=== PATIENT | male | born 1945 | race Caucasian/White ===

== ENCOUNTER → 2016-05-09 | Outpatient (CLI) | payer OTHER, MEDICARE ==
[~2016-05-09] MED LIST: ASPI-232 PO; CETI10TA84 PO; EZET10TA63 PO; FLM4 PO; MULT-845 PO; OXYC5TAB PO; PRAV20TA PO; TRC145 PO
[2016-05-09 07:56] LABS: PATIENT HEIGHT 170.2 cm
[2016-05-09 10:35] LABS: CREATININE 0.98 mg/dl (0.6-1.4)
== END | disposition home or self-care (01) ==
LOC: C.LAB1850 07:43
PROVIDERS: ATTEND Internal Medicine Pulmonary Disease
DX: J84.112 Idiopathic pulmonary fibrosis (principal); Z01.818 Encounter for other preprocedural examination

== ENCOUNTER → 2017-03-22 | Outpatient (CLI) | payer OTHER, MEDICARE ==
[~2017-03-22] MED LIST changes: +NINT1CAP2 PO
[2017-03-22 12:00] LABS: ALBUMIN 3.8 gm/dl (3.4-5.0); AST/SGOT 20 U/L (15-37); BLOOD UREA NITROGEN 18 mg/dl (7-18); CALCIUM 9.3 mg/dl (8.5-10.1); CARBON DIOXIDE 27 mmol/L (21-32); CREATININE 1.14 mg/dl (0.60-1.40); GLUCOSE 88 mg/dl (70-99); POTASSIUM 3.9 mmol/L (3.5-5.1); SODIUM 138 mmol/L (136-145)
[2017-03-22 12:03] LABS: ALKALINE PHOSPHATASE 50 U/L (45-117); ALT/SGPT 28 U/L (12-78)
== END | disposition home or self-care (01) ==
LOC: C.LAB1850 09:25
PROVIDERS: ATTEND Internal Medicine Critical Care Medicine
DX: J84.9 Interstitial pulmonary disease, unspecified (principal); Z79.899 Other long term (current) drug therapy

== ENCOUNTER → 2017-06-06 | Outpatient (CLI) | payer OTHER, MEDICARE ==
[~2017-06-06] MED LIST changes: -NINT1CAP2 PO
[2017-06-06 11:27] LABS: ALBUMIN 3.6 gm/dl (3.4-5.0)
== END | disposition home or self-care (01) ==
LOC: C.LAB1850 10:14
PROVIDERS: ATTEND Internal Medicine Critical Care Medicine
DX: J84.112 Idiopathic pulmonary fibrosis (principal)

== ENCOUNTER → 2017-07-03 | Outpatient (CLI) | payer OTHER, MEDICARE ==
[2017-07-03 15:58] LABS: ALBUMIN 3.4 gm/dl (3.4-5.0); TOTAL PROTEIN 8.3 gm/dl (6.4-8.2)
== END | disposition home or self-care (01) ==
LOC: C.LAB1850 13:57
PROVIDERS: ATTEND Internal Medicine Critical Care Medicine
DX: Z99.81 Dependence on supplemental oxygen (principal)

== ENCOUNTER → 2017-08-03 | Outpatient (CLI) | payer OTHER, MEDICARE ==
[2017-08-03 15:12] LABS: ALBUMIN 3.6 gm/dl (3.4-5.0); TOTAL PROTEIN 8.1 gm/dl (6.4-8.2)
== END | disposition home or self-care (01) ==
LOC: C.LAB1850 13:06
PROVIDERS: ATTEND Internal Medicine Critical Care Medicine
DX: Z99.81 Dependence on supplemental oxygen (principal)

== ENCOUNTER → 2017-11-05 | Outpatient (CLI) | payer OTHER, MEDICARE ==
[~2017-11-05] MED LIST changes: -EZET10TA63 PO; +NINT1CAP2 PO; -OXYC5TAB PO
[2017-11-05 10:56] LABS: ALBUMIN 3.6 gm/dl (3.4-5.0)
== END | disposition home or self-care (01) ==
LOC: C.LAB1850 09:39
PROVIDERS: ATTEND Internal Medicine Critical Care Medicine
DX: J84.112 Idiopathic pulmonary fibrosis (principal)

== ENCOUNTER 2023-12-18 11:35 | Inpatient (IN) ==
--- NOTE | 2023-12-18 11:58 | Emergency Department Note ---
Impression & Plan Hyponatremia, Syncope, CKD (chronic kidney disease) stage 3, GFR 30-59 ml/min, Pulmonary fibrosis ED Provider Note NAME: ELIDA GUARDADO AGE: 78 SEX: M : 1945 ARRIVES VIA: Ambulance INFORMANT: Patient ED PROVIDER(S): Santo Lynch DO CHIEF COMPLAINT: syncope HPI: Patient is a 78-year-old male with a past medical history of CKD, renal failure, pulmonary fibrosis with lung transplant who presents to the ER for syncopal episode. He notes he was up walking and became lightheaded and passed out. He was lowered to the ground by his . Denies any headache or change in vision. No chest pain or shortness of breath preceding or following the episode. He did have some nausea. No dysuria, urgency, or frequency. No belly pain. No other exacerbating or remitting factors. ADDITIONAL HISTORY OBTAINED: Per HPI Chronic Medical/Social Conditions Affecting Care: Per HPI PAST MEDICAL HISTORY:See Below PAST SURGICAL HISTORY:See Below FAMILY HISTORY:See Below SOCIAL HISTORY:See Below HOME MEDICATIONS:See Below ALLERGIES:See Below VITALS:See Below PHYSICAL EXAMINATION: GENERAL: Sitting up in bed, alert, well appearing, well nourished, no distress, non-toxic EYE EXAM: normal conjunctiva. PERRL and EOM's grossly intact. OROPHARYNX: mucous membranes are moist NECK: supple, no nuchal rigidity, no adenopathy, non-tender LUNGS: Clear to auscultation. Normal chest wall mechanics HEART: no murmurs, S1 normal and S2 normal ABDOMEN: abdomen soft, non-tender, normo-active bowel sounds, no masses, no rebound or guarding. UPPER EXTREMITIES: upper extremities are grossly normal. LOWER EXTREMITIES: No pitting edema. NEURO EXAM: Normal sensorium, cranial nerves II-XII grossly intact, normal speech, no gross weakness of arms, no gross weakness of legs. MEDICAL DECISION MAKING: Patient is a 78-year-old male who presents ER for the above-stated complaint. IV was established medicos obtained. Labs show no significant leukocytosis. Mild anemia fairly consistent with previous that he. BMP with hyponatremia 126 and hyperkalemia 5.2. Creatinine at 2 which appears to be fairly consistent with baseline. LFTs bilirubin is unremarkable. UA was clean. Additional history was obtained from who notes that patient was lowered to the ground did not fall. Chest x-ray was clean. Patient was updated bedside discussed with the hospitalist for further evaluation management treatment. Consults/Care Managements Discussions: Per MDM Triage Nursing notes reviewed. Limited review of prior medical records performed Vital Signs: reviewed and remarkable for no significant abnormalities Differential diagnosis: Differential diagnosis includes etiologies such as sepsis, UTI, pneumonia, metabolic, electrolyte abnormalities, cardiac sources, intracerebral event, toxicologic, neurological, as well as others were entertained. ER treatment provided: See below Diagnostics interpreted by me include EKG and cardiac monitoring as listed below: -Cardiac Monitoring: An order was placed for continuous cardiac monitoring. The monitor shows a rate of 80 with sinus rhythm. -ECG: Sinus rhythm rate 86 Normal axis No PVCs QTc 442 -Laboratory studies:Interpreted by me as stated above in MDM and shown below. 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) CKD (chronic kidney disease) stage 3, GFR 30-59 ml/min (Acute) Pulmonary fibrosis (Acute) Medical History (Updated 12/18/23 @ 16:18 by Santo Lynch DO) Anemia of chronic disease Interstitial lung disease Allergic rhinitis Spinal stenosis Right inguinal hernia Lumbar herniated disc BPH (benign prostatic hyperplasia) History of blood transfusion 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 History of tonsillectomy History of cardiac cath DIAGNOSTIC CATH FOR WORKUP FOR LUNG TRANSPLANT. History of colonoscopy Last one 11/2022 Family History Mother , 91yo Cancer Endometrial and breast cancer Dementia Hypertension Father , in his 80s Dementia Brother Myocardial infarction Sister Skin cancer Daughter No problems noted. 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 [employer] How many Children do You have: 2 Other Information That Helps Us Care for You: No Feels Safe at Home: Yes Safety Concerns: Feels Safe At This Time Diet: regular caffeine: Yes (10oz/day) during the past year weight has: decreased > 10 lbs Assistive Devices: Denture - Upper Allergies Allergies Allergy/AdvReac Type Severity Reaction Status Date / Time adhesive Allergy Intermediate REDENESS Verified 11/20/23 14:44 AND ITCHY Home Meds Home Medications Medication Instructions Recorded Confirmed pravastatin 20 mg tablet 20 mg PO QAM #0 tabs 02/04/16 12/18/23 tamsulosin 0.4 mg capsule 1 cap PO QAM ##0 02/04/16 12/18/23 mycophenolate mofetil 500 mg tablet 750 mg PO BID 06/02/18 12/18/23 sulfamethoxazole 800 0.5 tab PO 3XWK 06/02/18 12/18/23 mg-trimethoprim 160 mg tablet tacrolimus 1 mg capsule, 2 mg PO BID 06/02/18 12/18/23 immediate-release azithromycin 250 mg tablet 250 mg PO 3XWK 01/15/19 12/18/23 aspirin 81 mg tablet,delayed 81 mg PO DAILY 11/21/22 12/18/23 release montelukast 10 mg tablet 10 mg PO DAILY 11/21/22 12/18/23 prednisone 5 mg tablet 5 mg PO DAILY 11/21/22 12/18/23 acetaminophen 325 mg capsule 650 mg PO QID PRN pain or fever 09/05/23 12/18/23 (Tylenol) epoetin pavel-epbx 40,000 unit/mL 40,000 unit subcut .Weekly 09/05/23 12/18/23 injection solution (Retacrit) ergocalciferol (vitamin D2) 1,250 50,000 unit PO .QOweek 09/05/23 12/18/23 mcg (50,000 unit) capsule (Vitamin D2) everolimus (immunosuppressive) 0.5 1 mg PO .In the AM 09/05/23 12/18/23 mg tablet (Zortress) everolimus (immunosuppressive) 0.5 1.5 mg PO .In afternoon 09/05/23 12/18/23 mg tablet (Zortress) fluticasone propionate 50 2 spray intranasal HS 09/05/23 12/18/23 mcg/actuation nasal spray,suspension (Flonase Allergy Relief) guaifenesin 600 mg tablet, 600 mg PO Q12H PRN Congestion 09/05/23 12/18/23 extended release 12 hr lisinopril 5 mg tablet 5 mg PO DAILY 09/05/23 12/18/23 pantoprazole 40 mg tablet,delayed 40 mg PO DAILY 09/05/23 12/18/23 release sodium bicarbonate 650 mg tablet 1,300 mg PO BID 09/05/23 12/18/23 mirtazapine 15 mg tablet (Remeron) 15 mg PO DAILY 11/05/23 12/18/23 Previous Rx's Medication Instructions Recorded silver sulfadiazine 1 % topical 1 applic topical BID Radiation 11/12/23 cream (Silvadene) dermatitis #85 grams Results & Data (ED) Vital Signs Vital Signs - 24 hr 12/18/23 12:32 12/18/23 12:35 12/18/23 12:35 Temperature 36.7 C 36.7 C Temperature Source Oral Oral Pulse Rate 81 Pulse Rate [Left Finger] 81 Respiratory Rate 17 17 Respiratory Effort / Characteristics Non-Labored Spontaneous Non-Labored Spontaneous Blood Pressure 123/67 Blood Pressure [Right Arm] 123/67 Blood Pressure Mean 85 Blood Pressure Mean [Right Arm] 85 Blood Pressure Position Lying Blood Pressure Position [Right Arm] Lying Pulse Oximetry 99 99 99 Oxygen Delivery Method Room Air Room Air Room Air Oxygen Flow Rate 0 Sepsis Recent Fever Within 48 Hours No Sepsis New/Unexplained Change in Mental Status No Sepsis Action Taken by Nursing No Action Required 12/18/23 12:35 12/18/23 12:37 Temperature Temperature Source Pulse Rate 81 87 Pulse Rate [Left Finger] Respiratory Rate 17 Respiratory Effort / Characteristics Blood Pressure Blood Pressure [Right Arm] Blood Pressure Mean Blood Pressure Mean [Right Arm] Blood Pressure Position Blood Pressure Position [Right Arm] Pulse Oximetry 99 Oxygen Delivery Method Room Air Oxygen Flow Rate Sepsis Recent Fever Within 48 Hours Sepsis New/Unexplained Change in Mental Status Sepsis Action Taken by Nursing Laboratory Data 12/18/23 12:23 12/18/23 12:23 Lab Results 12/18/23 12/18/23 Range/Units 12:23 12:50 WBC 9.69 (4.8-10.8) K/ul RBC 2.52 L (4.70-6.10) M/uL Hgb 8.1 L (14.0-18.0) g/dl Hct 25.5 L (42.0-52.0) % MCV 101.2 H (80.0-100.0) fL MCH 32.1 (25.0-34.0) pg MCHC 31.8 L (32.0-36.0) g/dL RDW Std Deviation 51.3 H (36.4-46.3) fL RDW Coeff of Rodríguez 13.9 (11.5-14.5) % Plt Count 100 L (130-400) K/uL MPV 10.4 (9.4-12.4) fL Immature Gran % (Auto) 0.4 % Neut % (Auto) 94.1 % Lymph % (Auto) 1.5 % Lamb % (Auto) 3.9 % Eos % (Auto) 0.0 % Baso % (Auto) 0.1 % Neut # (Auto) 9.11 H (1.40-6.50) K/uL Lymph # (Auto) 0.15 L (1.20-3.40) K/uL Lamb # (Auto) 0.38 (0.11-0.59) K/uL Eos # (Auto) 0.00 (0.00-0.50) K/uL Baso # (Auto) 0.01 (0.00-0.20) K/uL Immature Gran # (Auto) 0.04 (0.01-0.20) K/uL Polychromasia 1+ Tear Drop Cells 1+ Sodium 126 L (136-145) mmol/L Potassium 5.2 H (3.5-5.1) mmol/L Chloride 97 L (98-107) mmol/L Carbon Dioxide 19 L (21-32) mmol/L Anion Gap 10 (3-11) BUN 39 H (6-23) mg/dl Creatinine 2.07 H (0.6-1.4) mg/dl Est Cr Clr Drug Dosing 24.4 ml/min Est GFR ( Amer) 34.3 ml/min Est GFR (Non-Af Amer) 29.6 ml/min BUN/Creatinine Ratio 18.8 (10-20) Glucose 104 H (70-99(Fasting)) mg/dl Osmolality 275 L (280-300) mOsm/kg Calcium 8.7 (8.6-10.3) mg/dl Total Bilirubin 0.4 (0.2-1.0) mg/dl AST 16 (13-39) U/L ALT 6 L (7-52) U/L Alkaline Phosphatase 85 (34-104) U/L Troponin I High Sens 8.2 (0-20) pg/ml Total Protein 6.0 (6.0-8.3) gm/dl Albumin 3.4 (3.4-5.0) gm/dl Globulin 2.6 (2.5-4.0) gm/dl Albumin/Globulin Ratio 1.3 (0.9-2) Lipase 11 (11-82) U/L Urine Color Yellow Urine Appearance Clear (Clear) Urine pH 6.0 (4.5-7.5) Ur Specific [place] 1.016 (1.000-1.030) Urine Protein 1+ H (Negative) Urine Glucose (UA) Negative (Negative) Urine Ketones Negative (Negative) Urine Blood Trace H (Negative) Urine Nitrite Negative (Negative) Urine Bilirubin Negative (Negative) Urine Urobilinogen Negative (Negative) Ur Leukocyte Esterase Negative (Negative) Urine WBC (Auto) 0-5 (0-5) /hpf Urine RBC (Auto) 0-2 (0-2) /hpf U Hyaline Cast (Auto) 3-5 H (0-2) /lpf U Epithel Cells (Auto) 0-2 (0-2) /hpf Urine Bacteria (Auto) None Seen (None Seen) Imaging Data Radiologist's Impression: Chest X-Ray 12/18/23 11:52 XR chest 1V portable CLINICAL HISTORY: Chest pain, nonspecific TECHNIQUE: Single frontal radiograph of the chest was obtained. Comparison: Comparison is made to chest radiograph 06/02/2018 FINDINGS: No lines and tubes are seen. The cardiomediastinal silhouette is normal. Elevation of the right hemidiaphragm is seen. Likely interstitial changes in the right lung. No evidence of pleural effusion or pneumothorax. IMPRESSION: Right interstitial lung disease is again seen. ACT 112: Negative or not required by law. Electronically signed by: Deniz oGmez M.D. 12/18/2023 12:44 PM Discharge Plan Visit Data Chief Complaint: Syncope ED Provider: Santo Lynch Discharge Problem: Hyponatremia, Syncope, CKD (chronic kidney disease) stage 3, GFR 30-59 ml/min, Pulmonary fibrosis Patient Disposition: Admitted As Inpatient Discharge Instructions Interventions: ED Discharge Assessment Last Done: 12/18/23 15:39 Discharge Problem: Syncope Qualifiers: Encounter type: initial encounter CKD (chronic kidney disease) stage 3, GFR 30-59 ml/min Qualifiers: Chronic kidney disease stage 3 subtype: unspecified whether 3a or 3b Qualified Code(s): N18.30 - Chronic kidney disease, stage 3 unspecified
[2023-12-18 12:44] LABS: Hematocrit (blood only) 25.5 % (42.0-52.0); Hemoglobin 8.1 g/dl (14.0-18.0); Mean Corpuscular Hemoglobin 32.1 pg (25.0-34.0); Mean Corpuscular Hgb Conc 31.8 g/dL (32.0-36.0); Mean Corpuscular Volume 101.2 fL (80.0-100.0); Mean Platelet Volume 10.4 fL (9.4-12.4); Platelet Count 100 K/uL (130-400); RDW Coefficient of Variation 13.9 % (11.5-14.5); RDW Standard Deviation 51.3 fL (36.4-46.3); Red Blood Count 2.52 M/uL (4.70-6.10); White Blood Count 9.69 K/ul (4.8-10.8)
--- NOTE | 2023-12-18 12:47 | XRay Report ---
XR chest 1V portable CLINICAL HISTORY: Chest pain, nonspecific TECHNIQUE: Single frontal radiograph of the chest was obtained. Comparison: Comparison is made to chest radiograph 06/02/2018 FINDINGS: No lines and tubes are seen. The cardiomediastinal silhouette is normal. Elevation of the right hemid iaphragm is seen. Likely interstitial changes in the right lung. No evidence of pleural effusion or p neumothorax. IMPRESSION: Right interstitial lung disease is again seen. ACT 112: Negative or not required by law. Electronically signed by: Deniz Gomez M.D. 12/18/2023 12:44 PM
[2023-12-18 13:03] LABS: Basophils # (auto) 0.01 K/uL (0.00-0.20); Basophils % (auto) 0.1 %; Immature Granulocytes # (auto) 0.04 K/uL (0.01-0.20); Immature Granulocytes % (auto) 0.4 %; Lymphocytes # (auto) 0.15 K/uL (1.20-3.40); Lymphocytes % (auto) 1.5 %; Monocytes # (auto) 0.38 K/uL (0.11-0.59); Monocytes % (auto) 3.9 %; Neutrophils # (auto) 9.11 K/uL (1.40-6.50); Neutrophils % (auto) 94.1 %; Polychromasia 1+; Tear Drop Cells 1+
[2023-12-18 13:07] LABS: Albumin Globulin Ratio 1.3 (0.9-2); Albumin Level 3.4 gm/dl (3.4-5.0); BUN Creatinine Ratio 18.8 (10-20); Bilirubin,Total 0.4 mg/dl (0.2-1.0); Calcium 8.7 mg/dl (8.6-10.3); Creatinine Clr Calc Pharmacy 24.4 ml/min; Est GFR (African American) 34.3 ml/min; Est GFR (Non-African American) 29.6 ml/min; Globulin 2.6 gm/dl (2.5-4.0); Potassium 5.2 mmol/L (3.5-5.1)
[2023-12-18 13:12] LABS: Troponin I High Sensitivity 8.2 pg/ml (0-20)
[2023-12-18 13:24] LABS: Appearance Urine Clear (Clear); Bacteria Urine Automated None Seen (None Seen); Bilirubin Urine Negative (Negative); Blood Urine Trace (Negative); Color Urine Yellow; Epithelial Cell Urine Auto 0-2 /hpf (0-2); Glucose Urine UA Negative (Negative); Ketones Urine Negative (Negative); Leukocyte Esterase Urine Negative (Negative); Nitrite Urine Negative (Negative); Protein Urine 1+ (Negative); RBC Urine Automated 0-2 /hpf (0-2); Specific Gravity Urine 1.016 (1.000-1.030); Urobilinogen Urine Negative (Negative); WBC Urine Automated 0-5 /hpf (0-5)
--- NOTE | 2023-12-18 13:47 | History & Physical Report ---
Date of Service December 18, 2023 Assessment & Plan (1) Syncope: (2) Hyponatremia: (3) Squamous cell carcinoma of head and neck: (4) CKD (chronic kidney disease) stage 4, GFR 15-29 ml/min: (5) Anemia of chronic disease: (6) Interstitial lung disease: (7) Pulmonary fibrosis: (8) Lung transplant recipient: (9) BPH (benign prostatic hyperplasia): Plan This is a 78-year-old male with PMH of interstitial lung disease, history of left lung transplant in [address] [facility], history of bronchiolitis obliterans syndrome following lung transplant, h/o PE but Eliquis discontinued in Nov 2022 following upper GI bleed, thrombocytopenia, CKD 4, nonobstructive CAD, BPH, SCC R face (s/p recent Mohs surgery on R ear, XRT) and other medical problems listed below who presents from home after witnessed syncopal episode earlier this afternoon. Syncope Likely vasovagal in setting of poor PO intake, positional change History of non-obstructive CAD in the past, hyperkalemia Orthostatics, correct electrolyte abnormalities, monitor on tele, 2D echo Fall precautions PT/OT evaluation Hyponatremia Sodium of 126 (baseline Na 134) Follows with nephro for worsening CKD, chronic NAGMA Missed doses of sodium bicarb due to some post-radiation dysphagia and difficulty with pill size Serum osm, urine osm, urine lyes pending Appears euvolemic Routine nephro consult Repeat BMP this evening Dysphagia in setting of SCC of ear s/p treatment Recently underwent Mohs surgery for SCC followed by XRT with [facility], which completed at beginning of Nov Endorsing worsened dysphagia since then Speech consult, aspiration precautions CKD IV Recent baseline Cr @ 2.2, started following with nephro last year Hyperkalemia Intermittent need for Lokelma Initial K mildly elevated at 5.2 today Repeat BMP this evening, nephro consulted as above Anemia of chronic disease Hgb 8.1, improved from recent Dose of weekly Procrit recently increased but missed tx at nephro appt today due to hospitalization Daily CBC ILD/ pulmonary fibrosis S/p single lung transplant in 2018, [facility] Respiratory status at baseline No infectious concerns, CXR at baseline Continue his immunosuppressive medications (everolimus, Cellcept, prednisone) and chronic suppressive antibiotics 3d/wk (azithromycin, Bactrim) Continue Mucinex, Singulair History of PE and DVT Occurred in post-op setting in 2018 Eliquis discontinued in 2022 following upper GI bleeding, ongoing anemia of chronic disease BPH Continue Flomax Thrombocytopenia Plts ~ 100, at baseline Monitor with daily CBC Hyperlipidemia Continue statin DVT Ppx: SCDs for now, plan to add chemical VTE if platelets remain stable, no hematuria Code status: FULL PCP: Dawson Dispo: Admitted to PCU Patient seen in collaboration with Dr. Dugan. Please see addendum. I spent a total of 75 minutes coordinating, documenting, and providing care for this patient excluding time spent in the performance of separately billed services. History of Present Illness Chief Complaint: syncope Primary Care Provider: Gino Osman MD This is a 78-year-old male with PMH of interstitial lung disease, history of left lung transplant in [address] [facility], history of bronchiolitis obliterans syndrome following lung transplant, h/o PE but Eliquis discontinued in Nov 2022 following upper GI bleed, thrombocytopenia, CKD 4, nonobstructive CAD, BPH, SCC R face (s/p recent Mohs surgery on R ear, XRT) and other medical problems listed below who presents from home after witnessed syncopal episode earlier this afternoon. 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 Ever since then, patient endorses feeling more run down and nauseated. Denies vomiting but has trouble clearing phlegm. Had difficulty with swallowing which has remained an intermittent issue he attributes to radiation in that area of his face/neck. Drinks a lot of water overnight and has had decreased PO intake lately in setting of the nausea. Walked downstairs today and when he reached the bottom felt lightheaded and passed out. was able to ease him to the ground and states he came to quickly. No head trauma. No CP or SOB preceding or after the event. Has worsening anemia of chronic disease and follows with nephro for this. Recently had procrit dose increased from 40 to 60 weekly but missed appt for that today due to coming to ED instead. Also supposed to be taking sodium bicarb for history of NAGMA and admits to missing a few doses last week. Recently seen at [facility] in [place] for hernia repair and while admitted there was noted to have hyperkalemia. Completed a short course of Lokelma with improvement. Denies any recent medication changes. No F/C, headache, CP, palpitations, SOB, vomiting, abd pain, dysuira or constipation. History of chronic diarrhea which is at baseline. Allergies Allergy/AdvReac Type Severity Reaction Status Date / Time adhesive Allergy Intermediate REDENESS Verified 11/20/23 14:44 AND ITCHY Home Medications Medication Instructions Recorded Confirmed Type pravastatin 20 mg tablet 20 mg PO QAM #0 tabs 02/04/16 12/18/23 History tamsulosin 0.4 mg capsule 1 cap PO QAM ##0 02/04/16 12/18/23 History mycophenolate mofetil 500 mg tablet 750 mg PO BID 06/02/18 12/18/23 History sulfamethoxazole 800 0.5 tab PO 3XWK 06/02/18 12/18/23 History mg-trimethoprim 160 mg tablet tacrolimus 1 mg capsule, 2 mg PO BID 06/02/18 12/18/23 History immediate-release azithromycin 250 mg tablet 250 mg PO 3XWK 01/15/19 12/18/23 History aspirin 81 mg tablet,delayed 81 mg PO DAILY 11/21/22 12/18/23 History release montelukast 10 mg tablet 10 mg PO DAILY 11/21/22 12/18/23 History prednisone 5 mg tablet 5 mg PO DAILY 11/21/22 12/18/23 History acetaminophen 325 mg capsule 650 mg PO QID PRN pain or fever 09/05/23 12/18/23 History (Tylenol) epoetin pavel-epbx 40,000 unit/mL 40,000 unit subcut .Weekly 09/05/23 12/18/23 History injection solution (Retacrit) ergocalciferol (vitamin D2) 1,250 50,000 unit PO .QOweek 09/05/23 12/18/23 History mcg (50,000 unit) capsule (Vitamin D2) everolimus (immunosuppressive) 0.5 1 mg PO .In the AM 09/05/23 12/18/23 History mg tablet (Zortress) everolimus (immunosuppressive) 0.5 1.5 mg PO .In afternoon 09/05/23 12/18/23 History mg tablet (Zortress) fluticasone propionate 50 2 spray intranasal HS 09/05/23 12/18/23 History mcg/actuation nasal spray,suspension (Flonase Allergy Relief) guaifenesin 600 mg tablet, 600 mg PO Q12H PRN Congestion 09/05/23 12/18/23 History extended release 12 hr lisinopril 5 mg tablet 5 mg PO DAILY 09/05/23 12/18/23 History pantoprazole 40 mg tablet,delayed 40 mg PO DAILY 09/05/23 12/18/23 History release sodium bicarbonate 650 mg tablet 1,300 mg PO BID 09/05/23 12/18/23 History mirtazapine 15 mg tablet (Remeron) 15 mg PO DAILY 11/05/23 12/18/23 History silver sulfadiazine 1 % topical 1 applic topical BID Radiation 11/12/23 12/18/23 Rx cream (Silvadene) dermatitis #85 grams Past Med/Surg History Problem List (Updated 12/18/23 @ 15:05 by Cindy Aguilar PA-C) Syncope Hyponatremia CKD (chronic kidney disease) stage 4, GFR 15-29 ml/min Squamous cell carcinoma of head and neck (Chronic 07/12/23) CKD (chronic kidney disease) stage 3, GFR 30-59 ml/min Pulmonary fibrosis Medical History (Updated 12/18/23 @ 15:05 by Cindy Aguilar PA-C) Anemia of chronic disease Interstitial lung disease Allergic rhinitis Spinal stenosis Right inguinal hernia Lumbar herniated disc BPH (benign prostatic hyperplasia) History of blood transfusion 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 History of tonsillectomy History of cardiac cath DIAGNOSTIC CATH FOR WORKUP FOR LUNG TRANSPLANT. History of colonoscopy Last one 11/2022 Family History Mother , 91yo Cancer Endometrial and breast cancer Dementia Hypertension Father , in his 80s Dementia Brother Myocardial infarction Sister Skin cancer Daughter No problems noted. 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 Physical Exam Physical Exam: General Appearance: WD/WN, vitals as above, NAD, sitting up in bed, thin, chronically ill appearing, pleasant Head: normocephalic, atraumatic Eyes: normal inspection, PERRL, conjunctivae normal, anicteric sclerae ENT: + R external ear s/p surgical excision with deformity noted, oropharynx normal Neck: normal visual inspection, trachea midline, no thyromegaly Respiratory: normal respiratory effort, coarse breath sounds bilaterally. No accessory muscle use Cardiovascular: regular rate, rhythm, normal peripheral pulses, no BLE edema. Vessels: no JVD Chest: normal inspection of chest Abdomen/GI: normal bowel sounds, soft, nontender, no hepatosplenomegaly Extremities/Musculoskeletal: no cyanosis or clubbing, extremities motor strength 5/5 Neurologic: PERRL, EOMI, accommodation nl, no face palsy, no dysarthria, CN's II-XI intact bilaterally and moves all extremities Psychiatric: A+Ox3, euthymic affect Skin: no rashes, normal color, warm/dry Results & Data Results & Data Vital Signs (Past 12 Hours) Vital Signs Temp Pulse Pulse Resp BP BP Pulse Ox 12/18/23 12:37 87 12/18/23 12:35 81 17 99 12/18/23 12:35 36.7 C 81 17 123/67 99 12/18/23 12:35 99 12/18/23 12:32 36.7 C 81 17 123/67 99 O2 Del Method O2 Flow Rate 12/18/23 12:37 12/18/23 12:35 Room Air 12/18/23 12:35 Room Air 12/18/23 12:35 Room Air 0 12/18/23 12:32 Room Air Laboratory Results Short CBC 12/18/23 Range/Units 12:23 WBC 9.69 (4.8-10.8) K/ul Hgb 8.1 L (14.0-18.0) g/dl Hct 25.5 L (42.0-52.0) % Plt Count 100 L (130-400) K/uL BMP 12/18/23 12:23 Sodium 126 L Potassium 5.2 H Chloride 97 L Carbon Dioxide 19 L BUN 39 H Creatinine 2.07 H Glucose 104 H Calcium 8.7 Liver Function 12/18/23 Range/Units 12:23 Total Bilirubin 0.4 (0.2-1.0) mg/dl AST 16 (13-39) U/L ALT 6 L (7-52) U/L Alkaline Phosphatase 85 (34-104) U/L Albumin 3.4 (3.4-5.0) gm/dl Urine 12/18/23 Range/Units 12:50 Urine Color Yellow Urine Appearance Clear (Clear) Urine pH 6.0 (4.5-7.5) Ur Specific [place] 1.016 (1.000-1.030) Urine Protein 1+ H (Negative) Urine Glucose (UA) Negative (Negative) Diagnostic Findings Chest X-Ray 12/18/23 11:52 XR chest 1V portable CLINICAL HISTORY: Chest pain, nonspecific TECHNIQUE: Single frontal radiograph of the chest was obtained. Comparison: Comparison is made to chest radiograph 06/02/2018 FINDINGS: No lines and tubes are seen. The cardiomediastinal silhouette is normal. Elevation of the right hemidiaphragm is seen. Likely interstitial changes in the right lung. No evidence of pleural effusion or pneumothorax. IMPRESSION: Right interstitial lung disease is again seen. ACT 112: Negative or not required by law. Electronically signed by: Deniz Gomez M.D. 12/18/2023 12:44 PM Supervising Physician Co-Signing Physician Notes 78-year-old male admitted with syncopal/presyncopal episode. Patient seen in the ED with Cindy Aguilar PA-C. His is present. Total of 13 minutes spent in the care coordination of this patient. I agree with the assessment and plan per the SHAUNNA.
--- NOTE | 2023-12-18 15:12 | Electrocardiogram Report ---
Test Reason : Blood Pressure : */* mmHG Vent. Rate : 86 BPM Atrial Rate : 86 BPM P-R Int : 190 ms QRS Dur : 92 ms QT Int : 370 ms P-R-T Axes : 52 30 64 degrees QTcB Int : 442 ms Normal sinus rhythm Normal ECG When compared with ECG of 21-Nov-2022 19:47, No significant change was found Confirmed by River Levy ([id number]) on 12/18/2023 3:12:01 PM Referred By: REFERRED SELF Confirmed By: River Levy
[2023-12-18] MEDS ORDERED: POLYETHYLENE (MIRALAX) 17 GM PACK PO PRN (15:50)
[2023-12-18] MEDS ORDERED: guaiFENesin 600 MG TABCR PO PRN (15:50)
[2023-12-18] MEDS: ERGOCALCIFEROL 1250 MCG (50,000 UNITS) CAP PO SCH (17:52)
[2023-12-18] MEDS: SODIUM CHLORIDE 0.9% 1,000 ML IV SCH (18:50)
[2023-12-18 19:25] LABS: Calcium 8.6 mg/dl (8.6-10.3); Creatinine Clr Calc Pharmacy 21.8 ml/min; Est GFR (African American) 33.7 ml/min; Est GFR (Non-African American) 29.1 ml/min; Potassium 5.5 mmol/L (3.5-5.1)
[2023-12-18 19:29] LABS: Urine Potassium 29.7 mmol/L
[2023-12-18] MEDS: FLUTICASONE PROPIONATE NA SPR 16 GM BTL NAE SCH (21:04)
[2023-12-18] MEDS: MYCOPHENOLATE MOFETIL 250 MG CAP PO SCH (21:04)
[2023-12-18] MEDS: TACROLIMUS 1 MG CAP PO SCH (21:05)
[2023-12-18] MEDS: SODIUM BICARBONATE 650 MG TAB PO SCH (21:05)
[2023-12-18] MEDS: SILVER SULFADIAZINE 1% CR 50 GM JAR TOP SCH (21:09)
[2023-12-18] MEDS: ACETAMINOPHEN 325 MG TAB PO PRN (21:23)
--- OUTSIDE RECORDS SUMMARY | 2023-12-18 22:12 | External Medical Summary | Summary of Care ---
Author Name Unknown Organization [facility] Address [address] [facility] [place] [address] Phone [phone] Care Team Providers Care Advertising Statistical Clerk Name Role Phone Gino Osman MD Primary Care Provider Reason for Visit * Reason Onset Date Comments Medication Question 12/14/2023 Encounter Details Date Type Department Care Team (Late st Contact Info) Description 12/14/2023 Telephone NephrologyGabrielle [address] [facility] [place] [address] Ashely Chapa MD [address] [place] [address] Medication Question Allergies Active Allergy Reactions Criticality Noted Date Comments Adhesive Tape Itching High 11/21/2022 documented as of this encounter (statuses as of 12/14/2023) Medications Medication Sig Dispensed Refills Start Date End Date Status ASPIRIN EC 81 MG PO TBECIndications:Dysl ipidemia, goal LDL below 100,Mixed dyslipidemia Take one pill daily 100 Tab 3 09/22/2013 Active sulfamethoxazole-tri methoprim DS (BACTRIM DS) 800-160 MG per tabletIndications:M- W- Take 0.5 Tablets by mouth once a day on Sunday, Sunday, and Sunday only. 05/06/2018 Active pravastatin (PRAVACHOL) 20 MG TabletIndications:Dy slipidemia, goal LDL below 100,Mixed dyslipidemia Take 1 Tab by mouth daily. 90 Tab 1 05/16/2018 Active azithromycin (ZITHROMAX) 250 MG Tablet One tablet M-W-F 6 Tab 1 11/27/2018 Active mycophenolate (CELLCEPT) 500 MG Tablet Take 1.5 Tablets by mouth in the morning and 1.5 Tablets before bedtime. 1 Tab 08/26/2019 Active predniSONE (YOVANY) 5 MG TBEC Take by mouth. In the morning Active Everolimus 0.5 MG Oral Tablet (Zortress)Indication s:2 tablet 2 times aday 1 mg (1 Tab) in the AM 1.5 mg in the PM (3 tabs) Indications: 2 tablet 2 times aday 1 Tab 06/15/2020 Active Montelukast Sodium 10 MG Oral Tablet (Singulair) Take 1 Tablet by mouth. Takes in evening 09/01/2020 Active guaiFENesin ER 600 MG Oral Tablet Extended Release 12 Hour Take 1 Tablet by mouth. 02/24/2020 Active Tacrolimus 1 MG Oral Capsule (Prograf)Indications :History of lung transplant (HCC) Take 2 Capsules by mouth in the morning and 2 Capsules before bedtime. Takes 2 mg in the AM and 2 mg in the PM. 30 Cap 12/16/2020 Active Ergocalciferol 1.25 MG (71407 UT) Oral Capsule (Vitamin D2(Drisdol)) On Sunday bimonthly 12 Capsule 01/02/2023 Active Tamsulosin HCl 0.4 MG Oral Capsule (Flomax)Indications: BPH with obstruction/lower urinary tract symptoms TAKE ONE CAPSULE BY MOUTH IN THE MORNING 90 Capsule 3 04/01/2023 Active Fluticasone Propionate 50 MCG/ACT Nasal Suspension (Flonase) Administer 1 [place] into nostril in the morning and 1 [place] before bedtime. 05/01/2023 Active Saline Nasal [place] 0.65 % Nasal Solution (Mccool) Administer 1 [place] into nostril. 05/01/2023 Active Pantoprazole Sodium 40 MG Oral Tablet Delayed Release (Protonix) Take 1 Tablet by mouth in the morning. 90 Tablet 3 05/15/2023 Active Sodium Bicarbonate 650 MG Oral TabletIndications:Ch ronic kidney disease, stage 3b (HCC) Take 2 Tablets by mouth in the morning and 2 Tablets before bedtime. 360 Tablet 3 08/28/2023 Active Sodium Zirconium Cyclosilicate 10 GM Oral Packet (Lokelma) Take 1 Packet by mouth. 11/23/2023 Active Lisinopril 5 MG Oral Tablet (Prinivil) TAKE ONE TABLET BY MOUTH EVERY DAY IN THE MORNING. 30 Tablet 5 12/03/2023 Active Mirtazapine 15 MG Oral Tablet (Remeron) Take 1 Tablet by mouth at bedtime. 10/30/2023 Active Hospital, Clinic, or Other Facility Administered Medication Ordered Dose Route Frequency Start Date End Date Status Epoetin Rogelio 22845 UNIT/ML inj 60,000 UnitsIndications:Anemia of chronic renal failure, stage 3b (HCC) 55461 Units SC QWEEK 12/18/2023 Active documented as of this encounter (statuses as of 12/14/2023) Active Problems Problem Noted Date Diagnosed Date Anemia 08/10/2023 Chronic kidney disease, stage 4 (severe) 023 Overview: Per CKD protocol Bronchiolitis obliterans syn drome due to lung transplantation 08/26/2019 History of pulmonary fibrosis 11/27/2018 Pulmonary embolus, left 06/13/2018 Acute deep vein thrombosis (DVT) of right lower extremity 06/13/2018 Current use of care home 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 019 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 Overview: left 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 Interstitial lung disease 03/19/2015 Chronic rhinitis 03/30/2014 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 Restrictive lung disease documented as of this encounter (statuses as of 12/14/2023) Resolved Problems Problem Noted Date Diagnosed Date Resolved Date Prediabetes 08/27/2023 09/27/2023 Overview: Per Prediabetes protocol Chronic kidney disease, stage 3b 02/27/2022 03/01/2023 Overview: Per CKD protocol Chronic kidney disease, stage 3a 01/26/2020 03/02/2022 Overview: Per CKD protocol SOB (shortness of breath) 10/06/2015 Primary osteoarthritis, left wrist 10/06/2015 10/27/2016 Special screening for malign ant neoplasm of prostate 03/30/2014 10/27/2016 Routine medical exam 09/22/2013 017 Dyslipidemia, goal LDL below 100 06/12/2018 documented as of this encounter (statuses as of 12/14/2023) Immunizations Name Administration Dates Next Due COVID-19 mRNA, LNP-s, No Pre serve, 2-Dose Series (ResponseTek) 09/03/2021,11/04/2020,05/27/2020,04/19 COVID-19, MRNA-LNP, 23-24, P F, 30 MCG/0.3 mL, 12 YRS AND ABOVE, IM ([employer]) 02/22/2023 COVID-19, MRNA-LNP, 24-25, P R, 30MCG/0.3ML, IM, 12YRS AND ABOVE (ResponseTek-Spinomix) 11/30/2023 Covid-19, Mrna, Lnp-s, Pf, B ivalent, 30 Mcg, IM, 12 yrs and above ([employer]Tek) 01/17/2022 Hepatitis B, 20+ yrs 01/03/2017,08/03/2016,07/05 Pneumococcal Conjugate Vacc, 13 Valent (Prevnar) 04/01/2015 Pneumococcal Polysaccharide PPV23 (Pneumovax) 05/14/2012 Seasonal Influenza, PF, 6 M & above, IM , (FluLaval or Fluzone) 12/16/2019,11/27/2018,05/05/2018,08/201712/22/2018 Seasonal Influenza, Quadriva lent Hd (Fluzone Hd) 12/27/2022,01/11/2022,12/16/2020 Seasonal Influenza, Quadriva lent, No Preserve, IM 12/01/2016,01/10/2016,01/02/2015 Seasonal Influenza, Trivalen t, (IIV3), with Preserv, (Fluzone) 11/29/2013 TDAP (age 10 and older)(Boostrix) 06/23/2022 TDAP, Age 7 and older, IM (Adacel) 10/02/2011 Varicella Zoster Vaccine (Adult) 08/15/2012 Zoster Vaccine Recombinant (Shingrix) 05/27/2018 ,11/20/2017 documented as of this encounter Social History Tobacco Use Types Packs/Day Years Used Date Smoking Tobacco: Never Passive Smoke Exposure: Past Smokeless Tobacco: Never Alcohol Use Standard Drinks/Week Comments No 0 (1 standard drink = 0.6 oz pur e alcohol) PHQ-2 Answer Date Recorded PHQ Adult Total Score 1 03/06/2023 Hunger Vital Sign Answer Date Recorded Within the past 12 months, y ou worried that your food would run out before you got the money to buy more. Never true 11/25/19 23 Within the past 12 months, t he food you bought just didn't last and you didn't have money to get more. Never true 11/24/2022 Sex and Gender Information Value Date Recorded Sex Assigned at Male 08/06/2018 2:00 PM EDT Gender Identity Male 08/06/2018 2:00 PM EDT Sexual Orientation Straight 02/27/2022 3: 59 PM EST Job Start Date Occupation Industry Not on file Not on file Not on file documented as of this encounter Miscellaneous Notes * Telephone Encounter - aCndy Ewing RN - 12/14/2023 8:49 AM EDT Following up on medication dose- Wanted to ensure that it was noted that Dr Chapa has increased Procrit to 60,000 units weekly. Will reach out to pt this morning. documented in this encounter Plan of Treatment Upcoming Encounters Date Type Department Care Team (Late st Contact Info) Description 12/20/2023 9:30 AM EDT Pharmacy Pharmacy, [address] [address] Clinic, [address] [address] 01/21/2024 10:00 AM EST Office Visit Nephrology, Gabrielle Silva [address] [place] [address] ZeLaurita alcala PA-C [address] [facility] [place] [address] 04/01/2024 1:00 PM EST Nurse Only [address]illary [address], [address] [address] [place], Nurse Annual Wellness [address] [place] [address] 04/01/2024 2:20 PM EST Office Visit [facility], [place] [address] [place] [phone] Gino Osman MD [address] [place] [address] 05/14/2024 2:00 PM EST Laboratory Laboratory [facility] [address] [place] [address] [facility] [address] [facility] [place] [address] 05/21/2024 2:15 PM EST Office Visit Hematology/Oncology [facility] [address] [facility] [place] [address] Cleve Bruce MD [address] [place] [address] Health Maintenance Due Date Last Done Comments Alpha-1 Antitrypsin 1963 Influenza Vaccine (FLU shot) (#1) 2023 12/27/2022, 01/11/2022, 12/16/2020, Additional history exists PTH 12/02/2023 12/01/2022 Hepatitis C Screening 02/28/2024 Postpo erna from 1962 (Patient Declined After Education) Adult Wellness Visit 03/06/2024 03/06/2023, 02/28/2022, 02/22/2021 Depression Screening 03/06/2024 03/06/2023, 05/01/19 18 GFR 05/26/2024 11/27/2023, 08/0 10/2023, 10/25/2023, Additional history exists Nephrology Referral 09/16/2024 09/17/2023 Phosphate 09/16/2024 09/17/2023, 08/18, 09/09/2023, Additional history exists Albumin/Creatinine Ratio 09/24/2024 024, 12/01/2022, 06/20/2021, Additional history exists Hgb 12/03/2024 12/04/2023, 11/17, 11/20/2023, Additional history exists DTap/Tdap Vaccines (3 - Td or Tdap) 06/23/2032 06/23/2022, 10/02/2011 Hepatitis B Vaccine Completed 01/03/2017, 08/03/2016, 07/05/2016 Pneumococcal Vaccine: 65+ Years Completed 05/23/2018, 04/01/2015, 05/14/2012 Zoster Vaccines Completed 05/27/2018, 06/2017, 08/15/2012 COVID-19 Vaccine Completed 11/30/2023, 09/2022, 01/17/2022, Additional history exists HPV (Gardasil) Vaccine Aged Out No lo nger eligible based on patient's age to complete this topic MENINGOCOCCAL (MENACTRA/MENVEO) Aged Out No longer eligible based on patient's age to complete this topic documented as of this encounter Medical Devices Implanted Type Area Cut Out Operator Device Identifier Shelf Expiration Date Model / Serial / Lot Lens Intraoc 18.0 - [id number] - [id number] Implanted:Qty: 1 on 11/20/2019 by Sonu Valladares MD at OR [facility] Left: Eye [employer]CH [employer] LOMB 02/16/2024 [id number] / [id number] / [id number] Sofport Implanted:Qty: 1 on 12/02/2019 by Sonu Valladares MD at OR [facility] Right: Eye 11/17/2023 [id number] / / [id number] documented as of this encounter Care Teams Advertising Statistical Clerk Relationship Specialty Start Date End Date Gino Osman MD [address] [facility] [place] [id number] PCP - General Family Medicine 05/06/18 documented as of this encounter
--- OUTSIDE RECORDS SUMMARY | 2023-12-18 22:12 | External Medical Summary | Summary of Care ---
Author Name Unknown Organization [facility] Address [address] [facility] [place] [address] Phone [phone] Care Team Providers Care Recruiter Specialist Name Role Phone Gino Osman MD Primary Care Provider [phone] Reason for Visit * Reason Onset Date Comments Advice 12/04/2023 Encounter Details Date Type Department Care Team (Late st Contact Info) Description 12/04/2023 Telephone Nephrology, [place] [address] [facility] [place] [address] Ashely Chapa MD [address] [place] [address] Advice Allergies Active Allergy Reactions Criticality Noted Date Comments Adhesive Tape Itching High 11/21/2022 documented as of this encounter (statuses as of 12/04/2023) Medications Medication Sig Dispensed Refills Start Date End Date Status ASPIRIN EC 81 MG PO TBECIndications:Dysl ipidemia, goal LDL below 100,Mixed dyslipidemia Take one pill daily 100 Tab 3 09/22/2013 Active sulfamethoxazole-tri methoprim DS (BACTRIM DS) 800-160 MG per tabletIndications:- W- Take 0.5 Tablets by mouth once a day on Sunday, Sunday, and Sunday only. 05/06/2018 Active pravastatin (PRAVACHOL) 20 MG TabletIndications:Dy slipidemia, goal LDL below 100,Mixed dyslipidemia Take 1 Tab by mouth daily. 90 Tab 1 05/16/2018 Active azithromycin (ZITHROMAX) 250 MG Tablet One tablet M-W- 6 Tab 1 11/27/2018 Active mycophenolate (CELLCEPT) [...] 30 Cap 12/16/2020 Active Ergocalciferol 1.25 MG (50144 UT) Oral Capsule (Vitamin D2(Drisdol)) On Sunday bimonthly 12 Capsule 01/02/2023 Active Tamsulosin HCl 0.4 MG Oral Capsule (Flomax)Indications: BPH with obstruction/lower urinary tract symptoms TAKE ONE CAPSULE BY MOUTH IN THE MORNING 90 Capsule 3 04/01/2023 Active Fluticasone Propionate 50 MCG/ACT Nasal Suspension (Flonase) Administer 1 [place] into nostril in the morning and 1 [place] before bedtime. 05/01/2023 Active Saline Nasal [place] 0.65 % Nasal Solution ([place]) Administer 1 [place] into nostril. 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 History of pulmonary fibrosis 11/27/2018 Pulmonary embolus, left 06/13/2018 Acute deep vein thrombosis (DVT) of right lower extremity 06/13/2018 Current use of termite control representative 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 019 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 Overview: left [facility] 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 Interstitial lung disease 03/19/2015 Chronic rhinitis 03/30/2014 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 Restrictive lung disease documented as of this encounter (statuses as of 12/04/2023) Resolved Problems Problem Noted Date Diagnosed Date [...] as of this encounter (statuses as of 12/04/2023) Immunizations Name Administration Dates Next Due COVID-19 mRNA, LNP-s, No Pre serve, 2-Dose Series ([employer]) 09/03/2021,11/04/2020,05/27/2020,04/19 COVID-19, MRNA-LNP, 23-24, P F, 30 MCG/0.3 mL, 12 YRS AND ABOVE, IM ([employer]) 02/22/2023 COVID-19, MRNA-LNP, 24-25, P R, 30MCG/0.3ML, IM, 12YRS AND ABOVE ([employer]) 11/30/2023 Covid-19, Mrna, Lnp-s, Pf, B ivalent, 30 Mcg, IM, 12 yrs and above ([employer]) 01/17/2022 Hepatitis B, 20+ yrs 01/03/2017,08/03/2016,07/05 Pneumococcal [...] encounter Miscellaneous Notes * Telephone Encounter - Candy Ewing RN - 12/04/2023 12:34 PM EDT Pt in for Procrit injection this morning. Hgb is 7.7 today. Discussed alternate medication -Aranespin place of Procrit due to poor response. Pt and very receptive and will wait for update with orders. documented in this encounter Plan of Treatment Upcoming Encounters Date Type Department Care Team (Late st Contact Info) Description 12/06/2023 9:30 AM EDT Pharmacy Pharmacy, [address] [address] Clinic, [place] [address] [place] [address] 12/12/2023 11:00 AM EDT Nurse Only Nephrology, Gabrielle Silva [address] [address] [place], Nurse Nephrology [address] [place] [address] [address] 01/21/2024 10:00 AM EST Office Visit Nephrology, Gabrielle Silva [address] [place] [address] [place] [address] Laurita Washington PA-C 200 [place] [address] 04/01/2024 1:00 PM EST Nurse Only Ancillary Department, [place] [address] [place] [facility] [place] [address] [place], Nurse Annual Wellness [address] [place] [facility] [place] [address] 04/01/2024 2:20 PM EST Office Visit Family Practice, [place] [address] [place] [facility] [phone] Gino Osman MD [address] [place], [place] [phone] 05/14/2024 2:00 PM EST Laboratory Laboratory [facility] [place] [address] [facility] [address] [place] [address] [facility] Lab [facility] 200 [facility] [place], [place] [address] 05/21/2024 2:15 PM EST Office Visit Hematology/Oncology [facility] [place] [address] [facility] [place], [place] [address] Cleve Bruce MD 200 [facility] [place] [address] Health Maintenance Due Date Last Done Comments Alpha-1 Antitrypsin 1963 Influenza Vaccine (FLU shot) (#1) 2023 12/27/2022, 01/11/2022, 12/16/2020, Additional history exists PTH 12/02/2023 12/01/2022 Hepatitis C Screening 02/28/2024 Postpo erna from 1962 (Patient Declined After Education) Adult Wellness Visit 03/06/2024 03/06/2023, 02/28/2022, 02/22/2021 Depression Screening 03/06/2024 03/06/2023, 02/13/20 18 GFR 05/26/2024 11/27/2023, 08/0 10/2023, 10/25/2023, [...] this encounter Medical Devices Implanted Type Area Organ Installer Device Identifier Shelf Expiration Date Model / Serial / Lot Lens Intraoc 18.0 - [id number] - [id number] Implanted:Qty: 1 on 11/20/2019 by Sonu Valladares MD at OR [facility] Left: Eye [employer]OM[employer] 02/16/2024 [id number] / [id number] / [id number] Sof[employer] Implanted:Qty: 1 on 12/02/2019 by Sonu Valladares MD at OR [facility] Right: Eye 11/17/2023 [id number] / / [id number] documented as of this encounter Care Teams Recruiter Specialist Relationship Specialty Start Date End Date Gino Osman MD [address] [place] [address] PCP - General Family Medicine 05/06/18 documented as of this encounter
--- OUTSIDE RECORDS SUMMARY | 2023-12-18 22:12 | External Medical Summary | Summary of Care ---
Author Name Unknown Organization [facility] Address [address] [facility] [place] [address] Phone [phone] Care Team Providers Care Satellite Tv Installer Name Role Phone Gino Osman MD Primary Care Provider [phone] Encounter Details Date Type Department Care Team (Late st Contact Info) Description 12/12/2023 Orders Only Nephrology, Gabrielle Silva [address] [facility] [place] [address] ChapaAshely cardona MD 200 [facility] [address] Anemia of chronic renal failure, stage 3b (HCC) Allergies Active Allergy Reactions Criticality Noted Date Comments Adhesive Tape Itching High 11/21/2022 documented as of this encounter (statuses as of 12/12/2023) Medications Medication Sig Dispensed Refills Start Date [...] azithromycin (ZITHROMAX) 250 MG Tablet One tablet -W- 6 Tab 1 11/27/2018 Active mycophenolate (CELLCEPT) [...] 30 Cap 12/16/2020 Active Ergocalciferol 1.25 MG (57400 UT) Oral Capsule (Vitamin D2(Drisdol)) On Sunday bimonthly 12 Capsule 01/02/2023 Active Tamsulosin HCl 0.4 MG Oral Capsule (Flomax)Indications: BPH with obstruction/lower urinary tract symptoms TAKE ONE CAPSULE BY MOUTH IN THE MORNING 90 Capsule 3 04/01/2023 Active Fluticasone Propionate 50 MCG/ACT Nasal Suspension (Flonase) Administer 1 [place] into nostril in the morning and 1 [place] before bedtime. 05/01/2023 Active Saline Nasal [place] 0.65 % Nasal Solution ([place]) Administer 1 [place] into nostril. 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 History of pulmonary fibrosis 11/27/2018 Pulmonary embolus, left 06/13/2018 Acute deep vein thrombosis (DVT) of right lower extremity 06/13/2018 Current use of fpc 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 019 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 Overview: left [facility] 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 Interstitial lung disease 03/19/2015 Chronic rhinitis 03/30/2014 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 Restrictive lung disease documented as of this encounter (statuses as of 12/12/2023) Resolved Problems Problem Noted Date Diagnosed Date [...] as of this encounter (statuses as of 12/12/2023) Immunizations Name Administration Dates Next Due COVID-19 mRNA, LNP-s, No Pre serve, 2-Dose Series ([employer]) 09/03/2021,11/04/2020,05/27/2020,04/19 COVID-19, MRNA-LNP, 23-24, P F, 30 MCG/0.3 mL, 12 YRS AND ABOVE, IM ([employer]) 02/22/2023 COVID-19, MRNA-LNP, 24-25, P R, 30MCG/0.3ML, IM, 12YRS AND ABOVE ([employer]) 11/30/2023 Covid-19, Mrna, Lnp-s, Pf, B ivalent, 30 Mcg, IM, 12 yrs and above ([employer]) 01/17/2022 Hepatitis B, 20+ yrs 01/03/2017,08/03/2016,07/05 Pneumococcal Conjugate Vacc, 13 Valent (Prevnar) 04/01/2015 Pneumococcal Polysaccharide PPV23 (Pneumovax) 05/14/2012 Seasonal Influenza, PF, 6 M & above, IM , (FluLaval or Fluzone) 12/16/2019,11/27/2018,05/05/2018,10/08/201712/22/2018 Seasonal Influenza, Quadriva lent Hd (Fluzone Hd) [...] on file documented as of this encounter Plan of Treatment Upcoming Encounters Date Type Department Care Team (Late st Contact Info) Description 01/21/2024 10:00 AM EST Office Visit Nephrology, [facility] [address] [place] [address] Laurita Washington PA-C 200 [facility] [place] [address] 04/01/2024 1:00 PM EST Nurse Only Ancillary Department, [place] [address] [place] [address] [place], Nurse Annual Wellness [address] [place] [address] 04/01/2024 2:20 PM EST Office Visit Family Practice, [place] [address] [place] [phone] Gino Osman MD [address] [place] [address] 05/14/2024 2:00 PM EST Laboratory Laboratory [place], [place] [address] [place], [place] [phone] [place], [facility] 200 [facility] [place], [place] [address] 05/21/2024 2:15 PM EST Office Visit Hematology/Oncology [facility] [place] [address] [facility] [place] [phone] Cleve Bruce MD [address] [facility] [place], [place] [address] Health Maintenance Due Date Last Done Comments [...] this encounter Medical Devices Implanted Type Area Histology Assistant Device Identifier Shelf Expiration Date Model / Serial / Lot Lens Intraoc 18.0 - [id number] - [id number] Implanted:Qty: 1 on 11/20/2019 by Sonu Valladares MD at OR [facility] Left: Eye [employer]OM[employer] 02/16/2024 [id number] / [id number] / [id number] Sofport Implanted:Qty: 1 on 12/02/2019 by Sonu Valladares MD at OR [facility] Right: Eye 11/17/2023 [id number] / / [id number] documented as of this encounter Visit Diagnoses Diagnosis Anemia of chronic renal failure, stage 3b (HCC) documented in this encounter Care Teams Satellite Tv Installer Relationship Specialty Start Date End Date Gino Osman MD [address] [place] [address] PCP - General Family Medicine 05/06/18 documented as of this encounter
--- OUTSIDE RECORDS SUMMARY | 2023-12-18 22:12 | External Medical Summary | Summary of Care ---
Author Name Unknown Organization [facility] Address [address] [place] [address] Phone [phone] Care Team Providers Care Clothing Supervisor Name Role Phone Gino Osman MD Primary Care Provider [phone] Reason for Visit * Reason Onset Date Comments Anemia Follow-Up 12/13/2023 Encounter Details Date Type Department Care Team (Late st Contact Info) Description 12/06/2023 9:30 AM EDT Pharmacy Pharmacy, [place] [address] [place], [place] [phone] Clinic, Anemia [address] [place], [place] [id number] Anemia of chronic renal failure, stage 4 (severe) ([facility])* Allergies Active Allergy Reactions Criticality Noted Date Comments Adhesive Tape Itching High 11/21/2022 documented as of this encounter (statuses as of 12/13/2023) Medications Medication Sig Dispensed Refills Start Date End Date Status ASPIRIN EC 81 MG PO TBECIndications:Dysl ipidemia, goal LDL below 100,Mixed dyslipidemia Take one pill daily 100 Tab 3 09/22/2013 Active sulfamethoxazole-tri methoprim DS (BACTRIM DS) 800-160 MG per tabletIndications:M- W-F Take 0.5 Tablets by mouth once a [...] 30 Cap 12/16/2020 Active Ergocalciferol 1.25 MG (11931 UT) Oral Capsule (Vitamin D2(Drisdol)) On Sunday bimonthly 12 Capsule 01/02/2023 Active Tamsulosin HCl 0.4 MG Oral Capsule (Flomax)Indications: BPH with obstruction/lower urinary tract symptoms TAKE ONE CAPSULE BY MOUTH IN THE MORNING 90 Capsule 3 04/01/2023 Active Fluticasone Propionate 50 MCG/ACT Nasal Suspension (Flonase) Administer 1 [place] into nostril in the morning and 1 [place] before bedtime. 05/01/2023 Active Saline Nasal [place] 0.65 % Nasal Solution ([place]) Administer 1 [place] into nostril. 05/01/2023 Active Pantoprazole Sodium 40 [...] Tablet by mouth at bedtime. 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 History of pulmonary fibrosis 11/27/2018 Pulmonary embolus, left 06/13/2018 Acute deep vein thrombosis (DVT) of right lower extremity 06/13/2018 Current use of ferry terminal agent 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 019 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 Overview: left [facility] 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 Interstitial lung disease 03/19/2015 Chronic rhinitis 03/30/2014 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 Restrictive lung disease documented as of this encounter (statuses as of 12/13/2023) Resolved Problems Problem Noted Date Diagnosed Date [...] as of this encounter (statuses as of 12/13/2023) Immunizations Name Administration Dates Next Due COVID-19 mRNA, LNP-s, No Pre serve, 2-Dose Series ([employer]) 09/03/2021,11/04/2020,05/27/2020,04/19 COVID-19, MRNA-LNP, 23-24, P F, 30 MCG/0.3 mL, 12 YRS AND ABOVE, IM ([employer]) 02/22/2023 COVID-19, MRNA-LNP, 24-25, P R, 30MCG/0.3ML, IM, 12YRS AND ABOVE ([employer]) 11/30/2023 Covid-19, Mrna, Lnp-s, Pf, B ivalent, 30 Mcg, IM, 12 yrs and above ([employer]) 01/17/2022 Hepatitis B, 20+ yrs 01/03/2017,08/03/2016,07/05 Pneumococcal Conjugate Vacc, 13 Valent (Prevnar) 04/01/2015 Pneumococcal Polysaccharide PPV23 (Pneumovax) 05/14/2012 Seasonal Influenza, PF, 6 M & above, IM , (FluLaval or Fluzone) 12/16/2019,11/27/2018,05/05/2018,1008/201712/22/2018 Seasonal Influenza, Quadriva lent Hd (Fluzone Hd) [...] on file documented as of this encounter Progress Notes * Feroz Lugo, [facility] - 12/13/2023 10:32 AM EDT Patient Phone Numbers Called and spoke with Arthur to review labs from 12/04/23. Hgb is below target range. Iron studies adequate. Patient reports recent malignancy, SCC treated with surgical removal and started radiation therapy on 10/02/23 managed by [facility] radiation oncology - Dr. Bruce. Hematology in agreement with continued BON use at nephrology clinic at [facility]. Plan: Continue Retacrit 40,000 units SQ weekly @ [facility] nephrology clinic (hold for Hgb > 11 g/dL). Last dose: Retacrit 40,000 units SQ on 11/27/23 Next dose due: Retacrit 40,000 units SQ on 12/04/23 (scheduled) Subsequent dose due: Retacrit 40,000 units SQ on 12/11/23 Patient with history of DVT/PE, not currently on 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. Received approval from Dr. Chapa to start BON therapy as benefits outweigh risks at this time. Follow-up labs to be obtained on 12/04/23 to match administration appointment. Anemia Clinic will continue to follow. Thank you for allowing us to participate in the care of thispatient. Feroz Lugo, PharmD, [facility] Clinical Pharmacist Anemia Clinic P: [phone] F: [phone] 12/13/2023 10:35 AM Lab Results Component Value Date/Time HGB 7.7 (L) 12/04/2023 10:45 AM HGB 8.4 (L) 11/27/2023 08:39 AM HGB 8.1 (L) 11/20/2023 10:38 AM HGB 8.4 (L) 09/07/2023 06:09 PM HGB 11.3 (L) 03/22/2020 07:42 AM HGB 11.0 (L) 02/09/2020 07:43 AM HGB 10.8 (L) 01/05/2020 07:38 AM No results found for: "HEMOGLOBIN-OUTSIDE LAB" Results for orders placed or performed in visit on 11/20/23 IRON SCREEN, INCLUDING TIBC Result Value Ref Range Iron 73 45 - 176 ug/dL Iron Binding Capacity 180 (L) 250 - 425 ug/dL Transferrin Saturation Percent 41 15 - 55 % Results for orders placed or performed in visit on 09/17/23 IRON SCREEN, INCLUDING TIBC Result Value Ref Range Iron 68 45 - 176 ug/dL Iron Binding Capacity 220 (L) 250 - 425 ug/dL Transferrin Saturation Percent 31 15 - 55 % Results for orders placed or performed in visit on 09/03/23 IRON SCREEN, INCLUDING TIBC Result Value Ref Range Iron 98 45 - 176 ug/dL Iron Binding Capacity 187 (L) 250 - 425 ug/dL Transferrin Saturation Percent 52 15 - 55 % No results found for: "TRANSFERRIN SAT %-OUTSIDE LAB" Lab Results Component Value Date/Time FERRITIN - [facility] 294 11/20/2023 10:38 AM FERRITIN - [facility] 264 09/17/2023 09:28 AM FERRITIN - [facility] 252 09/03/2023 10:49 AM FERRITIN-OUTSIDE LAB 149 09/08/2023 03:02 PM Lab Results Component Value Date/Time FERRITIN-OUTSIDE LAB 149 09/08/2023 03:02 PM documented in this encounter Plan of Treatment Upcoming Encounters Date Type Department Care Team (Late st Contact Info) Description 12/20/2023 9:30 AM EDT Pharmacy Pharmacy, [address] [address] Clinic, Anemia [facility] [place] [address] 01/21/2024 10:00 AM EST Office Visit Nephrology, [facility] [address] [place], [place] [address] Laurita Washington PA-C 200 [facility] [place], [place] [address] 04/01/2024 1:00 PM EST Nurse Only Ancillary Department, [place] [address] [place], [place] [phone] [place], Nurse Annual Wellness [address] [place] [address] 04/01/2024 2:20 PM EST Office Visit Family Practice, [place] [address] [place] [phone] Gino Osman MD [address] [place], [place] [phone] 05/14/2024 2:00 PM EST Laboratory Laboratory [facility] [address] [place], [place] [phone] [facility] Lab [facility] [address] [place], [place] [address] 05/21/2024 2:15 PM EST Office Visit Hematology/Oncology [facility] [place] [address] [facility] [place], [place] [phone] Cleve Bruce MD 200 [facility] [place], [place] [address] Health Maintenance Due Date Last Done Comments Alpha-1 Antitrypsin 1963 Influenza Vaccine (FLU shot) (#1) 2023 12/27/2022, 01/11/2022, 12/16/2020, Additional history exists PTH 12/02/2023 12/01/2022 Hepatitis C Screening 02/28/2024 Postpo erna from 1962 (Patient Declined After Education) Adult Wellness Visit 03/06/2024 03/06/2023, 02/28/2022, 02/22/2021 Depression Screening 03/06/2024 03/06/2023, 05/01/19 18 GFR 05/26/2024 11/27/2023, 0810/2023, 10/25/2023, Additional history exists Nephrology Referral 09/16/2024 [...] this encounter Medical Devices Implanted Type Area Prescription Clerk Lenses Device Identifier Shelf Expiration Date Model / Serial / Lot Lens Intraoc 18.0 - [id number] - [id number] Implanted:Qty: 1 on 11/20/2019 by Sonu Valladares MD at OR [facility] Left: Eye [employer] 02/16/2024 [id number] / [id number] / [id number] Sofport Implanted:Qty: 1 on 12/02/2019 by Sonu Valladares MD at OR [facility] Right: Eye 11/17/2023 [id number] / / [id number] documented as of this encounter Visit Diagnoses Diagnosis Anemia of chronic renal failure, stage 4 (severe) (HCC)- Primary documented in this encounter Care Teams Clothing Supervisor Relationship Specialty Start Date End Date Gino Osman MD [address] [facility] [place] [address] PCP - General Family Medicine 05/06/18 documented as of this encounter
--- OUTSIDE RECORDS SUMMARY | 2023-12-18 22:12 | External Medical Summary | Summary of Care ---
Author Name Unknown Organization [facility] Address [address] [facility] [place] [address] Phone [phone] Care Team Providers Care Turpentiner Name Role Phone Gino Osman MD Primary Care Provider [phone] Reason for Visit * Reason Onset Date Comments Medication Question 12/14/2023 Encounter Details Date Type Department Care Team (Late st Contact Info) Description 12/14/2023 Telephone NephrologyGabrielle 200 [facility] [place] [address] Ashely Chapa MD [address] [place] [address] Medication Question Allergies Active Allergy Reactions Criticality [...] 30 Cap 12/16/2020 Active Ergocalciferol 1.25 MG (53643 UT) Oral Capsule (Vitamin D2(Drisdol)) On Sunday bimonthly 12 Capsule 01/02/2023 Active Tamsulosin HCl 0.4 MG Oral Capsule (Flomax)Indications: BPH with obstruction/lower urinary tract symptoms TAKE ONE CAPSULE BY MOUTH IN THE MORNING 90 Capsule 3 04/01/2023 Active Fluticasone Propionate 50 MCG/ACT Nasal Suspension (Flonase) Administer 1 [place] into nostril in the morning and 1 [place] before bedtime. 05/01/2023 Active Saline Nasal [place] 0.65 % Nasal Solution ([place]) Administer 1 [place] into nostril. 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 Overview: left [facility] 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 Interstitial [...] mRNA, LNP-s, No Pre serve, 2-Dose Series (nDreams) 09/03/2021,11/04/2020,05/27/2020,04/19 COVID-19, MRNA-LNP, 23-24, P F, 30 MCG/0.3 mL, 12 YRS AND ABOVE, IM (Broadchoice-XStor SystemsirVignani) 02/22/2023 COVID-19, MRNA-LNP, 24-25, P R, 30MCG/0.3ML, IM, 12YRS AND ABOVE (nDreams-ZEALER) 11/30/2023 Covid-19, Mrna, Lnp-s, Pf, B ivalent, 30 Mcg, IM, 12 yrs and above (nDreams) 01/17/2022 Hepatitis B, 20+ yrs 01/03/2017,08/03/2016,07/05 Pneumococcal [...] Telephone Encounter - Candy Ewing RN - 12/14/2023 12:47 PM EDT TE with pt and . States that pt has been very tired and nauseous.Did not have labs this past week. Not running a fever. Aware that if symptoms worsen that he may need to consider going to ER as blood counts may be lower..They voiced understanding. Aware that higher dose of Procrit is now ordered and requests to be scheduled for Sunday at 11AM. * Telephone Encounter - Candy Ewing RN - 12/14/2023 8:49 AM EDT Following up on medication dose- Wanted to ensure that it was noted that Dr Chapa has increased Procrit to 60,000 units weekly. Will reach out to pt this morning. documented in this encounter Plan of Treatment Upcoming Encounters Date Type Department Care Team (Late st Contact Info) Description 12/18/2023 11:00 AM EDT Nurse Only Nephrology, [place] 200 [facility] [place] [address] Sp, Nurse Nephrology [address] [place] [address] 12/20/2023 9:30 AM EDT Pharmacy Pharmacy, [place] [address] [place] [address] Clinic, [facility] [address] [place] [address] 01/21/2024 10:00 AM EST Office Visit Nephrology, [facility] [address] [place] [address] ZeLuarita alcala PA-C [address] [place] [address] 04/01/2024 1:00 PM EST Nurse Only Ancillary Department, [address] [address] [place], Nurse Annual Wellness [facility] [place] [address] 04/01/2024 2:20 PM EST Office Visit Family Practice, [place] [address] [place] [address] Gino Osman MD [address] [place], [place] [address] 05/14/2024 2:00 PM EST Laboratory Laboratory [facility] [place] [address] [place] [address] [facility] [place] [address] [address] [facility] [place] [address] 05/21/2024 2:15 PM EST Office Visit Hematology/Oncology [facility] [place] [address] [place] [address] Cleve Bruce MD [address] [place] [address] Health Maintenance Due Date Last Done Comments [...] 05/23/2018, 04/01/2015, 05/14/2012 Zoster Vaccines Completed 05/27/2018, 09/0 06/2017, 08/15/2012 COVID-19 Vaccine Completed 11/30/2023, 09/2022, 01/17/2022, Additional history exists HPV (Gardasil) Vaccine Aged Out No lo nger eligible based on patient's age to complete this topic MENINGOCOCCAL (MENACTRA/MENVEO) Aged Out No longer eligible based on patient's age to complete this topic documented as of this encounter Medical Devices Implanted Type Area Audit Clerks Supervisor Device Identifier Shelf Expiration Date Model / Serial / Lot Lens Intraoc 18.0 - [id number] - [id number] Implanted:Qty: 1 on 11/20/2019 by Sonu Valladares MD at OR [facility] Left: Eye BAUSCH & LOMB 02/16/2024 [id number] / [id number] / [id number] Sofport Implanted:Qty: 1 on 12/02/2019 by Sonu Valladares MD at OR [facility] Right: Eye 11/17/2023 [id number] / / [id number] documented as of this encounter Care Teams Turpentiner Relationship Specialty Start Date End Date Gino Osman MD [address] [facility] [place] [address] PCP - General Family Medicine 05/06/18 documented as of this encounter
--- OUTSIDE RECORDS SUMMARY | 2023-12-18 22:12 | External Medical Summary | Summary of Care ---
Author Name Unknown Organization [facility] Address [address] [facility] [place] [address] Phone [phone] Care Team Providers Care Bilingual Trainer Name Role Phone Gino Osman MD Primary Care Provider [phone] Encounter Details Date Type Department Care Team (Late st Contact Info) Description 12/12/2023 Orders Only Nephrology, [place]rielle [place] 200 [facility] [place] [address] ChapaAshely cardona MD 200 [facility] [place] [address] Anemia of chronic renal failure, stage 3b [...] 30 Cap 12/16/2020 Active Ergocalciferol 1.25 MG (62156 UT) Oral Capsule (Vitamin D2(Drisdol)) On Sunday bimonthly 12 Capsule 01/02/2023 Active Tamsulosin HCl 0.4 MG Oral Capsule (Flomax)Indications: BPH with obstruction/lower urinary tract symptoms TAKE ONE CAPSULE BY MOUTH IN THE MORNING 90 Capsule 3 04/01/2023 Active Fluticasone Propionate 50 MCG/ACT Nasal Suspension (Flonase) Administer 1 [place] into nostril in the morning and 1 [place] before bedtime. 05/01/2023 Active Saline Nasal [place] 0.65 % Nasal Solution ([place]) Administer 1 [place] into nostril. 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 [...] mRNA, LNP-s, No Pre serve, 2-Dose Series (CarbonFlow) 09/03/2021,11/04/2020,05/27/2020,04/19 COVID-19, MRNA-LNP, 23-24, P F, 30 MCG/0.3 mL, 12 YRS AND ABOVE, IM (Xikota Devices-DDx MediairThe Micro) 02/22/2023 COVID-19, MRNA-LNP, 24-25, P R, 30MCG/0.3ML, IM, 12YRS AND ABOVE (CarbonFlow-DDx MediairThe Micro) 11/30/2023 Covid-19, Mrna, Lnp-s, Pf, B ivalent, 30 Mcg, IM, 12 yrs and above (CarbonFlow) 01/17/2022 Hepatitis B, 20+ yrs 01/03/2017,08/03/2016,07/05 Pneumococcal [...] Description 12/20/2023 9:30 AM EDT Pharmacy Pharmacy, [address] [address] Clinic, [address] [address] 01/21/2024 10:00 AM EST Office Visit Nephrology, [facility] [address] [place] [address] ZeLaruita alcala PA-C [address] [place] [address] 04/01/2024 1:00 PM EST Nurse Only Ancillary Department, [address] [place] [address] [place], Nurse Annual Wellness [address] [place] [address] [place] [address] 04/01/2024 2:20 PM EST Office Visit Family Practice, [address] [place] [phone] Gino Osman MD [address] [place] [address] 05/14/2024 2:00 PM EST Laboratory Laboratory [facility] [address] [place] [address] [facility] 200 [facility] [place] [address] 05/21/2024 2:15 PM EST Office Visit Hematology/Oncology [facility] 200 [facility] [place] [address] Cleve Bruce MD 200 [facility] [place] [address] Health Maintenance Due Date Last Done Comments [...] this encounter Medical Devices Implanted Type Area Livestock Nutritionist Device Identifier Shelf Expiration Date Model / Serial / Lot Lens Intraoc 18.0 - [id number] - [id number] Implanted:Qty: 1 on 11/20/2019 by Sonu Valladares MD at OR [facility] Left: Eye BAUSCH & LOMB 02/16/2024 [id number] / [id number] / [id number] Sofport Implanted:Qty: 1 on 12/02/2019 by Sonu Valladares MD at OR [facility] Right: Eye 11/17/2023 [id number] / / [id number] documented as of this encounter Visit Diagnoses Diagnosis Anemia of chronic renal failure, stage 3b (HCC) documented in this encounter Care Teams Bilingual Trainer Relationship Specialty Start Date End Date Gino Osman MD [address] [place] [address] PCP - General Family Medicine 05/06/18 documented as of this encounter
--- OUTSIDE RECORDS SUMMARY | 2023-12-18 22:12 | External Medical Summary | Summary of Care ---
Author Name Unknown Organization [facility] Address [address] [facility] [place] [address] Phone [phone] Care Team Providers Care Industrial Training Specialist Name Role Phone Gino Osman MD Primary Care Provider Reason for Visit * Reason Onset Date Comments Advice 12/04/2023 Encounter Details Date Type Department Care Team (Late st Contact Info) Description 12/04/2023 Telephone Nephrology, [place] 200 [facility] [place] [address] Ashely Chapa MD [address] [place] [address] Advice Allergies Active Allergy Reactions Criticality Noted [...] 30 Cap 12/16/2020 Active Ergocalciferol 1.25 MG (32910 UT) Oral Capsule (Vitamin D2(Drisdol)) On Sunday bimonthly 12 Capsule 01/02/2023 Active Tamsulosin HCl 0.4 MG Oral Capsule (Flomax)Indications: BPH with obstruction/lower urinary tract symptoms TAKE ONE CAPSULE BY MOUTH IN THE MORNING 90 Capsule 3 04/01/2023 Active Fluticasone Propionate 50 MCG/ACT Nasal Suspension (Flonase) Administer 1 [place] into nostril in the morning and 1 [place] before bedtime. 05/01/2023 Active Saline Nasal [place] 0.65 % Nasal Solution ([place]) Administer 1 [place] into nostril. 05/01/2023 Active Pantoprazole Sodium 40 [...] Start Date End Date Status Epoetin Rogelio 15288 UNIT/ML inj 40,000 UnitsIndications:Anemia of chronic renal failure, stage 3b (HCC) 37394 Units SC QWEEK 08/21/2023 Active documented as [...] right lower extremity 06/13/2018 Current use of watermaster 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 019 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 Overview: left 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 Interstitial [...] mRNA, LNP-s, No Pre serve, 2-Dose Series ([employer]) 09/03/2021,11/04/2020,05/27/2020,04/19 COVID-19, MRNA-LNP, 23-24, P F, 30 MCG/0.3 mL, 12 YRS AND ABOVE, IM (ArmedZilla) 02/22/2023 COVID-19, MRNA-LNP, 24-25, P R, 30MCG/0.3ML, IM, 12YRS AND ABOVE (Transmedia Corporation) 11/30/2023 Covid-19, Mrna, Lnp-s, Pf, B ivalent, 30 Mcg, IM, 12 yrs and above ([employer] Foundry) 01/17/2022 Hepatitis B, 20+ yrs 01/03/2017,08/03/2016,07/05 Pneumococcal [...] Telephone Encounter - Candy Ewing RN - 12/12/2023 9:51 AM EDT Pt cancelled appointment today due to illness. Discussion with Dr Chapa. She would like to try higher dose of Procrit to see if there is improvement. She is recommending 60,000 units weekly. * Telephone Encounter - Candy Ewing RN [...] EST Office Visit Nephrology, Gabrielle Silva 200 [facility] [place] [address] Laurita Washington PA-C 200 [facility] [place] [address] 04/01/2024 1:00 PM EST Nurse Only Ancillary Department, [place] [address] [facility] [place] [address] [place], Nurse Annual Wellness [address] [place] [address] 04/01/2024 2:20 PM EST Office Visit Family Practice, [place] [address] [place] [phone] Gino Osman MD [address] [place], [place] [address] 05/14/2024 2:00 PM EST Laboratory Laboratory [facility] [address] [place] [address] [facility] 200 [facility] [place] [address] 05/21/2024 2:15 PM EST Office Visit Hematology/Oncology [facility] [address] [place] [address] Cleve Bruce MD 200 [place] [address] Health Maintenance Due Date Last Done Comments [...] this encounter Medical Devices Implanted Type Area Packer Device Identifier Shelf Expiration Date Model / Serial / Lot Lens Intraoc 18.0 - [id number] - [id number] Implanted:Qty: 1 on 11/20/2019 by Sonu Valladares MD at OR [facility] Left: Eye BAUSCH & LOMB 02/16/2024 [id number] / [id number] / [id number] Sofport Implanted:Qty: 1 on 12/02/2019 by Sonu Valladares MD at OR [facility] Right: Eye 11/17/2023 [id number] / / [id number] documented as of this encounter Care Teams Industrial Training Specialist Relationship Specialty Start Date End Date Gino Osman MD [address] [place] [address] PCP - General Family Medicine 2/18/19 documented as of this encounter
--- OUTSIDE RECORDS SUMMARY | 2023-12-18 22:12 | External Medical Summary | Summary of Care ---
Author Name Unknown Organization [facility] Address [address] [facility] [place] [address] Phone [phone] Care Team Providers Care Hand Slitter Name Role Phone Gino Osman MD Primary Care Provider [phone] Reason for Visit * Reason Onset Date Comments Advice 12/04/2023 Encounter Details Date Type Department Care Team (Late st Contact Info) Description 12/04/2023 Telephone Nephrology, [place]elle [place] 200 [facility] [place] [address] Ashely Chapa MD [address] [place] [address] Advice Allergies Active Allergy Reactions Criticality Noted [...] 30 Cap 12/16/2020 Active Ergocalciferol 1.25 MG (16737 UT) Oral Capsule (Vitamin D2(Drisdol)) On Sunday bimonthly 12 Capsule 01/02/2023 Active Tamsulosin HCl 0.4 MG Oral Capsule (Flomax)Indications: BPH with obstruction/lower urinary tract symptoms TAKE ONE CAPSULE BY MOUTH IN THE MORNING 90 Capsule 3 04/01/2023 Active Fluticasone Propionate 50 MCG/ACT Nasal Suspension (Flonase) Administer 1 [place] into nostril in the morning and 1 [place] before bedtime. 05/01/2023 Active Saline Nasal [place] 0.65 % Nasal Solution ([place]) Administer 1 [place] into nostril. 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 Overview: left [facility] 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 [...] mRNA, LNP-s, No Pre serve, 2-Dose Series ([employer]Comb Corporation) 09/03/2021,11/04/2020,05/27/2020,04/19 COVID-19, MRNA-LNP, 23-24, P F, 30 MCG/0.3 mL, 12 YRS AND ABOVE, IM (YouDocs Beauty) 02/22/2023 COVID-19, MRNA-LNP, 24-25, P R, 30MCG/0.3ML, IM, 12YRS AND ABOVE (Healthy Humans) 11/30/2023 Covid-19, Mrna, Lnp-s, Pf, B ivalent, 30 Mcg, IM, 12 yrs and above ([employer] Corporation) 01/17/2022 Hepatitis B, 20+ yrs 01/03/2017,08/03/2016,07/05 Pneumococcal [...] Description 12/06/2023 9:30 AM EDT Pharmacy Pharmacy, [address] [address] Clinic, [place] [address] [place] [address] 12/12/2023 11:00 AM EDT Nurse Only Nephrology, Gabrielle [place] [address] [place] [address] [place], Nurse Nephrology [address] [place] [address] [address] 01/21/2024 10:00 AM EST Office Visit Nephrology, [place]rielle [place] [address] [place] [address] Laurita Washington PA-C [address] [place] [address] 04/01/2024 1:00 PM EST Nurse Only Ancillary Department, [place] [address] [place] [address] [place], Nurse Annual Wellness [address] [place] [facility] [place] [address] 04/01/2024 2:20 PM EST Office Visit Family Practice, [place] [address] [place] [phone] Gino Osman MD [address] [place], [place] [address] 05/14/2024 2:00 PM EST Laboratory Laboratory [facility] [place] [address] [facility] [address] [place] [address] [facility] Lab [facility] 200 [facility] [place], [place] [address] 05/21/2024 2:15 PM EST Office Visit Hematology/Oncology [facility] [place] 200 [facility] [place], [place] [address] Cleve Bruce MD 200 [facility] [place] [address] Health Maintenance Due Date Last Done Comments [...] this encounter Medical Devices Implanted Type Area Pneumatic Tube Operator Device Identifier Shelf Expiration Date Model / Serial / Lot Lens Intraoc 18.0 - [id number] - [id number] Implanted:Qty: 1 on 11/20/2019 by Sonu Valladares MD at OR [facility] Left: Eye BAUSCH & LOMB 02/16/2024 [id number] / [id number] / [id number] Sofport Implanted:Qty: 1 on 12/02/2019 by Sonu Valladares MD at OR [facility] Right: Eye 11/17/2023 [id number] / / [id number] documented as of this encounter Care Teams Hand Slitter Relationship Specialty Start Date End Date Gino Osman MD [address] [place] [address] PCP - General Family Medicine 05/06/18 documented as of this encounter
--- OUTSIDE RECORDS SUMMARY | 2023-12-18 22:13 | External Medical Summary | Summary of Care ---
Author Name Unknown Organization [facility] Address [address] [facility] [place] [address] Phone [phone] Care Team Providers Care Forest Fire Warden Name Role Phone Gino Osman MD Primary Care Provider Reason for Visit * Reason Comments Medication Administration For Procrit in jection * Precert (Within 30 days (routine)) - Authorized Specialty Diagnoses / Procedures Referred By Contac t Referred To Contact Diagnoses Anemia in chronic kidney disease Procedures MT INJ RETACRIT NON-ESRD USE Ashely Chapa MD 200 [facility] [place] [address] Ashely Chapa MD [address] [facility] [place] [address] Referral ID Status Reason Start Date Expiration Date V isits Requested Visits Authorized [id number] Authorized Precert 02/07/2023 03/18/[id number] Encounter Details Date Type Department Care Team (Late st Contact Info) Description 11/27/2023 11:00 AM EDT Nurse Only Nephrology, [place] [facility] [place] [id number] Sp, Nurse Nephrology 200 [facility] [place] [address] Medication Administration (For Procrit inj... Allergies Active Allergy Reactions Criticality Noted Date Comments Adhesive Tape Itching High 11/21/2022 documented as of this encounter (statuses as of 11/27/2023) Medications Medication Sig Dispensed Refills Start Date End Date Status ASPIRIN EC 81 MG PO TBECIndications:Dysl ipidemia, goal LDL below 100,Mixed dyslipidemia Take one pill daily 100 Tab 3 09/22/2013 Active sulfamethoxazole-tri methoprim DS (BACTRIM DS) 800-160 MG per tabletIndications:- - Take 0.5 Tablets by mouth once a day on Sunday, Sunday, and Sunday only. 05/06/2018 Active pravastatin (PRAVACHOL) 20 MG TabletIndications:Dy slipidemia, goal LDL below 100,Mixed dyslipidemia Take 1 Tab by mouth daily. 90 Tab 1 05/16/2018 Active azithromycin (ZITHROMAX) 250 MG Tablet One tablet 6 Tab 1 11/27/2018 Active mycophenolate (CELLCEPT) [...] 30 Cap 12/16/2020 Active Ergocalciferol 1.25 MG (03648 UT) Oral Capsule (Vitamin D2(Drisdol)) On Sunday bimonthly 12 Capsule 01/02/2023 Active Tamsulosin HCl 0.4 MG Oral Capsule (Flomax)Indications: BPH with obstruction/lower urinary tract symptoms TAKE ONE CAPSULE BY MOUTH IN THE MORNING 90 Capsule 3 04/01/2023 Active Fluticasone Propionate 50 MCG/ACT Nasal Suspension (Flonase) Administer 1 Hunter into nostril in the morning and 1 Hunter before bedtime. 05/01/2023 Active Saline Nasal Hunter 0.65 % Nasal Solution ([place]) Administer 1 Hunter into nostril. 05/01/2023 Active Pantoprazole Sodium 40 MG Oral Tablet Delayed Release (Protonix) Take 1 Tablet by mouth in the morning. 90 Tablet 3 05/15/2023 Active Sodium Bicarbonate 650 MG Oral TabletIndications:Ch ronic kidney disease, stage 3b (HCC) Take 2 Tablets by mouth in the morning and 2 Tablets before bedtime. 360 Tablet 3 08/28/2023 Active Lisinopril 5 MG Oral Tablet (Prinivil) Take 0.5 Tablets by mouth in the morning. 30 Tablet 5 09/17/2023 Active Sodium Zirconium Cyclosilicate 10 GM Oral Packet (Lokelma) Take 1 Packet by mouth. 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 History of pulmonary fibrosis 11/27/2018 Pulmonary embolus, left 06/13/2018 Acute deep vein thrombosis (DVT) of right lower extremity 06/13/2018 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 mining 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 019 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 Overview: left [facility] 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 Interstitial lung disease 03/19/2015 Chronic rhinitis 03/30/2014 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 Restrictive lung disease documented as of this encounter (statuses as of 11/27/2023) Resolved Problems Problem Noted Date Diagnosed Date [...] as of this encounter (statuses as of 11/27/2023) Immunizations Name Administration Dates Next Due COVID-19 mRNA, LNP-s, No Pre serve, 2-Dose Series ([employer]) 09/03/2021,11/04/2020,05/27/2020,04/19 COVID-19, MRNA-LNP, 23-24, P F, 30 MCG/0.3 mL, 12 YRS AND ABOVE, IM ([employer]) 02/22/2023 Covid-19, Mrna, Lnp-s, Pf, B ivalent, 30 Mcg, IM, 12 yrs and above ([employer]) 01/17/2022 Hepatitis B, 20+ yrs 01/03/2017,08/03/2016,07/05 Pneumococcal [...] on file documented as of this encounter Nursing Notes * Vesta Alanis LPN - 11/27/2023 11:36 AM EDT Patient identified by verbal name and date of . Chief Complaint Patient presents with Medication Administration For Procrit injection Hgb 8.4 BP stable Pt tolerated well next apt scheduled 12/06/23 documented in this encounter Plan of Treatment Upcoming Encounters Date Type Department Care Team (Late st Contact Info) Description 12/04/2023 11:00 AM EDT Nurse Only NephrologyGabrielle [address] [place] [address] Sp, Nurse Nephrology [address] [place] [address] [address] 01/21/2024 10:00 AM EST Office Visit NephGabrielle duncan [address] [place] [address] Laurita Washington PA-C 200 [facility] [place] [address] 04/01/2024 1:00 PM EST Nurse Only Ancillary Department, [place] [address] [place] [facility] [address] Christine, Nurse Annual Wellness [address] [place] [facility] [place] [address] 04/01/2024 2:20 PM EST Office Visit Family Practice, Christine [address] [place] [facility] [address] Gino Osman MD [address] [facility], [place] [id number] 05/14/2024 2:00 PM EST Laboratory Laboratory [facility] [place] [address] [place], [place] [address] [facility] 200 [facility] [place], [place] [address] 05/21/2024 2:15 PM EST Office Visit Hematology/Oncology [facility] [place] [address] [place], [place] [phone] Cleve Bruce MD 200 [facility] [place] [address] Health Maintenance Due Date Last Done Comments Alpha-1 Antitrypsin 1963 COVID-19 Vaccine (2022-24 season) 2023 02/22/2023, 01/17/2022, 09/03/2021, Additional history exists Influenza Vaccine (FLU shot) (#1) 2023 12/27/2022, 01/11/2022, 12/16/2020, Additional history exists PTH 12/02/2023 12/01/2022 Hepatitis C Screening 02/28/2024 Postpo erna from 1962 (Patient Declined After Education) Adult Wellness Visit 03/06/2024 03/06/2023, 02/28/2022, 02/22/2021 Depression Screening 03/06/2024 03/06/2023, 05/01/19 18 GFR 05/26/2024 11/27/2023, 080 10/2023, 10/25/2023, Additional history exists Nephrology Referral 09/16/2024 09/17/2023 Phosphate 09/16/2024 09/17/2023, 08/18, 09/09/2023, Additional history exists Albumin/Creatinine Ratio 09/24/2024 024, 12/01/2022, 06/20/2021, Additional history exists Hgb 11/26/2024 11/27/2023, 05/2023, 11/13/2023, Additional history exists DTap/Tdap Vaccines (3 - Td or Tdap) 06/23/2032 06/23/2022, 10/02/2011 Hepatitis B Vaccine Completed 01/03/2017, 08/03/2016, 07/05/2016 Pneumococcal Vaccine: 65+ Years Completed 05/23/2018, 04/01/2015, 05/14/2012 Zoster Vaccines Completed 05/27/2018, 06/2017, 08/15/2012 HPV (Gardasil) Vaccine Aged Out No lo nger eligible based on patient's age to complete this topic MENINGOCOCCAL (MENACTRA/MENVEO) Aged Out No longer eligible based on patient's age to complete this topic documented as of this encounter Medical Devices Implanted Type Area Spindle Sander Device Identifier Shelf Expiration Date Model / Serial / Lot Lens Intraoc 18.0 - [id number] - [id number] Implanted:Qty: 1 on 11/20/2019 by Sonu Valladares MD at OR [facility] Left: Eye [employer]OMB 02/16/2024 [id number] / [id number] / [id number] Sofport Implanted:Qty: 1 on 12/02/2019 by Sonu Valladares MD at OR [facility] Right: Eye 11/17/2023 [id number] / / [id number] documented as of this encounter Administered Medications Active Administered Medications - up to 3 most recent administrations Medication Order MAR Action Action Date Dose Rate Site Epoetin Rogelio 61932 UNIT/ML inj 40,000 Units 40,000 Units, Subcutaneous, QWEEK, First dose on Sun08/21/23 at 1300, Until Discontinued, Hold if Hgb > 11g/dL Given 11/27/2023 11:38 AM EDT 40,000 Units Arm Left Upper Given 11/20/2023 11:15 AM EDT 40,000 Units Arm Right Upper Given 11/13/2023 11:03 AM EDT 40,000 Units Arm Left Upper documented in this encounter Care Teams Forest Fire Warden Relationship Specialty Start Date End Date Gino Osman MD [address] [place], [place] [id number] PCP - General Family Medicine 05/06/18 documented as of this encounter
--- OUTSIDE RECORDS SUMMARY | 2023-12-18 22:13 | External Medical Summary | Summary of Care ---
Author Name Unknown Organization [facility] Address [address] [facility] [place] [address] Phone [phone] Care Team Providers Care Marine Painter Name Role Phone Gino Osman MD Primary Care Provider [phone] Reason for Visit * Reason Comments Medication Administration * Precert (Within 30 days (routine)) - Authorized Specialty Diagnoses / Procedures Referred By Contac t Referred To Contact Diagnoses Anemia in chronic kidney disease Procedures LA INJ RETACRIT NON-ESRD USE Ashely Chapa MD 200 [facility] [place] [address] Ashely Chapa MD 200 [facility] [place] [address] Referral ID Status Reason Start Date Expiration Date V isits Requested Visits Authorized [id number] Authorized Precert 02/07/2023 03/18/[phone] Encounter Details Date Type Department Care Team (Late st Contact Info) Description 12/04/2023 11:00 AM EDT Nurse Only NephrologyGabrielle [address] [address] Sp, Nurse Nephrology [address] [facility] [address] [place] [address] Medication Administration Allergies Active Allergy Reactions Criticality Noted Date [...] azithromycin (ZITHROMAX) 250 MG Tablet One tablet -- 6 Tab 1 11/27/2018 Active mycophenolate (CELLCEPT) [...] 30 Cap 12/16/2020 Active Ergocalciferol 1.25 MG (08819 UT) Oral Capsule (Vitamin D2(Drisdol)) On Sunday bimonthly 12 Capsule 01/02/2023 Active Tamsulosin HCl 0.4 MG Oral Capsule (Flomax)Indications: BPH with obstruction/lower urinary tract symptoms TAKE ONE CAPSULE BY MOUTH IN THE MORNING 90 Capsule 3 04/01/2023 Active Fluticasone Propionate 50 MCG/ACT Nasal Suspension (Flonase) Administer 1 Cum[place] into nostril in the morning and 1 Cummaqu[place] before bedtime. 05/01/2023 Active Saline Nasal [place] 0.65 % Nasal Solution ([place]) Administer 1 Cum[place]quid into nostril. 05/01/2023 Active Pantoprazole Sodium 40 [...] Start Date End Date Status Epoetin Rogelio 84685 UNIT/ML inj 40,000 UnitsIndications:Anemia of chronic renal failure, stage 3b (HCC) 60081 Units SC QWEEK 08/21/2023 Active documented as [...] right lower extremity 06/13/2018 Current use of senior living 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 019 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 Overview: left [facility] 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 Interstitial [...] mRNA, LNP-s, No Pre serve, 2-Dose Series ([employer]) 09/03/2021,11/04/2020,05/27/2020,04/19 COVID-19, MRNA-LNP, 23-24, P F, 30 MCG/0.3 mL, 12 YRS AND ABOVE, IM ([employer]) 02/22/2023 COVID-19, MRNA-LNP, 24-25, P R, 30MCG/0.3ML, IM, 12YRS AND ABOVE ([employer]) 11/30/2023 Covid-19, Mrna, Lnp-s, Pf, B ivalent, 30 Mcg, IM, 12 yrs and above ([employer]) 01/17/2022 Hepatitis B, 20+ yrs 01/03/2017,08/03/2016,07/05 Pneumococcal [...] as of this encounter Progress Notes * Candy Ewing RN - 12/04/2023 11:28 AM EDT Hgb 7.7 today. Pt continues to be fatigued. Discussed Aranesp as suggested by Dr Chapa as a possible alternative to Procrit injections due to poor response from Procrit. Pt and very interested in trying alternative medication if advised. Will update Dr Chapa of this. documented in this encounter Plan of Treatment Upcoming Encounters Date Type Department Care Team (Late st Contact Info) Description 12/06/2023 9:30 AM EDT Pharmacy Pharmacy, [address] [phone] Clinic, Anemia [address] [place] [address] 12/12/2023 11:00 AM EDT Nurse Only Nephrology, [facility] [address] [place], [place] [address] Sp, Nurse Nephrology [address] [place] [address] 01/21/2024 10:00 AM EST Office Visit Nephrology, [facility] 200 [place], [place] [address] Laurita Washington PA-C [address] [place] [address] 04/01/2024 1:00 PM EST Nurse Only Ancillary Department, [address] [address] [place], Nurse Annual Wellness [address] [place] [address] 04/01/2024 2:20 PM EST Office Visit Family Practice, [address] [address] Gino Osman MD [address] [place] [address] 05/14/2024 2:00 PM EST [facility] [place] [address] [place], [place] [address] [place] [facility] 200 [place], [place] [address] 05/21/2024 2:15 PM EST Office Visit Hematology/Oncology [facility] [place] [address] [place] [phone] Cleve Bruce MD [address] [place] [address] [address] Health Maintenance Due Date Last Done Comments Alpha-1 Antitrypsin 1963 Influenza Vaccine (FLU shot) (#1) 2023 12/27/2022, 01/11/2022, 12/16/2020, Additional history exists PTH 12/02/2023 12/01/2022 Hepatitis C Screening 02/28/2024 Postpo erna from 1963 (Patient Declined After Education) Adult Wellness Visit 03/06/2024 03/06/2023, 02/28/2022, 02/22/2021 Depression Screening 03/06/2024 03/06/2023, 05/01/19 18 GFR 05/26/2024 11/27/2023, 10/2023, 10/25/2023, Additional history exists Nephrology Referral 09/16/2024 09/17/2023 Phosphate 09/16/2024 09/17/2023, 08/18, 09/09/2023, Additional history exists Albumin/Creatinine Ratio 09/24/2024 024, 12/01/2022, 06/20/2021, Additional history exists Hgb 12/03/2024 12/04/2023, 11/17, 11/20/2023, Additional history exists DTap/Tdap Vaccines (3 - Td or Tdap) 06/23/2032 06/23/2022, 10/02/2011 Hepatitis B Vaccine Completed 01/03/2017, 08/03/2016, 07/05/2016 Pneumococcal Vaccine: 65+ Years Completed 05/23/2018, 04/01/2015, 05/14/2012 Zoster Vaccines Completed 05/27/2018, 090 06/2017, 08/15/2012 COVID-19 Vaccine Completed 11/30/2023, 09/2022, 01/17/2022, Additional history exists HPV (Gardasil) Vaccine Aged Out No lo nger eligible based on patient's age to complete this topic MENINGOCOCCAL (MENACTRA/MENVEO) Aged Out No longer eligible based on patient's age to complete this topic documented as of this encounter Medical Devices Implanted Type Area Vp Patient Device Identifier Shelf Expiration Date Model / Serial / Lot Lens Intraoc 18.0 - [id number] - [id number] Implanted:Qty: 1 on 11/20/2019 by Sonu Valladares MD at OR [facility] Left: Eye [employer]OM[employer] 02/16/2024 [id number] / [id number] / [id number] Sofport Implanted:Qty: 1 on 12/02/2019 by Sonu Valladares MD at OR [facility] Right: Eye 11/17/2023 [id number] / / [id number] documented as of this encounter Administered Medications Active Administered Medications - up to 3 most recent administrations Medication Order MAR Action Action Date Dose Rate Site Epoetin Rogelio 17138 UNIT/ML inj 40,000 Units 40,000 Units, Subcutaneous, QWEEK, First dose on Sun08/21/23 at 1300, Until Discontinued, Hold if Hgb > 11g/dL Given 12/04/2023 11:13 AM EDT 40,000 Units Arm Left Upper Given 11/27/2023 11:38 AM EDT 40,000 Units Arm Left Upper Given 11/20/2023 11:15 AM EDT 40,000 Units Arm Right Upper documented in this encounter Care Teams Marine Painter Relationship Specialty Start Date End Date Gino Osman MD [address] [place] [address] PCP - General Family Medicine 05/06/18 documented as of this encounter
--- OUTSIDE RECORDS SUMMARY | 2023-12-18 22:13 | External Medical Summary ---
Author Name Unknown Address Unknown Organization K[facility] [place] [address] Laboratory Report Ordering Provider Test Date Status ROBERT VANCE 12/04/2023 10:45:21 Final Observation Date Value Abnormality Reference (Units ) Status WBC, Total 12/04/2023 10:45:21 8.58 4.00-10.8 0 (K/uL) Final RBC 12/04/2023 10:45:21 2.41 4.50-5.25 (M/uL) Final Hemoglobin 12/04/2023 10:45:21 7.7 Below low normal 14 .0-16.8 (g/dL) Final HCT 12/04/2023 10:45:21 26.1 Below low normal 40. 0-48.4 (%) Final MCV 12/04/2023 10:45:21 108.3 82.0-99.5 (fL) Final MCH 12/04/2023 10:45:21 32.0 27.0-34.0 (pg) Final MCHC 12/04/2023 10:45:21 29.5 32.0-36.0 (g/dL) Final RDW 12/04/2023 10:45:21 14.7 11.5-15.5 (%) Final Platelets 12/04/2023 10:45:21 108 Below low normal 140 -400 (K/uL) Final MPV 12/04/2023 10:45:21 10.5 6.6-11.1 ( fL) Final Performing Location [facility] [place] [address]
--- OUTSIDE RECORDS SUMMARY | 2023-12-18 22:13 | External Medical Summary | Summary of Care ---
Author Name Unknown Organization [facility] Address [address] [facility] [place] [address] Phone [phone] Care Team Providers Care Tip Bander Name Role Phone Gino Osman MD Primary Care Provider [phone] Reason for Visit * Reason Comments eRx-Medication Refill Encounter Details Date Type Department Care Team (Late st Contact Info) Description 12/03/2023 Refill Nephrology, [facility] [address] [place] [address] Madi Hernandez MD [address] [place] [address] Allergies Active Allergy Reactions Criticality Noted Date Comments Adhesive Tape Itching High 11/21/2022 documented as of this encounter (statuses as of 12/03/2023) Medications Medication Sig Dispensed Refills Start Date End Date Status ASPIRIN EC 81 MG PO TBECIndications:Dy slipidemia, goal LDL below 100,Mixed dyslipidemia Take one pill daily 100 Tab 3 09/22/2013 Active sulfamethoxazole-t rimethoprim DS (BACTRIM DS) 800-160 MG per tabletIndications: M-W- Take 0.5 Tablets by mouth once a day on Sunday, Sunday, and Sunday only. 05/06/2018 Active pravastatin (PRAVACHOL) 20 MG TabletIndications: Dyslipidemia, goal LDL below 100,Mixed dyslipidemia Take 1 [...] morning Active Everolimus 0.5 MG Oral Tablet (Zortress)Indicati ons:2 tablet 2 times aday 1 mg (1 [...] 02/24/2020 Active Tacrolimus 1 MG Oral Capsule (Prograf)Indicatio ns:History of lung transplant (HCC) Take 2 Capsules by mouth in the morning and 2 Capsules before bedtime. Takes 2 mg in the AM and 2 mg in the PM. 30 Cap 12/16/2020 Active Ergocalciferol 1.25 MG (23502 UT) Oral Capsule (Vitamin D2(Drisdol)) On Sunday bimonthly 12 Capsule 01/02/2023 Active Tamsulosin HCl 0.4 MG Oral Capsule (Flomax)Indication s:BPH with obstruction/lower urinary tract symptoms TAKE ONE CAPSULE BY MOUTH IN THE MORNING 90 Capsule 3 04/01/2023 Active Fluticasone Propionate 50 MCG/ACT Nasal Suspension (Flonase) Administer 1 [place] into nostril in the morning and 1 [place] before bedtime. 05/01/2023 Active Saline Nasal [place] 0.65 % Nasal Solution ([place]) Administer 1 [place] into nostril. 05/01/2023 Active Pantoprazole Sodium 40 MG Oral Tablet Delayed Release (Protonix) Take 1 Tablet by mouth in the morning. 90 Tablet 3 05/15/2023 Active Sodium Bicarbonate 650 MG Oral TabletIndications: Chronic kidney disease, stage 3b (HCC) Take 2 Tablets by mouth in the morning and 2 Tablets before bedtime. 360 Tablet 3 08/28/2023 Active Sodium Zirconium Cyclosilicate 10 GM Oral Packet (Lokelma) Take 1 Packet by mouth. 11/23/2023 Active Lisinopril 5 MG Oral Tablet (Prinivil) TAKE ONE TABLET BY MOUTH EVERY DAY IN THE MORNING. 30 Tablet 5 12/03/2023 Active Lisinopril 5 MG Oral Tablet (Prinivil) Take 0.5 Tablets by mouth in the morning. 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 History of pulmonary fibrosis 11/27/2018 Pulmonary embolus, left 06/13/2018 Acute deep vein thrombosis (DVT) of right lower extremity 06/13/2018 Current use of retirement 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 019 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 Overview: left [facility] 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 Interstitial lung disease 03/19/2015 Chronic rhinitis 03/30/2014 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 Restrictive lung disease documented as of this encounter (statuses as of 12/03/2023) Resolved Problems Problem Noted Date Diagnosed Date [...] as of this encounter (statuses as of 12/03/2023) Immunizations Name Administration Dates Next Due COVID-19 mRNA, LNP-s, No Pre serve, 2-Dose Series ([employer]) 09/03/2021,11/04/2020,05/27/2020,04/19 COVID-19, MRNA-LNP, 23-24, P F, 30 MCG/0.3 mL, 12 YRS AND ABOVE, IM ([employer]) 02/22/2023 COVID-19, MRNA-LNP, 24-25, P R, 30MCG/0.3ML, IM, 12YRS AND ABOVE ([employer]) 11/30/2023 Covid-19, Mrna, Lnp-s, Pf, B ivalent, 30 Mcg, IM, 12 yrs and above ([employer]) 01/17/2022 Hepatitis B, 20+ yrs 01/03/2017,08/03/2016,07/05 Pneumococcal [...] encounter Miscellaneous Notes * Telephone Encounter - Madi Hernandez MD - 12/03/2023 4:25 PM EDTSigned Prescriptions: Disp Refills Lisinopril 5 MG Oral Tablet (Prinivil) 30 Tab*5 Sig: TAKE ONE TABLET BY MOUTH EVERY DAY IN THE MORNING. Authorizing Provider: MADI HERNANDEZ * Telephone Encounter - Candy Ewing RN - 12/03/2023 3:57 PM EDTPending Prescriptions: Disp Refills Lisinopril 5 MG Oral Tablet (Prinivil) 30 Tab*5 Sig: TAKE ONE TABLET BY MOUTH EVERY DAY IN THE MORNING. * Telephone Encounter - Candy Ewing RN - 12/03/2023 3:44 PM EDT Prescription request received from pharmacy pending. Please authorize. Last OV 09/17/23 Next OV 01/21/24 documented in this encounter Plan of Treatment Upcoming Encounters Date Type Department Care Team (Late st Contact Info) Description 12/04/2023 11:00 AM EDT Nurse Only Nephrology, Gabrielle Silva [address] [place] [address] Sp, Nurse Nephrology [address] [place] [address] 12/06/2023 9:30 AM EDT Pharmacy Pharmacy, [address] [address] [facility], [address] [address] 01/21/2024 10:00 AM EST Office Visit Nephrology, Gabrielle Silva [address] [place] [address] Laurita [place] PA-C [address] [facility] [place] [address] 04/01/2024 1:00 PM EST Nurse Only Ancillary Department, [address] [address] [place], Nurse Annual Wellness [address] [place] [address] 04/01/2024 2:20 PM EST Office Visit Family Practice, [place] [address] [place] [phone] Gino Osman MD [address] [place] [address] 05/14/2024 2:00 PM EST Laboratory Laboratory [facility] [address] [facility] [place], [place] [address] [place], [facility] [address] [facility] [place], [place] [address] 05/21/2024 2:15 PM EST Office Visit Hematology/Oncology [facility] [place] [address] [facility] [place] [phone] Cleve Bruce MD [address] [facility] [place], [place] [address] Health Maintenance Due Date Last Done Comments [...] this encounter Medical Devices Implanted Type Area Volunteer Services Specialist Device Identifier Shelf Expiration Date Model / Serial / Lot Lens Intraoc 18.0 - [id number] - [id number] Implanted:Qty: 1 on 11/20/2019 by Sonu Valladares MD at OR [facility] Left: Eye [employer]OMB 02/16/2024 [id number] / [id number] / [id number] Sofport Implanted:Qty: 1 on 12/02/2019 by Sonu Valladares MD at OR [facility] Right: Eye 11/17/2023 [id number] / / [id number] documented as of this encounter Care Teams Tip Bander Relationship Specialty Start Date End Date Gino Osman MD [address] [place] [address] PCP - General Family Medicine 05/06/18 documented as of this encounter
--- OUTSIDE RECORDS SUMMARY | 2023-12-18 22:13 | External Medical Summary | Summary of Care ---
Author Name Unknown Organization [facility] Address [address] [place] [address] Phone [phone] Care Team Providers Care Pattern Puncher Name Role Phone Gino Osman MD Primary Care Provider Reason for Visit * Reason Onset Date Comments Anemia Follow-Up 11/29/2023 Encounter Details Date Type Department Care Team (Late st Contact Info) Description 11/21/2023 9:00 AM EDT Pharmacy Pharmacy, [place] [address] [place], [place] [id number] Clinic, Anemia [address] [place], [place] [id number] Anemia of chronic renal failure, stage 4 (severe) ([facility]ER[facility])* Allergies Active Allergy Reactions Criticality Noted Date Comments Adhesive Tape Itching High 11/21/2022 documented as of this encounter (statuses as of 11/29/2023) Medications Medication Sig Dispensed Refills Start Date [...] 30 Cap 12/16/2020 Active Ergocalciferol 1.25 MG (93629 UT) Oral Capsule (Vitamin D2(Drisdol)) On Sunday bimonthly 12 Capsule 01/02/2023 Active Tamsulosin HCl 0.4 MG Oral Capsule (Flomax)Indications: BPH with obstruction/lower urinary tract symptoms TAKE ONE CAPSULE BY MOUTH IN THE MORNING 90 Capsule 3 04/01/2023 Active Fluticasone Propionate 50 MCG/ACT Nasal Suspension (Flonase) Administer 1 [place] into nostril in the morning and 1 [place] before bedtime. 05/01/2023 Active Saline Nasal [place] 0.65 % Nasal Solution ([place]) Administer 1 [place] into nostril. 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 History of pulmonary fibrosis 11/27/2018 Pulmonary embolus, left 06/13/2018 Acute deep vein thrombosis (DVT) of right lower extremity 06/13/2018 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 019 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 Overview: left [facility] 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 Interstitial lung disease 03/19/2015 Chronic rhinitis 03/30/2014 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 Restrictive lung disease documented as of this encounter (statuses as of 11/29/2023) Resolved Problems Problem Noted Date Diagnosed Date [...] as of this encounter (statuses as of 11/29/2023) Immunizations Name Administration Dates Next Due COVID-19 mRNA, LNP-s, No Pre serve, 2-Dose Series (trinket) 09/03/2021,11/04/2020,05/27/2020,04/19 COVID-19, MRNA-LNP, 23-24, P F, 30 MCG/0.3 mL, 12 YRS AND ABOVE, IM ([employer] [facility]) 02/22/2023 Covid-19, Mrna, Lnp-s, Pf, B ivalent, 30 Mcg, IM, 12 yrs and above ([employer]) 01/17/2022 Hepatitis B, 20+ yrs 01/03/2017,08/03/2016,07/05 Pneumococcal [...] this encounter Progress Notes * Feroz Lugo, [facility] - 11/29/2023 3:04 PM EDT Patient Phone Numbers Called and spoke with Arthur to review labs from 11/20/23. Hgb is below target range. Iron studies adequate. Patient reports recent malignancy, SCC treated with surgical removal and started radiation therapy on 10/02/23 managed by [facility] radiation oncology - Dr. Bruce. Hematology in agreement with continued BON use at nephrology clinic at [facility]. Plan: Continue Retacrit 40,000 units SQ weekly @ [facility] nephrology clinic (hold for Hgb > 11 g/dL). 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 Received approval from Dr. Chapa to start BON therapy as benefits outweigh risks at this time. Follow-up labs to be obtained on 11/27/23 to match administration appointment. Anemia Clinic will continue to follow. Thank you for allowing us to participate in the care of thispatient. Feroz Lugo, PharmD, [facility] Clinical Pharmacist Anemia Clinic P: [phone] F: [phone] 11/29/2023 3:05 PM Lab Results Component Value Date/Time HGB 8.4 (L) 11/27/2023 08:39 AM HGB 8.1 (L) 11/20/2023 10:38 AM HGB 8.1 (L) 11/13/2023 10:31 AM HGB 8.4 (L) 09/07/2023 06:09 PM [...] EDT Nurse Only Nephrology, Gabrielle Silva [address] [place] [address] Sp, Nurse Nephrology [address] [place] [address] 12/06/2023 9:30 AM EDT Pharmacy Pharmacy[address] [place] [address] Clinic, Anemia [address] [place] [address] 01/21/2024 10:00 AM EST Office Visit Nephrology, [facility] [address] [place] [address] Laurita [place] PA-C [address] [place] [address] 04/01/2024 1:00 PM EST Nurse Only Ancillary Department, [place] [address] [place] [address] [place], Nurse Annual Wellness [address] [place] [address] 04/01/2024 2:20 PM EST Office Visit Family Practice, [place] [address] [place] [phone] Gino Osman MD [address] [place] [address] 05/14/2024 2:00 PM EST Laboratory [facility] [place] [address] [place] [phone] [place], Lab [facility] [address] [place] [address] [address] 05/21/2024 2:15 PM EST Office Visit Hematology/Oncology [facility] [place] [address] [place] [address] [phone] Cleve Bruce MD [address] [place] [address] [address] Health Maintenance Due Date Last Done Comments Alpha-1 Antitrypsin 1963 COVID-19 Vaccine ( season) 2023 02/22/2023, 01/17/2022, 09/03/2021, Additional history [...] 06/20/2021, Additional history exists Hgb 11/26/2024 11/27/2023, 09/0 05/2023, 11/13/2023, Additional history exists DTap/Tdap Vaccines [...] this encounter Medical Devices Implanted Type Area Appointment Scheduler Device Identifier Shelf Expiration Date Model / Serial / Lot Lens Intraoc 18.0 - [id number] - [id number] Implanted:Qty: 1 on 11/20/2019 by Sonu Valladares MD at OR [facility] Left: Eye [employer]OM[employer] 02/16/2024 [id number] / [id number] / [id number] Sofport Implanted:Qty: 1 on 12/02/2019 by Sonu Valladares MD at OR [facility] Right: Eye 11/17/2023 [id number] / / [id number] documented as of this encounter Visit Diagnoses Diagnosis Anemia of chronic renal failure, stage 4 (severe) (HCC)- Primary documented in this encounter Care Teams Pattern Puncher Relationship Specialty Start Date End Date Gino Osman MD [address] [place] [facility] [address] PCP - General Family Medicine 05/06/18 documented as of this encounter
--- OUTSIDE RECORDS SUMMARY | 2023-12-18 22:13 | External Medical Summary | Summary of Care ---
Author Name Unknown Organization [facility] Address [address] [facility] [place] [address] Phone [phone] Care Team Providers Care Video Manager Name Role Phone Gino Osman MD Primary Care Provider Reason for Visit * Reason Comments Outpatient Testing Encounter Details Date Type Department Care Team (Late st Contact Info) Description 12/04/2023 11:20 AM EDT Laboratory Laboratory [facility] [address] [place] [address] [facility] [address] [facility] [place] [address] Anemia of chronic renal failure, stage 4 (severe) ([facility]) Allergies Active Allergy Reactions Criticality Noted Date [...] azithromycin (ZITHROMAX) 250 MG Tablet One tablet M--F 6 Tab 1 11/27/2018 Active mycophenolate (CELLCEPT) [...] 30 Cap 12/16/2020 Active Ergocalciferol 1.25 MG (02472 UT) Oral Capsule (Vitamin D2(Drisdol)) On Sunday bimonthly 12 Capsule 01/02/2023 Active Tamsulosin HCl 0.4 MG Oral Capsule (Flomax)Indications: BPH with obstruction/lower urinary tract symptoms TAKE ONE CAPSULE BY MOUTH IN THE MORNING 90 Capsule 3 04/01/2023 Active Fluticasone Propionate 50 MCG/ACT Nasal Suspension (Flonase) Administer 1 [place] into nostril in the morning and 1 [place] before bedtime. 05/01/2023 Active Saline Nasal [place] 0.65 % Nasal Solution ([place]) Administer 1 [place] into nostril. 05/01/2023 Active Pantoprazole Sodium 40 [...] THE MORNING. 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 019 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 Overview: left [facility] 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 [...] mRNA, LNP-s, No Pre serve, 2-Dose Series ([employer]) 09/03/2021,11/04/2020,05/27/2020,04/19 COVID-19, MRNA-LNP, 23-24, P F, 30 MCG/0.3 mL, 12 YRS AND ABOVE, IM ([employer]) 02/22/2023 COVID-19, MRNA-LNP, 24-25, P R, 30MCG/0.3ML, IM, 12YRS AND ABOVE ([employer]) 11/30/2023 Covid-19, Mrna, Lnp-s, Pf, B ivalent, 30 Mcg, IM, 12 yrs and above ([employer]) 01/17/2022 Hepatitis B, 20+ yrs 01/03/2017,08/03/2016,07/05 Pneumococcal [...] Description 12/06/2023 9:30 AM EDT Pharmacy Pharmacy, [address] [address] Clinic, [address] [address] 01/21/2024 10:00 AM EST Office Visit Nephrology, [facility] [address] [facility] [place] [address] Laurita [place] PA-C [address] [facility] [place] [address] 04/01/2024 1:00 PM EST Nurse Only Ancillary Department, [address] [address] [place], Nurse Annual Wellness [facility] [place] [address] 04/01/2024 2:20 PM EST Office Visit Family Practice, [place] [address] [place] [phone] Gino Osman MD [address] [place] [address] 05/14/2024 2:00 PM EST Laboratory Laboratory [facility] [place] [address] [facility] [place], [place] [address] [place], [facility] [address] [facility] [place] [place] [address] 05/21/2024 2:15 PM EST Office Visit Hematology/Oncology [facility] [place] [address] [facility] [place] [phone] Cleve Bruce MD [address] [facility] [place] [address] Pending Results Name Type Priority Associated Diagnoses Date /Time RETICULOCYTE PANEL Lab Routine Anemia of chronic renal failure, stage 4 (severe) (HCC) 12/04/2023 10:45 AM EDT Health Maintenance Due Date Last Done Comments [...] this encounter Medical Devices Implanted Type Area Staff Nurse Anesthetist Device Identifier Shelf Expiration Date Model / Serial / Lot Lens Intraoc 18.0 - [id number] - [id number] Implanted:Qty: 1 on 11/20/2019 by Sonu Valladares MD at OR [facility] Left: Eye [employer] 02/16/2024 [id number] / [id number] / [id number] Sofport Implanted:Qty: 1 on 12/02/2019 by Sonu Valladares MD at OR [facility] Right: Eye 11/17/2023 [id number] / / [id number] documented as of this encounter Procedures Procedure Name Priority Date/Time Associated Diagnosis Comments CBC Routine 12/04/2023 10:45 AM EDT Anemia of chronic renal failure, stage 4 (severe) (HCC) documented in this encounter Results * (ABNORMAL) CBC (12/04/2023 10:45 AM EDT) WBC 8.58 4.00 - 10.80 K/uL 12/04/2023 10:50 AM EDT LABORATORY [facility] 56-02 RBC 2.41 4.50 - 5.25 M/uL 12/04/2023 10:50 AM EDT LABORATORY [place] 56-02 HGB 7.7(L) 14.0 - 16.8 g/dL 12/04/2023 10:50 AM EDT [facility] 56-02 HCT 26.1(L) 40.0 - 48.4 % 12/04/2023 10:50 AM EDT [facility] 56 MCV 108.3 82.0 - 99.5 fL 12/04/2023 10:50 AM EDT [facility] 56 MCH 32.0 27.0 - 34.0 pg 12/04/2023 10:50 AM EDT [facility] 56 MCHC 29.5 32.0 - 36.0 g/dL 12/04/2023 10:50 AM EDT [facility] 56 RDW 14.7 11.5 - 15.5 % 12/04/2023 10:50 AM EDT [facility] 56 PLT 108(L) 140 - 400 K/uL 12/04/2023 10:50 AM EDT [facility] 56 MPV 10.5 6.6 - 11.1 fL 12/04/2023 10:50 AM EDT [facility] 56 Blood Venous blood specimen / Unknown Venipuncture / Unknown 12/04/2023 10:45 AM EDT 12/04/2023 10:45 AM EDT Feroz Lugo [facility] LAB BLOOD OR DERABLES [facility] [address] [place] [address] documented in this encounter Visit Diagnoses Diagnosis Anemia of chronic renal failure, stage 4 (severe) (HCC) documented in this encounter Care Teams Video Manager Relationship Specialty Start Date End Date Gino Osman MD [address] [place] [address] PCP - General Family Medicine 05/06/18 documented as of this encounter
--- OUTSIDE RECORDS SUMMARY | 2023-12-18 22:13 | External Medical Summary ---
Author Name Unknown Address Unknown Organization K01:LABORATORY [facility] - [facility] [address] [address] Laboratory Report Ordering Provider Test Date Status ROBERT VANCE 12/04/2023 10:45:04 Final Observation Date Value Abnormality Reference (Units ) Status Retic, % (auto) 12/04/2023 10:45:04 1.24 0.80-1.90 (%) Final Reticulocytes, Absolute 12/04/2023 10:45:04 29.5 Below low normal 31.3-100.1 (K/uL) Final Reticulocyte fraction, immature 12/04/2023 10:45:04 15.3 2.5-20.6 (%) Final Reticulocyte HGB 12/04/2023 10:45:04 29.3 Below low normal 29.7-37.4 (pg) Final Performing Location LABORATORY [facility] - [address] [place] [address]
--- OUTSIDE RECORDS SUMMARY | 2023-12-18 22:13 | External Medical Summary | Summary of Care ---
Author Name Unknown Organization [facility] Address [address] [place] [address] Phone [phone] Care Team Providers Care Director Regulatory Agency Name Role Phone Gino Osman MD Primary Care Provider [phone] Reason for Visit * Reason Onset Date Comments Anemia Follow-Up 11/29/2023 Encounter Details Date Type Department Care Team (Late st Contact Info) Description 11/29/2023 9:30 AM EDT Pharmacy Pharmacy, [place] [address] [place], [place] [id number] Clinic, Anemia [address] [place], [place] [id number] Anemia of chronic renal failure, stage 4 (severe) ([facility])* Allergies Active Allergy Reactions Criticality Noted Date [...] 30 Cap 12/16/2020 Active Ergocalciferol 1.25 MG (95848 UT) Oral Capsule (Vitamin D2(Drisdol)) On Sunday bimonthly 12 Capsule 01/02/2023 Active Tamsulosin HCl 0.4 MG Oral Capsule (Flomax)Indications: BPH with obstruction/lower urinary tract symptoms TAKE ONE CAPSULE BY MOUTH IN THE MORNING 90 Capsule 3 04/01/2023 Active Fluticasone Propionate 50 MCG/ACT Nasal Suspension (Flonase) Administer 1 [place] into nostril in the morning and 1 [place] before bedtime. 05/01/2023 Active Saline Nasal [place] 0.65 % Nasal Solution (Slinger) Administer 1 [place] into nostril. 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 [...] mRNA, LNP-s, No Pre serve, 2-Dose Series ([employer]) 09/03/2021,11/04/2020,05/27/2020,04/19 COVID-19, MRNA-LNP, 23-24, P F, 30 MCG/0.3 mL, 12 YRS AND ABOVE, IM ([facility]) 02/22/2023 Covid-19, Mrna, Lnp-s, Pf, B ivalent, [...] this encounter Progress Notes * Feroz Lugo, [facility] - 11/29/2023 2:20 PM EDT Patient Phone Numbers Called and spoke with Arthur to review labs from 11/27/23. Hgb is below target range. Iron studies adequate. Patient reports recent malignancy, SCC treated with surgical removal and started radiation therapy on 10/02/23 managed by [facility] radiation oncology - Dr. Bruce. Hematology in agreement with continued BON use at nephrology clinic at [facility]. Plan: Continue Retacrit 40,000 units SQ weekly @ [facility] nephrology clinic (hold for Hgb > 11 g/dL). Last dose: Retacrit 40,000 units SQ on 11/20/23 Next dose due: Retacrit 40,000 units SQ on 11/27/23 (scheduled) Subsequent dose due: Retacrit 40,000 units SQ on 12/04/23 Patient with history of DVT/PE, not currently on 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. Received approval from Dr. Chapa to start BON therapy as benefits outweigh risks at this time. Follow-up labs to be obtained on 12/04/23 to match administration appointment. Anemia Clinic will continue to follow. Thank you for allowing us to participate in the care of thispatient. Feroz Lugo, PharmD, [facility] Clinical Pharmacist Anemia Clinic P: [phone] F: [phone] 11/29/2023 3:01 PM Lab Results Component Value Date/Time HGB [...] Only Nephrology, Gabrielle Silva [address] [place] [address] Sp, Nurse Nephrology [address] [place] [address] 12/06/2023 9:30 AM EDT Pharmacy [address] [place] [address] Clinic, Anemia [address] [place] [address] 01/21/2024 10:00 AM EST Office Visit Nephrology, [facility] [address] [place] [address] Laurita Washington PA-C [address] [place] [address] [address] 04/01/2024 1:00 PM EST Nurse Only Ancillary Department, [place] [address] [place] [address] [place], Nurse Annual Wellness [address] [place] [address] 04/01/2024 2:20 PM EST Office Visit Family Practice, [place] [address] [place] [phone] Gino Osman MD [address] [place] [address] 05/14/2024 2:00 PM EST Laboratory Laboratory [facility] [place] [address] [place] [phone] [place], Lab [facility] [address] [place] [address] [address] 05/21/2024 2:15 PM EST Office Visit Hematology/Oncology [facility] [place] [address] [place] [address] [place] [phone] Cleve Bruce MD [address] [place] [place] [address] Health Maintenance Due Date Last Done Comments [...] this encounter Medical Devices Implanted Type Area Technical Recruiter Device Identifier Shelf Expiration Date Model / Serial / Lot Lens Intraoc 18.0 - [id number] - [id number] Implanted:Qty: 1 on 11/20/2019 by Sonu Valladares MD at OR [facility] Left: Eye BAUSCH & LOMB 02/16/2024 [id number] / [id number] / [id number] Sofport Implanted:Qty: 1 on 12/02/2019 by Sonu Valladares MD at OR [facility] Right: Eye 11/17/2023 [id number] / / [id number] documented as of this encounter Visit Diagnoses Diagnosis Anemia of chronic renal failure, stage 4 (severe) (HCC)- Primary documented in this encounter Care Teams Director Regulatory Agency Relationship Specialty Start Date End Date Gino Osman MD [address] [place] [facility] [place] [address] PCP - General Family Medicine 05/06/18 documented as of this encounter
--- OUTSIDE RECORDS SUMMARY | 2023-12-18 22:14 | External Medical Summary ---
Author Name Unknown Address Unknown Organization [id number]:LABORATORY [facility] [place] [address] [place] [address] Laboratory Report Ordering Provider Test Date Status ROBERT VANCE 11/20/2023 10:38:13 Final Observation Date Value Abnormality Reference (Units ) Status Iron 11/20/2023 10:38:13 73 45-176 (ug/dL) Final Iron-binding capacity 11/20/2023 10:38:13 180 Below low normal 250-425 (ug/dL) Final Transferrin Sat % 11/20/2023 10:38:13 41 15-55 (%) Final Performing Location LABORATORY [facility] [place] - [address] [place] [address]
--- OUTSIDE RECORDS SUMMARY | 2023-12-18 22:14 | External Medical Summary | Summary of Care ---
Author Name Unknown Organization [facility] Address [address] [facility] [place] [address] Phone [phone] Care Team Providers Care Government Teacher Name Role Phone Gino Osman MD Primary Care Provider [phone] Reason for Visit * Reason Onset Date Comments Precert Not Needed 10/31/2023 LOKELMA Encounter Details Date Type Department Care Team (Late st Contact Info) Description 10/31/2023 Telephone Nephrology, Gabrielle Doug[place] [address] [facility] [place] [address] Ashely Chapa MD [address] [facility] [place] [address] Precert Not Needed (LOKELMD) Allergies Active Allergy Reactions Criticality Noted Date Comments Adhesive Tape Itching High 11/21/2022 documented as of this encounter (statuses as of 11/23/2023) Medications Medication Sig Dispensed Refills Start Date [...] 30 Cap 12/16/2020 Active Ergocalciferol 1.25 MG (05324 UT) Oral Capsule (Vitamin D2(Drisdol)) On Sunday bimonthly 12 Capsule 01/02/2023 Active Tamsulosin HCl 0.4 MG Oral Capsule (Flomax)Indications: BPH with obstruction/lower urinary tract symptoms TAKE ONE CAPSULE BY MOUTH IN THE MORNING 90 Capsule 3 04/01/2023 Active Fluticasone Propionate 50 MCG/ACT Nasal Suspension (Flonase) Administer 1 [place] into nostril in the morning and 1 [place] before bedtime. 05/01/2023 Active Saline Nasal [place] 0.65 % Nasal Solution (Eldon) Administer 1 [place] into nostril. 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 History of pulmonary fibrosis 11/27/2018 Pulmonary embolus, left 06/13/2018 Acute deep vein thrombosis (DVT) of right lower extremity 06/13/2018 Current use of senior living 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 019 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 Overview: left [facility] 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 Interstitial lung disease 03/19/2015 Chronic rhinitis 03/30/2014 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 Restrictive lung disease documented as of this encounter (statuses as of 11/23/2023) Resolved Problems Problem Noted Date Diagnosed Date [...] as of this encounter (statuses as of 11/23/2023) Immunizations Name Administration Dates Next Due COVID-19 mRNA, LNP-s, No Pre serve, 2-Dose Series ([employer]) 09/03/2021,11/04/2020,05/27/2020,04/19 COVID-19, MRNA-LNP, 23-24, P F, 30 MCG/0.3 mL, 12 YRS AND ABOVE, IM ([facility]) 02/22/2023 Covid-19, Mrna, Lnp-s, Pf, B ivalent, [...] as of this encounter Miscellaneous Notes * Addendum Note - Chai Wayne LPN - 11/23/2023 1:23 PM EDTAddended by: CHAI WAYNE on: 11/23/2023 01:23 PM Modules accepted: Orders * Telephone Encounter - Chai Wayne LPN - 11/23/2023 1:21 PM EDT Attempted to contact [facility] to discuss Lokelma cost after receiving message no auth needed * Telephone Encounter - Chai Wayne LPN - 11/20/2023 11:27 AM EDT Nephrology Medicine Pre-Cert Request Medication/Disease State Information: Medication: Lokelma 10mg 1 packet daily Diagnosis (including ICD-10): Chronic Kidney Disease Stage IV N 18.4 Kidney replaced by transplant Z 94.0 Hyperkalemia E87.5 Medication(s) Tried/Failed/Contraindicated: None Specific to bind with Potassium See corresponding visit note(s) for additional supporting clinical information. Office Informatiion : Prescriber: Dr Bernadine Chapa MD * Telephone Encounter - Chai Wayne LPN - 11/20/2023 11:24 AM EDT Spoke with pt he wishes to proceed to Pre cert after speaking with transplant team Precert started * Telephone Encounter - Chai Wayne LPN - 11/16/2023 3:23 PM EDT Pt is aware States picked up 10 packets at $120 co pay Can try to pre cert but pt is unsure as to dosing and frequency that transplant has recommended Will await transplant team advise Pt wishes to finished radiation next week before starting anything till then * Telephone Encounter - Ashely Chapa MD - 11/16/2023 12:36 PM EDT Trial lokelma 10 gm daily or if too $$$ veltassa 8.4 gm daily * Telephone Encounter - Candy Ewing RN - 10/31/2023 11:25 AM EDT Pt was in for weekly Procrit injection. He reports that [place] [employer] is recommending Lokelma and Remeron but wanted to make sure you were aware. He is being given Remeron due to weight loss. documented in this encounter Plan of Treatment Upcoming Encounters Date Type Department Care Team (Late st Contact Info) Description 11/27/2023 11:00 AM EDT Nurse Only Nephrology, Gabrielle Silva [address] [place] [address] [address] Sp, Nurse Nephrology [address] [place] [address] [place] [address] 01/21/2024 10:00 AM EST Office Visit Nephrology, Gabrielle Silva [address] [place] [address] [place] [address] Laurita Washington PA-C [address] [place] [address] 04/01/2024 1:00 PM EST Nurse Only Ancillary Department, [place] [address] [place] [address] [place], Nurse Annual Wellness [address] [place] [address] 04/01/2024 2:20 PM EST Office Visit Family Practice, [place] [address] [place] [facility] [place] [phone] Gino Osman MD [address] [place], [place] [phone] 05/14/2024 2:00 PM EST Laboratory Laboratory [facility] [address] [place] [address] [facility] [address] [facility] [address] 05/21/2024 2:15 PM EST Office Visit Hematology/Oncology [facility] [address] [facility] [place] [address] Cleve Bruce MD [address] [place] [address] Health Maintenance Due Date Last Done Comments Alpha-1 Antitrypsin 1963 COVID-19 Vaccine (2022-24 season) 2023 02/22/2023, 01/17/2022, 09/03/2021, Additional history exists Influenza Vaccine (FLU shot) (#1) 2023 12/27/2022, 01/11/2022, 12/16/2020, Additional history exists PTH 12/02/2023 12/01/2022 Hepatitis C Screening 02/28/2024 Postpo erna from 1963 (Patient Declined After Education) Adult Wellness Visit 03/06/2024 03/06/2023, 02/28/2022, 02/22/2021 Depression Screening 03/06/2024 03/06/2023, 05/01/19 18 GFR 04/26/2024 10/25/2023, 0810/2023, 09/25/2023, Additional history exists Nephrology Referral 09/16/2024 09/17/2023 Phosphate 09/16/2024 09/17/2023, 08/18, 09/09/2023, Additional history exists Albumin/Creatinine Ratio 09/24/2024 024, 12/01/2022, 06/20/2021, Additional history exists Hgb 11/19/2024 11/20/2023, 10/18, 11/06/2023, Additional history exists DTap/Tdap Vaccines (3 - [...] this encounter Medical Devices Implanted Type Area Plant Propagator Device Identifier Shelf Expiration Date Model / Serial / Lot Lens Intraoc 18.0 - [id number] - [id number] Implanted:Qty: 1 on 11/20/2019 by Sonu Valladares MD at OR [facility] Left: Eye BAUSCH & LOMB 02/16/2024 [id number] / [id number] / [id number] Sofport Implanted:Qty: 1 on 12/02/2019 by Sonu Valladares MD at OR [facility] Right: Eye 11/17/2023 [id number] / / [id number] documented as of this encounter Additional Health Concerns Infection Onset Date Last Indicated Resolved Time C. difficile Rule-Out 11/06/2023 11/06/20232023 6:01 PM EDT Gastrointestinal Rule-Out 11/06/2023 11/06/2023 7:46 PM EDT documented as of this encounter Care Teams Government Teacher Relationship Specialty Start Date End Date Gino Osman MD [address] [place] [address] PCP - General Family Medicine 05/06/18 documented as of this encounter
--- OUTSIDE RECORDS SUMMARY | 2023-12-18 22:14 | External Medical Summary | Summary of Care ---
Author Name Unknown Organization [facility] Address [address] [facility] [place] [address] Phone [phone] Care Team Providers Care It Help Desk Technician Name Role Phone Gino Osman MD Primary Care Provider [phone] Reason for Visit * Reason Comments Medication Administration For Procrit in jection * Precert (Within 30 days (routine)) - Authorized Specialty Diagnoses / Procedures Referred By Contac t Referred To Contact Diagnoses Anemia in chronic kidney disease Procedures RI INJ RETACRIT NON-ESRD USE Ashely Chapa MD [address] [facility] [place] [address] Ashely Chapa MD [address] [facility] [place] [address] Referral ID Status Reason Start Date Expiration Date V isits Requested Visits Authorized [id number] Authorized Precert 02/07/2023 03/18/[phone] Encounter Details Date Type Department Care Team (Late st Contact Info) Description 11/20/2023 11:00 AM EDT Nurse Only Nephrology, Gabrielle [place] [address] [place] [address] [address] Sp, Nurse Nephrology 200 [facility] [place] [address] Medication Administration (For Procrit inj... Allergies Active Allergy Reactions Criticality Noted Date Comments Adhesive Tape Itching High 11/21/2022 documented as of this encounter (statuses as of 11/20/2023) Medications Medication Sig Dispensed Refills Start Date [...] 30 Cap 12/16/2020 Active Ergocalciferol 1.25 MG (90597 UT) Oral Capsule (Vitamin D2(Drisdol)) On Sunday bimonthly 12 Capsule 01/02/2023 Active Tamsulosin HCl 0.4 MG Oral Capsule (Flomax)Indications: BPH with obstruction/lower urinary tract symptoms TAKE ONE CAPSULE BY MOUTH IN THE MORNING 90 Capsule 3 04/01/2023 Active Fluticasone Propionate 50 MCG/ACT Nasal Suspension (Flonase) Administer 1 [place] into nostril in the morning and 1 [place] before bedtime. 05/01/2023 Active Saline Nasal [place] 0.65 % Nasal Solution ([place]) Administer 1 [place] into nostril. 05/01/2023 Active Pantoprazole Sodium 40 [...] the morning. 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 History of pulmonary fibrosis 11/27/2018 Pulmonary embolus, left 06/13/2018 Acute deep vein thrombosis (DVT) of right lower extremity 06/13/2018 Current use of residential 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 019 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 Overview: left [facility] 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 Interstitial lung disease 03/19/2015 Chronic rhinitis 03/30/2014 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 Restrictive lung disease documented as of this encounter (statuses as of 11/20/2023) Resolved Problems Problem Noted Date Diagnosed Date [...] as of this encounter (statuses as of 11/20/2023) Immunizations Name Administration Dates Next Due COVID-19 mRNA, LNP-s, No Pre serve, 2-Dose Series ([employer]) 09/03/2021,11/04/2020,05/27/2020,04/19 COVID-19, MRNA-LNP, 23-24, P F, 30 MCG/0.3 mL, 12 YRS AND ABOVE, IM ([facility]) 02/22/2023 Covid-19, Mrna, Lnp-s, Pf, B ivalent, [...] on file documented as of this encounter Last Filed Vital Signs Vital Sign Reading Time Taken Comments Blood Pressure 130/69 11/20/2023 11:13 AM EDT Pulse - - Temperature - - Respiratory Rate - - Oxygen Saturation - - Inhaled Oxygen Concentration - - Weight - - Height - - Body Mass Index - - documented in this encounter Nursing Notes * Vesta Alanis LPN - 11/20/2023 11:11 AM EDT Patient identified by verbal name and date of .For Procrit injection HGB 8.1 BP stable Tolerated well Next apt scheduled documented in this encounter Plan of Treatment Upcoming Encounters Date Type Department Care Team (Late st Contact Info) Description 11/21/2023 9:00 AM EDT Pharmacy Pharmacy, [place] [address] [place] [address] Clinic, [facility] [address] [place] [address] 11/27/2023 11:00 AM EDT Nurse Only Nephrology, [facility] [address], [place] [address] [place], Nurse Nephrology [address], [place] [address] 01/21/2024 10:00 AM EST Office Visit Nephrology, [facility] [address], [place] [address] Laurita Washington PA-C [address], [place] [address] 04/01/2024 1:00 PM EST Nurse Only Ancillary Department, [place] [address] [place] [address] [place], Nurse Annual Wellness [address] [place] [address] 04/01/2024 2:20 PM EST Office Visit Family Practice, [place] [address] [place] [address] Gino Osman MD [address] [place] [address] 05/14/2024 2:00 PM EST Laboratory Laboratory [facility] [place] [address], [place] [address] [place] [facility] [place] [address] [address], [place] [address] 05/21/2024 2:15 PM EST Office Visit Hematology/Oncology [place] [address], [place] [phone] Cleve Bruce MD [address], [place] [address] Health Maintenance Due Date Last Done Comments [...] 03/06/2024 03/06/2023, 05/01/19 18 GFR 04/26/2024 10/25/2023, 10/2023, 09/25/2023, Additional history exists Nephrology Referral 09/16/2024 [...] this encounter Medical Devices Implanted Type Area Apiculturist Device Identifier Shelf Expiration Date Model / Serial / Lot Lens Intraoc 18.0 - [id number] - [id number] Implanted:Qty: 1 on 11/20/2019 by Sonu Valladares MD at OR [facility] Left: Eye BAUSCH & LOMB 02/16/2024 [id number] / [id number] / [id number] Sofport Implanted:Qty: 1 on 12/02/2019 by Sonu Valladares MD at [facility] Right: Eye 11/17/2023 [id number] / / [id number] documented as of this encounter Administered Medications Active Administered Medications - up to 3 most recent administrations Medication Order MAR Action Action Date Dose Rate Site Epoetin Rogelio 30623 UNIT/ML inj 40,000 Units 40,000 Units, Subcutaneous, QWEEK, First dose on Sun08/21/23 at 1300, Until Discontinued, Hold if Hgb > 11g/dL Given 11/20/2023 11:15 AM EDT 40,000 Units Arm Right Upper Given 11/13/2023 11:03 AM EDT 40,000 Units Arm Left Upper Given 11/06/2023 11:55 AM EDT 40,000 Units Arm Right Upper documented in this encounter Care Teams It Help Desk Technician Relationship Specialty Start Date End Date Gino Osman MD [address] [place] [address] PCP - General Family Medicine 05/06/18 documented as of this encounter
--- OUTSIDE RECORDS SUMMARY | 2023-12-18 22:14 | External Medical Summary ---
Author Name Unknown Address Unknown Organization K01:LABORATORY [facility] [place] [address] [place] [address] Laboratory Report Ordering Provider Test Date Status ROBERT VANCE 11/20/2023 10:38:13 Final Observation Date Value Abnormality Reference (Units ) Status Ferritin 11/20/2023 10:38:13 294 30-400 (ng /mL) Final Performing Location LAB[facility]ATORY [facility] - [address] [place] [address]
--- OUTSIDE RECORDS SUMMARY | 2023-12-18 22:14 | External Medical Summary ---
Author Name Unknown Address Unknown Organization K01:LABORATORY [facility] [place] - [address] [facility] [address] [place] [address] Laboratory Report Ordering Provider Test Date Status PAVEL ANNE 11/27/2023 08:39:37 Final Test performed by [facility] y on [employer]. Therapeutic ranges vary with type of transplant, time post-transplant, clinical protocols, and testing methodology. Results should be interpreted with clinical presentation and any signs rejection/toxicity. Observation Date Value Abnormality Reference (Units ) Status Tacrolimus (FK506) 11/27/2023 08:39:37 7.2 4 .0-12.0 (ng/mL) Final Performing Location LABORATORY [facility] - [address] [place] [address]
--- OUTSIDE RECORDS SUMMARY | 2023-12-18 22:14 | External Medical Summary ---
Author Name Unknown Address Unknown Organization K09:LABORATORY [place] [address] Laboratory Report Ordering Provider Test Date Status ROBERT VANCE 11/20/2023 10:38:13 Final Observation Date Value Abnormality Reference (Units ) Status WBC, Total 11/20/2023 10:38:13 7.64 4.00-10.8 0 (K/uL) Final RBC 11/20/2023 10:38:13 2.49 4.50-5.25 (M/uL) Final Hemoglobin 11/20/2023 10:38:13 8.1 Below low normal 14 .0-16.8 (g/dL) Final HCT 11/20/2023 10:38:13 27.2 Below low normal 40. 0-48.4 (%) Final MCV 11/20/2023 10:38:13 109.2 82.0-99.5 (fL) Final MCH 11/20/2023 10:38:13 32.5 27.0-34.0 (pg) Final MCHC 11/20/2023 10:38:13 29.8 32.0-36.0 (g/dL) Final RDW 11/20/2023 10:38:13 14.7 11.5-15.5 (%) Final Platelets 11/20/2023 10:38:13 122 Below low normal 140 -400 (K/uL) Final MPV 11/20/2023 10:38:13 10.6 6.6-11.1 ( fL) Final Performing Location [facility]ORY [place] [address]
--- OUTSIDE RECORDS SUMMARY | 2023-12-18 22:14 | External Medical Summary ---
Author Name Unknown Address Unknown Organization K01:LABORATORY [facility] - [address] [place] [address] Laboratory Report Ordering Provider Test Date Status PAVEL ANNE 11/27/2023 08:39:37 Final Observation Date Value Abnormality Reference (Units ) Status GGT 11/27/2023 08:39:37 117 Above high normal <= 60 (U/L) Final Performing Location LABORATORY [facility] - [address] [place] [address]
--- OUTSIDE RECORDS SUMMARY | 2023-12-18 22:14 | External Medical Summary ---
Author Name Unknown Address Unknown Organization [id number]:[facility] [place] [address] [facility] [place] [address] Laboratory Report Ordering Provider Test Date Status PAVEL ANNE 11/27/2023 08:39:37 Final Observation Date Value Abnormality Reference (Units ) Status Triglyceride 11/27/2023 08:39:37 127 <=174 ( mg/dL) Final Triglyceride Reference Range s (mg/dL):
<150 Acceptable
150-174 Borderline high
175-499 High
>=500 Very high Cholesterol 11/27/2023 08:39:37 156 <200 (mg /dL) Final Total Cholesterol Reference Ranges (mg/dL):
<200 Desirable
200-239 Borderline high
>=240 High HDL 11/27/2023 08:39:37 43 >39 (mg/dL ) Final HDL Cholesterol Reference Ra nges (mg/dL):
>=60 High (Desirable)
<50 Low (Undesirable) For Females
<40 Low (Undesirable) For Males NON-HDL CHOLESTEROL 11/27/2023 08:39:37 113 <=159 (mg/dL) Final Non-HDL Cholesterol Referenc e Range (mg/dL):
<100 Target level for high risk ASCVD patient
<130 Optimal for general population
130-159 Near optimal for general population
160-189 Borderline High
190-219 High
>=220 Very High LDL, (calculated) 11/27/2023 08:39:37 88 <= 129 (mg/dL) Final LDL Cholesterol Reference Ra nges (mg/dL):
<70 Target level for high risk ASCVD patient
<100 Optimal for general population
100-129 Near optimal for general population
130-159 Borderline high
160-189 High
>=190 Very high Performing Location [facility] [place] [address] [facility] [place] [address]
--- OUTSIDE RECORDS SUMMARY | 2023-12-18 22:14 | External Medical Summary | Summary of Care ---
Author Name Unknown Organization [facility] Address [address] [facility] [place] [address] Phone [phone] Care Team Providers Care Open Die Inspector Name Role Phone Gino Osman MD Primary Care Provider [phone] Reason for Visit * Reason Onset Date Comments Medication Question 10/31/2023 Encounter Details Date Type Department Care Team (Late st Contact Info) Description 10/31/2023 Telephone NephrologyGabrielle 200 [facility] [place] [address] ChapaAshely cardona MD [address] [place] [address] Medication Question Allergies Active Allergy Reactions Criticality Noted Date Comments Adhesive Tape Itching High 11/21/2022 documented as of this encounter (statuses as of 11/16/2023) Medications Medication Sig Dispensed Refills Start Date [...] 30 Cap 12/16/2020 Active Ergocalciferol 1.25 MG (08453 UT) Oral Capsule (Vitamin D2(Drisdol)) On Sunday bimonthly 12 Capsule 01/02/2023 Active Tamsulosin HCl 0.4 MG Oral Capsule (Flomax)Indications: BPH with obstruction/lower urinary tract symptoms TAKE ONE CAPSULE BY MOUTH IN THE MORNING 90 Capsule 3 04/01/2023 Active Fluticasone Propionate 50 MCG/ACT Nasal Suspension (Flonase) Administer 1 [place] into nostril in the morning and 1 Lam[place] before bedtime. 05/01/2023 Active Saline Nasal [place]ar 0.65 % Nasal Solution ([employer]) Administer 1 [place] into nostril. 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 History of pulmonary fibrosis 11/27/2018 Pulmonary embolus, left 06/13/2018 Acute deep vein thrombosis (DVT) of right lower extremity 06/13/2018 Current use of custodial 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 019 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 Overview: left [facility] 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 Interstitial lung disease 03/19/2015 Chronic rhinitis 03/30/2014 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 Restrictive lung disease documented as of this encounter (statuses as of 11/16/2023) Resolved Problems Problem Noted Date Diagnosed Date [...] as of this encounter (statuses as of 11/16/2023) Immunizations Name Administration Dates Next Due COVID-19 mRNA, LNP-s, No Pre serve, 2-Dose Series ([employer]) 09/03/2021,11/04/2020,05/27/2020,04/19 COVID-19, MRNA-LNP, 23-24, P F, 30 MCG/0.3 mL, 12 YRS AND ABOVE, IM (PFIZER-Comirnaty) 02/22/2023 Covid-19, Mrna, Lnp-s, Pf, B ivalent, [...] encounter Miscellaneous Notes * Telephone Encounter - Vesta Alanis LPN - 11/16/2023 3:23 PM EDT Pt [...] weekly Procrit injection. He reports that [place] Signaling Project Engineer is recommending Lokelma and Remeron but wanted to make sure you were aware. He is being given Remeron due to weight loss. documented in this encounter Plan of Treatment Upcoming Encounters Date Type Department Care Team (Late st Contact Info) Description 11/20/2023 11:00 AM EDT Nurse Only Nephrology, Gabrielle Silva [address] [place] [address] Sp, Nurse Nephrology [address] [place] [address] 11/21/2023 9:00 AM EDT Pharmacy Pharmacy, [place] [address] [place] [address] Clinic, [facility] [address] [place] [address] 01/21/2024 10:00 AM EST Office Visit Nephrology, [facility] [address] [place] [place] [address] Laurita Washington PA-C [address] [place] [address] [address] 04/01/2024 1:00 PM EST Nurse Only Ancillary Department, [address] [id number] [place], Nurse [facility] [address] 04/01/2024 2:20 PM EST Office Visit Family Practice, [place] [address] [place] [phone] Gino Osman MD [address] [place] [address] 05/14/2024 2:00 PM EST Laboratory Laboratory [facility] [place] [address] [place] [address] [address] [facility] [address] [place] [address] [address] [address] 05/21/2024 2:15 PM EST Office Visit Hematology/Oncology [facility] [place] [address] [place] [address] [address] Cleve Bruce MD [address] [place] [address] Health Maintenance Due Date Last Done Comments Alpha-1 Antitrypsin 1963 COVID-19 Vaccine (2022- season) 2023 02/22/2023, 01/17/2022, 09/03/2021, Additional history [...] 024, 12/01/2022, 06/20/2021, Additional history exists Hgb 11/12/2024 11/13/2023, 10/18, 10/31/2023, Additional history exists DTap/Tdap Vaccines (3 - [...] this encounter Medical Devices Implanted Type Area Internet Systems Administrator Device Identifier Shelf Expiration Date Model / Serial / Lot Lens Intraoc 18.0 - [id number] - [id number] Implanted:Qty: 1 on 11/20/2019 by Sonu Valladares MD at OR [facility] Left: Eye BAUSCH & LOMB 02/16/2024 [id number] / [id number] / [id number] Sofport Implanted:Qty: 1 on 12/02/2019 by Sonu Valladares MD at OR [facility] Right: Eye 11/17/2023 [id number] / / [id number] documented as of this encounter Additional Health Concerns Infection Onset Date Last Indicated Resolved Time C. difficile Rule-Out 11/06/2023 11/06/20232023 6:01 PM EDT Gastrointestinal Rule-Out 11/06/2023 11/06/2023 7:46 PM EDT documented as of this encounter Care Teams Open Die Inspector Relationship Specialty Start Date End Date iGno Osman MD [address] [facility] [address] PCP - General Family Medicine 05/06/18 documented as of this encounter
--- OUTSIDE RECORDS SUMMARY | 2023-12-18 22:14 | External Medical Summary ---
Author Name Unknown Address Unknown Organization K09:[facility] [place] [address] Laboratory Report Ordering Provider Test Date Status PAVEL ANNE 11/27/2023 08:39:37 Final Observation Date Value Abnormality Reference (Units ) Status WBC, Total 11/27/2023 08:39:37 5.80 4.00-10.8 0 (K/uL) Final RBC 11/27/2023 08:39:37 2.61 4.50-5.25 (M/uL) Final Hemoglobin 11/27/2023 08:39:37 8.4 Below low normal 14 .0-16.8 (g/dL) Final HCT 11/27/2023 08:39:37 28.2 Below low normal 40. 0-48.4 (%) Final MCV 11/27/2023 08:39:37 108.0 82.0-99.5 (fL) Final MCH 11/27/2023 08:39:37 32.2 27.0-34.0 (pg) Final MCHC 11/27/2023 08:39:37 29.8 32.0-36.0 (g/dL) Final RDW 11/27/2023 08:39:37 14.5 11.5-15.5 (%) Final Platelets 11/27/2023 08:39:37 117 Below low normal 140 -400 (K/uL) Final MPV 11/27/2023 08:39:37 10.5 6.6-11.1 ( fL) Final Performing Location [facility] [place] [address]
--- OUTSIDE RECORDS SUMMARY | 2023-12-18 22:14 | External Medical Summary ---
Author Name Unknown Address Unknown Organization K01:[facility] [place] [address] [place] [address] Laboratory Report Ordering Provider Test Date Status PAVEL ANNE 11/27/2023 08:39:37 Final Observation Date Value Abnormality Reference (Units) Status Cytomegalovirus DNA [Presence] in Serum or Plasma by KARRIE with probe detection 11/27/2023 08:39:37 CMV DNA not detected CMV DNA not detected Final Performing Location [facility] [place] [address] [place] [address]
--- OUTSIDE RECORDS SUMMARY | 2023-12-18 22:14 | External Medical Summary | Summary of Care ---
Author Name Unknown Organization [facility] Address [address] [facility] [place] [address] Phone [phone] Care Team Providers Care Paleology Teacher Name Role Phone Gino Osman MD Primary Care Provider [phone] Reason for Visit * Reason Onset Date Comments Precert Not Needed 10/31/2023 LOKELMA Encounter Details Date Type Department Care Team (Late st Contact Info) Description 10/31/2023 Telephone Nephrology, [place] 200 [facility] [place] [address] Ashely Chapa MD [address] [facility] [place] [address] Precert Not Needed (KELWV) Allergies Active Allergy Reactions Criticality Noted Date [...] 30 Cap 12/16/2020 Active Ergocalciferol 1.25 MG (53080 UT) Oral Capsule (Vitamin D2(Drisdol)) On Sunday bimonthly 12 Capsule 01/02/2023 Active Tamsulosin HCl 0.4 MG Oral Capsule (Flomax)Indications: BPH with obstruction/lower urinary tract symptoms TAKE ONE CAPSULE BY MOUTH IN THE MORNING 90 Capsule 3 04/01/2023 Active Fluticasone Propionate 50 MCG/ACT Nasal Suspension (Flonase) Administer 1 [place] into nostril in the morning and 1 [place] before bedtime. 05/01/2023 Active Saline Nasal [place] 0.65 % Nasal Solution ([place]) Administer 1 [place] into nostril. 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 [...] mRNA, LNP-s, No Pre serve, 2-Dose Series (mention) 09/03/2021,11/04/2020,05/27/2020,04/19 COVID-19, MRNA-LNP, 23-24, P F, 30 MCG/0.3 mL, 12 YRS AND ABOVE, IM ([facility]) 02/22/2023 Covid-19, Mrna, Lnp-s, Pf, B ivalent, [...] Telephone Encounter - Vesta Alanis LPN - 11/20/2023 11:27 AM EDT Nephrology [...] Bernadine Chapa MD * Telephone Encounter - Vesta Alanis LPN - 11/20/2023 11:24 AM EDT Spoke with pt he wishes to proceed to Pre cert after speaking with transplant team Precert started * Telephone Encounter - Vesta Alanis LPN [...] weekly Procrit injection. He reports that [place] Supervisor Cigar Making Machine is recommending Lokelma and Remeron but wanted to make sure you were aware. He is being given Remeron due to weight loss. documented in this encounter Plan of Treatment Upcoming Encounters Date Type Department Care Team (Late st Contact Info) Description 11/21/2023 9:00 AM EDT Pharmacy Pharmacy, [address] [address] Clinic, [address] [address] 11/27/2023 11:00 AM EDT Nurse Only Nephrology, [facility] [address] [facility] [place] [address] Sp, Nurse Nephrology 200 [place] [address] 01/21/2024 10:00 AM EST Office Visit Nephrology, [facility] [address] [facility] [place] [address] Laurita Washington PA-C [address] [facility] [place] [address] 04/01/2024 1:00 PM EST Nurse Only Ancillary Department, [address] [address] [place], Nurse [facility] [address] [place] [address] 04/01/2024 2:20 PM EST Office Visit Family Practice, [address] [phone] Gino Osman MD [address] [place] [address] 05/14/2024 2:00 PM EST Laboratory Laboratory [facility] [address] [place], [place] [address] [facility] 200 [facility] [place], [place] [address] 05/21/2024 2:15 PM EST Office Visit Hematology/Oncology [facility] [address] [facility] [place] [address] Cleve Bruce MD [address] [place], [place] [address] Health Maintenance Due Date Last Done Comments [...] 03/06/2024 03/06/2023, 05/01/19 18 GFR 04/26/2024 10/25/2023, 08/0 10/2023, 09/25/2023, Additional history exists Nephrology Referral [...] this encounter Medical Devices Implanted Type Area Brand Coordinator Device Identifier Shelf Expiration Date Model / Serial / Lot Lens Intraoc 18.0 - [id number] - [id number] Implanted:Qty: 1 on 11/20/2019 by Sonu Valladares MD at OR [facility] Left: Eye BAUSCH & LOMB 02/16/2024 [id number] / [id number] / [id number] Sofport Implanted:Qty: 1 on 12/02/2019 by Sonu Valladares MD at OR [facility] Right: Eye 11/17/2023 [id number] / / [id number] documented as of this encounter Additional Health Concerns Infection Onset Date Last Indicated Resolved Time C. difficile Rule-Out 11/06/2023 11/06/20232023 6:01 PM EDT Gastrointestinal Rule-Out 11/06/2023 11/06/2023 7:46 PM EDT documented as of this encounter Care Teams Paleology Teacher Relationship Specialty Start Date End Date Gino Osman MD [address] [facility] [place] [address] PCP - General Family Medicine 05/06/18 documented as of this encounter
--- OUTSIDE RECORDS SUMMARY | 2023-12-18 22:14 | External Medical Summary ---
Author Name Unknown Address Unknown Organization K09:[facility]- [address] [place] [address] Laboratory Report Ordering Provider Test Date Status PAVEL ANNE 11/27/2023 08:39:37 Final Observation Date Value Abnormality Reference (Units ) Status BUN 11/27/2023 08:39:37 47 Above high normal 6-20 (mg/dL) Final Creatinine 11/27/2023 08:39:37 2.2 Above high normal 0.6-1.2 (mg/dL) Final Glomerular filtration rate/1.73 sq M.predicted [Volume Rate/Area] in Serum, Plasma or Blood by Creatinine-based formula (CKD-EPI) 11/27/2023 08:39:37 30 Below low normal >=60 (mL/min) Final eGFR is calculated based on the CKD-EPI 2020 equation. Sodium 11/27/2023 08:39:37 134 Below low normal 135 -146 (mmol/L) Final Potassium 11/27/2023 08:39:37 4.5 3.5-5.1 (m mol/L) Final Cl 11/27/2023 08:39:37 102 98-107 (mm ol/L) Final CO2 11/27/2023 08:39:37 19 Below low normal 22- 32 (mmol/L) Final Anion gap 11/27/2023 08:39:37 13 7-15 (mmol /L) Final Glucose 11/27/2023 08:39:37 92 70-120 (mg /dL) Final Albumin 11/27/2023 08:39:37 3.5 Below low normal 3.8 -5.0 (g/dL) Final AST (Aspartate aminotransferase) 11/27/2023 08:39:37 18 10-50 (U/L) Fin al Alk Phos 11/27/2023 08:39:37 104 35-130 (U/ L) Final Bilirubin, Total 11/27/2023 08:39:37 0.2 <=1 .2 (mg/dL) Final Calcium 11/27/2023 08:39:37 8.4 8.4-10.2 ( mg/dL) Final Protein 11/27/2023 08:39:37 5.7 Below low normal 6.0 -8.3 (g/dL) Final ALT (Alanine aminotransferase) 11/27/2023 08:39:37 11 10-50 (U/L) Delbert vaguhn Performing Location [facility] [address] [place] [address]
--- OUTSIDE RECORDS SUMMARY | 2023-12-18 22:14 | External Medical Summary ---
Author Name Unknown Address Unknown Organization K01:[facility] [place] - [address] [place] [address] Laboratory Report Ordering Provider Test Date Status DAYANA,PAVEL 11/27/2023 08:39:37 Final Observation Date Value Abnormality Reference (Units ) Status Uric Acid 11/27/2023 08:39:37 7.7 Above high normal 3. 4-7.0 (mg/dL) Final Performing Location [facility] [place] - [address] [place] [id number]
--- OUTSIDE RECORDS SUMMARY | 2023-12-18 22:14 | External Medical Summary ---
Author Name Unknown Address Unknown Organization : Laboratory Report Ordering Provider Test Date Status PAVEL ANNE 11/27/2023 08:39:37 Final Observation Date Value Abnormality Reference (Units ) Status Everolimus [Mass/volume] in Blood 11/27/2023 08:39:37 3.8 (ng/mL) Final Unable to flag abnormal result(s), please refer
to reference range(s) below:
Trough: 3.0 - 8.0 ng/mL for Transplantation
Trough: 5.0 - 10.0 ng/mL for Oncology/Neurology
Symptoms of toxicity are more likely to occur at
trough levels exceeding 12.0 ng/mL.
This test was developed and its analytical performance
characteristics have been determined by [facility] [place], [place]. It has
not been cleared or approved by the U.S. Food and Drug
Administration. This assay has been validated pursuant
to the CLIA regulations and is used for clinical
purposes.

Test Performed at:
[facility]
[id number] [facility]
[place], [place]
Piero Hardwick M.D., Ph.D.,Director of Laboratories Performing Location
--- OUTSIDE RECORDS SUMMARY | 2023-12-18 22:14 | External Medical Summary ---
Author Name Unknown Address Unknown Organization K09:[facility] [place] [address] Laboratory Report Ordering Provider Test Date Status PAVEL ANNE 11/27/2023 08:39:37 Final Observation Date Value Abnormality Reference (Units ) Status SYNC LEUKOCYTES IN BLOOD BY AUTOMATED COUNT 11/27/2023 08:39:37 5.80 4.00-10.80 (K/uL) Final Segs 11/27/2023 08:39:37 80.3 Above high normal 40.0-75.0 (%) Final Lymphs % 11/27/2023 08:39:37 11.2 Below low normal 18.0-42.0 (%) Final Monos 11/27/2023 08:39:37 7.8 1.0-11.0 (%) Final Eosinophils 11/27/2023 08:39:37 0.2 0.0-6.0 (%) Final Basos 11/27/2023 08:39:37 0.5 0.0-2.0 (%) Final Absolute Segs 11/27/2023 08:39:37 4.66 1.80-7.70 (K/uL) Final Lymphs, absolute 11/27/2023 08:39:37 0.65 Below low normal 1.00-4.80 (K/ul) Final Monos, Abs 11/27/2023 08:39:37 0.45 0.00-1.10 (K/uL) Final Eos, Abs 11/27/2023 08:39:37 0.01 0.00-0.70 (K/uL) Final Basos, Abs 11/27/2023 08:39:37 0.03 0.00-0.20 (K/uL) Final Performing Location [facility] [place] [address]
--- OUTSIDE RECORDS SUMMARY | 2023-12-18 22:14 | External Medical Summary | Summary of Care ---
Author Name Unknown Organization [facility] Address [address] [facility] [place] [address] Phone [phone] Care Team Providers Care Room Service Attendant Name Role Phone Gino Osman MD Primary Care Provider [phone] Reason for Visit * Reason Comments Outpatient Testing Encounter Details Date Type Department Care Team (Late st Contact Info) Description 11/20/2023 11:20 AM EDT Laboratory Laboratory [facility] [address] [place] [address] [facility] Scenery [address] [facility] [place] [address] Anemia of chronic renal failure, stage 4 (severe) ([facility]) Allergies Active Allergy Reactions Criticality Noted Date [...] 30 Cap 12/16/2020 Active Ergocalciferol 1.25 MG (89198 UT) Oral Capsule (Vitamin D2(Drisdol)) On Sunday bimonthly 12 Capsule 01/02/2023 Active Tamsulosin HCl 0.4 MG Oral Capsule (Flomax)Indications: BPH with obstruction/lower urinary tract symptoms TAKE ONE CAPSULE BY MOUTH IN THE MORNING 90 Capsule 3 04/01/2023 Active Fluticasone Propionate 50 MCG/ACT Nasal Suspension (Flonase) Administer 1 [place] into nostril in the morning and 1 [place] before bedtime. 05/01/2023 Active Saline Nasal [place] 0.65 % Nasal Solution ([place]) Administer 1 [place] into nostril. 05/01/2023 Active Pantoprazole Sodium 40 [...] Start Date End Date Status Epoetin Rogelio 63073 UNIT/ML inj 40,000 UnitsIndications:Anemia of chronic renal failure, stage 3b (HCC) 00705 Units SC QWEEK 08/21/2023 Active documented as [...] mRNA, LNP-s, No Pre serve, 2-Dose Series ([employer]) 09/03/2021,11/04/2020,05/27/2020,04/19 COVID-19, MRNA-LNP, 23-24, P F, 30 MCG/0.3 mL, 12 YRS AND ABOVE, IM (C[employer]by[employer]Comirnat) 02/22/2023 Covid-19, Mrna, Lnp-s, Pf, B ivalent, [...] 11/20/2023 11:00 AM EDT Nurse Only Nephrology, [facility] [address] [facility] [place] [address] Sp, Nurse Nephrology [address] [facility] [place] [address] Arrived 11/21/2023 9:00 AM EDT Pharmacy Pharmacy, [address] [address] 01/21/2024 10:00 AM EST Office Visit Nephrology, [facility] [address] [place] [address] Laurita Washington PA-C 200 [facility] [place] [address] 04/01/2024 1:00 PM EST Nurse Only Ancillary Department, [place] [address] [place] [address] [place], [facility] Annual Wellness [address] [place] [address] 04/01/2024 2:20 PM EST Office Visit Family Practice, [place] [address] [place] [phone] Gino Osman MD [address] [place] [address] 05/14/2024 2:00 PM EST Laboratory Laboratory [facility] [address] [facility] [place], [place] [phone] [place], [facility] [address] [facility] [place], [place] [address] 05/21/2024 2:15 PM EST Office Visit Hematology/Oncology [facility] [place] [address] [facility] [place] [phone] Cleve Bruce MD [address] [facility] [place], [place] [address] Pending Results Name Type Priority Associated Diagnoses Date /Time IRON SCREEN, INCLUDING TIBC Lab Routine Anemia of chronic renal failure, stage 4 (severe) (HCC) 11/20/2023 10:38 AM EDT FERRITIN Lab Routine Anemia of chronic renal failure, stage 4 (severe) (HCC) 11/20/2023 10:38 AM EDT RETICULOCYTE PANEL Lab Routine Anemia of chronic renal failure, stage 4 (severe) ([facility]) 11/20/2023 10:38 AM EDT Health Maintenance Due Date Last [...] 12/01/2022, 06/20/2021, Additional history exists Hgb 11/12/2024 11/20/2023, 10/18, 11/06/2023, Additional history exists DTap/Tdap [...] this encounter Medical Devices Implanted Type Area Twister Hand Device Identifier Shelf Expiration Date Model / Serial / Lot Lens Intraoc 18.0 - [id number] - [id number] Implanted:Qty: 1 on 11/20/2019 by Sonu Valladares MD at OR [facility] Left: Eye [employer] LOMB 02/16/2024 [id number] / [id number] / [id number] Sofport Implanted:Qty: 1 on 12/02/2019 by Sonu Valladares MD at OR [facility] Right: Eye 11/17/2023 [id number] / / [id number] documented as of this encounter Procedures Procedure Name Priority Date/Time Associated Diagnosis Comments CBC Routine 11/20/2023 10:38 AM EDT Anemia of chronic renal failure, stage 4 (severe) (HCC) documented in this encounter Results * (ABNORMAL) CBC (11/20/2023 10:38 AM EDT) WBC 7.64 4.00 - 10.80 K/uL 11/20/2023 10:45 AM EDT [facility] 56 RBC 2.49 4.50 - 5.25 M/uL 11/20/2023 10:45 AM EDT [facility] 56 HGB 8.1(L) 14.0 - 16.8 g/dL 11/20/2023 10:45 AM EDT [facility] 56 HCT 27.2(L) 40.0 - 48.4 % 11/20/2023 10:45 AM EDT [place] [address] MCV 109.2 82.0 - 99.5 fL 11/20/2023 10:45 AM EDT [place] [address] MCH 32.5 27.0 - 34.0 pg 11/20/2023 10:45 AM EDT [address] MCHC 29.8 32.0 - 36.0 g/dL 11/20/2023 10:45 AM EDT [place] [address] RDW 14.7 11.5 - 15.5 % 11/20/2023 10:45 AM [place] [address] PLT 122(L) 140 - 400 K/uL 11/20/2023 10:45 AM EDT [place] [address] MPV 10.6 6.6 - 11.1 fL 11/20/2023 10:45 AM [facility] 56 Blood Venous blood specimen / Unknown Venipuncture / Unknown 11/20/2023 10:38 AM EDT 11/20/2023 10:38 AM EDT Feroz Lugo [facility] LAB BLOOD OR DERABLES [facility] [address] [place], [place] [id number] documented in this encounter Visit Diagnoses Diagnosis Anemia of chronic renal failure, stage 4 (severe) (HCC) documented in this encounter Care Teams Room Service Attendant Relationship Specialty Start Date End Date Gino Osman MD [address] [place] [address] PCP - General Family Medicine 05/06/18 documented as of this encounter
--- OUTSIDE RECORDS SUMMARY | 2023-12-18 22:14 | External Medical Summary | Summary of Care ---
Author Name Unknown Organization [facility] Address [address] [facility] [place] [address] Phone [phone] Care Team Providers Care Detail Assembler Name Role Phone Gino Osman MD Primary Care Provider [phone] Reason for Visit * Reason Comments Outpatient Testing Encounter Details Date Type Department Care Team (Latest Contact Info) Description 11/27/2023 8:30 AM EDT Laboratory Laboratory [facility] [address] [place] [address] [facility] Scenery [address] [facility] [place] [address] Encounter for long-term (current) use of other medications; Gitelman syndrome; 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[facility]); Anemia of chronic renal failure, stage 4 (severe) ([facility]) Allergies Active Allergy Reactions Criticality Noted Date [...] 30 Cap 12/16/2020 Active Ergocalciferol 1.25 MG (64437 UT) Oral Capsule (Vitamin D2(Drisdol)) On Sunday bimonthly 12 Capsule 01/02/2023 Active Tamsulosin HCl 0.4 MG Oral Capsule (Flomax)Indications: BPH with obstruction/lower urinary tract symptoms TAKE ONE CAPSULE BY MOUTH IN THE MORNING 90 Capsule 3 04/01/2023 Active Fluticasone Propionate 50 MCG/ACT Nasal Suspension (Flonase) Administer 1 [place] into nostril in the morning and 1 [place] before bedtime. 05/01/2023 Active Saline Nasal [place] 0.65 % Nasal Solution ([place]) Administer 1 [place] into nostril. 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 [...] mRNA, LNP-s, No Pre serve, 2-Dose Series ([employer]) 09/03/2021,11/04/2020,05/27/2020,04/19 COVID-19, MRNA-LNP, 23-24, P F, 30 MCG/0.3 mL, 12 YRS AND ABOVE, IM ([employer]Comirnat[employer]) 02/22/2023 Covid-19, Mrna, Lnp-s, Pf, B ivalent, [...] 11/27/2023 11:00 AM EDT Nurse Only Nephrology, [facility] [address] [place] [address] Sp, Nurse Nephrology [address] [place] [address] [address] 01/21/2024 10:00 AM EST Office Visit Nephrology, [facility] [address] [place] [address] [address] Laurita Washington PA-C [address] [place] [address] [address] 04/01/2024 1:00 PM EST Nurse Only Ancillary Department, [place] [address] [place] [address] [place], Nurse Annual Wellness [address] [place] [facility] [address] 04/01/2024 2:20 PM EST Office Visit Family Practice, [place] [address] [facility] [phone] Gino Osman MD [address] [place] [facility] [address] 05/14/2024 2:00 PM EST Laboratory Laboratory [place] [address] [place] [phone] [facility] [address] [facility] [place] [address] 05/21/2024 2:15 PM EST Office Visit Hematology/Oncology [facility] [place] [address] [facility] [place] [phone] Cleve Bruce MD 200 [facility] [place] [address] Pending Results Name Type Priority Associated Diagnoses Date /Time MAGNESIUM Lab Routine Encounter for long-term (current) use 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[facility]) 11/27/2023 8:39 AM EDT COMPREHENSIVE METABOLIC PANEL Lab Routine Encounter for long-term (current) use 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[facility]) 11/27/2023 8:39 AM EDT GGTP Lab Routine Encounter for long-term (current) use 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[facility]) 11/27/2023 8:39 AM EDT LIPID PANEL WITH DIRECT LDL IF TG IS HIGH Lab Routine Encounter for long-term (current) use 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[facility]) 11/27/2023 8:39 AM EDT URIC ACID Lab Routine Encounter for long-term (current) use 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[facility]) 11/27/2023 8:39 AM EDT CYTOMEGALOVIRUS DNA, QUANTITATIVE REAL-TIME PCR Lab Routine Encounter for long-term (current) use 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[facility]) 11/27/2023 8:39 AM EDT TACROLIMUS LEVEL Lab Routine Encounter for long-term (current) use 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[facility]) 11/27/2023 8:39 AM EDT EVEROLIMUS, LC/MS/MS, BLOOD Lab Routine Encounter for long-term (current) use 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[facility]) 11/27/2023 8:39 AM EDT RETICULOCYTE PANEL Lab Routine Anemia of chronic renal failure, stage 4 (severe) ([facility]) 11/27/2023 8:40 AM EDT Health Maintenance Due Date Last [...] 12/01/2022, 06/20/2021, Additional history exists Hgb 11/19/2024 11/27/2023, 0905/2023, 11/13/2023, Additional history exists DTap/Tdap Vaccines (3 [...] this encounter Medical Devices Implanted Type Area Toolroom Helper Device Identifier Shelf Expiration Date Model / Serial / Lot Lens Intraoc 18.0 - [id number] - [id number] Implanted:Qty: 1 on 11/20/2019 by Sonu Valladares MD at OR [facility] Left: Eye BAUSCH [employer] LOMB 02/16/2024 [id number] / [id number] / [id number] Sofport Implanted:Qty: 1 on 12/02/2019 by Sonu Valladares MD at OR [facility] Right: Eye 11/17/2023 [id number] / / [id number] documented as of this encounter Procedures Procedure Name Priority Date/Time Associated Diagnosis Comments DIFFERENTIAL, AUTOMATED Routine 11/27/2023 8:39 AM EDT 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2(L) 18.0 - 42.0 % 11/27/2023 8:55 AM EDT LAB[facility]ATORY [facility] 56-02 Monocytes % 7.8 1.0 - 11.0 % 11/27/2023 8:55 AM EDT [facility]ORY [facility] 56-02 Eosinophils % 0.2 0.0 - 6.0 % 11/27/2023 8:55 AM EDT [facility] 56-02 Basophils % 0.5 0.0 - 2.0 % 11/27/2023 8:55 AM EDT [facility] 56 Absolute Neutrophils 4.66 1.80 - 7.70 K/uL 11/27/2023 8:55 AM EDT [facility] 56 Absolute Lymphocytes 0.65(L) 1.00 - 4.80 K/ul 11/27/2023 8:55 AM EDT [facility] 56 Absolute Monocytes 0.45 0.00 - 1.10 K/uL 11/27/2023 8:55 AM EDT [facility] 56 Absolute Eosinophils 0.01 0.00 - 0.70 K/uL 11/27/2023 8:55 AM EDT [facility] Absolute Basophils 0.03 0.00 - 0.20 K/uL 11/27/2023 8:55 AM EDT [facility] 56 Blood Venous blood specimen / Unknown Venipuncture / Unknown 11/27/2023 8:39 AM EDT 11/27/2023 8:40 AM EDT Andrew Gibbs MD LAB BLOOD ORDERAB LES [facility] [address] [place] [address] * (ABNORMAL) CBC (11/27/2023 8:39 AM EDT) WBC 5.80 4.00 - 10.80 K/uL 11/27/2023 8:55 AM EDT [facility] RBC 2.61 4.50 - 5.25 M/uL 11/27/2023 8:55 AM EDT [facility] 56 HGB 8.4(L) 14.0 - 16.8 g/dL 11/27/2023 8:55 AM EDT [facility] 56 HCT 28.2(L) 40.0 - 48.4 % 11/27/2023 8:55 AM EDT [facility] 56 MCV 108.0 82.0 - 99.5 fL 11/27/2023 8:55 AM EDT [facility] 56 MCH 32.2 27.0 - 34.0 pg 11/27/2023 8:55 AM EDT [facility] 56 MCHC 29.8 32.0 - 36.0 g/dL 11/27/2023 8:55 AM EDT [facility] 56 RDW 14.5 11.5 - 15.5 % 11/27/2023 8:55 AM EDT [facility] 56 PLT 117(L) 140 - 400 K/uL 11/27/2023 8:55 AM EDT [facility] 56 MPV 10.5 6.6 - 11.1 fL 11/27/2023 8:55 AM EDT [facility] 56 Blood Venous blood specimen / Unknown Venipuncture / Unknown 11/27/2023 8:39 AM EDT 11/27/2023 8:40 AM EDT Andrew Gibbs MD LAB BLOOD ORDERAB LES [facility] [address] [place] [address] documented in this encounter Visit Diagnoses Diagnosis Encounter for long-term (current) use of other medications 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
--- OUTSIDE RECORDS SUMMARY | 2023-12-18 22:14 | External Medical Summary ---
Author Name Unknown Address Unknown Organization K09:[facility] [place] [address] Laboratory Report Ordering Provider Test Date Status PAVEL ANNE 11/27/2023 08:39:37 Final Observation Date Value Abnormality Reference (Units ) Status Magnesium 11/27/2023 08:39:37 2.2 1.5-2.6 (m g/dL) Final Performing Location [facility] [place] [address]
--- OUTSIDE RECORDS SUMMARY | 2023-12-18 22:14 | External Medical Summary | Summary of Care ---
Author Name Unknown Organization [facility] Address [address] [facility] [place] [address] Phone [phone] Care Team Providers Care New Business Clerk Name Role Phone Gino Osman MD Primary Care Provider Reason for Visit * Reason Onset Date Comments Medication Question 10/31/2023 Encounter Details Date Type Department Care Team (Late st Contact Info) Description 10/31/2023 Telephone NephrologyGabrielle 200 [facility] [place] [address] ChapaAshely cardona MD [address] [place] [address] Medication Question Allergies Active Allergy Reactions Criticality [...] 30 Cap 12/16/2020 Active Ergocalciferol 1.25 MG (76910 UT) Oral Capsule (Vitamin D2(Drisdol)) On Sunday bimonthly 12 Capsule 01/02/2023 Active Tamsulosin HCl 0.4 MG Oral Capsule (Flomax)Indications: BPH with obstruction/lower urinary tract symptoms TAKE ONE CAPSULE BY MOUTH IN THE MORNING 90 Capsule 3 04/01/2023 Active Fluticasone Propionate 50 MCG/ACT Nasal Suspension (Flonase) Administer 1 [place] into nostril in the morning and 1 [place] before bedtime. 05/01/2023 Active Saline Nasal [place] 0.65 % Nasal Solution ([place]) Administer 1 [place] into nostril. 05/01/2023 Active Pantoprazole Sodium 40 [...] Start Date End Date Status Epoetin Rogelio 12407 UNIT/ML inj 40,000 UnitsIndications:Anemia of chronic renal failure, stage 3b (HCC) 44277 Units SC QWEEK 08/21/2023 Active documented as [...] lower extremity 06/13/2018 Current use of senior care 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 019 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 Overview: left [facility] 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 Interstitial [...] mRNA, LNP-s, No Pre serve, 2-Dose Series ([employer]) 09/03/2021,11/04/2020,05/27/2020,04/19 COVID-19, MRNA-LNP, 23-24, P F, 30 [...] weekly Procrit injection. He reports that [employer] is recommending Lokelma and Remeron but wanted to make sure you were aware. He is being given Remeron due to weight loss. documented in this encounter Plan of Treatment Upcoming Encounters Date Type Department Care Team (Late st Contact Info) Description 11/21/2023 9:00 AM EDT Pharmacy Pharmacy, [address] [address] Clinic, [address] [address] 11/27/2023 11:00 AM EDT Nurse Only Nephrology, [facility] 200 [facility] [place] [address] Sp, Nurse Nephrology 200 [facility] [place] [address] 01/21/2024 10:00 AM EST Office Visit Nephrology, [facility] [address] [facility] [place] [address] Laurita Washington PA-C 200 [facility] [place] [address] 04/01/2024 1:00 PM EST Nurse Only Ancillary Department, [place] [address] [place] [address] [place], [facility] [address] [place] [address] 04/01/2024 2:20 PM EST Office Visit Family Practice, [place] [address] [place] [phone] Gino Osman MD [address] [place] [address] 05/14/2024 2:00 PM EST Laboratory Laboratory [facility] [address] [place], [place] [address] [facility] 200 [facility] [place], [place] [address] 05/21/2024 2:15 PM EST Office Visit Hematology/Oncology [facility] [address] [place], [place] [address] Cleve Bruce MD [address] [place], [place] [address] Health Maintenance Due Date Last Done Comments [...] 03/06/2024 03/06/2023, 05/01/19 18 GFR 04/26/2024 10/25/2023, 08/10/2023, 09/25/2023, Additional history exists Nephrology Referral 09/16/2024 09/17/2023 Phosphate 09/16/2024 09/17/2023, 08/18, 09/09/2023, Additional history exists Albumin/Creatinine Ratio 09/24/2024 024, 12/01/2022, 06/20/2021, Additional history exists Hgb 11/19/2024 11/20/2023, 0809/2023, 11/06/2023, Additional history exists DTap/Tdap Vaccines (3 [...] this encounter Medical Devices Implanted Type Area Molded Goods Spot Picker Device Identifier Shelf Expiration Date Model / Serial / Lot Lens Intraoc 18.0 - [id number] - [id number] Implanted:Qty: 1 on 11/20/2019 by Sonu Valladares MD at OR [facility] Left: Eye [employer]OMB 02/16/2024 [id number] / [id number] / [id number] Sofport Implanted:Qty: 1 on 12/02/2019 by Sonu Valladares MD at OR [facility] Right: Eye 11/17/2023 [id number] / / [id number] documented as of this encounter Additional Health Concerns Infection Onset Date Last Indicated Resolved Time C. difficile Rule-Out 11/06/2023 11/06/20232023 6:01 PM EDT Gastrointestinal Rule-Out 11/06/2023 11/06/2023 7:46 PM EDT documented as of this encounter Care Teams New Business Clerk Relationship Specialty Start Date End Date Gino Osman MD [address] [place] [place] [address] PCP - General Family Medicine 05/06/18 documented as of this encounter
--- OUTSIDE RECORDS SUMMARY | 2023-12-18 22:14 | External Medical Summary | Summary of Care ---
Author Name Unknown Organization [facility] Address [address] [facility] [place] [address] Phone [phone] Care Team Providers Care Survey Research Center Director Name Role Phone Gino Osman MD Primary Care Provider [phone] Reason for Visit * Reason Onset Date Comments Precert Not Needed 10/31/2023 LOKELMA Encounter Details Date Type Department Care Team (Late st Contact Info) Description 10/31/2023 Telephone Nephrology, [place] [facility] [place] [address] Ashely Chapa MD 200 [facility] [place] [address] Precert Not Needed (LOKELUT) Allergies Active Allergy Reactions Criticality Noted Date [...] 30 Cap 12/16/2020 Active Ergocalciferol 1.25 MG (88233 UT) Oral Capsule (Vitamin D2(Drisdol)) On Sunday bimonthly 12 Capsule 01/02/2023 Active Tamsulosin HCl 0.4 MG Oral Capsule (Flomax)Indications: BPH with obstruction/lower urinary tract symptoms TAKE ONE CAPSULE BY MOUTH IN THE MORNING 90 Capsule 3 04/01/2023 Active Fluticasone Propionate 50 MCG/ACT Nasal Suspension (Flonase) Administer 1 [place] into nostril in the morning and 1 [place] before bedtime. 05/01/2023 Active Saline Nasal [place] 0.65 % Nasal Solution (Quapaw) Administer 1 [place] into nostril. 05/01/2023 Active Pantoprazole Sodium 40 [...] Start Date End Date Status Epoetin Rogelio 09035 UNIT/ML inj 40,000 UnitsIndications:Anemia of chronic renal failure, stage 3b (HCC) 01733 Units SC QWEEK 08/21/2023 Active documented as [...] mRNA, LNP-s, No Pre serve, 2-Dose Series (Symbiotec Pharmalab) 09/03/2021,11/04/2020,05/27/2020,04/19 COVID-19, MRNA-LNP, 23-24, P F, 30 MCG/0.3 mL, 12 YRS AND ABOVE, IM ([email or web address]-Comiratrium health anson) 02/22/2023 Covid-19, Mrna, Lnp-s, Pf, B ivalent, [...] encounter Miscellaneous Notes * Telephone Encounter - Chai Wayne LPN - 11/23/2023 4:18 PM EDT Spoke with Pharmacist at [facility] Pay for Lokemia was $130.00 with 10 vs 30 packets it was sigged 1 daily as instructed by transplant team Pt will follow up with TT to see how to proceed in light of continuation and cost with 10 vs 30 packets Will call our office with any further assistance needed * Addendum Note - Chai Wayne LPN - 11/23/2023 1:23 PM EDTAddended by: CHAI WAYNE on: 11/23/2023 01:23 PM Modules accepted: Orders * Telephone Encounter - Chai Wayne LPN - 11/23/2023 1:21 PM EDT Attempted to contact [facility] to discuss Lokelma cost after receiving [...] for weekly Procrit injection. He reports that [facility] Special Agent is recommending Lokelma and Remeron but wanted to make sure you were aware. He is being given Remeron due to weight loss. documented in this encounter Plan of Treatment Upcoming Encounters Date Type Department Care Team (Late st Contact Info) Description 11/27/2023 11:00 AM EDT Nurse Only Nephrology, [facility] [address] [place], [place] [address] Sp, Nurse Nephrology [address] [place], [place] [address] 01/21/2024 10:00 AM EST Office Visit Nephrology, [facility] [address] [place] [place] [address] Laurita Washington PA-C [address] [place], [place] [address] 04/01/2024 1:00 PM EST Nurse Only Ancillary Department, [place] [address] [place] [address] [place], Nurse Annual Wellness [facility] [place] [address] 04/01/2024 2:20 PM EST Office Visit Family Practice, [place] [address] [place] [address] Gino Osman MD [address] [place] [address] 05/14/2024 2:00 PM EST Laboratory Laboratory [facility] [place] [address] [place] [address] [place] [address] [place], Lab [facility] [address] [place], [place] [address] 05/21/2024 2:15 PM EST Office Visit Hematology/Oncology [facility] [place] [address] [place], [place] [address] Cleve Bruce MD [address] [place], [place] [address] Health Maintenance Due Date Last Done Comments [...] this encounter Medical Devices Implanted Type Area Professor Of Apologetics Device Identifier Shelf Expiration Date Model / Serial / Lot Lens Intraoc 18.0 - [id number] - [id number] Implanted:Qty: 1 on 11/20/2019 by Sonu Valladares MD at OR [facility] Left: Eye BAUSCH & LOMB 02/16/2024 [id number] / [id number] / [id number] Sofport Implanted:Qty: 1 on 12/02/2019 by Sonu Valladares MD at OR [facility] Right: Eye 11/17/2023 [id number] / / [id number] documented as of this encounter Additional Health Concerns Infection Onset Date Last Indicated Resolved Time C. difficile Rule-Out 11/06/2023 11/06/20232023 6:01 PM EDT Gastrointestinal Rule-Out 11/06/2023 11/06/2023 7:46 PM EDT documented as of this encounter Care Teams Survey Research Center Director Relationship Specialty Start Date End Date Gino Osman MD [address] [place] [address] PCP - General Family Medicine 05/06/18 documented as of this encounter
--- OUTSIDE RECORDS SUMMARY | 2023-12-18 22:14 | External Medical Summary | Summary of Care ---
Author Name Unknown Organization [facility] Address [address] [facility] [place] [address] Phone [phone] Care Team Providers Care Senior Windows Systems Administrator Name Role Phone Gino Osman MD Primary Care Provider [phone] Reason for Visit * Reason Onset Date Comments Medication Question 10/31/2023 Encounter Details Date Type Department Care Team (Late st Contact Info) Description 10/31/2023 Telephone NephrologyGabrielle 200 [place] [address] ChapaAshely cardona MD [address] [place] [address] Medication Question Allergies Active Allergy Reactions Criticality [...] 30 Cap 12/16/2020 Active Ergocalciferol 1.25 MG (00420 UT) Oral Capsule (Vitamin D2(Drisdol)) On Sunday bimonthly 12 Capsule 01/02/2023 Active Tamsulosin HCl 0.4 MG Oral Capsule (Flomax)Indications: BPH with obstruction/lower urinary tract symptoms TAKE ONE CAPSULE BY MOUTH IN THE MORNING 90 Capsule 3 04/01/2023 Active Fluticasone Propionate 50 MCG/ACT Nasal Suspension (Flonase) Administer 1 [place] into nostril in the morning and 1 [place] before bedtime. 05/01/2023 Active Saline Nasal [place] 0.65 % Nasal Solution (Whitman) Administer 1 [place] into nostril. 05/01/2023 Active Pantoprazole Sodium 40 [...] Frequency Start Date End Date Status Epoetin Rogeloi 36053 UNIT/ML inj 40,000 UnitsIndications:Anemia of chronic renal failure, stage 3b (HCC) 09669 Units SC QWEEK 08/21/2023 Active documented as [...] right lower extremity 06/13/2018 Current use of nursing home 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 019 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 Overview: left [facility] 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 [...] mRNA, LNP-s, No Pre serve, 2-Dose Series (Dynamis Software) 09/03/2021,11/04/2020,05/27/2020,04/19 COVID-19, MRNA-LNP, 23-24, P F, 30 [...] cert but pt is unsure as to doing and frequency that transplant has recommended Will [...] weekly Procrit injection. He reports that [facility] is recommending Lokelma and Remeron but wanted to make sure you were aware. He is being given Remeron due to weight loss. documented in this encounter Plan of Treatment Upcoming Encounters Date Type Department Care Team (Late st Contact Info) Description 11/20/2023 11:00 AM EDT Nurse Only Nephrology, Gabrielle Silva [address] [place] [address] Sp, Nurse Nephrology [address] [place] [address] 11/21/2023 9:00 AM EDT Pharmacy Pharmacy, [place] [address] [place] [address] Clinic, [facility] [address] [place] [address] 01/21/2024 10:00 AM EST Office Visit Nephrology, [facility] [address] [place] [address] [address] Laurita Washington PA-C [address] [place] [address] [place] [address] 04/01/2024 1:00 PM EST Nurse Only Ancillary Department, [address] [id number] [place], Nurse [facility] Wellness [facility] [place] [address] 04/01/2024 2:20 PM EST Office Visit Family Practice, [place] [address] [place] [address] Gino Osman MD [address] [place] [address] 05/14/2024 2:00 PM EST Laboratory Laboratory [facility] [place] [address] [place] [address] [place] [facility] [address] [place] [address] [address] 05/21/2024 2:15 PM EST Office Visit Hematology/Oncology [facility] [place] [address] [place] [address] [address] Cleve Bruce MD [address] [place] [address] [place] [address] Health Maintenance Due Date Last Done Comments [...] this encounter Medical Devices Implanted Type Area Health Facilities Surveyor Device Identifier Shelf Expiration Date Model / Serial / Lot Lens Intraoc 18.0 - [id number] - [id number] Implanted:Qty: 1 on 11/20/2019 by Sonu Valladares MD at OR [facility] Left: Eye BAUSCH & LOMB 02/16/2024 [id number] / [id number] / [id number] Sofport Implanted:Qty: 1 on 12/02/2019 by Sonu Valladares MD at OR [facility] Right: Eye 11/17/2023 [id number] / / [id number] documented as of this encounter Additional Health Concerns Infection Onset Date Last Indicated Resolved Time C. difficile Rule-Out 11/06/2023 11/06/20232023 6:01 PM EDT Gastrointestinal Rule-Out 11/06/2023 11/06/2023 7:46 PM EDT documented as of this encounter Care Teams Senior Windows Systems Administrator Relationship Specialty Start Date End Date Gino Osman MD [address] [facility] [place] [address] PCP - General Family Medicine 05/06/18 documented as of this encounter
--- OUTSIDE RECORDS SUMMARY | 2023-12-18 22:14 | External Medical Summary ---
Author Name Unknown Address Unknown Organization K01:LABORATORY [facility] - [address] [place] [address] Laboratory Report Ordering Provider Test Date Status ROBERT VANCE 11/27/2023 08:40:29 Final Observation Date Value Abnormality Reference (Units ) Status Retic, % (auto) 11/27/2023 08:40:29 1.12 0.80-1.90 (%) Final Reticulocytes, Absolute 11/27/2023 08:40:29 29.9 Below low normal 31.3-100.1 (K/uL) Final Reticulocyte fraction, immature 11/27/2023 08:40:29 17.2 2.5-20.6 (%) Final Reticulocyte HGB 11/27/2023 08:40:29 31.5 29.7-37.4 (pg) Final Performing Location LABORATORY [facility] - [address] [place] [address]
--- OUTSIDE RECORDS SUMMARY | 2023-12-18 22:15 | External Medical Summary | Summary of Care ---
Author Name Unknown Organization [facility] Address [address] [facility] [place] [address] Phone [phone] Care Team Providers Care Cable Mock Up Assembler Name Role Phone Gino Osman MD Primary Care Provider [phone] Reason for Visit * Reason Comments Outpatient Testing Encounter Details Date Type Department Care Team (Late st Contact Info) Description 11/13/2023 10:30 AM EDT Laboratory Laboratory [facility] [address] [place] [address] [facility] [address] [facility] [place] [address] Anemia of chronic renal failure, stage 4 (severe) ([facility]); UTI (urinary tract infection) Allergies Active Allergy Reactions Criticality Noted Date Comments Adhesive Tape Itching High 11/21/2022 documented as of this encounter (statuses as of 11/13/2023) Medications Medication Sig Dispensed Refills Start Date [...] 30 Cap 12/16/2020 Active Ergocalciferol 1.25 MG (46178 UT) Oral Capsule (Vitamin D2(Drisdol)) On Sunday bimonthly 12 Capsule 01/02/2023 Active Tamsulosin HCl 0.4 MG Oral Capsule (Flomax)Indications: BPH with obstruction/lower urinary tract symptoms TAKE ONE CAPSULE BY MOUTH IN THE MORNING 90 Capsule 3 04/01/2023 Active Fluticasone Propionate 50 MCG/ACT Nasal Suspension (Flonase) Administer 1 [place] into nostril in the morning and 1 [place] before bedtime. 05/01/2023 Active Saline Nasal [place] 0.65 % Nasal Solution (Northwest Arctic) Administer 1 [place] into nostril. 05/01/2023 Active Pantoprazole Sodium 40 [...] Start Date End Date Status Epoetin Rogelio 93922 UNIT/ML inj 40,000 UnitsIndications:Anemia of chronic renal failure, stage 3b (HCC) 81695 Units SC QWEEK 08/21/2023 Active documented as of this encounter (statuses as of 11/13/2023) Active Problems Problem Noted Date Diagnosed Date [...] as of this encounter (statuses as of 11/13/2023) Resolved Problems Problem Noted Date Diagnosed Date [...] as of this encounter (statuses as of 11/13/2023) Immunizations Name Administration Dates Next Due COVID-19 mRNA, LNP-s, No Pre serve, 2-Dose Series (Biogazelle) 09/03/2021,11/04/2020,05/27/2020,04/19 COVID-19, MRNA-LNP, 23-24, P F, 30 MCG/0.3 mL, 12 YRS AND ABOVE, IM (Outsell-ComirnatSeagate Technology) 02/22/2023 Covid-19, Mrna, Lnp-s, Pf, B ivalent, 30 Mcg, IM, 12 yrs and above (Pfizer) 01/17/2022 Hepatitis B, 20+ yrs 01/03/2017,08/03/2016,07/05 Pneumococcal Conjugate Vacc, 13 Valent (Prevnar) 04/01/2015 Pneumococcal Polysaccharide PPV23 (Pneumovax) 05/14/2012 Seasonal Influenza, PF, 6 M & above, IM , (FluLaval or Fluzone) 12/16/2019,11/27/2018,05/05/2018,10/0 08/201712/22/2018 Seasonal Influenza, Quadriva lent Hd (Fluzone Hd) 12/27/2022,01/11/2022,12/16/2020 Seasonal Influenza, Quadriva lent, No Preserve, IM 12/01/2016,01/10/2016,01/02/2015 Seasonal Influenza, Split, I IV3, With Preserve, Inj 11/29/2013 TDAP (age 10 and older)(Boostrix) 06/23/2022 [...] 2:00 PM EDT Sexual Orientation Straight 02/27/2022 3 :59 PM EST Job Start Date Occupation Industry Not on file Not on file Not on file documented as of this encounter Plan of Treatment Upcoming Encounters Date Type Department Care Team (Late st Contact Info) Description 11/13/2023 11:00 AM EDT Nurse Only Nephrology, [facility] [address] [place] [address] Sp, Nurse Nephrology [address] [place] [address] Arrived 01/21/2024 10:00 AM EST Office Visit Nephrology, [facility] [address] [place] [address] [place] [address] Laurita Washington PA-C [address] [place] [address] 04/01/2024 1:00 PM EST Nurse Only Ancillary Department, [place] [address] [place] [address] [place], Nurse Annual Wellness [address] [place] [address] 04/01/2024 2:20 PM EST Office Visit Family Practice, [place] [address] [place] [phone] Gino Osman MD [address] [place] [address] 05/14/2024 2:00 PM EST Laboratory Laboratory [facility] [employer] [address] [place] [address] [phone] [place] Lab [facility] [address] [facility] [place] [address] 05/21/2024 2:15 PM EST Office Visit Hematology/Oncology [place] 200 [facility] [place] [address] Cleve Bruce MD 200 [facility] [place] [address] Pending Results Name Type Priority Associated Diagnoses Date /Time RETICULOCYTE PANEL Lab Routine Anemia of chronic renal failure, stage 4 (severe) (HCC) 11/13/2023 10:31 AM EDT URINALYSIS WITH MICROSCOPIC EXAM Lab Routine UTI (urinary tract infection) 11/13/2023 10:44 AM EDT CULTURE, URINE, QUANTITATIVE Lab Routine UTI (urinary tract infection) 11/13/2023 10:44 AM EDT Health Maintenance Due Date Last [...] 024, 12/01/2022, 06/20/2021, Additional history exists Hgb 11/05/2024 11/13/2023, 10/18, 10/31/2023, Additional history exists DTap/Tdap [...] this encounter Medical Devices Implanted Type Area Search Analyst Device Identifier Shelf Expiration Date Model / Serial / Lot Lens Intraoc 18.0 - [id number] - [id number] Implanted:Qty: 1 on 11/20/2019 by Sonu Valladares MD at OR [facility] Left: Eye BAUSCH & LOMB 02/16/2024 [id number] / [id number] / [id number] Sofport Implanted:Qty: 1 on 12/02/2019 by Sonu Valladares MD at OR [facility] Right: Eye 11/17/2023 [id number] / / [id number] documented as of this encounter Procedures Procedure Name Priority Date/Time Associated Diagnosis Comments CBC Routine 11/13/2023 10:31 AM EDT Anemia of chronic renal failure, stage 4 (severe) (HCC) documented in this encounter Results * (ABNORMAL) CBC (11/13/2023 10:31 AM EDT) WBC 5.06 4.00 - 10.80 K/uL 11/13/2023 10:46 AM EDT LABORATORY [facility] 56-02 RBC 2.55 4.50 - 5.25 M/uL 11/13/2023 10:46 AM EDT [facility]ORY [facility] 56-02 HGB 8.1(L) 14.0 - 16.8 g/dL 11/13/2023 10:46 AM EDT [facility] 56-02 HCT 27.9(L) 40.0 - 48.4 % 11/13/2023 10:46 AM EDT [facility] MCV 109.4 82.0 - 99.5 fL 11/13/2023 10:46 AM EDT [facility] 56 MCH 31.8 27.0 - 34.0 pg 11/13/2023 10:46 AM EDT [facility] MCHC 29.0 32.0 - 36.0 g/dL 11/13/2023 10:46 AM EDT [facility] 56 RDW 15.1 11.5 - 15.5 % 11/13/2023 10:46 AM EDT [facility] PLT 101(L) 140 - 400 K/uL 11/13/2023 10:46 AM EDT [facility] 56 MPV 10.3 6.6 - 11.1 fL 11/13/2023 10:46 AM EDT [facility] Blood Venous blood specimen / Unknown Venipuncture / Unknown 11/13/2023 10:31 AM EDT 11/13/2023 10:31 AM EDT Feroz Lugo [facility] LAB BLOOD OR DERABLES [facility] [address] [place] [address] documented in this encounter Visit Diagnoses Diagnosis UTI (urinary tract infection)- Primary Urinary tract infection, site not specified Anemia of chronic renal failure, stage 4 (severe) ([facility]) UTI (urinary tract infection) Urinary tract infection, site not specified documented in this encounter Care Teams Cable Mock Up Assembler Relationship Specialty Start Date End Date Gino Osman MD [address] [place], [place] [phone] PCP - General Family Medicine 05/06/18 documented as of this encounter
--- OUTSIDE RECORDS SUMMARY | 2023-12-18 22:15 | External Medical Summary ---
Author Name Unknown Address Unknown Organization K01:LABORATORY [facility] - [address] [facility] [address] Laboratory Report Ordering Provider Test Date Status MARY BARRAZA 11/13/2023 10:44:18 Final Observation Date Value Abnormality Reference (Units) Status Bacteria identified in Specimen by Culture 11/13/2023 10:44:18 No significant growth Final Test: Culture, Urine, Quanti tative
Specimen Source: Urine, Clean Catch
Specimen Type: Urine
Specimen Date: 11/13/2023 1044
Result Date: 11/14/2023 1545
Result Status: Final result
Resulting Lab: LABORATORY [facility]
[address]
[place] [address]

CULTURE

No significant growth

null Performing Location LABORATORY [facility] - [address] [facility] [address]
--- OUTSIDE RECORDS SUMMARY | 2023-12-18 22:15 | External Medical Summary | Summary of Care ---
Author Name Unknown Organization [facility] Address [address] [facility] [place] [address] Phone [phone] Care Team Providers Care Managing Editor Name Role Phone Gino Osman MD Primary Care Provider [phone] Reason for Visit * Reason Comments Outpatient Testing Encounter Details Date Type Department Care Team (Late st Contact Info) Description 11/13/2023 10:30 AM EDT Laboratory Laboratory [facility] [address] [place] [address] [facility] Lab Scenery [address] [facility] [place] [address] Anemia of chronic renal failure, stage 4 (severe) ([facility]); UTI (urinary tract infection) Allergies Active Allergy [...] 30 Cap 12/16/2020 Active Ergocalciferol 1.25 MG (42111 UT) Oral Capsule (Vitamin D2(Drisdol)) On Sunday bimonthly 12 Capsule 01/02/2023 Active Tamsulosin HCl 0.4 MG Oral Capsule (Flomax)Indications: BPH with obstruction/lower urinary tract symptoms TAKE ONE CAPSULE BY MOUTH IN THE MORNING 90 Capsule 3 04/01/2023 Active Fluticasone Propionate 50 MCG/ACT Nasal Suspension (Flonase) Administer 1 [place] into nostril in the morning and 1 [place] before bedtime. 05/01/2023 Active Saline Nasal [place] 0.65 % Nasal Solution ([place]) Administer 1 [place] into nostril. 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 [...] mRNA, LNP-s, No Pre serve, 2-Dose Series (Chtiogen) 09/03/2021,11/04/2020,05/27/2020,04/19 COVID-19, MRNA-LNP, 23-24, P F, 30 MCG/0.3 mL, 12 YRS AND ABOVE, IM (On The Spot Systems-ComirnatYkone) 02/22/2023 Covid-19, Mrna, Lnp-s, Pf, B ivalent, [...] 11/13/2023 11:00 AM EDT Nurse Only Nephrology, [facility] [address] [place] [address] [place], Nurse Nephrology [address] [place] [address] Arrived 01/21/2024 10:00 AM EST Office Visit Nephrology, [facility] [address] [place] [address] [place] [address] Laurita Washington PA-C [address] [place] [address] 04/01/2024 1:00 PM EST Nurse Only Ancillary Department, [place] [address] [place] [address] [place], Nurse Annual Wellness [address] [place] [address] 04/01/2024 2:20 PM EST Office Visit Family Practice, [place] [address] [place] [phone] Gino Osman MD [address] [place] [address] 05/14/2024 2:00 PM EST Laboratory Laboratory [facility] [employer] [address] [place] [address] [place] [phone] [place] Lab [facility] [address] [facility] [place] [address] 05/21/2024 2:15 PM EST Office Visit Hematology/Oncology State [place] 200 [facility] [place] [address] Cleve Bruce MD 200 [facility] [place] [address] Pending Results Name Type Priority Associated Diagnoses Date /Time CBC Lab Routine Anemia of chronic renal failure, stage 4 (severe) ([facility]) 11/13/2023 10:31 AM EDT RETICULOCYTE PANEL Lab Routine Anemia [...] 12/01/2022, 06/20/2021, Additional history exists Hgb 11/05/2024 11/06/2023, 10/17, 10/26/2023, Additional history exists DTap/Tdap Vaccines (3 - [...] this encounter Medical Devices Implanted Type Area Hoe Worker Device Identifier Shelf Expiration Date Model / Serial / Lot Lens Intraoc 18.0 - [id number] - [id number] Implanted:Qty: 1 on 11/20/2019 by Sonu Valladares MD at OR [facility] Left: Eye BAUSCH & LOMB 02/16/2024 [id number] / [id number] / [id number] Sofport Implanted:Qty: 1 on 12/02/2019 by Sonu Valladares MD at OR [facility] Right: Eye 11/17/2023 [id number] / / [id number] documented as of this encounter Visit Diagnoses Diagnosis UTI (urinary tract infection)- Primary Urinary tract infection, site not specified Anemia of chronic renal failure, stage 4 (severe) (HCC) UTI (urinary tract infection) Urinary tract infection, site not specified documented in this encounter Care Teams Managing Editor Relationship Specialty Start Date End Date Gino Osman MD [address] [place] [address] PCP - General Family Medicine 05/06/18 documented as of this encounter
--- OUTSIDE RECORDS SUMMARY | 2023-12-18 22:15 | External Medical Summary | Summary of Care ---
Author Name Unknown Organization [facility] Address [address] [facility] [place] [address] Phone [phone] Care Team Providers Care Brass Reclaimer Name Role Phone Gino Osman MD Primary Care Provider Reason for Visit * Reason Onset Date Comments Advice 11/13/2023 Encounter Details Date Type Department Care Team (Late st Contact Info) Description 11/13/2023 Telephone Nephrology, [place] [address] [facility] [place] [address] Ashely Chapa MD [address] [place] [address] Advice Allergies Active Allergy Reactions Criticality Noted [...] 30 Cap 12/16/2020 Active Ergocalciferol 1.25 MG (24845 UT) Oral Capsule (Vitamin D2(Drisdol)) On Sunday bimonthly 12 Capsule 01/02/2023 Active Tamsulosin HCl 0.4 MG Oral Capsule (Flomax)Indications: BPH with obstruction/lower urinary tract symptoms TAKE ONE CAPSULE BY MOUTH IN THE MORNING 90 Capsule 3 04/01/2023 Active Fluticasone Propionate 50 MCG/ACT Nasal Suspension (Flonase) Administer 1 [place] into nostril in the morning and 1 [place] before bedtime. 05/01/2023 Active Saline Nasal [place] 0.65 % Nasal Solution ([place]) Administer 1 [place] into nostril. 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 documented in this encounter Plan of Treatment Upcoming Encounters Date Type Department Care Team (Late st Contact Info) Description 11/20/2023 11:00 AM EDT Nurse Only Nephrology, [facility] [address] [facility] [place] [address] Sp, Nurse Nephrology [address] [place] [address] 01/21/2024 10:00 AM EST Office Visit Nephrology, [facility] [address] [place] [address] Laurita [place] PA-C [address] [facility] [place] [address] 04/01/2024 1:00 PM EST Nurse Only Ancillary Department, [place] [address] [place] [address] [place], Nurse Annual Wellness [address] [place] [address] 04/01/2024 2:20 PM EST Office Visit Family Practice, [place] [address] [place] [phone] Gino Osman MD [address] [place] [address] 05/14/2024 2:00 PM EST Laboratory Laboratory [facility] [address] [facility] [place], [place] [phone] [place], [facility] [address] [facility] [place], [place] [address] 05/21/2024 2:15 PM EST Office Visit Hematology/Oncology [facility] [place] [address] [place] [phone] Cleve Bruce MD [address] [facility] [place], [place] [address] Health Maintenance Due Date Last Done Comments [...] this encounter Medical Devices Implanted Type Area Production Material Coordinator Device Identifier Shelf Expiration Date Model / Serial / Lot Lens Intraoc 18.0 - [id number] - [id number] Implanted:Qty: 1 on 11/20/2019 by Sonu Valladares MD at OR [facility] Left: Eye BAUSCH & LOMB 02/16/2024 [id number] / [id number] / [id number] Sofport Implanted:Qty: 1 on 12/02/2019 by Sonu Valladares MD at OR [facility] Right: Eye 11/17/2023 [id number] / / [id number] documented as of this encounter Care Teams Brass Reclaimer Relationship Specialty Start Date End Date Gino Osman MD [address] [place] [address] PCP - General Family Medicine 05/06/18 documented as of this encounter
--- OUTSIDE RECORDS SUMMARY | 2023-12-18 22:15 | External Medical Summary | Summary of Care ---
Author Name Unknown Organization [facility] Address [address] [facility] [place] [address] Phone [phone] Care Team Providers Care Nailing Machine Operator Automatic Name Role Phone Gino Osman MD Primary Care Provider [phone] Reason for Visit * Reason Onset Date Comments Medication Question 10/31/2023 Encounter Details Date Type Department Care Team (Late st Contact Info) Description 10/31/2023 Telephone NephrologyGabrielle 200 [facility] [place] [address] ChapaAshely cardona MD [address] [place] [address] Medication Question Allergies Active Allergy Reactions Criticality [...] 30 Cap 12/16/2020 Active Ergocalciferol 1.25 MG (82240 UT) Oral Capsule (Vitamin D2(Drisdol)) On Sunday bimonthly 12 Capsule 01/02/2023 Active Tamsulosin HCl 0.4 MG Oral Capsule (Flomax)Indications: BPH with obstruction/lower urinary tract symptoms TAKE ONE CAPSULE BY MOUTH IN THE MORNING 90 Capsule 3 04/01/2023 Active Fluticasone Propionate 50 MCG/ACT Nasal Suspension (Flonase) Administer 1 [place] into nostril in the morning and 1 [place] before bedtime. 05/01/2023 Active Saline Nasal [place] 0.65 % Nasal Solution ([place]) Administer 1 [place] into nostril. 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 He reports that [place] Time Clock Mechanic is recommending Lokelma and Remeron but wanted to make sure you were aware. He is being given Remeron due to weight loss. documented in this encounter Plan of Treatment Upcoming Encounters Date Type Department Care Team (Late st Contact Info) Description 11/20/2023 11:00 AM EDT Nurse Only Nephrology, Gabrielle [place] [address] [place] [address] [address] Sp, Nurse Nephrology [address] [place] [address] [address] 11/21/2023 9:00 AM EDT Pharmacy Pharmacy, [place] [address] [place] [address] Clinic, [facility] [address] [place] [address] 01/21/2024 10:00 AM EST Office Visit Nephrology, Gabrielle [place] [address] [place] [address] Laurita Washington PA-C [address] [place] [address] [address] 04/01/2024 1:00 PM EST Nurse Only Ancillary Department, [place] [address] [facility] [place] [address] [place], Nurse Annual Wellness [address] [place] [address] 04/01/2024 2:20 PM EST Office Visit Family Practice, [place] [address] [place] [facility] [place] [phone] Gino Osman MD [address] [place], [place] [phone] 05/14/2024 2:00 PM EST Laboratory Laboratory [facility] [place] [address] [facility] [place] [address] [facility] Lab [facility] [address] [place] [address] 05/21/2024 2:15 PM EST Office Visit Hematology/Oncology [facility] [address] [facility] [place] [address] Cleve Bruce MD [address] [facility] [place] [address] Health Maintenance Due Date Last Done Comments [...] this encounter Medical Devices Implanted Type Area Sausage Stuffer Device Identifier Shelf Expiration Date Model / Serial / Lot Lens Intraoc 18.0 - [id number] - [id number] Implanted:Qty: 1 on 11/20/2019 by Sonu Valladares MD at OR [facility] Left: Eye BAUSCH & LOMB 02/16/2024 [id number] / [id number] / [id number] Sofport Implanted:Qty: 1 on 12/02/2019 by Sonu Valladares MD at OR [facility] Right: Eye 11/17/2023 [id number] / / [id number] documented as of this encounter Additional Health Concerns Infection Onset Date Last Indicated Resolved Time C. difficile Rule-Out 11/06/2023 11/06/20232023 6:01 PM EDT Gastrointestinal Rule-Out 11/06/2023 11/06/2023 7:46 PM EDT documented as of this encounter Care Teams Nailing Machine Operator Automatic Relationship Specialty Start Date End Date Gino Osman MD [address] [facility] [place] [address] PCP - General Family Medicine 05/06/18 documented as of this encounter
--- OUTSIDE RECORDS SUMMARY | 2023-12-18 22:15 | External Medical Summary | Summary of Care ---
Author Name Unknown Organization [facility] Address [address] [facility] [place] [address] Phone [phone] Care Team Providers Care In Flight Refueling Manager Name Role Phone Gino Osman MD Primary Care Provider [phone] Reason for Visit * Reason Onset Date Comments Advice 11/13/2023 Encounter Details Date Type Department Care Team (Late st Contact Info) Description 11/13/2023 Telephone Nephrology, Gabrielle [place] 200 [facility] [place] [address] Ashely Chapa MD [address] [place] [address] Advice Allergies Active Allergy Reactions Criticality Noted [...] 30 Cap 12/16/2020 Active Ergocalciferol 1.25 MG (99595 UT) Oral Capsule (Vitamin D2(Drisdol)) On Sunday bimonthly 12 Capsule 01/02/2023 Active Tamsulosin HCl 0.4 MG Oral Capsule (Flomax)Indications: BPH with obstruction/lower urinary tract symptoms TAKE ONE CAPSULE BY MOUTH IN THE MORNING 90 Capsule 3 04/01/2023 Active Fluticasone Propionate 50 MCG/ACT Nasal Suspension (Flonase) Administer 1 [place] into nostril in the morning and 1 [place] [employer] before bedtime. 05/01/2023 Active Saline Nasal [place] [employer] 0.65 % Nasal Solution (Real) Administer 1 [place] [employer] into nostril. 05/01/2023 Active Pantoprazole Sodium 40 [...] Start Date End Date Status Epoetin Rogelio 09585 UNIT/ML inj 40,000 UnitsIndications:Anemia of chronic renal failure, stage 3b (HCC) 21606 Units SC QWEEK 08/21/2023 Active documented as [...] mRNA, LNP-s, No Pre serve, 2-Dose Series ([employer]) 09/03/2021,11/04/2020,05/27/2020,04/19 COVID-19, MRNA-LNP, 23-24, P F, 30 [...] Encounter - Ashely Chapa MD - 11/16/2023 12:34 PM EDT We have been struggling to keep hgb in good range on max BON doses >> Will >> are there other ESAs we could try for him to see if he responds better to them? I'm ok w/ him continuing in neph anemia clinic but may need pRBC if poor response continues * Telephone Encounter - Cleve Bruce MD - 11/13/2023 12:18 PM EDT Noted. Thank you * Telephone Encounter - Candy Ewing RN - 11/13/2023 11:13 AM EDT Pt is expressing that he wishes to continue Procrit injections through Nephrology. documented in this encounter Plan of Treatment Upcoming Encounters Date Type Department Care Team (Late st Contact Info) Description 11/20/2023 11:00 AM EDT Nurse Only Nephrology, Gabrielle [place] [address] [place], [place] [address] [place], Nurse Nephrology [address] [place] [address] 11/21/2023 9:00 AM EDT Pharmacy Pharmacy, [place] [address] [place] [address] Clinic, [facility] [address] [place] [address] 01/21/2024 10:00 AM EST Office Visit Nephrology, [facility] [address] [place], [place] [address] Laurita [place] PA-C 200 [facility] [place] [address] 04/01/2024 1:00 PM EST Nurse Only Ancillary Department, [place] [address] [place] [address] [place], Nurse Annual Wellness [facility] [place] [address] 04/01/2024 2:20 PM EST Office Visit Family Practice, [place] [address] [facility] [place] [phone] Gino Osman MD [address] [place], [place] [address] 05/14/2024 2:00 PM EST Laboratory Laboratory [facility] [place] [address] [place], [place] [address] [facility] [address] [facility] [place], [place] [address] 05/21/2024 2:15 PM EST Office Visit Hematology/Oncology [facility] [place] [address] [place], [place] [address] Cleve Bruce MD [address] [facility] [place], [place] [address] Health Maintenance Due Date Last Done Comments [...] this encounter Medical Devices Implanted Type Area Oxide Furnace Tender Device Identifier Shelf Expiration Date Model / Serial / Lot Lens Intraoc 18.0 - [id number] - [id number] Implanted:Qty: 1 on 11/20/2019 by Sonu Valladares MD at [facility] Left: Eye BAUSCH & LOMB 02/16/2024 [id number] / [id number] / [id number] Sofport Implanted:Qty: 1 on 12/02/2019 by Sonu Valladares MD at OR [facility] Right: Eye 11/17/2023 [id number] / / [id number] documented as of this encounter Care Teams In Flight Refueling Manager Relationship Specialty Start Date End Date Gino Osman MD [address] [facility] [place] [id number] PCP - General Family Medicine 05/06/18 documented as of this encounter
--- OUTSIDE RECORDS SUMMARY | 2023-12-18 22:15 | External Medical Summary | Summary of Care ---
Author Name Unknown Organization [facility] Address [address] [facility] [place] [address] Phone [phone] Care Team Providers Care Senior Buyer Name Role Phone Gino Osman MD Primary Care Provider [phone] Reason for Visit * Reason Comments Medication Administration * Precert (Within 30 days (routine)) - Authorized Specialty Diagnoses / Procedures Referred By Contac t Referred To Contact Diagnoses Anemia in chronic kidney disease Procedures MN INJ RETACRIT NON-ESRD USE Ashely Chapa MD [address] [facility] [place] [address] Ashely Chapa MD [address] [facility] [place] [address] Referral ID Status Reason Start Date Expiration Date V isits Requested Visits Authorized [id number] Authorized Precert 02/07/2023 03/18/2099 [id number] Encounter Details Date Type Department Care Team (Late st Contact Info) Description 11/13/2023 11:00 AM EDT Nurse Only NephrologyGabrielle [address] [place] [address] [place], Nurse Nephrology [address] [facility] [place] [address] Medication Administration Allergies Active Allergy Reactions Criticality [...] 30 Cap 12/16/2020 Active Ergocalciferol 1.25 MG (80869 UT) Oral Capsule (Vitamin D2(Drisdol)) On Sunday bimonthly 12 Capsule 01/02/2023 Active Tamsulosin HCl 0.4 MG Oral Capsule (Flomax)Indications: BPH with obstruction/lower urinary tract symptoms TAKE ONE CAPSULE BY MOUTH IN THE MORNING 90 Capsule 3 04/01/2023 Active Fluticasone Propionate 50 MCG/ACT Nasal Suspension (Flonase) Administer 1 [place] into nostril in the morning and 1 [place] before bedtime. 05/01/2023 Active Saline Nasal [place] 0.65 % Nasal Solution ([place]) Administer 1 [place] into nostril. 05/01/2023 Active Pantoprazole Sodium 40 [...] Start Date End Date Status Epoetin Rogelio 26151 UNIT/ML inj 40,000 UnitsIndications:Anemia of chronic renal failure, stage 3b (HCC) 02174 Units SC QWEEK 08/21/2023 Active documented as [...] lower extremity 06/13/2018 Current use of termite helper 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 019 History of lung transplant [...] mRNA, LNP-s, No Pre serve, 2-Dose Series ([employer]) 09/03/2021,11/04/2020,05/27/2020,04/19 COVID-19, MRNA-LNP, 23-24, P F, 30 MCG/0.3 mL, 12 YRS AND ABOVE, IM ([facility]) 02/22/2023 Covid-19, Mrna, Lnp-s, Pf, B ivalent, [...] Passive Smoke Exposure: Past Smokeless Tobacco: Never Tobacco Cessation:Counseling Given: Not Answered Alcohol Use Standard Drinks/Week Comments No 0 [...] Sign Reading Time Taken Comments Blood Pressure 129/70 11/13/2023 11:09 AM EDT Pulse 82 11/13/2023 11:09 AM EDT Temperature - - Respiratory Rate - - Oxygen Saturation - - Inhaled Oxygen Concentration - - Weight - - Height - - Body Mass Index - - documented in this encounter Progress Notes * Candy Ewing RN - 11/13/2023 10:44 AM EDT Pt requesting urine test due to symptoms of UTI. documented in this encounter Nursing Notes * Candy Ewing RN - 11/13/2023 11:09 AM EDT Pt presents today for weekly Procrit injection. Hgb 8.1 today. Pt states that he prefers to receivehis injections at the Nephrology clinic and is requesting to continue here. Pt also complaining of some burning with urination and requested to have urine tested. UA and C/S ordered. documented in this encounter Plan of Treatment Upcoming Encounters Date Type Department Care Team (Late st Contact Info) Description 11/20/2023 11:00 AM EDT Nurse Only Nephrology, Gabrielle [place] [address] [place] [address] [address] [place], Nurse Nephrology 200 [facility] [place] [address] 01/21/2024 10:00 AM EST Office Visit Nephrology, [place] [address] [place] [address] [address] Laurita [place] PA-C [address] [place] [address] [address] 04/01/2024 1:00 PM EST Nurse Only Ancillary Department, [place] [address] [place], [place] [phone] [place], Nurse Annual Wellness [facility] [place] [address] 04/01/2024 2:20 PM EST Office Visit Family Practice, [place] [address] [place] [address] Gino Osman MD [address] [place] [address] 05/14/2024 2:00 PM EST Laboratory Laboratory [facility] [place] [address] [place] [address] [place] [facility] [place] [address] [address] [address] 05/21/2024 2:15 PM EST Office [facility] [employer] [address] [place] [address] [address] Cleve Bruce MD [address] [place] [address] [address] Pending Results Name Type Priority Associated Diagnoses Date /Time CULTURE, URINE, QUANTITATIVE Lab Routine UTI (urinary tract infection) 11/13/2023 10:44 AM EDT Scheduled Orders Name Type Priority Associated Diagnoses Orde r Schedule CULTURE, URINE, QUANTITATIVE Lab Routine UTI (urinary tract infection) Expected: 11/13/2023, Expires: 11/12/2024 Health Maintenance Due Date Last Done Comments [...] Zoster Vaccines Completed 05/27/2018, 09/0 06/2017, 08/15/2012 HPV (Gardasil) Vaccine Aged Out No lo nger eligible based on patient's age to complete this topic MENINGOCOCCAL (MENACTRA/MENVEO) Aged Out No longer eligible based on patient's age to complete this topic documented as of this encounter Medical Devices Implanted Type Area Circuitry Negative Inspector Device Identifier Shelf Expiration Date Model / Serial / Lot Lens Intraoc 18.0 - [id number] - [id number] Implanted:Qty: 1 on 11/20/2019 by Sonu Valladares MD at OR [facility] Left: Eye BAUSCH & LOMB 02/16/2024 [id number] / [id number] / [id number] Sofport Implanted:Qty: 1 on 12/02/2019 by Sonu Valladares MD at OR [facility] Right: Eye 11/17/2023 [id number] / / [id number] documented as of this encounter Results * (ABNORMAL) URINALYSIS WITH MICROSCOPIC EXAM (11/13/2023 10:44 AM EDT) Color, Urine Yellow Light Yellow, Yellow, Dark Yellow 11/13/2023 11:19 AM EDT [facility] 56- Clarity, Urine Clear Clear 11/13/2023 11:19 AM EDT [facility] 56- Glucose, Urine Negative Negative mg/dL 11/13/2023 11:19 AM EDT [facility] 56- Bilirubin, Urine Negative Negative 11/13/2023 11:19 AM EDT [facility] 56- Ketone, Urine Negative Negative mg/dL 11/13/2023 11:19 AM EDT [facility] 56- Specific [place], Urine 1.010 1.003 - 1.030 11/13/2023 11:19 AM EDT [facility] 56- Blood, Urine Small(A) Negative 11/13/2023 11:19 AM EDT [facility] 56- pH, Urine 7.0 5.0 - 7.5 Units 11/13/2023 11:19 AM T [facility] 56- Protein, Urine Trace(A) Negative mg/dL 11/13/2023 11:19 AM EDT [facility] 56-02 Urobilinogen, Urine 0.2 0.2, 1.0 mg/dL 11/13/2023 11:19 AM EDT [facility] 56 Nitrite, Urine Negative Negative 11/13/2023 11:19 AM EDT [facility] 56 Esterase, Urine Negative Negative 11/13/2023 11:19 AM EDT [facility] 56 RBC, Urine 0-2 0 - 2 /HPF 11/13/2023 11:19 AM EDT [facility] 56 WBC, Urine 0-2 0 - 2 /HPF 11/13/2023 11:19 AM EDT [facility] 56 Bacteria, Urine 0-25 0 - 25 /HPF 11/13/2023 11:19 AM EDT [facility] 56 Urine Urine specimen obtained by clean catch procedure / Unknown Non-blood Collection / Unknown 11/13/2023 10:44 AM EDT 11/13/2023 10:44 AM EDT Ashely Chapa MD LAB URINE ORDERAB LES [facility] [address] [place] [address] documented in this encounter Visit Diagnoses Diagnosis UTI (urinary tract infection)- Primary Urinary tract infection, site not specified documented in this encounter Administered Medications Active Administered Medications - up to 3 most recent administrations Medication Order MAR Action Action Date Dose Rate Site Epoetin Rogelio 40839 UNIT/ML inj 40,000 Units 40,000 Units, Subcutaneous, QWEEK, First dose on Sun08/21/23 at 1300, Until Discontinued, Hold if Hgb > 11g/dL Given 11/13/2023 11:03 AM EDT 40,000 Units Arm Left Upper Given 11/06/2023 11:55 AM EDT 40,000 Units Arm Right Upper Given 10/31/2023 11:15 AM EDT 40,000 Units Arm Left Upper documented in this encounter Care Teams Senior Buyer Relationship Specialty Start Date End Date Gino Osman MD [address] [place] [address] PCP - General Family Medicine 05/06/18 documented as of this encounter
--- OUTSIDE RECORDS SUMMARY | 2023-12-18 22:15 | External Medical Summary | Summary of Care ---
Author Name Unknown Organization [facility] Address [address] [facility] [place] [address] Phone [phone] Care Team Providers Care Wig Comber Name Role Phone Gino Osman MD Primary Care Provider [phone] Reason for Visit * Reason Comments Outpatient Testing Encounter Details Date Type Department Care Team (Late st Contact Info) Description 11/13/2023 10:30 AM EDT Laboratory Laboratory [facility] [address] [place] [address] [facility] Lab Scenery [address] [facility] [place] [address] Anemia of chronic renal failure, stage 4 [...] 30 Cap 12/16/2020 Active Ergocalciferol 1.25 MG (10914 UT) Oral Capsule (Vitamin D2(Drisdol)) On Sunday bimonthly 12 Capsule 01/02/2023 Active Tamsulosin HCl 0.4 MG Oral Capsule (Flomax)Indications: BPH with obstruction/lower urinary tract symptoms TAKE ONE CAPSULE BY MOUTH IN THE MORNING 90 Capsule 3 04/01/2023 Active Fluticasone Propionate 50 MCG/ACT Nasal Suspension (Flonase) Administer 1 [place] into nostril in the morning and 1 [place] before bedtime. 05/01/2023 Active Saline Nasal [place] 0.65 % Nasal Solution ([place]) Administer 1 [place] into nostril. 05/01/2023 Active Pantoprazole Sodium 40 [...] Start Date End Date Status Epoetin Rogelio 05400 UNIT/ML inj 40,000 UnitsIndications:Anemia of chronic renal failure, stage 3b (HCC) 35827 Units SC QWEEK 08/21/2023 Active documented as [...] right lower extremity 06/13/2018 Current use of manager long term care 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 019 History of lung transplant [...] mRNA, LNP-s, No Pre serve, 2-Dose Series ([employer]) 09/03/2021,11/04/2020,05/27/2020,04/19 COVID-19, MRNA-LNP, 23-24, P F, 30 MCG/0.3 mL, 12 YRS AND ABOVE, IM ([facility] [place]) 02/22/2023 Covid-19, Mrna, Lnp-s, Pf, B ivalent, [...] 11/13/2023 11:00 AM EDT Nurse Only Nephrology, [facility] [address] [place] [address] Sp, Nurse Nephrology [address] [place] [address] Arrived 01/21/2024 10:00 AM EST Office Visit Nephrology, [facility] [address] [place] [address] [place] [address] Laurita Washington PA-C [address] [place] [address] 04/01/2024 1:00 PM EST Nurse Only Ancillary Department, [place] [address] [place] [address] [place], Nurse Annual Wellness [address] [place] [address] 04/01/2024 2:20 PM EST Office Visit Family Practice, [place] [address] [place] [phone] Gino Osman MD [address] [place] [address] 05/14/2024 2:00 PM EST Laboratory Laboratory [facility] [employer] [address] [place] [address] [place] [phone] [facility] [address] [facility] [place] [address] 05/21/2024 2:15 PM EST Office Visit Hematology/Oncology [place] 200 [facility] [place] [address] Cleve Bruce MD 200 [facility] [place] [address] Pending Results Name Type Priority Associated Diagnoses [...] this encounter Medical Devices Implanted Type Area Support Manager Device Identifier Shelf Expiration Date Model / Serial / Lot Lens Intraoc 18.0 - [id number] - [id number] Implanted:Qty: 1 on 11/20/2019 by Sonu Valladares MD at OR [facility] Left: Eye BAUSCH & LOMB 02/16/2024 [id number] / [id number] / [id number] Sofport Implanted:Qty: 1 on 12/02/2019 by Sonu Valladares MD at OR [facility] Right: Eye 11/17/2023 [id number] / / [id number] documented as of this encounter Visit Diagnoses Diagnosis UTI (urinary tract infection)- Primary Urinary tract infection, site not specified Anemia of chronic renal failure, stage 4 (severe) (HCC) UTI (urinary tract infection) Urinary tract infection, site not specified documented in this encounter Care Teams Wig Comber Relationship Specialty Start Date End Date Gino Osman MD [address] [place] [address] PCP - General Family Medicine 05/06/18 documented as of this encounter
--- OUTSIDE RECORDS SUMMARY | 2023-12-18 22:15 | External Medical Summary | Summary of Care ---
Author Name Unknown Organization [facility] Address [address] [place] [address] Phone [phone] Care Team Providers Care Artisan Plasterer Name Role Phone Gino Osman MD Primary Care Provider [phone] Reason for Visit * Reason Onset Date Comments Anemia Follow-Up 11/12/2023 Encounter Details Date Type Department Care Team (Late st Contact Info) Description 11/08/2023 9:30 AM EDT Pharmacy Pharmacy, [place] [address] [place], [place] [id number] Clinic, Anemia [address] [place], [place] [id number] Anemia of chronic renal failure, stage 4 (severe) ([facility])* Allergies Active Allergy Reactions Criticality Noted Date Comments Adhesive Tape Itching High 11/21/2022 documented as of this encounter (statuses as of 11/12/2023) Medications Medication Sig Dispensed Refills Start Date [...] 30 Cap 12/16/2020 Active Ergocalciferol 1.25 MG (25134 UT) Oral Capsule (Vitamin D2(Drisdol)) On Sunday bimonthly 12 Capsule 01/02/2023 Active Tamsulosin HCl 0.4 MG Oral Capsule (Flomax)Indications: BPH with obstruction/lower urinary tract symptoms TAKE ONE CAPSULE BY MOUTH IN THE MORNING 90 Capsule 3 04/01/2023 Active Fluticasone Propionate 50 MCG/ACT Nasal Suspension (Flonase) Administer 1 [place] into nostril in the morning and 1 [place] before bedtime. 05/01/2023 Active Saline Nasal [place] 0.65 % Nasal Solution ([place]) Administer 1 [place] into nostril. 05/01/2023 Active Pantoprazole Sodium 40 [...] Start Date End Date Status Epoetin Rogelio 58581 UNIT/ML inj 40,000 UnitsIndications:Anemia of chronic renal failure, stage 3b (HCC) 24840 Units SC QWEEK 08/21/2023 Active documented as of this encounter (statuses as of 11/12/2023) Active Problems Problem Noted Date Diagnosed Date [...] as of this encounter (statuses as of 11/12/2023) Resolved Problems Problem Noted Date Diagnosed Date [...] as of this encounter (statuses as of 11/12/2023) Immunizations Name Administration Dates Next Due COVID-19 mRNA, LNP-s, No Pre serve, 2-Dose Series ([employer]) 09/03/2021,11/04/2020,05/27/2020,04/19 COVID-19, MRNA-LNP, 23-24, P F, 30 MCG/0.3 mL, 12 YRS AND ABOVE, IM ([facility]) 02/22/2023 Covid-19, Mrna, Lnp-s, Pf, B [...] this encounter Progress Notes * Feroz Lugo, [facility] - 11/12/2023 10:36 AM EDT Patient Phone Numbers Called and spoke with Arthur to review labs from 11/06/23. Hgb is below target range. Iron studies adequate. Patient reports recent malignancy, SCC treated with surgical removal and started radiation therapy on 10/02/23 managed by [facility] radiation oncology - Dr. Bruce. Will reach out to Dr. Chapa to see if continuation of BON is appropriate, or if BON management should be deferred to either [facility] or [facility] hem/onc. Plan: Continue Retacrit 40,000 units SQ weekly @ [facility] nephrology clinic (hold for Hgb > 11 g/dL). 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 Received approval from Dr. Chapa to start BON therapy as benefits outweigh risks at this time. Follow-up labs to be obtained on 11/13/23 to match administration appointment. Anemia Clinic will continue to follow. Thank you for allowing us to participate in the care of thispatient. Feroz Lugo, PharmD, [facility] Clinical Pharmacist Anemia Clinic P: [phone] F: [phone] 11/08/2023 10:57 AM Lab Results Component Value Date/Time HGB 8.1 (L) 11/06/2023 10:39 AM HGB 7.7 (L) 10/31/2023 10:39 AM HGB 8.0 (L) 10/26/2023 10:06 AM HGB 8.4 (L) 09/07/2023 06:09 PM [...] Saturation Percent 52 15 - 55 % Results for orders placed or performed in visit on 08/14/23 IRON SCREEN, INCLUDING TIBC Result Value Ref Range Iron 11 (L) 45 - 176 ug/dL Iron Binding Capacity 162 (L) 250 - 425 ug/dL Transferrin Saturation Percent 7 (L) 15 - 55 % No results found for: "TRANSFERRIN SAT %-OUTSIDE LAB" Lab Results Component Value Date/Time FERRITIN - [facility] 264 09/17/2023 09:28 AM FERRITIN - [facility] 252 09/03/2023 10:49 AM FERRITIN - [facility] 478 (H) 08/14/2023 10:39 AM FERRITIN-OUTSIDE LAB 149 09/08/2023 03:02 PM Lab Results Component Value Date/Time FERRITIN-OUTSIDE LAB 149 09/08/2023 03:02 PM documented in this encounter Plan of Treatment Upcoming Encounters Date Type Department Care Team (Late st Contact Info) Description 11/13/2023 11:00 AM EDT Nurse Only Nephrology, Gabrielle [place] [address] [place] [address] [address] Sp, Nurse Nephrology [address] [place] [address] [address] 01/21/2024 10:00 AM EST Office Visit NephGabrielle duncan [address] [place] [address] [address] Laurita Washington PA-C 200 [facility] [place] [address] 04/01/2024 1:00 PM EST Nurse Only Ancillary Department, [place] [address] [place] [facility] [address] [place], Nurse Annual Wellness [address] [place] [facility] [place] [address] 04/01/2024 2:20 PM EST Office Visit Family Practice, [place] [address] [place] [facility] [address] Gino Osman MD [address] [facility], [place] [id number] 05/14/2024 2:00 PM EST Laboratory Laboratory [facility] [place] [address] [facility] [address] [place], [place] [address] [facility] [address] [facility] [place], [place] [address] 05/21/2024 2:15 PM EST Office Visit Hematology/Oncology [facility] [place] [address] [facility] [address] [place], [place] [address] Cleve Bruce MD [address] [facility] [place] [address] Health Maintenance Due Date Last Done Comments [...] 11/05/2024 11/06/2023, 10/17, 10/26/2023, Additional history exists DTaP,Tdap,and Td Vaccines (3 - Td or Tdap) 06/23/2032 [...] this encounter Medical Devices Implanted Type Area Home Health Occupational Therapist Device Identifier Shelf Expiration Date Model / Serial / Lot Lens Intraoc 18.0 - [id number] - [id number] Implanted:Qty: 1 on 11/20/2019 by Sonu Valladares MD at OR [facility] Left: Eye BAUSCH & LOMB 02/16/2024 [id number] / [id number] / [id number] Sofport Implanted:Qty: 1 on 12/02/2019 by Sonu Valladares MD at OR [facility] Right: Eye 11/17/2023 [id number] / / [id number] documented as of this encounter Visit Diagnoses Diagnosis Anemia of chronic renal failure, stage 4 (severe) (HCC)- Primary documented in this encounter Care Teams Artisan Plasterer Relationship Specialty Start Date End Date Gino Osman MD [address] [place] [address] PCP - General Family Medicine 05/06/18 documented as of this encounter
--- OUTSIDE RECORDS SUMMARY | 2023-12-18 22:15 | External Medical Summary ---
Author Name Unknown Address Unknown Organization K[facility] [address] [place] [address] Laboratory Report Ordering Provider Test Date Status MARY BARRAZA 11/13/2023 10:44:18 Final Observation Date Value Abnormality Reference (Units ) Status Color of Urine by Auto 11/13/2023 10:44:18 Yellow Light Yellow, Yellow, Dark Yellow Final Clarity, Urine 11/13/2023 10:44:18 Clear Clear Final Glucose [Mass/volume] in Urine by Automated test strip 11/13/2023 10:44:18 Negative Negative (mg/dL) Final Bilirubin.total [Presence] in Urine by Automated test strip 11/13/2023 10:44:18 Negative Negative Final Ketones [Mass/volume] in Urine by Automated test strip 11/13/2023 10:44:18 Negative Negative (mg/dL) Final Specific gravity, Urine 11/13/2023 10:44:18 1.010 1.003-1.030 Final Hemoglobin [Presence] in Urine by Automated test strip 11/13/2023 10:44:18 Small Abnormal Negative Final pH, Urine 11/13/2023 10:44:18 7.0 5.0-7.5 (Units) Final Protein [Mass/volume] in Urine by Automated test strip 11/13/2023 10:44:18 Trace Abnormal Negative (mg/dL) Final Urobilinogen [Mass/volume] in Urine by Automated test strip 11/13/2023 10:44:18 0.2 0.2, 1.0 (mg/dL) Final Nitrite [Presence] in Urine by Automated test strip 11/13/2023 10:44:18 Negative Negative Final Leukocyte esterase [Presence] in Urine by Automated test strip 11/13/2023 10:44:18 Negative Negative Final RBC, Urine 11/13/2023 10:44:18 0-2 0-2 (/HPF) Final WBC, Urine 11/13/2023 10:44:18 0-2 0-2 (/HPF) Final Bacteria [#/area] in Urine sediment by Microscopy high power field 11/13/2023 10:44:18 0-25 0-25 (/HPF) Final Performing Location [facility] [address] [place] [address]
--- OUTSIDE RECORDS SUMMARY | 2023-12-18 22:15 | External Medical Summary | Summary of Care ---
Author Name Unknown Organization [facility] Address [address] [facility] [place] [address] Phone [phone] Care Team Providers Care Warehouse Delivery Manager Name Role Phone Gino Osman MD Primary Care Provider [phone] Reason for Visit * Reason Onset Date Comments Advice 11/13/2023 Encounter Details Date Type Department Care Team (Late st Contact Info) Description 11/13/2023 Telephone Nephrology, [place]ri[place] [address] [facility] [place] [address] Ashely Chapa MD [address] [place] [address] Advice Allergies Active Allergy Reactions Criticality Noted [...] 30 Cap 12/16/2020 Active Ergocalciferol 1.25 MG (10776 UT) Oral Capsule (Vitamin D2(Drisdol)) On Sunday bimonthly 12 Capsule 01/02/2023 Active Tamsulosin HCl 0.4 MG Oral Capsule (Flomax)Indications: BPH with obstruction/lower urinary tract symptoms TAKE ONE CAPSULE BY MOUTH IN THE MORNING 90 Capsule 3 04/01/2023 Active Fluticasone Propionate 50 MCG/ACT Nasal Suspension (Flonase) Administer 1 [place] into nostril in the morning and 1 [place] before bedtime. 05/01/2023 Active Saline Nasal [place] 0.65 % Nasal Solution ([place]mer[place]da) Administer 1 [place] into nostril. 05/01/2023 Active Pantoprazole Sodium 40 [...] Start Date End Date Status Epoetin Rogelio 86849 UNIT/ML inj 40,000 UnitsIndications:Anemia of chronic renal failure, stage 3b (HCC) 14526 Units SC QWEEK 08/21/2023 Active documented as [...] mRNA, LNP-s, No Pre serve, 2-Dose Series ([employer]) 09/03/2021,11/04/2020,05/27/2020,04/19 COVID-19, MRNA-LNP, 23-24, P F, [...] encounter Miscellaneous Notes * Telephone Encounter - Cleve Bruce MD [...] 11:00 AM EDT Nurse Only Nephrology, [facility] [address] [facility] [place] [address] Sp, Nurse Nephrology [address] [facility] [place] [address] 01/21/2024 10:00 AM EST [facility] [address] [place] [address] Laurita Washington PA-C [address] [facility] [place] [address] 04/01/2024 1:00 PM EST Nurse Only Ancillary Department, [place] [address] [facility] [address] [facility] [address] [facility] [address] 04/01/2024 2:20 PM EST Office Visit Family Practice, [place] [address] [facility] [address] Gino Osman MD [address] [place] [address] 05/14/2024 2:00 PM EST Laboratory Laboratory [facility] [address] [place] [address] [facility] [address] [facility] [place], [place] [address] 05/21/2024 2:15 PM EST Office Visit Hematology/Oncology [facility] [address] [place] [address] Cleve Bruce MD [address] [place], [place] [address] Health Maintenance Due Date Last Done Comments [...] 06/20/2021, Additional history exists Hgb 11/12/2024 11/13/2023, 08, 10/31/2023, Additional history exists DTap/Tdap Vaccines (3 [...] this encounter Medical Devices Implanted Type Area Clinical Transformation Specialist Device Identifier Shelf Expiration Date Model / Serial / Lot Lens Intraoc 18.0 - [id number] - [id number] Implanted:Qty: 1 on 11/20/2019 by Sonu Valladares MD at OR [facility] Left: Eye BAUSCH & LOMB 02/16/2024 [id number] / [id number] / [id number] Sofport Implanted:Qty: 1 on 12/02/2019 by Sonu Valladares MD at OR [facility] Right: Eye 11/17/2023 [id number] / / [id number] documented as of this encounter Care Teams Warehouse Delivery Manager Relationship Specialty Start Date End Date Gino Osman MD [address] [place] [address] PCP - General Family Medicine 05/06/18 documented as of this encounter
--- OUTSIDE RECORDS SUMMARY | 2023-12-18 22:15 | External Medical Summary | Summary of Care ---
Author Name Unknown Organization [facility] Address [address] [facility] [place] [address] Phone [phone] Care Team Providers Care Solutions Specialist Name Role Phone Gino Osman MD Primary Care Provider [phone] Reason for Visit * Reason Onset Date Comments Advice 11/13/2023 Encounter Details Date Type Department Care Team (Late st Contact Info) Description 11/13/2023 Telephone Nephrology, [place] 200 [facility] [place] [address] Ashely Chapa MD [address] [place] [address] Advice Allergies Active Allergy Reactions Criticality Noted [...] 30 Cap 12/16/2020 Active Ergocalciferol 1.25 MG (80151 UT) Oral Capsule (Vitamin D2(Drisdol)) On Sunday bimonthly 12 Capsule 01/02/2023 Active Tamsulosin HCl 0.4 MG Oral Capsule (Flomax)Indications: BPH with obstruction/lower urinary tract symptoms TAKE ONE CAPSULE BY MOUTH IN THE MORNING 90 Capsule 3 04/01/2023 Active Fluticasone Propionate 50 MCG/ACT Nasal Suspension (Flonase) Administer 1 [place] into nostril in the morning and 1 [place] before bedtime. 05/01/2023 Active Saline Nasal [place] 0.65 % Nasal Solution ([place]) Administer 1 [place] into nostril. 05/01/2023 Active Pantoprazole Sodium 40 [...] Start Date End Date Status Epoetin Rogelio [address]74[address] UNIT/ML inj 40,000 UnitsIndications:Anemia of chronic renal failure, stage 3b (HCC) 60227 Units SC QWEEK 08/21/2023 Active documented as [...] 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 Overview: left [facility] 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 [...] mRNA, LNP-s, No Pre serve, 2-Dose Series ([employer]) 09/03/2021,11/04/2020,05/27/2020,04/19 COVID-19, MRNA-LNP, 23-24, P F, 30 [...] Encounter - Vesta Alanis LPN - 11/16/2023 3:18 PM EDT Pt is aware Will await further recommendations but ok to continue Procrit through Nephro dept * Telephone Encounter - Ashely Chapa MD [...] Description 11/20/2023 11:00 AM EDT Nurse Only NephrologyGabrielle [address] [place], [place] [address] Sp, Nurse Nephrology [address] [place] [address] [place] [address] 11/21/2023 9:00 AM EDT Pharmacy Pharmacy, [place] [address] [place] [address] Clinic, [facility] [address] [place] [address] 01/21/2024 10:00 AM EST Office Visit Nephrology, [facility] [address] [place] [address] ZeLaurita alcala PA-C [address] [place] [address] [place] [address] 04/01/2024 1:00 PM EST Nurse Only Ancillary Department, [address] [address] [place], Nurse Annual Wellness [place] [address] 04/01/2024 2:20 PM EST Office Visit Family Practice, [place] [address] [place] [address] Gino Osman MD [address] [place] [address] 05/14/2024 2:00 PM EST Laboratory Laboratory [facility] [place] [address] [place] [address] [place] [facility] [address] [place] [place] [address] 05/21/2024 2:15 PM EST Office Visit Hematology/Oncology [facility] [place]ira [place] [address] [place] [address] Cleve Bruce MD [address] [place] [address] [address] [address] Health Maintenance Due Date Last Done Comments [...] 05/23/2018, 04/01/2015, 05/14/2012 Zoster Vaccines Completed 05/27/2018, 0906/2017, 08/15/2012 HPV (Gardasil) Vaccine Aged Out No lo nger eligible based on patient's age to complete this topic MENINGOCOCCAL (MENACTRA/MENVEO) Aged Out No longer eligible based on patient's age to complete this topic documented as of this encounter Medical Devices Implanted Type Area Factory Representative Device Identifier Shelf Expiration Date Model / Serial / Lot Lens Intraoc 18.0 - [id number] - [id number] Implanted:Qty: 1 on 11/20/2019 by Sonu Valladares MD at OR [facility] Left: Eye BAUSCH [employer] LOMB 02/16/2024 [id number] / [id number] / [id number] Sofport Implanted:Qty: 1 on 12/02/2019 by Sonu Valladares MD at OR [facility] Right: Eye 11/17/2023 [id number] / / [id number] documented as of this encounter Care Teams Solutions Specialist Relationship Specialty Start Date End Date Gino Osman MD [address] [place] [address] PCP - General Family Medicine 05/06/18 documented as of this encounter
--- OUTSIDE RECORDS SUMMARY | 2023-12-18 22:15 | External Medical Summary | Summary of Care ---
Author Name Unknown Organization [facility] Address [address] [facility] [place] [address] Phone [phone] Care Team Providers Care Project Engineering Director Name Role Phone Gino Osman MD Primary Care Provider [phone] Reason for Visit * Reason Comments Outpatient Testing Encounter Details Date Type Department Care Team (Late st Contact Info) Description 11/13/2023 10:30 AM EDT Laboratory Laboratory [facility] [address] [place] [address] [facility] Sc[facility] [address] [facility] [place] [address] Anemia of chronic renal failure, stage 4 (severe) ([facility]) Allergies Active Allergy Reactions Criticality Noted Date [...] 30 Cap 12/16/2020 Active Ergocalciferol 1.25 MG (35177 UT) Oral Capsule (Vitamin D2(Drisdol)) On Sunday bimonthly 12 Capsule 01/02/2023 Active Tamsulosin HCl 0.4 MG Oral Capsule (Flomax)Indications: BPH with obstruction/lower urinary tract symptoms TAKE ONE CAPSULE BY MOUTH IN THE MORNING 90 Capsule 3 04/01/2023 Active Fluticasone Propionate 50 MCG/ACT Nasal Suspension (Flonase) Administer 1 [place] into nostril in the morning and 1 [place] before bedtime. 05/01/2023 Active Saline Nasal [place] 0.65 % Nasal Solution ([place]) Administer 1 [place] into nostril. 05/01/2023 Active Pantoprazole Sodium 40 [...] Start Date End Date Status Epoetin Rogelio 36870 UNIT/ML inj 40,000 UnitsIndications:Anemia of chronic renal failure, stage 3b (HCC) 39259 Units SC QWEEK 08/21/2023 Active documented as [...] lower extremity 06/13/2018 Current use of terminal worker 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 019 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 [...] mRNA, LNP-s, No Pre serve, 2-Dose Series ([employer]) 09/03/2021,11/04/2020,05/27/2020,04/19 COVID-19, MRNA-LNP, 23-24, P F, 30 MCG/0.3 mL, 12 YRS AND ABOVE, IM ([employer] [employer]) 02/22/2023 Covid-19, Mrna, Lnp-s, Pf, B ivalent, [...] 11/13/2023 11:00 AM EDT Nurse Only Nephrology, [facility] [address] [place] [address] [place], Nurse Nephrology [address] [place] [address] Arrived 01/21/2024 10:00 AM EST Office Visit Nephrology, [facility] [address] [place] [address] Laurita Washington PA-C [address] [place] [address] 04/01/2024 1:00 PM EST Nurse Only Ancillary Department, [place] [address] [place] [address] [place], Nurse Annual Wellness [address] [place] [address] 04/01/2024 2:20 PM EST Office Visit Family Practice, [place] [address] [place] [phone] Gino Osman MD [address] [place] [address] 05/14/2024 2:00 PM EST Laboratory Laboratory [employer] [address] [place] [address] [phone] [facility] [address] [facility] [place] [address] 05/21/2024 2:15 PM EST Office Visit Hematology/Oncology [place] [address] [facility] [place] [address] Cleve Bruce MD 200 [facility] [place] [address] Pending Results Name Type Priority Associated Diagnoses Date /Time CBC Lab Routine Anemia of chronic renal failure, stage 4 (severe) (HCC) 11/13/2023 10:31 AM EDT RETICULOCYTE PANEL Lab Routine Anemia of chronic renal failure, stage 4 (severe) (HCC) 11/13/2023 10:31 AM EDT Health Maintenance Due Date Last [...] this encounter Medical Devices Implanted Type Area Medical Director Device Identifier Shelf Expiration Date Model / Serial / Lot Lens Intraoc 18.0 - [id number] - [id number] Implanted:Qty: 1 on 11/20/2019 by Sonu Valladares MD at OR [facility] Left: Eye [employer]CH [employer] LOMB 02/16/2024 [id number] / [id number] / [id number] Sofport Implanted:Qty: 1 on 12/02/2019 by Sonu Valladares MD at OR [facility] Right: Eye 11/17/2023 [id number] / / [id number] documented as of this encounter Visit Diagnoses Diagnosis Anemia of chronic renal failure, stage 4 (severe) (HCC) documented in this encounter Care Teams Project Engineering Director Relationship Specialty Start Date End Date Gino Osman MD [address] [place] [address] PCP - General Family Medicine 05/06/18 documented as of this encounter
--- OUTSIDE RECORDS SUMMARY | 2023-12-18 22:15 | External Medical Summary ---
Author Name Unknown Address Unknown Organization K09:[facility] [place] [address] Laboratory Report Ordering Provider Test Date Status ROBERT VANCE 11/13/2023 10:31:06 Final Observation Date Value Abnormality Reference (Units ) Status WBC, Total 11/13/2023 10:31:06 5.06 4.00-10.8 0 (K/uL) Final RBC 11/13/2023 10:31:06 2.55 4.50-5.25 (M/uL) Final Hemoglobin 11/13/2023 10:31:06 8.1 Below low normal 14 .0-16.8 (g/dL) Final HCT 11/13/2023 10:31:06 27.9 Below low normal 40. 0-48.4 (%) Final MCV 11/13/2023 10:31:06 109.4 82.0-99.5 (fL) Final MCH 11/13/2023 10:31:06 31.8 27.0-34.0 (pg) Final MCHC 11/13/2023 10:31:06 29.0 32.0-36.0 (g/dL) Final RDW 11/13/2023 10:31:06 15.1 11.5-15.5 (%) Final Platelets 11/13/2023 10:31:06 101 Below low normal 140 -400 (K/uL) Final MPV 11/13/2023 10:31:06 10.3 6.6-11.1 ( fL) Final Performing Location [facility] [place] [address]
--- OUTSIDE RECORDS SUMMARY | 2023-12-18 22:15 | External Medical Summary | Summary of Care ---
Author Name Unknown Organization [facility] Address [address] [place] [address] Phone [phone] Care Team Providers Care Green Chain Operator Name Role Phone Gino Osman MD Primary Care Provider [phone] Reason for Visit * Reason Onset Date Comments Anemia Follow-Up 11/14/2023 Encounter Details Date Type Department Care Team (Late st Contact Info) Description 11/12/2023 9:00 AM EDT Pharmacy Pharmacy, [place] [address] [place], [place] [phone] Clinic, Anemia [address] [place], [place] [phone] Anemia of chronic renal failure, stage 4 (severe) ([facility])* Allergies Active Allergy Reactions Criticality Noted Date Comments Adhesive Tape Itching High 11/21/2022 documented as of this encounter (statuses as of 11/14/2023) Medications Medication Sig Dispensed Refills Start Date [...] 30 Cap 12/16/2020 Active Ergocalciferol 1.25 MG (40245 UT) Oral Capsule (Vitamin D2(Drisdol)) On Sunday bimonthly 12 Capsule 01/02/2023 Active Tamsulosin HCl 0.4 MG Oral Capsule (Flomax)Indications: BPH with obstruction/lower urinary tract symptoms TAKE ONE CAPSULE BY MOUTH IN THE MORNING 90 Capsule 3 04/01/2023 Active Fluticasone Propionate 50 MCG/ACT Nasal Suspension (Flonase) Administer 1 [place] into nostril in the morning and 1 [place] before bedtime. 05/01/2023 Active Saline Nasal [place] 0.65 % Nasal Solution ([place]) Administer 1 [place] into nostril. 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 History of pulmonary fibrosis 11/27/2018 Pulmonary embolus, left 06/13/2018 Acute deep vein thrombosis (DVT) of right lower extremity 06/13/2018 Current use of alf 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 019 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 Overview: left [facility] 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 Interstitial lung disease 03/19/2015 Chronic rhinitis 03/30/2014 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 Restrictive lung disease documented as of this encounter (statuses as of 11/14/2023) Resolved Problems Problem Noted Date Diagnosed Date [...] as of this encounter (statuses as of 11/14/2023) Immunizations Name Administration Dates Next Due COVID-19 mRNA, LNP-s, No Pre serve, 2-Dose Series ([employer]) 09/03/2021,11/04/2020,05/27/2020,04/19 COVID-19, MRNA-LNP, 23-24, P F, 30 MCG/0.3 mL, 12 YRS AND ABOVE, IM ([facility]) 02/22/2023 Covid-19, Mrna, Lnp-s, Pf, B [...] this encounter Progress Notes * Feroz Lugo, [facility] - 11/14/2023 1:07 PM EDT Patient Phone Numbers Called and spoke with Arthur to review labs from 11/13/23. Hgb is below target range. Iron studies adequate. Patient reports recent malignancy, SCC treated with surgical removal and started radiation therapy on 10/02/23 managed by [facility] radiation oncology - Dr. Bruce. Hematology in agreement with continued BON use at nephrology clinic at [facility]. Plan: Continue Retacrit 40,000 units SQ weekly @ [facility] nephrology clinic (hold for Hgb [...] time. Follow-up labs to be obtained on 11/20/23 to match administration appointment. Anemia Clinic will continue to follow. Thank you for allowing us to participate in the care of thispatient. Feroz Lugo, PharmD, [facility] Clinical Pharmacist Anemia Clinic P: [phone] F: [phone] 11/14/2023 1:15 PM Lab Results Component Value Date/Time HGB 8.1 (L) 11/13/2023 10:31 AM HGB 8.1 (L) 11/06/2023 10:39 AM HGB 7.7 (L) 10/31/2023 10:39 AM HGB 8.4 (L) 09/07/2023 06:09 PM [...] Only Nephrology, [place] [address] [place] [address] [place], Nurse Nephrology [address] [place] [address] 11/21/2023 9:00 AM EDT Pharmacy Pharmacy, [place] [address] [place] [address] Clinic, [facility] [address] [place] [address] 01/21/2024 10:00 AM EST Office Visit Nephrology, [facility] [address] [facility] [place], [place] [address] Laurita Washington PA-C [address] [place] [address] 04/01/2024 1:00 PM EST Nurse Only Ancillary Department, [place] [address] [place] [address] [place], Nurse Annual Wellness [facility] [place] [address] 04/01/2024 2:20 PM EST Office Visit Family Practice, [address] [phone] Gino Osman MD [address] [place], [place] [phone] 05/14/2024 2:00 PM EST Laboratory Laboratory [facility] [address] [facility] [place], [place] [phone] [facility] [address] [place], [place] [address] 05/21/2024 2:15 PM EST Office Visit Hematology/Oncology [facility] [place] [address] [place], [place] [phone] Cleve Bruce MD [address] [place] [address] Scheduled Orders Name Type Priority Associated Diagnoses Orde r Schedule IRON SCREEN, INCLUDING TIBC Lab Routine Anemia of chronic renal failure, stage 4 (severe) (HCC) Expected: 11/20/2023, Expires: 11/13/2024 FERRITIN Lab Routine Anemia of chronic renal failure, stage 4 (severe) (HCC) Expected: 11/20/2023, Expires: 11/13/2024 Health Maintenance Due Date Last Done Comments [...] this encounter Medical Devices Implanted Type Area Serology Teacher Device Identifier Shelf Expiration Date Model / Serial / Lot Lens Intraoc 18.0 - [id number] - [id number] Implanted:Qty: 1 on 11/20/2019 by Sonu Valladares MD at OR [facility] Left: Eye 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
--- OUTSIDE RECORDS SUMMARY | 2023-12-18 22:16 | External Medical Summary | Summary of Care ---
Author Name Unknown Organization [facility] Address [address] [place] [address] Phone [phone] Care Team Providers Care Wildlife Enforcement Major Name Role Phone Gino Osman MD Primary Care Provider [phone] Reason for Visit * Reason Onset Date Comments Anemia Follow-Up 11/01/2023 Encounter Details Date Type Department Care Team (Late st Contact Info) Description 10/17/2023 9:00 AM EDT Pharmacy Pharmacy, [place] [address] [place], [place] [phone] Clinic, Anemia [address] [place], [place] [phone] Anemia of chronic renal failure, stage 4 (severe) ([facility])* Allergies Active Allergy Reactions Criticality Noted Date Comments Adhesive Tape Itching High 11/21/2022 documented as of this encounter (statuses as of 11/02/2023) Medications Medication Sig Dispensed Refills Start Date [...] 30 Cap 12/16/2020 Active Ergocalciferol 1.25 MG (76081 UT) Oral Capsule (Vitamin D2(Drisdol)) On Sunday bimonthly 12 Capsule 01/02/2023 Active Tamsulosin HCl 0.4 MG Oral Capsule (Flomax)Indications: BPH with obstruction/lower urinary tract symptoms TAKE ONE CAPSULE BY MOUTH IN THE MORNING 90 Capsule 3 04/01/2023 Active Fluticasone Propionate 50 MCG/ACT Nasal Suspension (Flonase) Administer 1 [place] into nostril in the morning and 1 [place] before bedtime. 05/01/2023 Active Saline Nasal [place] 0.65 % Nasal Solution ([place]) Administer 1 [place] into nostril. 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 Interstitial lung disease 03/19/2015 Chronic rhinitis 03/30/2014 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 Restrictive lung disease documented as of this encounter (statuses as of 11/02/2023) Resolved Problems Problem Noted Date Diagnosed Date [...] as of this encounter (statuses as of 11/02/2023) Immunizations Name Administration Dates Next Due COVID-19 mRNA, LNP-s, No Pre serve, 2-Dose Series ([employer]) 09/03/2021,11/04/2020,05/27/2020,04/19 COVID-19, MRNA-LNP, 23-24, P F, 30 MCG/0.3 mL, 12 YRS AND ABOVE, IM ([facility]) 02/22/2023 Covid-19, Mrna, Lnp-s, Pf, B ivalent, [...] Progress Notes * Feroz Lugo, [facility] - 11/01/2023 3:09 PM EDT Patient Phone Numbers Called patient to review labs from 10/16/23, no answer, left message to return call to clinic at earliest convenience. Hgb is below target range. Iron studies adequate. Patient reports recent malignancy, SCC treated with surgical removal and started radiation therapy on 10/02/23 managed by [facility] radiation oncology - Dr. Bruce. Will reach out to Dr. Chapa to see if continuation of BON is appropriate, or if BON management should be deferred to either [facility] or [facility] hem/onc. Plan: Continue Retacrit 40,000 units SQ weekly @ [facility] nephrology clinic (hold for Hgb > 11 g/dL). Last dose: Retacrit 40,000 units SQ on 10/09/23 Next dose due: Retacrit 40,000 units SQ on 10/16/23 (scheduled) Subsequent dose due: Retacrit 40,000 units SQ on 10/22/23 Patient with history of DVT/PE, not currently on 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. Received approval from Dr. Chapa to start BON therapy as benefits outweigh risks at this time. Follow-up labs to be obtained on 11/05/23 to match administration appointment. Anemia Clinic will continue to follow. Thank you for allowing us to participate in the care of thispatient. Feroz Lugo, PharmD, [facility] Clinical Pharmacist Anemia Clinic P: [phone] F: [phone] 11/02/2023 12:41 PM Lab Results Component Value Date/Time HGB 7.7 (L) 10/31/2023 10:39 AM HGB 8.0 (L) 10/26/2023 10:06 AM HGB 8.0 (L) 10/25/2023 08:16 AM HGB 8.4 (L) 09/07/2023 06:09 PM [...] Care Team (Late st Contact Info) Description 11/05/2023 9:30 AM EDT Pharmacy Pharmacy, [place] [address] [place] [address] Clinic, Anemia [address] [place] [address] 11/06/2023 11:00 AM EDT Immunization/Inject ion Nephrology, [address] [place] [address] [place], Nurse Nephrology [address] [facility] [place] [address] 11/09/2023 10:15 AM EDT Office Visit Hematology/Oncology [facility] [place] [address] [facility] [place], [place] [phone] Cleve Bruce MD [address] [facility] [place] [address] 01/21/2024 10:00 AM EST Office Visit Nephrology, [facility] [address] [facility] [place] [address] Laurita Washington PA-C [address] [facility] [place], [place] [address] 04/01/2024 1:00 PM EST Nurse Only Ancillary Department, [place] [address] [place] [address] [place], [facility] Annual Wellness [address] [place] [address] 04/01/2024 2:20 PM EST Office Visit Family Practice, [place] [address] [place] [phone] Gino Osman MD [address] [place], [place] [phone] Health Maintenance Due Date Last Done Comments [...] 024, 12/01/2022, 06/20/2021, Additional history exists Hgb 10/30/2024 10/31/2023, 08/0 11/2023, 10/25/2023, Additional history exists DTaP,Tdap,and Td Vaccines (3 [...] this encounter Medical Devices Implanted Type Area Rubber Vulcanizing Machine Operator Device Identifier Shelf Expiration Date Model / Serial / Lot Lens Intraoc 18.0 - [id number] - [id number] Implanted:Qty: 1 on 11/20/2019 by Sonu Valladares MD at OR [facility] Left: Eye 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
--- OUTSIDE RECORDS SUMMARY | 2023-12-18 22:16 | External Medical Summary | Summary of Care ---
Author Name Unknown Organization [facility] Address [address] [facility] [address] Phone [phone] Care Team Providers Care Jump Roll Operator Name Role Phone Gino Osman MD Primary Care Provider [phone] Reason for Visit * Reason Comments Medication Administration For Procrit In jection * Precert (Within 30 days (routine)) - Authorized Specialty Diagnoses / Procedures Referred By Contac t Referred To Contact Diagnoses Anemia in chronic kidney disease Procedures NE INJ RETACRIT NON-ESRD USE Ashely Chapa MD [address] [facility] [place] [address] Ashely Chapa MD [address] [facility] [place] [id number] Referral ID Status Reason Start Date Expiration Date V isits Requested Visits Authorized [id number] Authorized Precert 02/07/2023 03/18/2099 [id number] Encounter Details Date Type Department Care Team (Late st Contact Info) Description 11/06/2023 11:00 AM EDT Immunization/Inj ection Nephrology, [facility] [place] [address] Sp, Nurse Nephrology [address] [facility] [place] [address] Arrived Allergies Active Allergy Reactions Criticality Noted Date Comments Adhesive Tape Itching High 11/21/2022 documented as of this encounter (statuses as of 11/06/2023) Medications Medication Sig Dispensed Refills Start Date [...] azithromycin (ZITHROMAX) 250 MG Tablet One tablet - 6 Tab 1 11/27/2018 Active mycophenolate (CELLCEPT) [...] 30 Cap 12/16/2020 Active Ergocalciferol 1.25 MG (58093 UT) Oral Capsule (Vitamin D2(Drisdol)) On Sunday bimonthly 12 Capsule 01/02/2023 Active Tamsulosin HCl 0.4 MG Oral Capsule (Flomax)Indications: BPH with obstruction/lower urinary tract symptoms TAKE ONE CAPSULE BY MOUTH IN THE MORNING 90 Capsule 3 04/01/2023 Active Fluticasone Propionate 50 MCG/ACT Nasal Suspension (Flonase) Administer 1 [place] into nostril in the morning and 1 [place] before bedtime. 05/01/2023 Active Saline Nasal [place] 0.65 % Nasal Solution ([place]) Administer 1 [place] into nostril. 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 Interstitial lung disease 03/19/2015 Chronic rhinitis 03/30/2014 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 Restrictive lung disease documented as of this encounter (statuses as of 11/06/2023) Resolved Problems Problem Noted Date Diagnosed Date [...] as of this encounter (statuses as of 11/06/2023) Immunizations Name Administration Dates Next Due COVID-19 mRNA, LNP-s, No Pre serve, 2-Dose Series ([employer]) 09/03/2021,11/04/2020,05/27/2020,04/19 COVID-19, MRNA-LNP, 23-24, P F, 30 MCG/0.3 mL, 12 YRS AND ABOVE, IM ([facility]) 02/22/2023 Covid-19, Mrna, Lnp-s, Pf, [...] Sign Reading Time Taken Comments Blood Pressure 125/65 11/06/2023 11:51 AM EDT Pulse 84 11/06/2023 11:51 AM EDT Temperature - - Respiratory Rate - - Oxygen Saturation - - Inhaled Oxygen Concentration - - Weight - - Height - - Body Mass Index - - documented in this encounter Nursing Notes * Vesta Alanis LPN - 11/06/2023 11:45 AM EDT Patient identified by verbal name and date of . For Procrit injection today HGB 8.1 BP stable Tolerated well documented in this encounter Plan of Treatment Upcoming Encounters Date Type Department Care Team (Late st Contact Info) Description 11/09/2023 10:15 AM EDT Office Visit Hematology/Oncology [facility] [address] [place] [address] [phone] Cleve Bruce MD [address] [place] [address] [address] 11/12/2023 9:00 AM EDT Pharmacy Pharmacy, [place] [address] [place] [address] Clinic, [facility] [address] [place] [address] 11/13/2023 11:00 AM EDT Nurse Only Nephrology, [facility] [address] [facility] [place] [address] Sp, Nurse Nephrology [address] [facility] [place] [address] 01/21/2024 10:00 AM EST Office Visit Nephrology, [facility] [address] [facility] [place] [address] Laurita [place] PA-C [address] [facility] [place] [address] 04/01/2024 1:00 PM EST Nurse Only Ancillary Department, [address] [address] [place], Nurse Annual Wellness [place] [address] 04/01/2024 2:20 PM EST Office Visit Family Practice, [address] [phone] Gino Osman MD [address] [place], [place] [id number] Health Maintenance Due Date Last Done Comments [...] this encounter Medical Devices Implanted Type Area Customer Sales Consultant Device Identifier Shelf Expiration Date Model / Serial / Lot Lens Intraoc 18.0 - [id number] - [id number] Implanted:Qty: 1 on 11/20/2019 by Sonu Valladares MD at OR [facility] Left: Eye [employer] 02/16/2024 [id number] / [id number] / [id number] Sofport Implanted:Qty: 1 on 12/02/2019 by Sonu Valladares MD at OR [facility] Right: Eye 11/17/2023 [id number] / / [id number] documented as of this encounter Administered Medications Active Administered Medications - up to 3 most recent administrations Medication Order MAR Action Action Date Dose Rate Site Epoetin Rogelio 10327 UNIT/ML inj 40,000 Units 40,000 Units, Subcutaneous, QWEEK, First dose on Sun08/21/23 at 1300, Until Discontinued, Hold if Hgb > 11g/dL Given 11/06/2023 11:55 AM EDT 40,000 Units Arm Right Upper Given 10/31/2023 11:15 AM EDT 40,000 Units Arm Left Upper Given 10/26/2023 10:31 AM EDT 40,000 Units Arm Left Upper documented in this encounter Additional Health Concerns Infection Onset Date Last Indicated Resolved Time C. difficile Rule-Out 11/06/2023 11/06/2023 Gastrointestinal Rule-Out 11/06/2023 11/06/2023 documented as of this encounter Care Teams Jump Roll Operator Relationship Specialty Start Date End Date Gino Osman MD [address] [place] [address] PCP - General Family Medicine 05/06/18 documented as of this encounter
--- OUTSIDE RECORDS SUMMARY | 2023-12-18 22:16 | External Medical Summary ---
Author Name Unknown Address Unknown Organization K09:[facility] [place] [address] Laboratory Report Ordering Provider Test Date Status ROBERT VANCE 11/06/2023 10:39:25 Final Observation Date Value Abnormality Reference (Units ) Status WBC, Total 11/06/2023 10:39:25 8.30 4.00-10.8 0 (K/uL) Final RBC 11/06/2023 10:39:25 2.51 4.50-5.25 (M/uL) Final Hemoglobin 11/06/2023 10:39:25 8.1 Below low normal 14 .0-16.8 (g/dL) Final HCT 11/06/2023 10:39:25 27.3 Below low normal 40. 0-48.4 (%) Final MCV 11/06/2023 10:39:25 108.8 82.0-99.5 (fL) Final MCH 11/06/2023 10:39:25 32.3 27.0-34.0 (pg) Final MCHC 11/06/2023 10:39:25 29.7 32.0-36.0 (g/dL) Final RDW 11/06/2023 10:39:25 14.9 11.5-15.5 (%) Final Platelets 11/06/2023 10:39:25 105 Below low normal 140 -400 (K/uL) Final MPV 11/06/2023 10:39:25 10.7 6.6-11.1 ( fL) Final Performing Location [facility] [place] [address]
--- OUTSIDE RECORDS SUMMARY | 2023-12-18 22:16 | External Medical Summary | Summary of Care ---
Author Name Unknown Organization [facility] Address [address] [facility] [place] [address] Phone [phone] Care Team Providers Care Antique Clock Repairer Name Role Phone Gino Osman MD Primary Care Provider [phone] Reason for Visit * Reason Comments Follow Up Encounter Details Date Type Department Care Team (Late st Contact Info) Description 11/09/2023 10:15 AM EDT Office Visit [facility] [place] [address] [facility] [place] [address] Cleve Bruce MD [address] [facility] [place] [address] Anemia in stage 3b chronic kidney disease (HCC)*; Macrocytosis; Thrombocytopenia (HCC) Allergies Active Allergy Reactions Criticality Noted Date Comments Adhesive Tape Itching High 11/21/2022 documented as of this encounter (statuses as of 11/09/2023) Medications Medication Sig Dispensed Refills Start Date [...] 30 Cap 12/16/2020 Active Ergocalciferol 1.25 MG (44255 UT) Oral Capsule (Vitamin D2(Drisdol)) On Sunday bimonthly 12 Capsule 01/02/2023 Active Tamsulosin HCl 0.4 MG Oral Capsule (Flomax)Indications: BPH with obstruction/lower urinary tract symptoms TAKE ONE CAPSULE BY MOUTH IN THE MORNING 90 Capsule 3 04/01/2023 Active Fluticasone Propionate 50 MCG/ACT Nasal Suspension (Flonase) Administer 1 [place] into nostril in the morning and 1 [place] before bedtime. 05/01/2023 Active Saline Nasal [place] 0.65 % Nasal Solution ([place]) Administer 1 [place] into nostril. 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 History of pulmonary fibrosis 11/27/2018 Pulmonary embolus, left 06/13/2018 Acute deep vein thrombosis (DVT) of right lower extremity 06/13/2018 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 019 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 Overview: left [facility] 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 Interstitial lung disease 03/19/2015 Chronic rhinitis 03/30/2014 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 Restrictive lung disease documented as of this encounter (statuses as of 11/09/2023) Resolved Problems Problem Noted Date Diagnosed Date [...] as of this encounter (statuses as of 11/09/2023) Immunizations Name Administration Dates Next Due COVID-19 mRNA, LNP-s, No Pre serve, 2-Dose Series ([employer]) 09/03/2021,11/04/2020,05/27/2020,04/19 COVID-19, MRNA-LNP, 23-24, P F, 30 MCG/0.3 mL, 12 YRS AND ABOVE, IM ([employer]) 02/22/2023 Covid-19, Mrna, Lnp-s, Pf, B [...] Sign Reading Time Taken Comments Blood Pressure 116/64 11/09/2023 10:03 AM EDT Pulse 94 11/09/2023 10:03 AM EDT Temperature 36.6 C (97.8 F) 11/09/2023 10:03 AM E DT Respiratory Rate - - Oxygen Saturation 95% 11/09/2023 10:03 AM EDT Inhaled Oxygen Concentration - - Weight 57.6 kg (127 lb) 11/09/2023 10:03 AM EDT Height - - Body Mass Index 20.5 09/27/2023 10:57 AM EDT documented in this encounter Progress Notes * Cleve Bruce MD - 11/09/2023 10:15 AM EDT ARTHUR RODAS MR # [id number] :1945 78-year-old male, Date of consultation:01/05/2023 DIAGNOSIS: - acute on chronic anemia, -chronic anemia appears related to the abnormal renal function, serum creatinine around 1.1 -2.0 mg/dL. -acute anemia appears to be recent GI bleed, endoscopic evaluation showed evidence of hiatal herniaand the ulcer involving the IC valve which showed some healing process. He received 2 units of PRBC in November 2022 Microcytosis appears to be related to ongoing Bactrim prophylaxis. He is also on for immunosuppressive medications in the form of prednisone, CellCept, everolimus andtacrolimus.( S/P single lung transplant). History of right leg lower extremity DVT and pulmonary embolism which occurred following lung transplant surgery. On Eliquis but discontinued in November 2022 when he had acute on chronic anemia requiring 2 units of PRBC. Microcytosis, MCV is around 108 Thrombocytopenia. Platelet count around 100,000. Bone marrow examination done on 10/26/2023: -normal cellular to slightly hypercellular bone marrow with adequate normal appearing megakaryocytes and financial intern trilineage hematopoiesis -NGS checkup --> unremarkable, -overall no evidence of myelodysplastic syndrome noted in the bone Marrow checkup. CURRENT TREATMENT: Currently he is on erythropoietin 16683 units every weekly. DIAGNOSTIC WORKUP: History of interested lung disease, had single lung transplant ( left ) in 2018 at [facility]. He is on 4 different immunosuppressive medications in the form of tacrolimus, everolimus, prednisone 5 mg every day, CellCept. He is also on Zithromax prophylaxis 3 days a week, Bactrim prophylaxis 3days a week. He gets periodic blood workup perhaps every monthly. Hemoglobin level stayed between 8.5 -9.5 range in 2021, It did dropped down to around 6.6 with MCV 109, normal WBC and slight drop in the Platelet count to around 120 1000 range. He was admitted at [facility], I reviewed hospital records, he received 2 units of PRBC, no evidence of hemolysis noted (11/21/2022) He also has worsening kidney function, serum creatinine level around 1.7 -2.0 mg/dL. Anemia workup: (11/23/2022) -Serum iron 70, -LDH --> 222 which is in the normal range -Vitamin B12 --> 229 which is close to the lower limit of normal -folic acid --> 9.2. -Ferritin level --> 290 Repeat anemia workup done on 12/25/2022: -Absolute reticulocyte count --> 22,000 -Serum iron: 103, TIBC 203, iron saturation 51% -Vitamin B12 --> 442 -folic acid --> 8.4 Latest CBCD done on 12/25/2022: -WBC 7700, H&H of 8.7/28.8, Platelet count 135, MCV 102.5. Upper GI endoscopic: Hiatal hernia present. -colonoscopy showed diverticulosis, It was not on the IC valve. He says that following left lung transplant, he noticed to have some painful swelling of the right leg in the few days and subsequently diagnosed a case of left lung pulmonary embolism about 3 to 4 months after the lung transplant surgery He was on Eliquis since then. Eliquis has been discontinued with the recent upper GI bleed. OTHER IMPORTANT HISTORY: -hyperlipidemia -interested lung disease, S/P single lung transplantation in 2018 at [facility] -history of DVT and pulmonary embolism on Eliquis. 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 Had received steroid shot x 1 INTERVAL HISTORY: He has come the clinic for the follow-up, accompanied by his in the office. To discuss about the bone marrow findings. Some tiredness noted, he gets erythropoietin every weekly, currently 65514 units, no nausea no vomiting, no increasing leg edema, no bleeding from the sites. No infections. No recent hospitalization.No new cardiac or pulmonary symptoms. Ambulates slowly, current weight is around 127 lb. 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 left [facility] Mixed dyslipidemia Restrictive lung disease Past Surgical History: Procedure Laterality Date COLONOSCOPY 08/08/2008 repeat in 10 years COLONOSCOPY, DIAGNOSTIC (RECTUM) N/A 12/07/2022 hemorrhoids/mulitple small and large mouthed diverticula, erosion on IC valve/biopsies show inflammation/COLONOSCOPY FLEXIBLE PROXIMAL DIAGNOSTIC performed by Bret Birch MD at OR [facility] DENTAL SURGERY PROCEDURE NEC as a teen wisdom teeth x 4 EGD, FLEXIBLE, DIAGNOSTIC 08/08/2008 EGD, FLEXIBLE, DIAGNOSTIC N/A 12/07/2022 hiatal hernia/biopsies normal/ESOPHAGOGASTRODUODENOSCOPY (EGD), FLEXIBLE, TRANSORAL, DIAGNOSTIC performed by Bret Birch MD at OR [facility] KNEE ARTHROSCOPY/MENISCECTOMY 03/19/2005 right knee- Knee Scope,Med/Lat Menisectomy LUMBAR / SACRAL EPIDURAL, SINGLE LEVEL 04/03/2022 INJECTION TRANSFORAMINAL EPIDURAL LUMBAR OR SACRAL performed by Torito Soto DO at OR [facility] REMOVAL OF TONSILS, UNDER AGE 12 as a child Tonsils Removal,<11 Y/O REMOVE CATARACT, INSERT LENS PROSTH Left 11/20/2019 LEFT EXTRACAPSULAR CATARACT REMOVAL WITH INTRAOCULAR LENS performed by Sonu Valladares MD at OR [facility] REMOVE CATARACT, INSERT LENS PROSTH Right 12/02/2019 RIGHT EXTRACAPSULAR CATARACT REMOVAL WITH INTRAOCULAR LENS performed by Sonu Valladares MD at [facility] SHOULDER ARTHROSCOPY/REMOVE OBJECT 03/19/2004 right-Shoulder Surgery, Arthroscopic Current Outpatient Medications Medication Sig Dispense Refill ASPIRIN EC 81 MG PO TBEC Take one pill daily 100 Tab 3 sulfamethoxazole-trimethoprim DS (BACTRIM DS) 800-160 MG per tablet Take 0.5 Tablets by mouth once a day on Sunday, Sunday, and Sunday only. pravastatin (PRAVACHOL) 20 MG Tablet Take 1 Tab by mouth daily. 90 Tab 1 azithromycin (ZITHROMAX) 250 MG Tablet One tablet -- 6 Tab 1 mycophenolate (CELLCEPT) 500 MG Tablet Take 1.5 Tablets by mouth in the morning and 1.5 Tablets before bedtime. 1 Tab 0 predniSONE (YOVANY) 5 MG TBEC Take by mouth. In the morning Everolimus 0.5 MG Oral Tablet ([place]ortress) 1 mg (1 Tab) in the AM 1.5 mg in the PM (3 tabs) Indications: 2 tablet 2 times aday 1 Tab 0 Montelukast Sodium 10 MG Oral Tablet (Singulair) Take 1 Tablet by mouth. Takes in evening guaiFENesin ER 600 MG Oral Tablet Extended Release 12 Hour Take 1 Tablet by mouth. Tacrolimus 1 MG Oral Capsule (Prograf) Take 2 Capsules by mouth in the morning and 2 Capsules before bedtime. Takes 2 mg in the AM and 2 mg in the PM. 30 Cap 0 Ergocalciferol 1.25 MG (03456 UT) Oral Capsule (Vitamin D2(Drisdol)) On Sunday bimonthly 12 Capsule 0 Tamsulosin HCl 0.4 MG Oral Capsule (Flomax) TAKE ONE CAPSULE BY MOUTH IN THE MORNING 90 Capsule 3 Fluticasone Propionate 50 MCG/ACT Nasal Suspension (Flonase) Administer 1 [place] into nostril in themorning and 1 [place] before bedtime. Saline Nasal [place] 0.65 % Nasal Solution ([place]) Administer 1 [place] into nostril. Pantoprazole Sodium 40 MG Oral Tablet Delayed Release (Protonix) Take 1 Tablet by mouth in the morning. 90 Tablet 3 Sodium Bicarbonate 650 MG Oral Tablet Take 2 Tablets by mouth in the morning and 2 Tablets before bedtime. 360 Tablet 3 Lisinopril 5 MG Oral Tablet (Prinivil) Take 0.5 Tablets by mouth in the morning. 30 Tablet 5 Current Facility-Administered Medications Medication Dose Route Frequency Provider Last Rate Last Admin Epoetin Rogelio 72702 UNIT/ML inj 40,000 Units 40,000 Units Subcutaneous Q Week 40,000 Units at 11/06/23 1155 Family History Problem Relation Name Age of Onset Cancer Mother breast in 70s Diabetes None Hypertension Mother Heart Disorder None Mental Disorder Mother depression Stroke None Social History Socioeconomic History Marital status: Spouse name: Not on file Number of children: Not on file Years of education: Not on file Highest education level: Not on file Occupational History Not on file Tobacco Use Smoking status: Never Passive exposure: Past Smokeless tobacco: Never Vaping Use Vaping status: Never Used Substance and Sexual Activity Alcohol use: No Drug use: No Comment: coffee Sexual activity: Yes Comment: no problems Other Topics Concern Not on file Social History 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 (Adult - for ages 18 years and over): No Does your family have trouble paying for medicine? (Household - for ages 0-17 years): Not on file Food Insecurity: No Food Insecurity (11/24/2022) Food Insecurity Do you need food for this week? (Adult - for ages 18 years and over): No Are you able to get enough food for your family? (Household - for ages 0-17 years): Not on file Does your family need food this week? (Household - for ages 0-17 years): Not on file Do you always have enough food for your family? (Household - for ages 0-17 years): Not on file Transportation Needs: No Transportation Needs (11/24/2022) Transportation Needs Do you have trouble getting a ride to medical visits or work? (Adult - for ages 18 years and over):Never True Does your family have a hard time getting a ride to doctors visits? (Household - for ages 0-17 years): Not on file Has lack of transportation kept you from medical appointments, meetings, work, or from getting things needed for daily living? Check all that apply. (Adult - for ages 18 years and over): Not on file Do you (or your family) have trouble finding or paying for a ride (transportation)? (Household - for ages 0-17 years): Not on file Social Connections: Socially Integrated (11/24/2022) Social Connections How often do you feel lonely or isolated from those around you? (Adult - for ages 18 years and over): Never Housing Stability: Low Risk (11/24/2022) Housing Stability Do you currently live in a fpc or have no steady place to sleep at night? (Adult - for ages 18 years and over): No Do you think you are at risk of becoming homeless? (Adult - for ages 18 years and over): No Does your family worry about paying for your home or becoming homeless? (Household - for ages 0-17 years): Not on file Are you homeless or worried that you might be in the future? (Adult - for ages 18 years and over): Not on file Are you (or your family) homeless or worried that you might be in the future? (Household - for ages0-17 years): Not on file On Exam: BP 116/64 (BP Site: Left Arm, BP Position: Sitting, BP Cuff Size: Pediatric) | Pulse 94 | Temp 36.6C (97.8 F) (Tympanic) | Wt 57.6 kg (127 lb) | SpO2 95% | BMI 20.50 kg/m | BSA 1.64 m BP 116/64 (BP Site: Left Arm, BP Position: Sitting, BP Cuff Size: Pediatric) | Pulse 94 | Temp 36.6 C (97.8 F) (Tympanic) | Wt 57.6 kg (127 lb) | SpO2 95% | BMI 20.50 kg/m | BSA 1.64 m Constitutional: Patient is alert, cooperative and oriented x 3. Well built man, Patient is in no acute distress. HEENT:No icterus, no pallor, Throat and pharynx normal. Sinuses are non-tender. Neck: Supple and without lymphadenopathy or masses. No JVD. No Palpable supraclavicular lymph nodes. Lungs: Clear to auscultation. Bilateral symmetric air entry. No wheezing or rhonchi. Cardiovascular: Normal heart sounds, no murmurs.Regular rate and rhythm. Abdomen: soft, nontender, no hepatomegaly, no splenomegaly. Bowel sounds are normal. Neurological: No gross focal neurological deficit; walks with a normal gait. Extremities: No finger clubbing, No cyanosis. No leg edema. Skin:: No skin rash. SPINE: No spinal or paraspinal tenderness. LABS: Blood workup done on 10/25/2023: -WBC 4100, Hemoglobin and hematocrit -11/11, Platelet count of 148045 -MCV 108 -BUN/Creat: 49/2.4, Calcium 8.7. -Absolute reticulocyte count --> 32,300. -Ferritin level --> 264, Serum iron: 68, TIBC 220, iron saturation 31%. SPEP showed IgG lambda paraprotein (09/08/2023. -free kappa light chain 26.6, free lambda light chain 16.9 -LDH --> 203 which is slightly higher side (normally would be less than 171, 09/08/2023). -Vitamin B12-->384 (09/03/2023). Blood workup done on 10/31/2023: -WBC 8300, Hemoglobin and hematocrit -8.04/14, Platelet count of 105, MCV 108. -Absolute reticulocyte count --> 30,000 which is low. IMAGIN-year-old male, Who is a lung transplant recipient for underlying I LD, had a single lung transplant in 2018. Postoperatively he would a right lower extremity DVT and pulmonary embolism and he was on Eliquis until recently Recently his routine blood workup showed gradual but significant drop in the hemoglobin level, he was admitted received 2 units of PRBC, normal Platelet count, normal WBC count, microcytosis noted Overall he has anemia of chronic disease with a baseline hemoglobin level around 9 - 10 g/dL and has developed perhaps bleeding, there was no evidence of hemolysis. Hiatal hernia noted in the upper GI endoscopy and some healing ulcer noted at IC valve. No ongoing bleeding noted. Microcytosis appears to be related ongoing Bactrim prophylaxis for the last few years. No evidence of B12 deficiency or folic acid deficient noted. Since 01/2023--> he is on erythropoietin therapy, initially 90010 units every weekly, chain 220 1000, [place] [address]65 units every weekly since July of 2023. Hemoglobin level has remained on the lower side around 8 g/dL. No new bleeding complications. Currently he is not on Eliquis. I reviewed with him and his regarding the bone marrow findings, overall no evidence of myelodysplastic syndrome noted, no evidence of acute leukemia noted. Overall anemia is related to the abnormal kidney function test and ongoing immunosuppression for the lung transplantation. He will continue to have follow-up with anemia clinic and continue to have erythropoietin therapy Will see him in the clinic in about [address] Cleve Bruce Hem/Onc (This note was completed using the dictation program Fluency Direct. As such, there may be misspellings word substitutions, or other variations that should not change the essence of the clinical content of this encounter note. If there is need for further clarification, please direct questions to the provider listed above.) documented in this encounter Nursing Notes * Kayce Woods, MED ASSIST - 11/09/2023 10:04 AM EDT Patient identifed by name and birthdate Do you have any concerns about pain management for today's visit? Yes. Patient instructed to discuss pain concerns with provider during the visit today Living Will or Advance Directive for Health Care as noted on the problem list. [facility] is a way you can talk to your provider on line through e-mail. Would you like to sign up? I can activate it for you? ALREADY ACTIVE Filed Vitals: 11/09/23 1003 BP: 116/64 Pulse: 94 Temp: 36.6 C (97.8 F) TempSrc: Tympanic SpO2: 95% Weight: 57.6 kg (127 lb) Patient was instructed to not get up on the exam table/exam chair until directed and assisted by their provider; patient is to remain seated in the chair/ wheelchair/ exam table/ exam chair for fall prevention and safety reasons. Patient is aware to have assistance to step down off exam table/exam chair with personnel. Patient voiced full comprehension of instructions. documented in this encounter Plan of Treatment Upcoming Encounters Date Type Department Care Team (Late st Contact Info) Description 11/12/2023 9:00 AM EDT Pharmacy Pharmacy, [address] [address] Clinic, [address] [address] 11/13/2023 11:00 AM EDT Nurse Only Nephrology, [facility] [address] [place] [address] Sp, Nurse Nephrology [address] [place] [address] 01/21/2024 10:00 AM EST Office Visit Nephrology, [facility] [address] [facility] [place] [address] Laurita Washington PA-C [address] [facility] [place] [address] 04/01/2024 1:00 PM EST Nurse Only Ancillary Department, [address] [address] [place], [facility] [place] [address] 04/01/2024 2:20 PM EST Office Visit Family Practice, [place] [address] [place] [id number] Gino Osman MD [address] [place] [address] 05/14/2024 2:00 PM EST Laboratory Laboratory [facility] [place] [address] [place] [phone] [facility] [address] [place] [address] [address] 05/21/2024 2:15 PM EST Office Visit Hematology/Oncology [place]ri[place] [address] [facility] [place], [place] [address] Cleve Bruce MD [address] [facility] [place], [place] [address] Health Maintenance Due Date Last Done Comments [...] this encounter Medical Devices Implanted Type Area Scrap Breaker Device Identifier Shelf Expiration Date Model / Serial / Lot Lens Intraoc 18.0 - [id number] - [id number] Implanted:Qty: 1 on 11/20/2019 by Sonu Valladares MD at OR [facility] Left: Eye [employer] 02/16/2024 [id number] / [id number] / [id number] Sofport Implanted:Qty: 1 on 12/02/2019 by Sonu Valladares MD at OR [facility] Right: Eye 11/17/2023 [id number] / / [id number] documented as of this encounter Visit Diagnoses Diagnosis Anemia in stage 3b chronic kidney disease (HCC)- Primary Macrocytosis Other specified diseases of blood and blood-forming organs Thrombocytopenia (HCC) Thrombocytopenia, unspecified documented in this encounter Care Teams Antique Clock Repairer Relationship Specialty Start Date End Date Gino Osman MD [address] [place] [address] PCP - General Family Medicine 05/06/18 documented as of this encounter"
--- OUTSIDE RECORDS SUMMARY | 2023-12-18 22:16 | External Medical Summary ---
Author Name Unknown Address Unknown Organization [id number]:LABORATORY [facility] [place] - [address] [place] [address] Laboratory Report Ordering Provider Test Date Status ROBERT VANCE 11/06/2023 10:39:25 Final Observation Date Value Abnormality Reference (Units ) Status Retic, % (auto) 11/06/2023 10:39:25 1.35 0.80-1.90 (%) Final Reticulocytes, Absolute 11/06/2023 10:39:25 33.3 31.3-100.1 (K/uL) Final Reticulocyte fraction, immature 11/06/2023 10:39:25 9.7 2.5-20.6 (%) Final Reticulocyte HGB 11/06/2023 10:39:25 28.0 Below low normal 29.7-37.4 (pg) Final Performing Location LABORATORY [facility] - [address] [place] [address]
--- OUTSIDE RECORDS SUMMARY | 2023-12-18 22:16 | External Medical Summary ---
Author Name Unknown Address Unknown Organization [id number]:[facility] [place] [address] [facility] [address] [place] [phone] Laboratory Report Ordering Provider Test Date Status PAVEL ANNE 11/06/2023 10:41:00 Final Reduced normal nilda. Clinic al correlation needed. Observation Date Value Abnormality Reference (Units) Status Bacteria identified in Specimen by Culture 11/06/2023 10:41:00 No Aeromonas species or Plesiomonas species isolated. Final Test: Gastrointestinal Patho gen Panel Culture
Specimen Source: Stool
Specimen Type: Stool
Specimen Date: 11/06/2023 1041
Result Date: 11/08/2023 1129
Result Status: Final result
Resulting Lab: [facility]
[address] [facility] [address]
[place] [phone]

CULTURE

No Aeromonas species or Plesiomonas species isolated.

Reduced normal nilda. Clinical correlation needed.

null Performing Location [facility] [place] [address] [place] [facility] [address]
--- OUTSIDE RECORDS SUMMARY | 2023-12-18 22:16 | External Medical Summary | Summary of Care ---
Author Name Unknown Organization [facility] Address [address] [facility] [place] [address] Phone [phone] Care Team Providers Care Supervisor Grading Name Role Phone Gino Osman MD Primary Care Provider Reason for Visit * Reason Comments Outpatient Testing Encounter Details Date Type Department Care Team (Late st Contact Info) Description 11/06/2023 11:20 AM EDT Laboratory Laboratory [facility] [address] [place] [address] [facility] Lab Scenery [address] [facility] [place] [address] Anemia of chronic renal failure, stage 4 (severe) (FORMERLY [facility]); Diarrhea Allergies Active Allergy Reactions Criticality Noted Date [...] 30 Cap 12/16/2020 Active Ergocalciferol 1.25 MG (54741 UT) Oral Capsule (Vitamin D2(Drisdol)) On Sunday bimonthly 12 Capsule 01/02/2023 Active Tamsulosin HCl 0.4 MG Oral Capsule (Flomax)Indications: BPH with obstruction/lower urinary tract symptoms TAKE ONE CAPSULE BY MOUTH IN THE MORNING 90 Capsule 3 04/01/2023 Active Fluticasone Propionate 50 MCG/ACT Nasal Suspension (Flonase) Administer 1 Hastings into nostril in the morning and 1 Hastings before bedtime. 05/01/2023 Active Saline Nasal Hastings 0.65 % Nasal Solution ([place]) Administer 1 Hastings into nostril. 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) 02/22/2023 Covid-19, Mrna, Lnp-s, Pf, [...] Contact Info) Description 11/06/2023 11:00 AM EDT Immunization/Inject ion Nephrology, [facility] [address] [place] [address] Sp, Nurse Nephrology 200 [facility] [place] [address] Arrived 11/09/2023 10:15 AM EDT Office Visit Hematology/Oncology [place] [address] [place] [address] [place] [phone] Cleve Bruce MD 200 [facility] [place] [address] 11/12/2023 9:00 AM EDT Pharmacy Pharmacy, [place] [address] [place], [place] [id number] Clinic, [place] [address] [place] [address] 01/21/2024 10:00 AM EST Office Visit Nephrology, [facility] [address] [place] [place] [address] Laurita Washington PA-C 200 [facility] [place] [address] 04/01/2024 1:00 PM EST Nurse Only Ancillary Department, [address] [address] [place], Nurse Annual Wellness [address] [place] [address] 04/01/2024 2:20 PM EST Office Visit Family Practice, [place] [address] [place] [phone] Gino Osman MD [address] [place] [address] Pending Results Name Type Priority Associated Diagnoses Date /Time CBC Lab Routine Anemia of chronic renal failure, stage 4 (severe) ([facility]ERLY [facility]) 11/06/2023 10:39 AM EDT RETICULOCYTE PANEL Lab Routine Anemia of chronic renal failure, stage 4 (severe) (FORMERLY [facility]) 11/06/2023 10:39 AM EDT OVA AND PARASITES, CONCENTRATE AND PERMANENT SMEAR Lab Routine Diarrhea 11/06/2023 10:40 AM EDT CLOSTRIDIUM DIFFICILE, PCR Lab Routine Diarrhea 11/06/2023 10:40 AM EDT Health Maintenance Due Date Last [...] 06/20/2021, Additional history exists Hgb 10/30/2024 10/31/2023, 11/2023, 10/25/2023, Additional history exists DTaP,Tdap,and Td [...] this encounter Medical Devices Implanted Type Area Loading Shovel Oiler Device Identifier Shelf Expiration Date Model / Serial / Lot Lens Intraoc 18.0 - [id number] - [id number] Implanted:Qty: 1 on 11/20/2019 by Sonu Valladares MD at OR [facility] Left: Eye [employer] LOMB 02/16/2024 [id number] / [id number] / [id number] Sofport Implanted:Qty: 1 on 12/02/2019 by Sonu Valladares MD at OR [facility] Right: Eye 11/17/2023 [id number] / / [id number] documented as of this encounter Visit Diagnoses Diagnosis Anemia of chronic renal failure, stage 4 (severe) (HCC) Diarrhea documented in this encounter Additional Health Concerns Infection Onset Date Last Indicated Resolved Time C. difficile Rule-Out 11/06/2023 11/06/2023 documented as of this encounter Care Teams Supervisor Grading Relationship Specialty Start Date End Date Gino Osman MD [address] [place] [facility] [address] PCP - General Family Medicine 05/06/18 documented as of this encounter
--- OUTSIDE RECORDS SUMMARY | 2023-12-18 22:16 | External Medical Summary | Summary of Care ---
Author Name Unknown Organization [facility] Address [address] [place] [address] Phone [phone] Care Team Providers Care Payroll Accountant Name Role Phone Gino Osman MD Primary Care Provider [phone] Reason for Visit * Reason Onset Date Comments Anemia Follow-Up 11/02/2023 Encounter Details Date Type Department Care Team (Late st Contact Info) Description 11/01/2023 9:30 AM EDT Pharmacy Pharmacy, [place] [address] [place], [place] [id number] Clinic, [place] [address] [place], [place] [phone] Anemia of chronic renal failure, stage 4 (severe) ([facility])* Allergies Active Allergy Reactions Criticality Noted Date [...] 30 Cap 12/16/2020 Active Ergocalciferol 1.25 MG (41162 UT) Oral Capsule (Vitamin D2(Drisdol)) On Sunday bimonthly 12 Capsule 01/02/2023 Active Tamsulosin HCl 0.4 MG Oral Capsule (Flomax)Indications: BPH with obstruction/lower urinary tract symptoms TAKE ONE CAPSULE BY MOUTH IN THE MORNING 90 Capsule 3 04/01/2023 Active Fluticasone Propionate 50 MCG/ACT Nasal Suspension (Flonase) Administer 1 Harper into nostril in the morning and 1 Harper before bedtime. 05/01/2023 Active Saline Nasal [place] 0.65 % Nasal Solution ([place]) Administer 1 Harper into nostril. 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) 02/22/2023 Covid-19, Mrna, Lnp-s, Pf, B ivalent, [...] as of this encounter Progress Notes * Feorz Lugo, [facility] - 11/02/2023 2:41 PM EDT Patient Phone Numbers Called patient to review labs from 10/16/23, no answer, left message to return call to clinic at earliest convenience. Hgb is below target range. Iron studies adequate. Patient reports recent malignancy, SCC treated with surgical removal and started radiation therapy on 10/02/23 managed by [facility] radiation oncology - Dr. Bruce. Will reach out to Dr. Chapa to see if continuation of BON is appropriate, or if BON management should be deferred to either [facility] or [facility] hem/onc. Plan: Continue Retacrit 40,000 units SQ weekly @ [facility] nephrology clinic (hold for Hgb [...] the care of thispatient. Feroz Lugo, PharmD, [facility] Clinical Pharmacist Anemia Clinic P: [phone] F: [phone] 11/02/2023 12:41 PM Lab Results Component Value [...] Description 11/05/2023 9:30 AM EDT Pharmacy Pharmacy, [place] [address] [place] [address] Clinic, [place] [address] [place] [address] 11/06/2023 11:00 AM EDT Immunization/Inject ion Nephrology, [address] [place] [address] Sp, Nurse Nephrology 200 [facility] [place] [address] 11/09/2023 10:15 AM EDT Office Visit Hematology/Oncology [facility] [place] [address] [facility] [place], [place] [phone] Cleve Bruce MD [address] [facility] [place] [address] 01/21/2024 10:00 AM EST Office Visit Nephrology, [facility] [address] [facility] [place] [address] Laurita Washington PA-C [address] [facility] [place], [place] [address] 04/01/2024 1:00 PM EST Nurse Only Ancillary Department, [place] [address] [place] [address] [place] Annual Wellness [address] [place] [address] 04/01/2024 2:20 PM EST Office Visit Family Practice, [place] [address] [place] [phone] Gino Osman MD [address] [place], [place] [phone] Health Maintenance Due Date Last Done Comments [...] this encounter Medical Devices Implanted Type Area Blood Bank Order Control Clerk Device Identifier Shelf Expiration Date Model / Serial / Lot Lens Intraoc 18.0 - [id number] - [id number] Implanted:Qty: 1 on 11/20/2019 by Sonu Valladares MD at OR [facility] Left: Eye [employer] LOMB 02/16/2024 [id number] / [id number] / [id number] Sofport Implanted:Qty: 1 on 12/02/2019 by Sonu Valladares MD at OR [facility] Right: Eye 11/17/2023 [id number] / / [id number] documented as of this encounter Visit Diagnoses Diagnosis Anemia of chronic renal failure, stage 4 (severe) (HCC)- Primary documented in this encounter Care Teams Payroll Accountant Relationship Specialty Start Date End Date Gino Osman MD [address] [place] [address] PCP - General Family Medicine 05/06/18 documented as of this encounter
--- OUTSIDE RECORDS SUMMARY | 2023-12-18 22:16 | External Medical Summary | Summary of Care ---
Author Name Unknown Organization [facility] Address [address] [facility] [place] [address] Phone [phone] Care Team Providers Care Melt Room Operator Name Role Phone Gino Osman MD Primary Care Provider [phone] Reason for Visit * Reason Comments Follow Up Encounter Details Date Type Department Care Team (Late st Contact Info) Description 11/09/2023 10:15 AM EDT Office [facility] [place] [address] [facility] [place] [address] Cleve Bruce MD [address] [facility] [place] [address] Anemia in stage 3b chronic kidney disease [...] 30 Cap 12/16/2020 Active Ergocalciferol 1.25 MG (98959 UT) Oral Capsule (Vitamin D2(Drisdol)) On Sunday bimonthly 12 Capsule 01/02/2023 Active Tamsulosin HCl 0.4 MG Oral Capsule (Flomax)Indications: BPH with obstruction/lower urinary tract symptoms TAKE ONE CAPSULE BY MOUTH IN THE MORNING 90 Capsule 3 04/01/2023 Active Fluticasone Propionate 50 MCG/ACT Nasal Suspension (Flonase) Administer 1 [place] into nostril in the morning and 1 [place] before bedtime. 05/01/2023 Active Saline Nasal [place] 0.65 % Nasal Solution ([place]) Administer 1 [place] into nostril. 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 Overview: left [facility] 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 [...] mRNA, LNP-s, No Pre serve, 2-Dose Series ([place]) 09/03/2021,11/04/2020,05/27/2020,04/19 COVID-19, MRNA-LNP, 23-24, P F, 30 MCG/0.3 mL, 12 YRS AND ABOVE, IM ([facility]) 02/22/2023 Covid-19, Mrna, Lnp-s, Pf, B [...] 10:15 AM EDT ARTHUR RODAS MR # [id number] :1945 78-year-old male, Date of consultation:01/05/2023 DIAGNOSIS: [...] marrow with adequate normal appearing megakaryocytes and neurophysiologist trilineage hematopoiesis -NGS checkup --> unremarkable, -overall no evidence of myelodysplastic syndrome noted in the bone Marrow checkup. CURRENT TREATMENT: Currently he is on erythropoietin 33897 units every weekly. DIAGNOSTIC WORKUP: History of interested lung disease, had single lung transplant ( left ) in 2018 at [facility]. He is on 4 different [...] 120 1000 range. 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 Had received steroid shot x 1 INTERVAL HISTORY: He has come the clinic for the follow-up, accompanied by his in the office. To discuss about the bone marrow findings. Some tiredness noted, he gets erythropoietin every weekly, currently 21327 units, no nausea no vomiting, no increasing leg edema, no bleeding from the sites. No infections. No recent hospitalization.No new cardiac or pulmonary symptoms. Ambulates slowly, current weight is around 127 lb. 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 left [facility] Mixed dyslipidemia Restrictive lung disease Past Surgical History: Procedure Laterality Date COLONOSCOPY 08/08/2008 repeat in 10 years COLONOSCOPY, DIAGNOSTIC (RECTUM) N/A 12/07/2022 hemorrhoids/mulitple small and large mouthed diverticula, erosion on IC valve/biopsies show inflammation/COLONOSCOPY FLEXIBLE PROXIMAL DIAGNOSTIC performed by Bret Birch MD at OR [facility] DENTAL SURGERY PROCEDURE NEC as a teen wisdom teeth x 4 EGD, FLEXIBLE, DIAGNOSTIC 08/08/2008 EGD, FLEXIBLE, DIAGNOSTIC N/A 12/07/2022 hiatal hernia/biopsies normal/ESOPHAGOGASTRODUODENOSCOPY (EGD), FLEXIBLE, TRANSORAL, DIAGNOSTIC performed by Bret Birch MD at OR [facility] KNEE ARTHROSCOPY/MENISCECTOMY 03/19/2005 right knee- Knee Scope,Med/Lat Menisectomy LUMBAR / SACRAL EPIDURAL, SINGLE LEVEL 04/03/2022 INJECTION TRANSFORAMINAL EPIDURAL LUMBAR OR SACRAL performed by Torito Soto DO at OR [facility] REMOVAL OF TONSILS, UNDER AGE 12 as a child Tonsils Removal,<12 Y/O REMOVE CATARACT, INSERT LENS PROSTH Left 11/20/2019 LEFT EXTRACAPSULAR CATARACT REMOVAL WITH INTRAOCULAR LENS performed by Sonu Valladares MD at OR [facility] REMOVE CATARACT, INSERT LENS PROSTH Right 12/02/2019 RIGHT EXTRACAPSULAR CATARACT REMOVAL WITH INTRAOCULAR LENS performed by Sonu Valladares MD at [facility] SHOULDER ARTHROSCOPY/REMOVE OBJECT 03/19/2004 right-Shoulder Surgery, [...] PM. 30 Cap 0 Ergocalciferol 1.25 MG (60460 UT) Oral Capsule (Vitamin D2(Drisdol)) On Sunday bimonthly 12 Capsule 0 Tamsulosin HCl 0.4 MG Oral Capsule (Flomax) TAKE ONE CAPSULE BY MOUTH IN THE MORNING 90 Capsule 3 Fluticasone Propionate 50 MCG/ACT Nasal Suspension (Flonase) Administer 1 [place] into nostril in themorning and 1 [place] before bedtime. Saline Nasal [place] 0.65 % Nasal Solution ([place]) Administer 1 [place] into nostril. 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 -Absolute [...] 01/2023--> he is on erythropoietin therapy, initially 62642 units every weekly, chain 220 1000, [place] [address] [place] every weekly since July of 2023. [...] Description 11/12/2023 9:00 AM EDT Pharmacy Pharmacy, [address] [address] Clinic, [address] [address] 11/13/2023 11:00 AM EDT Nurse Only Nephrology, [facility] [address] [place] [address] Sp, Nurse Nephrology [address] [place] [address] 01/21/2024 10:00 AM EST Office Visit Nephrology, [facility] 200 [facility] [place] [address] Laurita Washington PA-C 200 [facility] [place] [address] 04/01/2024 1:00 PM EST Nurse Only Ancillary Department, [address] [address] [place], [place] [facility] Annual Wellness [facility] [place] [address] 04/01/2024 2:20 PM EST Office Visit Family Practice, [place] [address] [place] [phone] Gino Osman MD [address] [place] [address] 05/14/2024 2:00 PM EST Laboratory Laboratory [facility] [place] [address] [place] [phone] [place] [facility] [address] [place] [address] [address] 05/21/2024 2:15 PM EST Office Visit Hematology/Oncology [place]ri[place] [address] [facility] [place], [place] [address] Cleve Bruce MD [address] [facility] [place], [place] [address] Health Maintenance Due Date Last Done Comments [...] this encounter Medical Devices Implanted Type Area Hospitality House Supervisor Device Identifier Shelf Expiration Date Model / Serial / Lot Lens Intraoc 18.0 - [id number] - [id number] Implanted:Qty: 1 on 11/20/2019 by Sonu Valladares MD at OR [facility] Left: Eye [employer]USCH [employer] LOMB 02/16/2024 [id number] / [id number] / [id number] Sofport Implanted:Qty: 1 on 12/02/2019 by Sonu Valladares MD at OR [facility] Right: Eye 11/17/2023 [id number] / / [id number] documented as of this encounter Visit Diagnoses Diagnosis Anemia in stage 3b chronic kidney disease (HCC)- Primary Macrocytosis Other specified diseases of blood and blood-forming organs Thrombocytopenia (HCC) Thrombocytopenia, unspecified documented in this encounter Care Teams Melt Room Operator Relationship Specialty Start Date End Date Gino Osman MD [address] [place] [address] PCP - General Family Medicine 05/06/18 documented as of this encounter"
--- OUTSIDE RECORDS SUMMARY | 2023-12-18 22:16 | External Medical Summary ---
Author Name Unknown Address Unknown Organization K01:[facility] [place] [address] [facility] [address] Laboratory Report Ordering Provider Test Date Status PAVEL ANNE 11/06/2023 10:41:00 Final Observation Date Value Abnormality Reference (Units ) Status Campylobacter sp DNA.diarrheagenic [Presence] in Stool by KARRIE with probe detection 11/06/2023 10:41:00 Negative Negative Final Salmonella sp rpoD gene [Presence] in Stool by KARRIE with probe detection 11/06/2023 10:41:00 Negative Negative Final Shigella species+EIEC invasion plasmid antigen H ipaH gene [Presence] in Stool by KARRIE with probe detection 11/06/2023 10:41:00 Negative Negative Final Vibrio sp DNA [Identifier] in Specimen by KARRIE with probe detection 11/06/2023 10:41:00 Negative Negative Final Yersinia enterocolitica recN gene [Presence] in Stool by KARRIE with probe detection 11/06/2023 10:41:00 Negative Negative Final Escherichia coli Stx1 toxin stx1 gene [Presence] in Stool by KARRIE with probe detection 11/06/2023 10:41:00 Negative Negative Final Escherichia coli Stx2 toxin stx2 gene [Presence] in Stool by KARRIE with probe detection 11/06/2023 10:41:00 Negative Negative Final Norovirus genogroups I and II RNA panel - Stool by KARRIE with probe detection 11/06/2023 10:41:00 Negative Negative Final Rotavirus A RNA [Presence] in Stool by KARRIE with probe detection 11/06/2023 10:41:00 Negative Negative Final Performing Location [facility] [place] [address] [facility] [address]
--- OUTSIDE RECORDS SUMMARY | 2023-12-18 22:16 | External Medical Summary | Summary of Care ---
Author Name Unknown Organization [facility] Address [address] [facility] [place] [address] Phone [phone] Care Team Providers Care Adult Care Manager Name Role Phone Gino Osman MD Primary Care Provider [phone] Reason for Visit * Reason Comments Outpatient Testing Encounter Details Date Type Department Care Team (Late st Contact Info) Description 11/06/2023 11:20 AM EDT Laboratory Laboratory [facility] [address] [place] [address] [facility] Lab Scenery [address] [facility] [place] [address] Anemia of chronic renal failure, stage 4 (severe) ([facility]); Diarrhea Allergies Active Allergy Reactions Criticality Noted [...] 30 Cap 12/16/2020 Active Ergocalciferol 1.25 MG (20621 UT) Oral Capsule (Vitamin D2(Drisdol)) On Sunday bimonthly 12 Capsule 01/02/2023 Active Tamsulosin HCl 0.4 MG Oral Capsule (Flomax)Indications: BPH with obstruction/lower urinary tract symptoms TAKE ONE CAPSULE BY MOUTH IN THE MORNING 90 Capsule 3 04/01/2023 Active Fluticasone Propionate 50 MCG/ACT Nasal Suspension (Flonase) Administer 1 Brumley into nostril in the morning and 1 Brumley before bedtime. 05/01/2023 Active Saline Nasal Brumley 0.65 % Nasal Solution (Phelps) Administer 1 Brumley into nostril. 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 [...] mRNA, LNP-s, No Pre serve, 2-Dose Series ([employer]) 09/03/2021,11/04/2020,05/27/2020,04/19 COVID-19, MRNA-LNP, 23-24, P F, 30 MCG/0.3 mL, 12 YRS AND ABOVE, IM ([facility]) 02/22/2023 Covid-19, Mrna, Lnp-s, Pf, B [...] 11/06/2023 11:00 AM EDT Immunization/Inject ion Nephrology, [facility] [address] [place] [address] [place], Nurse Nephrology 200 [facility] [place] [address] Arrived 11/09/2023 10:15 AM EDT Office Visit Hematology/Oncology [place]rielle [place] [address] [place] [phone] Cleve Bruce MD 200 [facility] [place] [address] 11/12/2023 9:00 AM EDT Pharmacy Pharmacy, [facility] [address] [place], [place] [phone] Clinic, [place] [address] [place] [address] 01/21/2024 10:00 AM EST Office Visit Nephrology, [facility] [address] [place] [address] [place] [address] Laurita Washington PA-C 200 [facility] [place] [address] 04/01/2024 1:00 PM EST Nurse Only Ancillary Department, [address] [address] [place], Nurse Annual Wellness [address] [place] [address] 04/01/2024 2:20 PM EST Office Visit Family Practice, [place] [address] [place] [phone] Gino Osman MD [address] [place], [place] [phone] Pending Results Name Type Priority Associated Diagnoses Date /Time CBC Lab Routine Anemia of chronic renal failure, stage 4 (severe) ([facility]) 11/06/2023 10:39 AM EDT RETICULOCYTE PANEL Lab Routine Anemia of chronic renal failure, stage 4 (severe) ([facility]) 11/06/2023 10:39 AM EDT OVA AND PARASITES, CONCENTRATE AND PERMANENT SMEAR Lab Routine Diarrhea 11/06/2023 10:40 AM EDT CLOSTRIDIUM DIFFICILE, PCR Lab Routine Diarrhea 11/06/2023 10:40 AM EDT GASTROINTESTINAL PATHOGEN PANEL, STOOL Lab Routine Diarrhea 11/06/2023 10:41 AM EDT GASTROINTESTINAL PATHOGEN PANEL PCR Lab Routine Diarrhea 11/06/2023 10:41 AM EDT GASTROINTESTINAL PATHOGEN PANEL CULTURE Lab Routine Diarrhea 11/06/2023 10:41 AM EDT Health Maintenance Due Date Last [...] this encounter Medical Devices Implanted Type Area Machine Fur Cleaner Device Identifier Shelf Expiration Date Model / Serial / Lot Lens Intraoc 18.0 - [id number] - [id number] Implanted:Qty: 1 on 11/20/2019 by Sonu Valladares MD at OR [facility] Left: Eye [employer]USCH & LOMB 02/16/2024 [id number] / [id number] / [id number] Sofport Implanted:Qty: 1 on 12/02/2019 by Sonu Valladares MD at OR [facility] Right: Eye 11/17/2023 [id number] / / [id number] documented as of this encounter Visit Diagnoses Diagnosis Anemia of chronic renal failure, stage 4 (severe) (HCC) Diarrhea documented in this encounter Additional Health Concerns Infection Onset Date Last Indicated Resolved Time C. difficile Rule-Out 11/06/2023 11/06/2023 Gastrointestinal Rule-Out 11/06/2023 11/06/2023 documented as of this encounter Care Teams Adult Care Manager Relationship Specialty Start Date End Date Gino Osman MD [address] [place] [address] PCP - General Family Medicine 05/06/18 documented as of this encounter
--- OUTSIDE RECORDS SUMMARY | 2023-12-18 22:16 | External Medical Summary ---
Author Name Unknown Address Unknown Organization : Laboratory Report Ordering Provider Test Date Status PAVEL ANNE 11/06/2023 10:40:32 Final Observation Date Value Abnormality Reference (Units ) Status Ova and parasites identified in Stool by Trichrome stain--3rd specimen 11/06/2023 10:40:32 SEE BELOW Final Ova and Parasites, Concentra te and Permanent Smear
Examination for Ova and Parasites
SOURCE : STOOL
Result/Comment:
NO OVA AND PARASITES SEEN.
Reference Range: No Ova and Parasites seen
Routine Ova and Parasite Exam may not detect some
parasites that occasionally cause diarrheal illness.
Cryptosporidium Antigen and/or Cyclospora and Isospora
Exam may be ordered to detect these parasites.
One negative sample does not necessarily rule out the
presence of a parasitic infection.
Assay performed by wet mount after concentration.
Parasite Exam, Trichrome Stain
SOURCE : STOOL
Result/Comment:
NO OVA AND PARASITES SEEN.
Routine Ova and Parasite Exam may not detect some
parasites that occasionally cause diarrheal illness.
Cryptosporidium Antigen and/or Cyclospora and Isospora
Exam may be ordered to detect these parasites.
One negative sample does not necessarily rule out the
presence of a parasitic infection.
For additional information, please refer to
https://education.Switchfly/faq/HHU830
(This link is being provided for informational/
educational purposes only.)

Test Performed at:
[facility]
[address] [facility]
[place] [address]
Piero Hardwick M.D., Ph.D.,Director of Laboratories Performing Location
--- OUTSIDE RECORDS SUMMARY | 2023-12-18 22:16 | External Medical Summary | Summary of Care ---
Author Name Unknown Organization [facility] Address [address] [facility] [place] [address] Phone [phone] Care Team Providers Care Beam Department Supervisor Name Role Phone Gino Osman MD Primary Care Provider Reason for Visit * Reason Comments Outpatient Testing Encounter Details Date Type Department Care Team (Late st Contact Info) Description 11/06/2023 11:20 AM EDT Laboratory Laboratory [facility] [address] [place] [address] [facility] Lab Scenery [address] [facility] [place] [address] Anemia of chronic renal failure, stage 4 (severe) ([facility]); Diarrhea Allergies Active Allergy Reactions Criticality Noted [...] 30 Cap 12/16/2020 Active Ergocalciferol 1.25 MG (57996 UT) Oral Capsule (Vitamin D2(Drisdol)) On Sunday bimonthly 12 Capsule 01/02/2023 Active Tamsulosin HCl 0.4 MG Oral Capsule (Flomax)Indications: BPH with obstruction/lower urinary tract symptoms TAKE ONE CAPSULE BY MOUTH IN THE MORNING 90 Capsule 3 04/01/2023 Active Fluticasone Propionate 50 MCG/ACT Nasal Suspension (Flonase) Administer 1 [place] into nostril in the morning and 1 [place] before bedtime. 05/01/2023 Active Saline Nasal [place] 0.65 % Nasal Solution (Breda) Administer 1 [place] into nostril. 05/01/2023 Active Pantoprazole Sodium 40 [...] Start Date End Date Status Epoetin Rogelio 69729 UNIT/ML inj 40,000 UnitsIndications:Anemia of chronic renal failure, stage 3b (HCC) 75420 Units SC QWEEK 08/21/2023 Active documented as [...] mRNA, LNP-s, No Pre serve, 2-Dose Series ([employer]) 09/03/2021,11/04/2020,05/27/2020,04/19 COVID-19, MRNA-LNP, 23-24, P F, 30 MCG/0.3 mL, 12 YRS AND ABOVE, IM ([employer]) 02/22/2023 Covid-19, Mrna, Lnp-s, Pf, B ivalent, [...] 11/06/2023 11:00 AM EDT Immunization/Inject ion Nephrology, [facility] [address] [place] [address] [place], Nurse Nephrology 200 [facility] [place] [address] Arrived 11/09/2023 10:15 AM EDT Office Visit Hematology/Oncology Gabrielle Silva [place] [address] [phone] Cleve Bruce MD 200 [facility] [place] [address] 11/12/2023 9:00 AM EDT Pharmacy Pharmacy, [place] [address] [place], [place] [phone] Clinic, [place] [address] [place] [address] 01/21/2024 10:00 AM EST Office Visit Nephrology, [facility] [address] [place] [address] [address] Laurita Washington PA-C 200 [facility] [place] [address] 04/01/2024 1:00 PM EST Nurse Only Ancillary Department, [address] [address] [place], Nurse Annual Wellness [address] [place] [address] 04/01/2024 2:20 PM EST Office Visit Family Practice, [place] [address] [place] [phone] Gino Osman MD [address] [place] [address] Pending Results Name Type Priority Associated Diagnoses Date /Time CBC Lab Routine Anemia of chronic renal failure, stage 4 (severe) (HCC) 11/06/2023 10:39 AM EDT RETICULOCYTE PANEL Lab Routine Anemia of chronic renal failure, stage 4 (severe) (HCC) 11/06/2023 10:39 AM EDT OVA AND PARASITES, [...] encounter Medical Devices Implanted Type Area Packer Insulation Device Identifier Shelf Expiration Date Model / Serial / Lot Lens Intraoc 18.0 - [id number] - [id number] Implanted:Qty: 1 on 11/20/2019 by Sonu Valladares MD at OR [facility] Left: Eye BAUSCH & LOMB 02/16/2024 [id number] / [id number] / [id number] Sofport Implanted:Qty: 1 on 12/02/2019 by Sonu Valladares MD at OR [facility] Right: Eye 11/17/2023 [id number] / / [id number] documented as of this encounter Visit Diagnoses Diagnosis Anemia of chronic renal failure, stage 4 (severe) (HCC) Diarrhea documented in this encounter Care Teams Beam Department Supervisor Relationship Specialty Start Date End Date Gino Osman MD [address] [place] [address] PCP - General Family Medicine 05/06/18 documented as of this encounter
--- OUTSIDE RECORDS SUMMARY | 2023-12-18 22:16 | External Medical Summary | Summary of Care ---
Author Name Unknown Organization [facility] Address [address] [place] [address] Phone [phone] Care Team Providers Care Surgical Services Asst Name Role Phone Gino Osman MD Primary Care Provider [phone] Reason for Visit * Reason Onset Date Comments Anemia Follow-Up 11/02/2023 Encounter Details Date Type Department Care Team (Late st Contact Info) Description 11/01/2023 9:30 AM EDT Pharmacy Pharmacy, [place] [address] [place], [place] [phone] Clinic, An[place] [address] [place], [place] [phone] Anemia of chronic renal failure, stage 4 (severe) ([facility])* Allergies Active Allergy Reactions Criticality Noted Date [...] 30 Cap 12/16/2020 Active Ergocalciferol 1.25 MG (16450 UT) Oral Capsule (Vitamin D2(Drisdol)) On Sunday bimonthly 12 Capsule 01/02/2023 Active Tamsulosin HCl 0.4 MG Oral Capsule (Flomax)Indications: BPH with obstruction/lower urinary tract symptoms TAKE ONE CAPSULE BY MOUTH IN THE MORNING 90 Capsule 3 04/01/2023 Active Fluticasone Propionate 50 MCG/ACT Nasal Suspension (Flonase) Administer 1 [place] into nostril in the morning and 1 [place] before bedtime. 05/01/2023 Active Saline Nasal [place] 0.65 % Nasal Solution (Bentley) Administer 1 [place] into nostril. 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 Hgb is below target range. Iron studies adequate. Patient reports recent malignancy, SCC treated with surgical removal and started radiation therapy on 10/02/23 managed by [facility] radiation oncology - Dr. Bruce. Will reach out to Dr. Chapa to see if continuation of BON is appropriate, or if BON management should be deferred to either [facility] or [facility] hem/onc. Plan: Continue Retacrit 40,000 units SQ weekly @ [facility] nephrology clinic (hold for Hgb > 11 g/dL). 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 Received approval from Dr. Chapa to start BON therapy as benefits outweigh risks at this time. Follow-up labs to be obtained on 11/06/23 to match administration appointment. Anemia Clinic will continue to follow. Thank you for allowing us to participate in the care of thispatient. Feroz Lugo, PharmD, [facility] Clinical Pharmacist Anemia Clinic P: [phone] F: [phone] 11/02/2023 12:41 PM Lab Results Component Value [...] Description 11/05/2023 9:30 AM EDT Pharmacy Pharmacy, [place] [address] [place] [facility] [place] [address] Clinic, Anemia [address] [place] [address] 11/06/2023 11:00 AM EDT Immunization/Inject ion Nephrology, [address], [place] [address] Sp, Nurse Nephrology 200 [place] [address] 11/09/2023 10:15 AM EDT Office Visit Hematology/Oncology [facility] [place] [address] [facility] [address] [place], [place] [phone] Cleve Bruce MD 200 [facility] [place], [place] [address] 01/21/2024 10:00 AM EST Office Visit Nephrology, [facility] [address] [facility] [place], [place] [address] Laurita Washington PA-C 200 [facility], [place] [address] 04/01/2024 1:00 PM EST Nurse Only Ancillary Department, [place] [address] [place] [address] [place], Nurse Annual Wellness [address] [place] [address] 04/01/2024 2:20 PM EST Office Visit Family Practice, [place] [address] [place] [phone] Gino Osman MD [address] [place] [address] Health Maintenance Due Date Last Done Comments [...] 06/20/2021, Additional history exists Hgb 10/30/2024 10/31/2023, 0811/2023, 10/25/2023, Additional history exists DTaP,Tdap,and Td Vaccines [...] this encounter Medical Devices Implanted Type Area Route Returner Device Identifier Shelf Expiration Date Model / Serial / Lot Lens Intraoc 18.0 - [id number] - [id number] Implanted:Qty: 1 on 11/20/2019 by Sonu Valladares MD at OR [facility] Left: Eye BAUSCH & LOMB 02/16/2024 [id number] / [id number] / [id number] Sofport Implanted:Qty: 1 on 12/02/2019 by Sonu Valladares MD at OR [facility] Right: Eye 11/17/2023 [id number] / / [id number] documented as of this encounter Visit Diagnoses Diagnosis Anemia of chronic renal failure, stage 4 (severe) (HCC)- Primary documented in this encounter Care Teams Surgical Services Asst Relationship Specialty Start Date End Date Gino Osman MD [address] [place] [address] PCP - General Family Medicine 05/06/18 documented as of this encounter
--- OUTSIDE RECORDS SUMMARY | 2023-12-18 22:16 | External Medical Summary | Summary of Care ---
Author Name Unknown Organization [facility] Address [address] [place] [address] Phone [phone] Care Team Providers Care Rerolling Machine Operator Name Role Phone Gino Osman MD Primary Care Provider [phone] Reason for Visit * Reason Onset Date Comments Anemia Follow-Up 11/02/2023 Encounter Details Date Type Department Care Team (Late st Contact Info) Description 10/23/2023 9:30 AM EDT Pharmacy Pharmacy, [place] [address] [place], [place] [phone] Clinic, Anemia [address] [place], [place] [phone] Anemia of chronic renal failure, stage 4 (severe) ([facility])* Allergies Active Allergy Reactions Criticality [...] 30 Cap 12/16/2020 Active Ergocalciferol 1.25 MG (03629 UT) Oral Capsule (Vitamin D2(Drisdol)) On Sunday bimonthly 12 Capsule 01/02/2023 Active Tamsulosin HCl 0.4 MG Oral Capsule (Flomax)Indications: BPH with obstruction/lower urinary tract symptoms TAKE ONE CAPSULE BY MOUTH IN THE MORNING 90 Capsule 3 04/01/2023 Active Fluticasone Propionate 50 MCG/ACT Nasal Suspension (Flonase) Administer 1 [place] into nostril in the morning and 1 [place] before bedtime. 05/01/2023 Active Saline Nasal [place] 0.65 % Nasal Solution ([place]) Administer 1 G[place] into nostril. 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 documented in this encounter Plan of Treatment Upcoming Encounters Date Type Department Care Team (Late st Contact Info) Description 11/06/2023 11:00 AM EDT Immunization/Injec tion Nephrology, [facility] [address] [facility] [address] [place] [address] [place], Nurse Nephrology [address] [facility] [address] [place] [address] 11/09/2023 10:15 AM EDT Office Visit Hematology/Oncology [facility] [place] [address] [facility] [address] [place] [address] Cleve Bruce MD [address] [facility] [address] [place] [address] 01/21/2024 10:00 AM EST Office Visit Nephrology, [facility] [address] [place] [address] Laurita Washington PA-C 200 [facility] [place] [address] 04/01/2024 1:00 PM EST Nurse Only Ancillary Department, [place] [address] [facility], [place] [address] [place], Nurse Annual Wellness [address] [facility], [place] [address] 04/01/2024 2:20 PM EST [facility] [address] [place] [address] Gino Osman MD [address] [place] [facility] [place] [address] Health Maintenance Due Date Last Done Comments [...] 03/06/2024 03/06/2023, 05/01/19 18 GFR 04/26/2024 10/25/2023, 080 10/2023, 09/25/2023, Additional history exists Nephrology Referral [...] this encounter Medical Devices Implanted Type Area Registered Nurse Surgical Services Device Identifier Shelf Expiration Date Model / Serial / Lot Lens Intraoc 18.0 - [id number] - [id number] Implanted:Qty: 1 on 11/20/2019 by Sonu Valladares MD at OR [facility] Left: Eye BAUSCH & LOMB 02/16/2024 [id number] / [id number] / [id number] Sofport Implanted:Qty: 1 on 12/02/2019 by Sonu Valaldares MD at OR [facility] Right: Eye 11/17/2023 [id number] / / [id number] documented as of this encounter Visit Diagnoses Diagnosis Anemia of chronic renal failure, stage 4 (severe) (HCC)- Primary documented in this encounter Care Teams Rerolling Machine Operator Relationship Specialty Start Date End Date Gino Osman MD [address] [place], [place] [phone] PCP - General Family Medicine 05/06/18 documented as of this encounter
--- OUTSIDE RECORDS SUMMARY | 2023-12-18 22:16 | External Medical Summary ---
Author Name Unknown Address Unknown Organization K01:[facility] [address] [place] [address] Laboratory Report Ordering Provider Test Date Status PAVEL ANNE 11/06/2023 10:40:48 Final Observation Date Value Abnormality Reference (Units) Status Source 11/06/2023 10:40:48 Semi-liquid Final Clostridioides difficile toxin and BI-[id number] strain DNA panel - Stool by KARRIE with probe detection 11/06/2023 10:40:48 Negative. No C. difficile toxin B gene DNA detected by PCR (Amplified Probe). Negative Final Performing Location [facility] [address] [place] [address]
--- OUTSIDE RECORDS SUMMARY | 2023-12-18 22:16 | External Medical Summary | Summary of Care ---
Author Name Unknown Organization [facility] Address [address] [facility] [place] [address] Phone [phone] Care Team Providers Care Recreation Establishment Manager Name Role Phone Gino Osman MD Primary Care Provider [phone] Reason for Visit * Reason Comments Outpatient Testing Encounter Details Date Type Department Care Team (Late st Contact Info) Description 11/06/2023 11:20 AM EDT Laboratory Laboratory [facility] [address] [place] [address] [facility] Scenery [address] [facility] [place] [address] Anemia of chronic renal failure, stage 4 (severe) ([facility]); Diarrhea Allergies Active Allergy Reactions Criticality Noted [...] 30 Cap 12/16/2020 Active Ergocalciferol 1.25 MG (32312 UT) Oral Capsule (Vitamin D2(Drisdol)) On Sunday bimonthly 12 Capsule 01/02/2023 Active Tamsulosin HCl 0.4 MG Oral Capsule (Flomax)Indications: BPH with obstruction/lower urinary tract symptoms TAKE ONE CAPSULE BY MOUTH IN THE MORNING 90 Capsule 3 04/01/2023 Active Fluticasone Propionate 50 MCG/ACT Nasal Suspension (Flonase) Administer 1 [place] into nostril in the morning and 1 [place] before bedtime. 05/01/2023 Active Saline Nasal [place] 0.65 % Nasal Solution ([place]) Administer 1 [place] into nostril. 05/01/2023 Active Pantoprazole Sodium 40 [...] Start Date End Date Status Epoetin Rogelio 52137 UNIT/ML inj 40,000 UnitsIndications:Anemia of chronic renal failure, stage 3b (HCC) 48503 Units SC QWEEK 08/21/2023 Active documented as [...] mRNA, LNP-s, No Pre serve, 2-Dose Series ([employer]) 09/03/2021,11/04/2020,05/27/2020,04/19 COVID-19, MRNA-LNP, 23-24, P F, 30 MCG/0.3 mL, 12 YRS AND ABOVE, IM ([facility]) 02/22/2023 Covid-19, Mrna, Lnp-s, Pf, B [...] 11/06/2023 11:00 AM EDT Immunization/Inject ion Nephrology, [facility] [address] [place] [address] [place], Nurse Nephrology 200 [facility] [place] [address] Arrived 11/09/2023 10:15 AM EDT Office Visit Hematology/Oncology Gabrielle Silva [place] [address] [place] [address] [phone] Cleve Bruce MD 200 [facility] [place] [address] 11/12/2023 9:00 AM EDT Pharmacy Pharmacy, [place] [address], [place] [id number] Clinic, [place] [address] [place] [address] 01/21/2024 10:00 AM EST Office Visit Nephrology, [facility] [address] [place] [address] [place] [address] Laurita Washington PA-C 200 [facility] [place] [address] 04/01/2024 1:00 PM EST Nurse Only Ancillary Department, [address] [address] [place], Nurse [facility] [address] [place] [address] 04/01/2024 2:20 PM EST Office Visit Family Practice, [place] [address] [place] [phone] Gino Osman MD [address] [place], [place] [phone] Pending Results Name Type Priority Associated Diagnoses Date /Time CBC Lab Routine Anemia of chronic renal failure, stage 4 (severe) ([facility]) 11/06/2023 10:39 AM EDT RETICULOCYTE PANEL Lab Routine Anemia of chronic renal failure, stage 4 (severe) ([facility]) 11/06/2023 10:39 AM EDT OVA AND PARASITES, [...] this encounter Medical Devices Implanted Type Area Shift Supervisor Rn Device Identifier Shelf Expiration Date Model / Serial / Lot Lens Intraoc 18.0 - [id number] - [id number] Implanted:Qty: 1 on 11/20/2019 by Sonu Valladares MD at OR [facility] Left: Eye [employer] 02/16/2024 [id number] / [id number] / [id number] Sofport Implanted:Qty: 1 on 12/02/2019 by Sonu Valladares MD at OR [facility] Right: Eye 11/17/2023 [id number] / / [id number] documented as of this encounter Visit Diagnoses Diagnosis Anemia of chronic renal failure, stage 4 (severe) (HCC) Diarrhea documented in this encounter Additional Health Concerns Infection Onset Date Last Indicated Resolved Time C. difficile Rule-Out 11/06/2023 11/06/2023 Gastrointestinal Rule-Out 11/06/2023 11/06/2023 documented as of this encounter Care Teams Recreation Establishment Manager Relationship Specialty Start Date End Date Gino Osman MD [address] [place] [address] PCP - General Family Medicine 05/06/18 documented as of this encounter
--- OUTSIDE RECORDS SUMMARY | 2023-12-18 22:17 | External Medical Summary | Summary of Care ---
Author Name Unknown Organization [facility] Address [address] [facility] [place] [address] Phone [phone] Care Team Providers Care Cement Conveyor Operator Name Role Phone Gino Osman MD Primary Care Provider [phone] Reason for Visit * Reason Comments Outpatient Testing Encounter Details Date Type Department Care Team (Latest Contact Info) Description 10/25/2023 8:10 AM EDT Laboratory Laboratory [facility] [address] [place] [address] [facility] Scenery [address] [facility] [place] [address] Encounter for long-term (current) use of other medications; Gitelman syndrome; 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HCC) Allergies Active Allergy Reactions Criticality Noted Date Comments Adhesive Tape Itching High 11/21/2022 documented as of this encounter (statuses as of 10/25/2023) Medications Medication Sig Dispensed Refills Start Date [...] 30 Cap 12/16/2020 Active Ergocalciferol 1.25 MG (03726 UT) Oral Capsule (Vitamin D2(Drisdol)) On Sunday bimonthly 12 Capsule 01/02/2023 Active Tamsulosin HCl 0.4 MG Oral Capsule (Flomax)Indications: BPH with obstruction/lower urinary tract symptoms TAKE ONE CAPSULE BY MOUTH IN THE MORNING 90 Capsule 3 04/01/2023 Active Fluticasone Propionate 50 MCG/ACT Nasal Suspension (Flonase) Administer 1 [place] into nostril in the morning and 1 [place] before bedtime. 05/01/2023 Active Saline Nasal [place] 0.65 % Nasal Solution ([place]) Administer 1 [place] into nostril. 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 Interstitial lung disease 03/19/2015 Chronic rhinitis 03/30/2014 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 Restrictive lung disease documented as of this encounter (statuses as of 10/25/2023) Resolved Problems Problem Noted Date Diagnosed Date [...] as of this encounter (statuses as of 10/25/2023) Immunizations Name Administration Dates Next Due COVID-19 mRNA, LNP-s, No Pre serve, 2-Dose Series ([employer]) 09/03/2021,11/04/2020,05/27/2020,04/19 COVID-19, MRNA-LNP, 23-24, P F, 30 MCG/0.3 mL, 12 YRS AND ABOVE, IM ([facility] 02/22/2023 Covid-19, Mrna, Lnp-s, Pf, [...] Care Team (Late st Contact Info) Description 10/26/2023 8:45 AM EDT Office Visit Hematology/Oncology [facility] [place] [address] [place] [phone] Cleve Bruce MD [address] [place] [address] 10/26/2023 11:00 AM EDT Nurse Only Nephrology, [facility] [address] [facility] [place] [address] Sp, Nurse Nephrology [address] [place] [address] 01/21/2024 10:00 AM EST Office Visit Nephrology, [facility] [address] [facility] [place] [address] Laurita Washington [facility]-C [address] [facility] [address] 04/01/2024 1:00 PM EST Nurse Only Ancillary Department, [place] [address] [facility] [place] [phone] [place], Nurse Annual Wellness [address] [facility] [place] [phone] 04/01/2024 2:20 PM EST Office Visit Family Practice, [place] [address] [place] [facility] [place] [phone] Gino Osman MD [address] [facility] [place] [phone] Pending Results Name Type Priority Associated Diagnoses Date /Time BASIC METABOLIC PANEL Lab Routine 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) 10/25/2023 8:16 AM EDT MAGNESIUM Lab Routine Encounter for long-term (current) use 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[facility]) 10/25/2023 8:16 AM EDT TACROLIMUS LEVEL Lab Routine 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) 10/25/2023 8:16 AM EDT CYTOMEGALOVIRUS DNA, QUALITATIVE REAL-TIME PCR Lab Routine Encounter for long-term (current) use 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[facility]) 10/25/2023 8:16 AM EDT EVEROLIMUS, LC/MS/MS, BLOOD Lab Routine Encounter for long-term (current) use 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[facility]) 10/25/2023 8:16 AM EDT Health Maintenance Due Date Last [...] Depression Screening 03/06/2024 03/06/2023, 05/01/19 18 GFR 03/27/2024 09/25/2023, 07/0 11/2023, 09/17/2023, Additional history exists Nephrology Referral 09/16/2024 09/17/2023 Phosphate 09/16/2024 09/17/2023, 08/18, 09/09/2023, Additional history exists Albumin/Creatinine Ratio 09/24/2024 024, 12/01/2022, 06/20/2021, Additional history exists Hgb 10/24/2024 10/25/2023, 09/18, 10/09/2023, Additional history exists DTaP,Tdap,and Td Vaccines (3 [...] this encounter Medical Devices Implanted Type Area Silk Blocker Device Identifier Shelf Expiration Date Model / Serial / Lot Lens Intraoc 18.0 - [id number] - [id number] Implanted:Qty: 1 on 11/20/2019 by Sonu Valladares MD at OR [facility] Left: Eye [employer]OM[employer] 02/16/2024 [id number] / [id number] / [id number] Sofport Implanted:Qty: 1 on 12/02/2019 by Sonu Valladares MD at OR [facility] Right: Eye 11/17/2023 [id number] / / [id number] documented as of this encounter Procedures Procedure Name Priority Date/Time Associated Diagnosis Comments CBC Routine 10/25/2023 8:16 AM EDT 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) documented in this encounter Results * (ABNORMAL) CBC (10/25/2023 8:16 AM EDT) WBC 4.18 4.00 - 10.80 K/uL 10/25/2023 8:25 AM EDT [facility] 56-02 RBC 2.47 4.50 - 5.25 M/uL 10/25/2023 8:25 AM EDT [facility] 56 HGB 8.0(L) 14.0 - 16.8 g/dL 10/25/2023 8:25 AM EDT [facility] 56 HCT 26.7(L) 40.0 - 48.4 % 10/25/2023 8:25 AM EDT [address] MCV 108.1 82.0 - 99.5 fL 10/25/2023 8:25 AM EDT [address] MCH 32.4 27.0 - 34.0 pg 10/25/2023 8:25 AM EDT [address] MCHC 30.0 32.0 - 36.0 g/dL 10/25/2023 8:25 AM EDT [address] RDW 15.0 11.5 - 15.5 % 10/25/2023 8:25 AM EDT [address] PLT 100(L) 140 - 400 K/uL 10/25/2023 8:25 AM EDT [address] MPV 11.2 6.6 - 11.1 fL 10/25/2023 8:25 AM EDT [facility] 56 Blood Venous blood specimen / Unknown Venipuncture / Unknown 10/25/2023 8:16 AM EDT 10/25/2023 8:16 AM EDT Andrew Gibbs MD LAB BLOOD ORDERAB LES [facility] [address] [place] [address] documented in this encounter Visit Diagnoses Diagnosis Encounter for long-term (current) use of other medications 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
--- OUTSIDE RECORDS SUMMARY | 2023-12-18 22:17 | External Medical Summary ---
Author Name Unknown Address Unknown Organization [id number]:LABORATORY [facility] [place] - [address] [facility] [place] [address] Laboratory Report Ordering Provider Test Date Status WILLY SANCHEZ 10/26/2023 10:06:04 Final Observation Date Value Abnormality Reference (Units ) Status SYNC LEUKOCYTES IN BLOOD BY AUTOMATED COUNT 10/26/2023 10:06:04 7.29 4.00-10.80 (K/uL) Final Segs 10/26/2023 10:06:04 84.1 Above high normal 40.0-75.0 (%) Final Lymphs % 10/26/2023 10:06:04 4.8 Below low normal 18.0-42.0 (%) Final Monos 10/26/2023 10:06:04 9.7 1.0-11.0 (%) Final Eosinophils 10/26/2023 10:06:04 0.1 0.0-6.0 (%) Final Basos 10/26/2023 10:06:04 0.1 0.0-2.0 (%) Final Immature Granulocyte, Percent 10/26/2023 10:06:04 1.2 0.0-2.0 (%) Final Absolute Segs 10/26/2023 10:06:04 6.12 1.80-7.70 (K/uL) Final Lymphs, absolute 10/26/2023 10:06:04 0.35 Below low normal 1.00-4.80 (K/ul) Final Monos, Abs 10/26/2023 10:06:04 0.71 0.00-1.10 (K/uL) Final Eos, Abs 10/26/2023 10:06:04 0.01 0.00-0.70 (K/uL) Final Basos, Abs 10/26/2023 10:06:04 0.01 0.00-0.20 (K/uL) Final Immature Granulocytes, Number 10/26/2023 10:06:04 0.09 0.00-0.20 (K/uL) Final Performing Location LABORATORY [facility] [place] - [facility] [address] [facility] [address]
--- OUTSIDE RECORDS SUMMARY | 2023-12-18 22:17 | External Medical Summary ---
Author Name Unknown Address Unknown Organization [id number]:[place] [place] [address] [place] [address] Laboratory Report Ordering Provider Test Date Status ROBERT VANCE 10/31/2023 10:42:46 Final Observation Date Value Abnormality Reference (Units ) Status Retic, % (auto) 10/31/2023 10:42:46 1.26 0.80-1.90 (%) Final Reticulocytes, Absolute 10/31/2023 10:42:46 30.1 Below low normal 31.3-100.1 (K/uL) Final Reticulocyte fraction, immature 10/31/2023 10:42:46 15.3 2.5-20.6 (%) Final Reticulocyte HGB 10/31/2023 10:42:46 32.0 29.7-37.4 (pg) Final Performing Location [facility] [facility] [place] [address] [place] [address]
--- OUTSIDE RECORDS SUMMARY | 2023-12-18 22:17 | External Medical Summary | Continuity of Care Document ---
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) - 10/23/23 Discharge Disposition: Home or Self Care Attending Physician: MD Henson Cassandra Referring Physician: MD Henson Cassandra Allergies, Adverse Reactions, Alerts No Known Allergies Medications acetaminophen 325 mg oral tablet Start: 03/14/19 12:58:00 PM EST, 1 tab, PO, q6h, PRN: as needed for pain Start Date: 03/14/19 Status: Ordered aspirin 81 mg oral tablet Start: 09/23/13 3:44:00 PM EDT, 1 tab, PO, Daily Start Date: 09/23/13 Status: Ordered azithromycin 250 mg oral tablet Start: 03/14/19 12:56:00 PM EST, 1 tab, PO, M-W-F Start Date: 03/14/19 Status: Ordered guaiFENesin 600 mg oral tablet, extended release Start: 02/25/21 8:03:00 AM EST, 1 tab, PO, q12h Start Date: 02/25/21 Status: Ordered lisinopril 5 mg oral tablet Start: 07/12/23 9:06:00 AM EDT Start Date: 07/12/23 Status: Ordered montelukast 10 mg oral tablet Start: 09/01/20 9:21:00 AM EDT, 1 tab, PO, qPM Start Date: 09/01/20 Status: Ordered mycophenolate mofetil 250 mg oral capsule Start: 09/01/20 9:23:00 AM EDT, 3 cap, PO, bid Start Date: 09/01/20 Status: Ordered pravastatin 20 mg oral tablet Start: 09/23/13 3:43:00 PM EDT, 1 tab, PO, Daily Start Date: 09/23/13 Status: Ordered predniSONE 5 mg oral tablet Start: 09/01/20 9:22:00 AM EDT, 1 tab, PO, Daily Start Date: 09/01/20 Status: Ordered Protonix 40 mg oral delayed release tablet Start: 06/12/18 9:54:00 AM EDT, 1 tab, PO, Daily Start Date: 06/12/18 Status: Ordered sulfamethoxazole-trimethoprim 800 mg-160 mg oral tablet Start: 06/12/18 9:55:00 AM EDT, See Instructions, 1 tab PO M-W-F Start Date: 06/12/18 Status: Ordered tacrolimus (generic) 0.5 mg oral capsule Start: 03/10/20 8:50:00 AM EST, 2 cap, PO, q12h Start Date: 03/10/20 Status: Ordered tamsulosin 0.4 mg oral capsule Start: 09/23/13 3:43:00 PM EDT, 1 cap, PO, Daily Start Date: 09/23/13 Status: Ordered Vitamin D2 50,000 intl units (1.25 mg) oral capsule Start: 03/14/19 12:57:00 PM EST, 1 cap, PO, q0brwor Start Date: 03/14/19 Status: Ordered Zortress 0.5 mg oral tablet Start: 09/12/18 10:07:00 AM EDT, See Instructions, 1 mg in am and 1.5 mg in pm Start Date: 09/12/18 Status: Ordered Mental Status 10/23/23 Barriers to Learning one year None evide nt Mandatory Health Literacy Documentation Yes Health Literacy Communication Barriers N ever Primary Language Paraguayan Problem List Condition Confirmation Course Effective Dates Status Health St atus Informant Basal cell carcinoma Confirmed Active BPH (benign prostatic hypertrophy) Confirmed Active Dysuria Confirmed Active Rash Confirmed Active Pulmonary fibrosis Confirmed Active Elevated cholesterol Confirmed Active BCC (basal cell carcinoma) Confirmed Active Skin cancer 1 Confirmed Active SCC (squamous cell carcinoma) 2 Confirmed 6/23/22 Active 1History of BCC on right ear 2012 2Left [place] Diagnosis Diagnosis Type Effective Dates Health Status Cl inical Service Informant 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 Discharge Diagnosis 10/23/23 Procedures Procedure Date Related Diagnosis Body Site Status Mohs micrographic surgery 10/23/23 Completed Shave biopsy and cauterizati on of skin 1 10/01/23 Completed Hernia repair 09/07/23 Completed Mohs micrographic surgery 08/01/23 Completed Shave biopsy and cauterization of skin 07/12/23 Completed Mohs micrographic surgery 04/11/23 Completed Shave biopsy and cauterizati on of skin 2 03/01/23 Completed Mohs micrographic surgery 01/09/23 Completed Shave biopsy and cauterization of skin 11/30/22 Completed Mohs micrographic surgery 08/16/22 Completed Shave biopsy and cauterizati on of skin 3 05/30/22 Completed Electrodesiccation with curettage 10/06/21 Completed Shave biopsy and cauterization of skin 09/08/21 Completed Shave biopsy and cauterizati on of skin 4 08/18/21 Completed Shave biopsy of skin 06/12/18 Comp leted Surgery 5 2004 Completed Surgery 6 2004 Completed LUNG TRANSPLANT SINGLE 7 Completed Mohs micrographic surgery Completed Shave biopsy and cauterizati on of skin 8 Completed 1With curettage 21-right buddhism 2-left lateral upper arm 3-right extensor arm 3midline frontal scalp 4left post auricular area; left buddhism 5right knee 6right shoulder 7Left lobe 8times 3 in past Social History Social History Type Response Smoking Status Never smoked cigaret angela Sex Male Sex Representation Male (finding) Dermatology Outpt Proc * MD Henson Cassandra: PERFORM, MODIFY, SIGN, VERIFY Event Display: Dermatology Outpt Proc Authored Date: [id number] Patient: ELIDA GUARDADO Age: 78 years Sex: Male : 1945 Associated Diagnoses: None Author: MD Henson Cassandra Visit Information Nurse/MA: Visit Information [facility] number: [id number] [facility] location of surgery: [facility] Pathology accession number: [id number] Mohs Manager Mba: TEQUILA Mason Heather [facility] Surgeon: MD Henson Cassandra [facility] Manager Mba Surgeon: JUDY Kerr, Patricia Calderon Referral information: Referring Physician: MD Henson Cassandra. Family physician information: Primary Care Physician: MD Osman Mark S . Location: [place]. Health Status Allergies: Allergic Reactions (Selected) NKA. Current medication: (Selected) Documented Medications Documented Protonix 40 mg oral delayed release tablet: 1 tab, PO, Daily Vitamin D2 50,000 intl units (1.25 mg) oral capsule: 1 cap, PO, [id number] Zortress 0.5 mg oral tablet: See Instructions, 1 mg in am and 1.5 mg in pm acetaminophen 325 mg oral tablet: 1 tab, PO, q6h, PRN: as needed for pain aspirin 81 mg oral tablet: 1 tab, PO, Daily azithromycin 250 mg oral tablet: 1 tab, PO, -W- guaiFENesin 600 mg oral tablet, extended release: 1 tab, PO, q12h lisinopril 5 mg oral tablet: montelukast 10 mg oral tablet: 1 tab, PO, qPM mycophenolate mofetil 250 mg oral capsule: 3 cap, PO, bid pravastatin 20 mg oral tablet: 1 tab, PO, Daily predniSONE 5 mg oral tablet: 1 tab, PO, Daily sulfamethoxazole-trimethoprim 800 mg-160 mg oral tablet: See Instructions, 1 tab PO -- tacrolimus (generic) 0.5 mg oral capsule: 2 cap, PO, q12h tamsulosin 0.4 mg oral capsule: 1 cap, PO, Daily. Problem list: Medical Skin cancer / SNOMED CT 7950982082 / Confirmed Elevated cholesterol / SNOMED CT 80235836 / Confirmed BPH (benign prostatic hypertrophy) / SNOMED CT 813748597 / Confirmed Dysuria / SNOMED CT 53290436 / Confirmed BCC (basal cell carcinoma) / SNOMED CT 8064893922 / Confirmed Rash / SNOMED CT 304985933 / Confirmed Pulmonary fibrosis / SNOMED CT 06457658 / Confirmed Basal cell carcinoma / SNOMED CT 694681538 / Confirmed SCC (squamous cell carcinoma) / SNOMED CT 970163842 / Confirmed All Problems Skin cancer / SNOMED CT 5380573578 / Confirmed Elevated cholesterol / SNOMED CT 59780011 / Confirmed BPH (benign prostatic hypertrophy) / SNOMED CT 475035208 / Confirmed Dysuria / SNOMED CT 06472820 / Confirmed BCC (basal cell carcinoma) / SNOMED CT 5137935166 / Confirmed Rash / SNOMED CT 182804893 / Confirmed Pulmonary fibrosis / SNOMED CT 37283998 / Confirmed Basal cell carcinoma / SNOMED CT 786950379 / Confirmed SCC (squamous cell carcinoma) / SNOMED CT 337773223 / Confirmed. Mohs Surgical Information Operation: Surgical excision of cutaneous malignancy using continuous microscopic control (Mohs Micrographic Surgery). 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 Nurse/MA: Surgical Information Mohs Surgical Diagnosis: Well-differentiated Mohs Surgical Location: Other: left buddhism, invasive well to moderately differentiated Mohs Previous Treatment: None Mohs Anesthetic: 0.5% lidocaine with epinephrine and bicarbonate Mohs Preop Size of Tumor Length: 1.5 cm Mohs Preop Size of Tumor Width: 1 cm Mohs Stage 1 Specimen: 1 Mohs Stage 2 Specimen: 1 Mohs Final defect size Length: 2.7 cm Mohs Final defect size Width: 1.9 cm Mohs Size of repair: 5.7cm Mohs Type of Suture: Monocryl 5-0, Fast absorbing gut 5-0 . Indications for Mohs surgery: Large size, High risk location, Ill-defined margins, Immunocompromised patient. Appropriate Use Criteria (AUC): 9 . Anesthetic: 0.5% lidocaine with epinephrine and bicarbonate. Total volume of anesthetic administered: 7 ml. Clinical description: 1.5 cm pink atrophic patch, focal crust . Adenopathy: No preauricular, submandibular or anterior/posterior cervical lymphadenopathy. Procedure: Informed consent was obtained which included explanation of the Mohs surgery procedure, reasons why Mohs surgery was preferable to alternatives such as standard excision, and wound management, associated risks, scarring, and potential need for further surgery. The patient verbalized understanding and all questions were answered. The biopsy site/lesion was outlined, and the location was re-confirmed by the patient using a hand held mirror. The operative site was then prepped with antiseptic solution, draped, and anesthetized with a infiltration of local anesthetic. Following this, the clinically apparent portion of the tumor was surgically removed. A thin layer of tissue was then surgically excised around the tumor. Hemostasis was obtained with electrocautery, or aluminum chloride, and a pressure dressing was placed on the wound. Bipolar forceps were used in patients with an implanted electrical device. A reference map was drawn and the excised tissue was cut into an appropriate number of sections for examination in the Mohs micrographic laboratory. Edges of each tissue section were dyed with tissue marking ink inorder to achieve precise orientation. These tissue sections were then processed and stained to produce slides for evaluation of the entire peripheral and deep margins of the excised tissue. The prepared microscopic sections were then examined by the Mohs surgeon. Any areas of residual tumor on the tissue margin were indicated on the reference map, pinpointing the location in which further tissue excision was necessary. For all additional Mohs stages: The operative site was draped, and additional local anesthetic was infiltrated as needed. A layer of tissue was then excised around the areas corresponding to the reference map indicating residual tumor in the patient. Hemostasis was obtained as above. A reference map was drawn and the excised tissue was cut into an appropriate number of sections for examination in Mohs laboratory. The tissue wasinked and processed as above. The prepared microscopic sections were then examined by the Mohs surgeon. If applicable, any areas of residual tumor on the tissue margin were indicated on the referencemap, pinpointing the location in which further tissue excision was necessary. This process was repeated until all surgical margins were felt to be free of tumor. Procedural Time Out: Patient identified with name and date of , Procedure verified, Correct site, if applicable. SCC Staging: AJCC 8th Ed. SCC Tumor Staging: T1. [facility] Tumor Staging: T1. Stages: Stage 1 included multiple microscopic sections of 1 tissue specimens, Stage 2 included multiple microscopic sections of 1 tissue specimens, At this point, no further tumor cells were identified. Tumor eradication was complete after a total of 2 stage(s) of surgery. Histology: Stage: 1. Frozen Section Histology: Microscopic examination of tissue revealed the presence of a broad area with full thickness epidermal atypia with nuclear crowding, pleomorphism, and occasional mitotic figures. This was consistent with squamous cell in situ with possible superficial invasion vs. follicular extension. Tumor is marked in red on the attached Mohs map.. Diagnosis: Squamous cell carcinoma, In situ. Depth of Invasion: Epidermis, Dermis. Scar tissue: Absent. Wound management: A discussion was held with the patient about reconstruction options and wound healing, addressing functional and cosmetic concerns along with benefits and potential risks of each approach., The resultant defect was examined and it was decided that a layered linear closure would best maintain appropriate function of the region without causing distortion of nearby anatomic structures, reduce postoperative morbidity, healing time and risk of infection. It was also required to restore function, eliminate space, relieve tension, prevent deformity, and approximate the edges of the defect, which extended to the deep subcutaneous tissues. Additionally, the defect is being reconstructed with the goal to approximate its appearance prior to Mohs micrographic surgery. The surgical defect and surrounding skin were prepped and draped with sterile towels to ensure a sterile field. Supplemental anesthesia was administered. The wound edges were undermined with a combination of sharp and blunt dissection in the deep subcutaneous plane. The long axis of the closure was oriented so as to parallel the relaxed skin tension lines as much as possible to minimize any pull or distortion on nearby anatomic structures. Linear closure of the circular excisional defect created bilateral incipient standing cones at each pole of the excision. The excision was then extended bilaterally at each end by the removal of this redundant tissue as [place] triangles. Hemostasis was achievedwith spot electrocautery and suture ligation as needed. The defect was then closed in a layered fashion consisting of absorbable sutures in the deep subcutaneous plane followed by separate closure ofthe superficial subcutaneous tissue and skin with superficial cutaneous sutures. The wound was cleansed, a sterile pressure dressing was placed on it, and the patient was instructed in postoperative care.. Procedure Tolerated: Well, Without complications, Estimated blood loss 10 ml. Postoperative follow up: PRN for above and as scheduled for skin exam . Comments: Patient notes that he just completed adjuvant radiation therapy to right ear and postauricular region last week. Notes a few spots that may have stitches coming through the skin, on exam 2 spitting sutures noted. Mild background erythema/radiation dermatitis. Site was cleansed and spitting sutures removed by nursing without complication today.. Photo: Post-op photo did not save . 2023-10-23 09:52:57 2023-10-23 11:39:48 Mohs Surgical Information Second Site Nurse/MA: Surgical Information 2nd Site . Electronic Signature on File CC: Gino Osman MD 9 [facility] [id number] * CC: Shahbaz Travis MD [address] [place] [address] [address] [place] [address] Electronically Reviewed/Signed by: Michelle Henson MD Author Signature Dt/Tm:10/23/2023 02:11 PM Department of Dermatology CS * TEQUILA Mason Heather: PERFORM Event Display: Dermatology Outpt Proc Authored Date: [id number] DERMATOLOGY OUTPATIENT PROCEDURE NOTE Name: ELIDA GUARDADO Patient Number: [id number] : 1945 Date of Service: 10/23/2023 _ Electronic Signature on File Electronically Reviewed/Signed by: Marita Mason Author Signature Dt/Tm:10/23/2023 01:36 PM Electronically Reviewed/Signed by: Michelle Henson MD Cosigner Signature Dt/Tm: 10/23/2023 02:12 PM Department of Dermatology Patient Care team information Care Team Personnel Name: MD Dawson, Gino Ayers Position: Referring DIRECT Member Role: Primary Care Provider Address: [address] [place] [address] Care Team Related Persons Name: PARISA FRAGA Name: SILKE GUARDADO
--- OUTSIDE RECORDS SUMMARY | 2023-12-18 22:17 | External Medical Summary ---
Author Name Unknown Address Unknown Organization K01:LABORATORY [facility] - [address] [place] [address] Laboratory Report Ordering Provider Test Date Status WILLY SANCHEZ 10/26/2023 10:04:00 Final Observation Date Value Abnormality Reference (Units ) Status REFERENCE LAB SCANNED REPORT 10/26/2023 10:04:00 See Scanned Report Final Performing Location LABORATORY C - [address] [place] [address]
--- OUTSIDE RECORDS SUMMARY | 2023-12-18 22:17 | External Medical Summary ---
Author Name Unknown Address Unknown Organization K09:[facility]ORY [facility] [place] [address] Laboratory Report Ordering Provider Test Date Status ROBERT VANCE 10/31/2023 10:39:00 Final Observation Date Value Abnormality Reference (Units ) Status WBC, Total 10/31/2023 10:39:00 5.91 4.00-10.8 0 (K/uL) Final RBC 10/31/2023 10:39:00 2.38 4.50-5.25 (M/uL) Final Hemoglobin 10/31/2023 10:39:00 7.7 Below low normal 14 .0-16.8 (g/dL) Final HCT 10/31/2023 10:39:00 26.0 Below low normal 40. 0-48.4 (%) Final MCV 10/31/2023 10:39:00 109.2 82.0-99.5 (fL) Final MCH 10/31/2023 10:39:00 32.4 27.0-34.0 (pg) Final MCHC 10/31/2023 10:39:00 29.6 32.0-36.0 (g/dL) Final RDW 10/31/2023 10:39:00 15.0 11.5-15.5 (%) Final Platelets 10/31/2023 10:39:00 105 Below low normal 140 -400 (K/uL) Final MPV 10/31/2023 10:39:00 10.8 6.6-11.1 ( fL) Final Performing Location [facility] [place] [address]
--- OUTSIDE RECORDS SUMMARY | 2023-12-18 22:17 | External Medical Summary | Summary of Care ---
Author Name Unknown Organization [facility] Address [address] [facility] [place] [address] Phone [phone] Care Team Providers Care Stack Supervisor Name Role Phone Gino Osman MD Primary Care Provider [phone] Reason for Visit * Reason Comments Outpatient Testing Encounter Details Date Type Department Care Team (Latest Contact Info) Description 10/25/2023 8:10 AM EDT Laboratory Laboratory [facility] [address] [place] [address] [facility] [address] [facility] [place] [address] Encounter for long-term (current) use of other [...] 30 Cap 12/16/2020 Active Ergocalciferol 1.25 MG (91179 UT) Oral Capsule (Vitamin D2(Drisdol)) On Sunday bimonthly 12 Capsule 01/02/2023 Active Tamsulosin HCl 0.4 MG Oral Capsule (Flomax)Indications: BPH with obstruction/lower urinary tract symptoms TAKE ONE CAPSULE BY MOUTH IN THE MORNING 90 Capsule 3 04/01/2023 Active Fluticasone Propionate 50 MCG/ACT Nasal Suspension (Flonase) Administer 1 Lykens into nostril in the morning and 1 Lykens before bedtime. 05/01/2023 Active Saline Nasal Lykens 0.65 % Nasal Solution ([place]) Administer 1 Lykens into nostril. 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 [...] mRNA, LNP-s, No Pre serve, 2-Dose Series ([place]) 09/03/2021,11/04/2020,05/27/2020,04/19 COVID-19, MRNA-LNP, 23-24, P F, 30 MCG/0.3 mL, 12 YRS AND ABOVE, IM [facility] 02/22/2023 Covid-19, Mrna, Lnp-s, Pf, B [...] 10/26/2023 8:45 AM EDT Office Visit Hematology/Oncology [facility] [place] [address] [facility] [place] [id number] Cleve Bruce MD [address] [place] [address] 10/26/2023 11:00 AM EDT Nurse Only Nephrology, [facility] [address] [facility] [place] [address] Sp, Nurse Nephrology [address] [place] [address] 01/21/2024 10:00 AM EST Office Visit Nephrology, [facility] [address] [facility] [place] [address] Laurita Washington [facility]C [address] [facility] [address] 04/01/2024 1:00 PM EST Nurse Only Ancillary Department, [place] [address] [facility] [place] [phone] [place], Nurse Annual Wellness [address] [facility] [place] [phone] 04/01/2024 2:20 PM EST Office Visit Family Practice, [place] [address] [place] [facility] [place] [phone] Gino Osman MD [address] [facility] [place] [phone] Pending Results Name Type Priority Associated Diagnoses Date /Time BASIC METABOLIC PANEL Lab Routine 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) 10/25/2023 8:16 AM EDT MAGNESIUM Lab Routine Encounter for long-term (current) use 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[facility]) 10/25/2023 8:16 AM EDT TACROLIMUS LEVEL Lab Routine 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) 10/25/2023 8:16 AM EDT CYTOMEGALOVIRUS DNA, QUALITATIVE REAL-TIME PCR Lab Routine Encounter for long-term (current) use 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[facility]) 10/25/2023 8:16 AM EDT EVEROLIMUS, LC/MS/MS, BLOOD Lab Routine Encounter for long-term (current) use 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[facility]) 10/25/2023 8:16 AM EDT Health Maintenance [...] this encounter Medical Devices Implanted Type Area Welder/Installer Device Identifier Shelf Expiration Date Model / Serial / Lot Lens Intraoc 18.0 - [id number] - [id number] Implanted:Qty: 1 on 11/20/2019 by Sonu Valladares MD at [facility] Left: Eye [employer] LOMB 02/16/2024 [id number] / [id number] / [id number] Sofport Implanted:Qty: 1 on 12/02/2019 by Sonu Valladares MD at OR [facility] Right: Eye 11/17/2023 [id number] / / [id number] documented as of this encounter Procedures Procedure Name Priority Date/Time Associated Diagnosis Comments CBC Routine 10/25/2023 8:16 AM EDT 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) documented in this encounter Results * (ABNORMAL) CBC (10/25/2023 8:16 AM EDT) WBC 4.18 4.00 - 10.80 K/uL 10/25/2023 8:25 AM EDT [facility] 56-02 RBC 2.47 4.50 - 5.25 M/uL 10/25/2023 8:25 AM EDT [facility] 56 HGB 8.0(L) 14.0 - 16.8 g/dL 10/25/2023 8:25 AM EDT [facility] 56 HCT 26.7(L) 40.0 - 48.4 % 10/25/2023 8:25 AM EDT [address] MCV 108.1 82.0 - 99.5 fL 10/25/2023 8:25 AM EDT [address] MCH 32.4 27.0 - 34.0 pg 10/25/2023 8:25 AM EDT [address] MCHC 30.0 32.0 - 36.0 g/dL 10/25/2023 8:25 AM EDT [address] RDW 15.0 11.5 - 15.5 % 10/25/2023 8:25 AM EDT [address] PLT 100(L) 140 - 400 K/uL 10/25/2023 8:25 AM EDT [address] MPV 11.2 6.6 - 11.1 fL 10/25/2023 8:25 AM EDT [facility] 56 Blood Venous blood specimen / Unknown Venipuncture / Unknown 10/25/2023 8:16 AM EDT 10/25/2023 8:16 AM EDT Andrew Gibbs MD LAB BLOOD ORDERAB LES [facility] [address] [place] [address] documented in this encounter Visit Diagnoses Diagnosis Encounter for long-term (current) use 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
--- OUTSIDE RECORDS SUMMARY | 2023-12-18 22:17 | External Medical Summary ---
Author Name Unknown Address Unknown Organization [id number]:LABORATORY [facility] [place] - [address] [place] [address] Laboratory Report Ordering Provider Test Date Status WILLY SANCHEZ 10/26/2023 10:04:00 Final Observation Date Value Abnormality Reference (Units ) Status REFERENCE LAB SCANNED REPORT 10/26/2023 10:04:00 See Scanned Report Final Performing Location [facility]ORY [facility] - [address] [place] [address]
--- OUTSIDE RECORDS SUMMARY | 2023-12-18 22:17 | External Medical Summary ---
Author Name Unknown Address Unknown Organization [id number]:[place] [facility] [place] [address] [facility] [address] Laboratory Report Ordering Provider Test Date Status WILLY SANCHEZ 10/26/2023 10:06:04 Final Observation Date Value Abnormality Reference (Units ) Status WBC, Total 10/26/2023 10:06:04 7.29 4.00-10.80 (K/uL) Final RBC 10/26/2023 10:06:04 2.50 4.50-5.25 (M/uL) Final Hemoglobin 10/26/2023 10:06:04 8.0 Below low normal 14.0-16.8 (g/dL) Final HCT 10/26/2023 10:06:04 28.3 Below low normal 40.0-48.4 (%) Final MCV 10/26/2023 10:06:04 113.2 82.0-99.5 (fL) Final MCH 10/26/2023 10:06:04 32.0 27.0-34.0 (pg) Final MCHC 10/26/2023 10:06:04 28.3 32.0-36.0 (g/dL) Final RDW 10/26/2023 10:06:04 14.9 11.5-15.5 (%) Final Platelets 10/26/2023 10:06:04 111 Below low normal 140-400 (K/uL) Final MPV 10/26/2023 10:06:04 12.0 6.6-11.1 (fL) Final Nucleated erythrocytes/100 leukocytes [Ratio] in Blood by Automated count 10/26/2023 10:06:04 0 <=0 (/100 WBCs) Final Performing Location LABORATORY C - [address] [place] [address]
--- OUTSIDE RECORDS SUMMARY | 2023-12-18 22:17 | External Medical Summary | Summary of Care ---
Author Name Unknown Organization [facility] Address [address] [facility] [place] [address] Phone [phone] Care Team Providers Care Senior Mobile Developer Name Role Phone Gino Osman MD Primary Care Provider [phone] Reason for Visit * Reason Comments Outpatient Testing Encounter Details Date Type Department Care Team (Late st Contact Info) Description 10/31/2023 11:20 AM EDT Laboratory Laboratory [facility] [address] [place] [address] [facility] Scenery [address] [facility] [place] [address] Anemia of chronic renal failure, stage 4 (severe) ([facility]) Allergies Active Allergy Reactions Criticality Noted Date Comments Adhesive Tape Itching High 11/21/2022 documented as of this encounter (statuses as of 10/31/2023) Medications Medication Sig Dispensed Refills Start Date [...] 30 Cap 12/16/2020 Active Ergocalciferol 1.25 MG (23064 UT) Oral Capsule (Vitamin D2(Drisdol)) On Sunday bimonthly 12 Capsule 01/02/2023 Active Tamsulosin HCl 0.4 MG Oral Capsule (Flomax)Indications: BPH with obstruction/lower urinary tract symptoms TAKE ONE CAPSULE BY MOUTH IN THE MORNING 90 Capsule 3 04/01/2023 Active Fluticasone Propionate 50 MCG/ACT Nasal Suspension (Flonase) Administer 1 [place] into nostril in the morning and 1 [place] before bedtime. 05/01/2023 Active Saline Nasal [place] 0.65 % Nasal Solution ([place]) Administer 1 [place] into nostril. 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 History of pulmonary fibrosis 11/27/2018 Pulmonary embolus, left 06/13/2018 Acute deep vein thrombosis (DVT) of right lower extremity 06/13/2018 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 shear operator 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 019 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 Overview: left [facility] 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 Interstitial lung disease 03/19/2015 Chronic rhinitis 03/30/2014 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 Restrictive lung disease documented as of this encounter (statuses as of 10/31/2023) Resolved Problems Problem Noted Date Diagnosed Date [...] as of this encounter (statuses as of 10/31/2023) Immunizations Name Administration Dates Next Due COVID-19 mRNA, LNP-s, No Pre serve, 2-Dose Series ([place]) 09/03/2021,11/04/2020,05/27/2020,04/19 COVID-19, MRNA-LNP, 23-24, P F, 30 MCG/0.3 mL, 12 YRS AND ABOVE, IM ([facility]) 02/22/2023 Covid-19, Mrna, Lnp-s, Pf, B [...] 11/09/2023 10:15 AM EDT Office Visit Hematology/Oncology [facility] [address] [facility] [place] [phone] Cleve Bruce MD [address] [facility] [place] [address] 01/21/2024 10:00 AM EST Office Visit Nephrology, [facility] [address] [facility] [place] [address] Laurita Washington PA-C [address] [place] [address] 04/01/2024 1:00 PM EST Nurse Only Ancillary Department, [place] [address], [place] [phone] [place], Nurse Annual Wellness [facility] [place] [address] 04/01/2024 2:20 PM EST Office Visit Family Practice, [place] [address] [place] [phone] Gino Osman MD [address], [place] [phone] Pending Results Name Type Priority Associated Diagnoses Date /Time RETICULOCYTE PANEL Lab Routine Anemia of chronic renal failure, stage 4 (severe) (HCC) 10/31/2023 10:42 AM EDT Health Maintenance Due Date Last [...] 06/20/2021, Additional history exists Hgb 10/30/2024 10/31/2023, 080 11/2023, 10/25/2023, Additional history exists DTaP,Tdap,and Td Vaccines (3 - Td or Tdap) 06/23/2032 06/23/2022, 10/02/2011 Hepatitis B Vaccine Completed 01/03/2017, 08/03/2016, 07/05/2016 Pneumococcal Vaccine: 65+ Years Completed 05/23/2018, 04/01/2015, 05/14/2012 Zoster Vaccines Completed 05/27/2018, 0 06/2017, 08/15/2012 HPV (Gardasil) Vaccine Aged Out No lo nger eligible based on patient's age to complete this topic MENINGOCOCCAL (MENACTRA/MENVEO) Aged Out No longer eligible based on patient's age to complete this topic documented as of this encounter Medical Devices Implanted Type Area Billet Assembler Device Identifier Shelf Expiration Date Model / Serial / Lot Lens Intraoc 18.0 - [id number] - [id number] Implanted:Qty: 1 on 11/20/2019 by Sonu Valladares MD at OR [facility] Left: Eye BAUSCH & LOMB 02/16/2024 [id number] / [id number] / [id number] Sofport Implanted:Qty: 1 on 12/02/2019 by Sonu Valladares MD at OR [facility] Right: Eye 11/17/2023 [id number] / / [id number] documented as of this encounter Procedures Procedure Name Priority Date/Time Associated Diagnosis Comments CBC Routine 10/31/2023 10:39 AM EDT Anemia of chronic renal failure, stage 4 (severe) (HCC) documented in this encounter Results * (ABNORMAL) CBC (10/31/2023 10:39 AM EDT) WBC 5.91 4.00 - 10.80 K/uL 10/31/2023 10:58 AM EDT LABORATORY [address] RBC 2.38 4.50 - 5.25 M/uL 10/31/2023 10:58 AM EDT [facility] 56 HGB 7.7(L) 14.0 - 16.8 g/dL 10/31/2023 10:58 AM EDT [facility] 56 HCT 26.0(L) 40.0 - 48.4 % 10/31/2023 10:58 AM EDT [facility] 56 MCV 109.2 82.0 - 99.5 fL 10/31/2023 10:58 AM EDT [facility] 56 MCH 32.4 27.0 - 34.0 pg 10/31/2023 10:58 AM EDT LABORATORY [place] 56 MCHC 29.6 32.0 - 36.0 g/dL 10/31/2023 10:58 AM EDT [facility] 56- RDW 15.0 11.5 - 15.5 % 10/31/2023 10:58 AM EDT [facility] 56 PLT 105(L) 140 - 400 K/uL 10/31/2023 10:58 AM EDT [facility] 56 MPV 10.8 6.6 - 11.1 fL 10/31/2023 10:58 AM EDT [facility] 56-02 Blood Venous blood specimen / Unknown 10/31/2023 10:39 AM EDT 10/31/2023 10:42 AM EDT Feroz Lugo [facility] LAB BLOOD OR DERABLES [facility] [address] [place] [address] documented in this encounter Visit Diagnoses Diagnosis Anemia of chronic renal failure, stage 4 (severe) (HCC) documented in this encounter Care Teams Senior Mobile Developer Relationship Specialty Start Date End Date Gino Osman MD [address], [place] [phone] PCP - General Family Medicine 05/06/18 documented as of this encounter
--- OUTSIDE RECORDS SUMMARY | 2023-12-18 22:17 | External Medical Summary | Summary of Care ---
Author Name Unknown Organization [facility] Address [address] [facility] [place] [address] Phone [phone] Care Team Providers Care Boxing Machine Operator Name Role Phone Gino Osman MD Primary Care Provider [phone] Reason for Visit * Reason Comments Medication Administration * Precert (Within 30 days (routine)) - Authorized Specialty Diagnoses / Procedures Referred By Contac t Referred To Contact Diagnoses Anemia in chronic kidney disease Procedures OH INJ RETACRIT NON-ESRD USE Ashely Chapa MD [address] [facility] [place] [address] Ashely Chapa MD [address] [facility] [place] [address] Referral ID Status Reason Start Date Expiration Date V isits Requested Visits Authorized [id number] Authorized Precert 02/07/2023 03/18/2099 [id number] Encounter Details Date Type Department Care Team (Late st Contact Info) Description 10/31/2023 11:00 AM EDT Nurse Only [facility] [address] [place] [address] [place], Nurse Nephrology [address] [facility] [place] [address] Medication Administration Allergies Active Allergy Reactions Criticality [...] 30 Cap 12/16/2020 Active Ergocalciferol 1.25 MG (81137 UT) Oral Capsule (Vitamin D2(Drisdol)) On Sunday bimonthly 12 Capsule 01/02/2023 Active Tamsulosin HCl 0.4 MG Oral Capsule (Flomax)Indications: BPH with obstruction/lower urinary tract symptoms TAKE ONE CAPSULE BY MOUTH IN THE MORNING 90 Capsule 3 04/01/2023 Active Fluticasone Propionate 50 MCG/ACT Nasal Suspension (Flonase) Administer 1 [place] into nostril in the morning and 1 Nixon before bedtime. 05/01/2023 Active Saline Nasal Nixon 0.65 % Nasal Solution ([place]) Administer 1 [place] into nostril. 05/01/2023 Active Pantoprazole Sodium 40 [...] Start Date End Date Status Epoetin Rogelio 51120 UNIT/ML inj 40,000 UnitsIndications:Anemia of chronic renal failure, stage 3b (HCC) 85637 Units SC QWEEK 08/21/2023 Active documented as [...] right lower extremity 06/13/2018 Current use of keno terminal operator 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 019 History of lung [...] mRNA, LNP-s, No Pre serve, 2-Dose Series ([employer]) 09/03/2021,11/04/2020,05/27/2020,04/19 COVID-19, MRNA-LNP, 23-24, P F, 30 MCG/0.3 mL, 12 YRS AND ABOVE, IM ([facility]) 02/22/2023 Covid-19, Mrna, Lnp-s, Pf, B [...] Sign Reading Time Taken Comments Blood Pressure 121/62 10/31/2023 11:14 AM EDT Pulse 71 10/31/2023 11:14 AM EDT Temperature - - Respiratory Rate - - Oxygen Saturation - - Inhaled Oxygen Concentration - - Weight - - Height - - Body Mass Index - - documented in this encounter Nursing Notes * Candy Ewing RN - 10/31/2023 11:21 AM EDT Pt here accompanied by his for weekly Procrit injection/ Hgb 7.7 today. Pt was seen by Dr Shemar El yesterday. He is recommending he start Lokelma for hyperkalemia and Remeron for appetite stimulant due to drastic weight loss. They are in the process of obtaining these medications butwaiting on cost of copays. documented in this encounter Plan of Treatment Upcoming Encounters Date Type Department Care Team (Late st Contact Info) Description 11/09/2023 10:15 AM EDT Office Visit Hematology/Oncology [facility] [place] [address] [place], [place] [address] Cleve Bruce MD [address] [facility] [place] [address] 01/21/2024 10:00 AM EST Office Visit Nephrology, [facility] [address] [facility] [place] [address] Laurita Washington PA-C [address] [facility] [place] [address] 04/01/2024 1:00 PM EST Nurse Only Ancillary Department, [place] [address] [place] [address] [place], Nurse Annual Wellness [facility] [place] [address] 04/01/2024 2:20 PM EST Office Visit Family Practice, [place] [address] [place] [address] Gino Osman MD [address] [place], [place] [phone] Health Maintenance Due Date Last Done Comments [...] this encounter Medical Devices Implanted Type Area Service Delivery Supervisor Device Identifier Shelf Expiration Date Model / Serial / Lot Lens Intraoc 18.0 - [id number] - [id number] Implanted:Qty: 1 on 11/20/2019 by Sonu Valladares MD at OR [facility] Left: Eye BAUSCH & LOMB 02/16/2024 [id number] / [id number] / [id number] Sofport Implanted:Qty: 1 on 12/02/2019 by Sonu Valladares MD at OR [facility] Right: Eye 11/17/2023 [id number] / / [id number] documented as of this encounter Administered Medications Active Administered Medications - up to 3 most recent administrations Medication Order MAR Action Action Date Dose Rate Site Epoetin Rogelio 58152 UNIT/ML inj 40,000 Units 40,000 Units, Subcutaneous, QWEEK, First dose on Sun08/21/23 at 1300, Until Discontinued, Hold if Hgb > 11g/dL Given 10/31/2023 11:15 AM EDT 40,000 Units Arm Left Upper Given 10/26/2023 10:31 AM EDT 40,000 Units Arm Left Upper Given 10/16/2023 11:50 AM EDT 40,000 Units Arm Right Upper documented in this encounter Care Teams Boxing Machine Operator Relationship Specialty Start Date End Date Gino Osman MD [address] [place] [facility] [place] [address] PCP - General Family Medicine 05/06/18 documented as of this encounter
--- OUTSIDE RECORDS SUMMARY | 2023-12-18 22:17 | External Medical Summary | Summary of Care ---
Author Name Unknown Organization [facility] Address [address] [facility] [place] [address] Phone [phone] Care Team Providers Care Police Justice Name Role Phone Gino Osman MD Primary Care Provider [phone] Reason for Visit * Reason Onset Date Comments Medication Question 10/31/2023 Encounter Details Date Type Department Care Team (Late st Contact Info) Description 10/31/2023 Telephone NephrologyGabrielle 200 [facility] [place] [id number] ChapaAshely cardona MD [address] [place] [address] Medication Question Allergies Active Allergy Reactions Criticality [...] 30 Cap 12/16/2020 Active Ergocalciferol 1.25 MG (60777 UT) Oral Capsule (Vitamin D2(Drisdol)) On Sunday bimonthly 12 Capsule 01/02/2023 Active Tamsulosin HCl 0.4 MG Oral Capsule (Flomax)Indications: BPH with obstruction/lower urinary tract symptoms TAKE ONE CAPSULE BY MOUTH IN THE MORNING 90 Capsule 3 04/01/2023 Active Fluticasone Propionate 50 MCG/ACT Nasal Suspension (Flonase) Administer 1 [place] into nostril in the morning and 1 [place] before bedtime. 05/01/2023 Active Saline Nasal [place] 0.65 % Nasal Solution ([place]) Administer 1 [place] into nostril. 05/01/2023 Active Pantoprazole Sodium 40 [...] Start Date End Date Status Epoetin Rogelio 31940 UNIT/ML inj 40,000 UnitsIndications:Anemia of chronic renal failure, stage 3b (HCC) 68812 Units SC QWEEK 08/21/2023 Active documented as [...] mRNA, LNP-s, No Pre serve, 2-Dose Series ([employer]) 09/03/2021,11/04/2020,05/27/2020,04/19 COVID-19, MRNA-LNP, 23-24, P F, 30 [...] weekly Procrit injection. He reports that [place] [employer] is recommending Lokelma and Remeron but wanted to make sure you were aware. He is being given Remeron due to weight loss. documented in this encounter Plan of Treatment Upcoming Encounters Date Type Department Care Team (Late st Contact Info) Description 11/09/2023 10:15 AM EDT Office Visit Hematology/Oncology [facility] [place] [address] [facility] [place] [phone] Cleve Bruce MD [address] [facility] [place] [address] 01/21/2024 10:00 AM EST Office Visit Nephrology, [facility] [address] [facility] [place] [address] Laurita Washington PA-C [address] [facility] [place] [address] 04/01/2024 1:00 PM EST Nurse Only Ancillary Department, [place] [address] [facility] [place] [id number] [place], Nurse Annual Wellness [address] [facility] [place] [id number] 04/01/2024 2:20 PM EST Office Visit Family Practice, [place] [address] [facility] [phone] Gino Osman MD [address] [place] [address] Health Maintenance Due Date Last Done Comments [...] this encounter Medical Devices Implanted Type Area Grinder Set Up Operator Universal Device Identifier Shelf Expiration Date Model / Serial / Lot Lens Intraoc 18.0 - [id number] - [id number] Implanted:Qty: 1 on 11/20/2019 by Sonu Valladares MD at OR [facility] Left: Eye BAUSCH & LOMB 02/16/2024 [id number] / [id number] / [id number] Sofport Implanted:Qty: 1 on 12/02/2019 by Sonu [place]dares MD at OR [facility] Right: Eye 11/17/2023 [id number] / / [id number] documented as of this encounter Care Teams Police Justice Relationship Specialty Start Date End Date Gino Osman MD [address] [place] [address] PCP - General Family Medicine 05/06/18 documented as of this encounter
--- OUTSIDE RECORDS SUMMARY | 2023-12-18 22:17 | External Medical Summary ---
Author Name Unknown Address Unknown Organization K09:LABORATORY [facility] [place] [address] Laboratory Report Ordering Provider Test Date Status PAVEL ANNE 10/25/2023 08:16:51 Final Observation Date Value Abnormality Reference (Units ) Status BUN 10/25/2023 08:16:51 49 Above high normal 6-20 (mg/dL) Final Creatinine 10/25/2023 08:16:51 2.4 Above high normal 0.6-1.2 (mg/dL) Final Glomerular filtration rate/1.73 sq M.predicted [Volume Rate/Area] in Serum, Plasma or Blood by Creatinine-based formula (CKD-EPI) 10/25/2023 08:16:51 27 Below low normal >=60 (mL/min) Final eGFR is calculated based on the CKD-EPI 2020 equation. Sodium 10/25/2023 08:16:51 134 Below low normal 135 -146 (mmol/L) Final Potassium 10/25/2023 08:16:51 5.5 Above high normal 3. 5-5.1 (mmol/L) Final Cl 10/25/2023 08:16:51 102 98-107 (mm ol/L) Final CO2 10/25/2023 08:16:51 17 Below low normal 22- 32 (mmol/L) Final Anion gap 10/25/2023 08:16:51 15 7-15 (mmol /L) Final Glucose 10/25/2023 08:16:51 90 70-120 (mg /dL) Final Calcium 10/25/2023 08:16:51 8.7 8.4-10.2 ( mg/dL) Final Performing Location [facility] [place] [address]
--- OUTSIDE RECORDS SUMMARY | 2023-12-18 22:17 | External Medical Summary ---
Author Name Unknown Address Unknown Organization K01:LABORATORY [facility] [place] [address] [place] [address] Laboratory Report Ordering Provider Test Date Status WILLY SANCHEZ 10/26/2023 10:04:12 Final Observation Date Value Abnormality Reference (Units ) Status BONE MARROW FOR FLOW CYTOMETRY 10/26/2023 10:04:12 Yes Final Performing Location [facility] - [address] [place] [address]
--- OUTSIDE RECORDS SUMMARY | 2023-12-18 22:17 | External Medical Summary | Summary of Care ---
Author Name Unknown Organization [facility] Address [address] [facility] [place] [address] Phone [phone] Care Team Providers Care Multiple Drill Operator Name Role Phone Gino Osman MD Primary Care Provider [phone] Reason for Visit * Reason Comments Medication Administration * Precert (Within 30 days (routine)) - Authorized Specialty Diagnoses / Procedures Referred By Contac t Referred To Contact Diagnoses Anemia in chronic kidney disease Procedures DE INJ RETACRIT NON-ESRD USE Ashely Chapa MD [address] [place] [address] Ashely Chapa MD [address] [place] [address] Referral ID Status Reason Start Date Expiration Date V isits Requested Visits Authorized [id number] Authorized Precert 02/07/2023 03/18/2099 [id number] Encounter Details Date Type Department Care Team (Late st Contact Info) Description 10/26/2023 11:00 AM EDT Nurse Only Nephrology[place]ri[place] [address] [place] [address] [place], Nurse Nephrology [address] [facility] [place] [address] Medication Administration Allergies Active Allergy Reactions Criticality Noted Date Comments Adhesive Tape Itching High 11/21/2022 documented as of this encounter (statuses as of 10/26/2023) Medications Medication Sig Dispensed Refills Start Date [...] 30 Cap 12/16/2020 Active Ergocalciferol 1.25 MG (60508 UT) Oral Capsule (Vitamin D2(Drisdol)) On Sunday bimonthly 12 Capsule 01/02/2023 Active Tamsulosin HCl 0.4 MG Oral Capsule (Flomax)Indications: BPH with obstruction/lower urinary tract symptoms TAKE ONE CAPSULE BY MOUTH IN THE MORNING 90 Capsule 3 04/01/2023 Active Fluticasone Propionate 50 MCG/ACT Nasal Suspension (Flonase) Administer 1 [place] into nostril in the morning and 1 [place] before bedtime. 05/01/2023 Active Saline Nasal [place] 0.65 % Nasal Solution ([place]) Administer 1 [place] into nostril. 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 History of pulmonary fibrosis 11/27/2018 Pulmonary embolus, left 06/13/2018 Acute deep vein thrombosis (DVT) of right lower extremity 06/13/2018 Current use of detention 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 019 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 Overview: left [facility] 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 Interstitial lung disease 03/19/2015 Chronic rhinitis 03/30/2014 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 Restrictive lung disease documented as of this encounter (statuses as of 10/26/2023) Resolved Problems Problem Noted Date Diagnosed Date [...] as of this encounter (statuses as of 10/26/2023) Immunizations Name Administration Dates Next Due COVID-19 mRNA, LNP-s, No Pre serve, 2-Dose Series ([employer]) 09/03/2021,11/04/2020,05/27/2020,04/19 COVID-19, MRNA-LNP, 23-24, P F, 30 MCG/0.3 mL, 12 YRS AND ABOVE, IM ([facility]) 02/22/2023 Covid-19, Mrna, Lnp-s, Pf, B [...] Sign Reading Time Taken Comments Blood Pressure 114/66 10/26/2023 10:42 AM EDT Pulse - - Temperature - - Respiratory Rate - - Oxygen Saturation - - Inhaled Oxygen Concentration - - Weight - - Height - - Body Mass Index - - documented in this encounter Progress Notes * Candy Ewing RN - 10/26/2023 10:43 AM EDT Procrit administered in left upper arm as ordered. States he had a bone marrow biopsy this morning but was ok to proceed with injection. documented in this encounter Plan of Treatment Upcoming Encounters Date Type Department Care Team (Late st Contact Info) Description 10/31/2023 11:00 AM EDT Nurse Only Nephrology, Gabrielle Silva [address] [place] [address] Sp, Nurse Nephrology [address] [place] [address] [id number] 11/09/2023 10:15 AM EDT Office Visit Hematology/Oncology [facility] [place] [address] [place] [phone] Cleve Bruce MD [address] [place] [address] 01/21/2024 10:00 AM EST Office Visit Nephrology, [facility] [address] [place] [address] Laurita Washington PA-C [address] [place] [address] 04/01/2024 1:00 PM EST Nurse Only Ancillary Department, [place] [address], [place] [id number] [place], Nurse Annual Wellness [address] [place] [address] 04/01/2024 2:20 PM EST Office Visit Family Practice, [place] [address] [place] [id number] Gino Osman MD [address] [place] [address] Health Maintenance Due Date Last Done [...] this encounter Medical Devices Implanted Type Area Industrial Coffee Grinder Device Identifier Shelf Expiration Date Model / Serial / Lot Lens Intraoc 18.0 - [id number] - [id number] Implanted:Qty: 1 on 11/20/2019 by Sonu Valladares MD at OR [facility] Left: Eye [employer] 02/16/2024 [id number] / [id number] / [id number] [place] Implanted:Qty: 1 on 12/02/2019 by Sonu Valladares MD at OR [facility] Right: Eye 11/17/2023 [id number] / / [id number] documented as of this encounter Administered Medications Active Administered Medications - up to 3 most recent administrations Medication Order MAR Action Action Date Dose Rate Site Epoetin Rogelio 99246 UNIT/ML inj 40,000 Units 40,000 Units, Subcutaneous, QWEEK, First dose on Sun08/21/23 at 1300, Until Discontinued, Hold if Hgb > 11g/dL Given 10/26/2023 10:31 AM EDT 40,000 Units Arm Left Upper Given 10/16/2023 11:50 AM EDT 40,000 Units Arm Right Upper Given 10/09/2023 11:20 AM EDT 40,000 Units Arm Left Upper documented in this encounter Care Teams Multiple Drill Operator Relationship Specialty Start Date End Date Gino Osman MD [address] [place] [address] PCP - General Family Medicine 05/06/18 documented as of this encounter
--- OUTSIDE RECORDS SUMMARY | 2023-12-18 22:17 | External Medical Summary | Summary of Care ---
Author Name Unknown Organization [facility] Address [address] [facility] [address] Phone [phone] Care Team Providers Care Tugboat Pilot Name Role Phone Gino Osman MD Primary Care Provider [phone] Reason for Visit * Reason Comments Follow Up * Evaluate & Treat - Unlimited Visits (Within 10 days (routine)) - Authorized Specialty Diagnoses / Procedures Referred By Contac t Referred To Contact Hematology/Oncology / Hematology Oncology Diagnoses Anemia, unspecified type Ashely Chapa MD [address] [facility] [place] [address] Referral ID Status Reason Start Date Expiration Date Visits Requested Visits Authorized [id number] Authorized Specialty Services Required 10/10/[phone] Encounter Details Date Type Department Care Team (Late st Contact Info) Description 10/26/2023 8:45 AM EDT Office Visit Hematology/Oncology [facility] [address] [place] [phone] Cleve Bruce MD [address] [facility] [place] [address] Anemia in stage 3b chronic kidney disease (HCC)*; Macrocytosis; Thrombocytopenia (HCC); MDS (myelodysplastic syndrome), low grade (HCC); Anemia, unspecified type [D64.9] Allergies Active Allergy Reactions Criticality Noted Date [...] 30 Cap 12/16/2020 Active Ergocalciferol 1.25 MG (05100 UT) Oral Capsule (Vitamin D2(Drisdol)) On Sunday bimonthly 12 Capsule 01/02/2023 Active Tamsulosin HCl 0.4 MG Oral Capsule (Flomax)Indications: BPH with obstruction/lower urinary tract symptoms TAKE ONE CAPSULE BY MOUTH IN THE MORNING 90 Capsule 3 04/01/2023 Active Fluticasone Propionate 50 MCG/ACT Nasal Suspension (Flonase) Administer 1 Thornwood into nostril in the morning and 1 Thornwood before bedtime. 05/01/2023 Active Saline Nasal Thornwood 0.65 % Nasal Solution (Lamoille) Administer 1 Thornwood into nostril. 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 [...] mRNA, LNP-s, No Pre serve, 2-Dose Series ([employer]) 09/03/2021,11/04/2020,05/27/2020,04/19 COVID-19, MRNA-LNP, 23-24, P F, 30 MCG/0.3 mL, 12 YRS AND ABOVE, IM ([employer] 02/22/2023 Covid-19, Mrna, Lnp-s, Pf, B [...] Time Taken Comments Blood Pressure 114/66 10/26/2023 8:39 AM EDT Pulse 87 10/26/2023 8:39 AM EDT Temperature 36.4 C (97.6 F) 10/26/2023 8:39 AM ED T Respiratory Rate - - Oxygen Saturation 95% 10/26/2023 8:39 AM EDT Inhaled Oxygen Concentration - - Weight 56.9 kg (125 lb 8 oz) 10/26/2023 8:39 AM EDT Height - - Body Mass Index 20.26 09/27/2023 10:57 AM EDT documented in this encounter Patient Instructions * Patient Instructions* Cleve Bruce MD - 10/26/2023 9:47 AM EDT Patient Instructions for Bone Marrow Aspiration/Biopsy A pressure dressing was applied to your bone marrow aspiration/biopsy site. This should be checked when you return home to look for any bleeding. If the dressing is wet with blood apply pressure to the site for ten minutes and then replace the dressing with a new bandage. If the bleeding doesn't stop, then call the doctor's office immediately or go to the local emergency room. If the dressing is dry when you check it, please remove the dressing prior to going to bed. You may want to cover the site with a bandaid for one or two days until the wound is healed. Should you notice any redness or warmth around the wound, please notify the doctor's office immediately. You may use Tylenol as directed on the bottle for any discomfort that occurs after you return home. Cleve Bruce MD documented in this encounter Progress Notes * Cleve Bruce MD - 10/26/2023 8:45 AM EDT ARTHUR RODAS MR # [id number] :1945 78-year-old male, Date of consultation:01/05/2023 DIAGNOSIS: [...] around 108 Thrombocytopenia. Platelet count around 100,000. CURRENT TREATMENT: Currently he is on erythropoietin 76970 units every weekly. DIAGNOSTIC WORKUP: History of interested lung disease, had single lung transplant ( left ) in 2018 at [facility]. He is on 4 different immunosuppressive [...] 120 1000 range. 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 Had received steroid shot x 1 INTERVAL HISTORY: He has come the clinic for the follow-up, accompanied by his in the office Overall he is feeling weak and tired, currently he is receiving adjuvant radiation treatment to theright ear. 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 Henson. 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 He is having radiation treatment at [facility]. He denies any bleeding from the sites, no nausea no vomiting, some mild leg edema, no fever, no infections. No recent hospitalization. 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 left [facility] Mixed dyslipidemia Restrictive lung disease Past Surgical History: Procedure Laterality Date COLONOSCOPY 08/08/2008 repeat in 10 years COLONOSCOPY, DIAGNOSTIC (RECTUM) N/A 12/07/2022 hemorrhoids/mulitple small and large mouthed diverticula, erosion on IC valve/biopsies show inflammation/COLONOSCOPY FLEXIBLE PROXIMAL DIAGNOSTIC performed by Bret Birch MD at [facility] DENTAL SURGERY PROCEDURE NEC as a teen wisdom teeth x 4 EGD, FLEXIBLE, DIAGNOSTIC 08/08/2008 EGD, FLEXIBLE, DIAGNOSTIC N/A 12/07/2022 hiatal hernia/biopsies normal/ESOPHAGOGASTRODUODENOSCOPY (EGD), FLEXIBLE, TRANSORAL, DIAGNOSTIC performed by Bret Birch MD at [facility] KNEE ARTHROSCOPY/MENISCECTOMY 03/19/2005 right knee- Knee Scope,Med/Lat Menisectomy LUMBAR / SACRAL EPIDURAL, SINGLE LEVEL 04/03/2022 INJECTION TRANSFORAMINAL EPIDURAL LUMBAR OR SACRAL performed by Torito Soto DO at OR [facility] REMOVAL OF TONSILS, UNDER AGE 11 as a child Tonsils Removal,<12 Y/O REMOVE CATARACT, INSERT LENS PROSTH Left 11/20/2019 LEFT EXTRACAPSULAR CATARACT REMOVAL WITH INTRAOCULAR LENS performed by Sonu Valladares MD at [facility] REMOVE CATARACT, INSERT LENS PROSTH Right 12/02/2019 RIGHT EXTRACAPSULAR CATARACT REMOVAL WITH INTRAOCULAR LENS performed by Sonu Valladares MD at [facility] SHOULDER ARTHROSCOPY/REMOVE OBJECT 03/19/2004 right-Shoulder Surgery, Arthroscopic [...] Tablet One tablet - 6 Tab 1 mycophenolate (CELLCEPT) 500 MG [...] PM. 30 Cap 0 Ergocalciferol 1.25 MG (82717 UT) Oral Capsule (Vitamin D2(Drisdol)) On Sunday bimonthly 12 Capsule 0 Tamsulosin HCl 0.4 MG Oral Capsule (Flomax) TAKE ONE CAPSULE BY MOUTH IN THE MORNING 90 Capsule 3 Fluticasone Propionate 50 MCG/ACT Nasal Suspension (Flonase) Administer 1 Thornwood into nostril in themorning and 1 Thornwood before bedtime. Saline Nasal Thornwood 0.65 % Nasal Solution (Lamoille) Administer 1 Thornwood into nostril. 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: no exercise: work diet: no scientology/spiritism: bonita marital status: 06/19/64 children: 2 gc: [...] Stability Do you currently live in a [place] or have no steady place to sleep [...] ages0-17 years): Not on file On Exam: There were no vitals taken for this visit.BP 114/66 (BP Site: Left Arm, BP Position: Sitting, BP Cuff Size: Regular) | Pulse 87 | Temp 36.4 C (97.6 F) (Tympanic) | Wt 56.9 kg (125 lb 8 oz) | HyF712% | BMI 20.26 kg/m | BSA 1.63 m Constitutional: Patient is alert, cooperative and [...] Hemoglobin and hematocrit -11/11, Platelet count of 047349 -MCV 108 -BUN/Creat: 49/2.4, Calcium 8.7. -Absolute reticulocyte count --> 32,300. -Ferritin level --> 264, Serum iron: 68, TIBC 220, iron saturation 31%. SPEP showed IgG lambda paraprotein (09/08/2023. -free kappa light chain 26.6, free lambda light chain 16.9 -LDH --> 203 which is slightly higher side (normally would be less than 171, 09/08/2023). -Vitamin B12-->384 (09/03/2023). IMAGIN-year-old male, Who is a lung transplant [...] 01/2023--> he is on erythropoietin therapy, initially 69662 units every weekly, chain 220 1000, [place] [address] [place] every weekly since July of 2023. Hemoglobin level has remained on the lower side around 8 g/dL. No new bleeding complications. Currently he is not on Eliquis. Has mild thrombocytopenia, macrocytosis and no improvement of the hemoglobin level with the erythropoietin in the MS CBCD raised possibility of underlying bone marrow disorder in the form of MDS. Discussed with them regarding role of bone marrow and he is in agreement for that. Bone marrow examination done today. Planning to see him in about [address] Cleve Bruce Hem/Onc (This note was completed using the dictation program Fluency Direct. As such, there may be misspellings word substitutions, or other variations that should not change the essence of the clinical content of this encounter note. If there is need for further clarification, please direct questions to the provider listed above.) PROCEDURE: Bone Marrow Biopsy and Aspiration INDICATION: Evaluation of persistent anemia, macrocytosis, thrombocytopenia. Renal insufficiency. Lung transplant recipient. On immunosuppressive medication. INFORMED CONSENT: Obtain and in chart. Risks, benefits, and complications discussed with patient prior to procedure. ANESTHESIA: 1% Lidocaine - Local SUMMARY OF PROCEDURE: Patient place in left lateral decubitus position and posterior superior iliacspine palpated and marked. Area clean and draped in the usual fashion using sterile technique with Betadine. The skin, superficial and deep tissues, and periosteum anesthetized with 1% lidocaine in the usual fashion. Small skin incision made and bone marrow needle placed through this opening. Bone marrow needle advanced into bone with minimal difficulty. Bone marrow aspirate obtained without difficulty. Bone marrow needle advanced further and biopsy taken in the usual fashion without difficulty. Lab assisted and spicules present with biopsy specimen. Direct pressure applied to incisional sitewith good hemostasis and a 4 x [address] as a pressure dressing. Patient tolerated the procedure well and will remain in the Heme/Onc Clinic for approx 30 minutes. SPECIMENS: Bone marrow aspiration and bone marrow biopsy sent to the laboratory. ESTIMATED BLOOD LOSS: Less than approx 2 milliliters. COMPLICATIONS: NONE DISPOSITION: As above, patient to remain in Heme/Onc Clinic for approx 30 minutes prior to going home. May remove pressure dressing tomorrow AM. Will see him in about [address] Cleve Bruce Hem/Onc documented in this encounter Nursing Notes * Kayce Woods, JEAN ASSIST - 10/26/2023 8:40 AM EDT Patient identifed by name and [...] it for you? ALREADY ACTIVE Filed Vitals: 10/26/23 0839 BP: 114/66 Pulse: 87 Temp: 36.4 C (97.6 F) TempSrc: Tympanic SpO2: 95% Weight: 56.9 kg (125 lb 8 oz) Patient was instructed to not get up [...] 10/31/2023 11:00 AM EDT Nurse Only Nephrology, [facility] [address] [facility] [place] [address] Sp, Nurse Nephrology [address] [facility] [place] [address] 11/09/2023 10:15 AM EDT Office Visit Hematology/Oncology [facility] [place] [address] [facility] [address] [place] [phone] Cleve Bruce MD [address] [facility] [place] [address] 01/21/2024 10:00 AM EST Office Visit Nephrology, [facility] [address] [facility] [place] [address] Laurita Washington PA-C [address] [facility] [place] [address] 04/01/2024 1:00 PM EST Nurse Only Ancillary Department, [place] [address], [place] [phone] [place], Nurse Annual Wellness [address] [place], [place] [phone] 04/01/2024 2:20 PM EST Office Visit Family [facility], [place] [address] [place] [phone] Gino Osman MD [address], [place] [phone] Pending Results Name Type Priority Associated Diagnoses Date /Time BONE MARROW PANEL Lab Routine Anemia in stage 3b chronic kidney disease (HCC) Macrocytosis Thrombocytopenia (HCC) MDS (myelodysplastic syndrome), low grade (HCC) 10/26/2023 10:04 AM EDT SURGICAL PATHOLOGY Pathology Routine Anemia in stage 3b chronic kidney disease (HCC) Macrocytosis Thrombocytopenia (HCC) MDS (myelodysplastic syndrome), low grade (HCC) 10/26/2023 10:04 AM EDT BONE MARROW ASPIRATE LAVENDER (MOLECULAR) - 2 TUB* Lab Routine Anemia in stage 3b chronic kidney disease (HCC) Macrocytosis Thrombocytopenia (HCC) MDS (myelodysplastic syndrome), low grade (HCC) 10/26/2023 10:04 AM EDT BONE MARROW ASPIRATE GREEN (FLOW) Lab Routine Anemia in stage 3b chronic kidney disease (HCC) Macrocytosis Thrombocytopenia (HCC) MDS (myelodysplastic syndrome), low grade (HCC) 10/26/2023 10:04 AM EDT BONE MARROW ASPIRATE GREEN (REFERRED) Lab Routine Anemia in stage 3b chronic kidney disease (HCC) Macrocytosis Thrombocytopenia (HCC) MDS (myelodysplastic syndrome), low grade (HCC) 10/26/2023 10:04 AM EDT BONE MARROW WITH REFLEX TESTING Pathology Routine Anemia in stage 3b chronic kidney disease (HCC) Macrocytosis Thrombocytopenia (HCC) MDS (myelodysplastic syndrome), low grade (HCC) 10/26/2023 10:04 AM EDT COMPREHENSIVE BONE MARROW CONSULTATION Pathology Routine Anemia in stage 3b chronic kidney disease (HCC) Macrocytosis Thrombocytopenia (HCC) MDS (myelodysplastic syndrome), low grade (HCC) 10/26/2023 10:04 AM EDT Scheduled Orders Name Type Priority Associated Diagnoses Orde r Schedule DIAGNOSTIC BONE MARROW; BIOPSY(IES) AND ASPIRATION(S) Procedures Routine Anemia in stage 3b chronic kidney disease (HCC) Macrocytosis Thrombocytopenia (HCC) MDS (myelodysplastic syndrome), low grade (HCC) Ordered: 10/26/2023 Health Maintenance Due Date Last Done Comments [...] 024, 12/01/2022, 06/20/2021, Additional history exists Hgb 10/25/2024 10/26/2023, 08/0 10/2023, 10/16/2023, Additional history exists DTaP,Tdap,and Td Vaccines (3 [...] this encounter Medical Devices Implanted Type Area Auto Suspension And Steering Mechanic Device Identifier Shelf Expiration Date Model / Serial / Lot Lens Intraoc 18.0 - [id number] - [id number] Implanted:Qty: 1 on 11/20/2019 by Sonu Valladares MD at OR [facility] Left: Eye [employer]OM[employer] 02/16/2024 [id number] / [id number] / [id number] Sofport Implanted:Qty: 1 on 12/02/2019 by Sonu Valladares MD at OR [facility] Right: Eye 11/17/2023 [id number] / / [id number] documented as of this encounter Procedures Procedure Name Priority Date/Time Associated Diagnosis Comments DIFFERENTIAL, AUTOMATED Routine 10/26/2023 10:06 AM EDT Anemia in stage 3b chronic kidney disease (HCC) Macrocytosis CBC Routine 10/26/2023 10:06 AM EDT Anemia in stage 3b chronic kidney disease (HCC) Macrocytosis CBC Routine 10/26/2023 10:06 AM EDT Anemia in stage 3b chronic kidney disease (HCC) Macrocytosis DIFFERENTIAL, TECHNOLOGIST REVIEW Routine 10/26/2023 10:06 AM EDT Anemia in stage 3b chronic kidney disease (HCC) Macrocytosis documented in this encounter Results * DIFFERENTIAL, TECHNOLOGIST REVIEW (10/26/2023 10:06 AM EDT) Blood Venous blood specimen / Unknown Venipuncture / Unknown 10/26/2023 10:06 AM EDT 10/26/2023 10:06 AM EDT Cleve Bruce MD LAB BLOOD ORDERABLES [facility] [address] [place] [address] * (ABNORMAL) DIFFERENTIAL, AUTOMATED (10/26/2023 10:06 AM EDT) WBC 7.29 4.00 - 10.80 K/uL 10/26/2023 3:17 PM EDT [facility] Neutrophils % 84.1(H) 40.0 - 75.0 % 10/26/2023 3:17 PM EDT [facility] Lymphocytes % 4.8(L) 18.0 - 42.0 % 10/26/2023 3:17 PM EDT [facility] Monocytes % 9.7 1.0 - 11.0 % 10/26/2023 3:17 PM EDT [facility] Eosinophils % 0.1 0.0 - 6.0 % 10/26/2023 3:17 PM EDT [facility] Basophils % 0.1 0.0 - 2.0 % 10/26/2023 3:17 PM EDT [facility] Immature Granulocytes % 1.2 0.0 - 2.0 % 10/26/2023 3:17 PM EDT [facility] Absolute Neutrophils 6.12 1.80 - 7.70 K/uL 10/26/2023 3:17 PM EDT [facility] Absolute Lymphocytes 0.35(L) 1.00 - 4.80 K/ul 10/26/2023 3:17 PM EDT [facility] Absolute Monocytes 0.71 0.00 - 1.10 K/uL 10/26/2023 3:17 PM EDT [facility] Absolute Eosinophils 0.01 0.00 - 0.70 K/uL 10/26/2023 3:17 PM EDT [facility] Absolute Basophils 0.01 0.00 - 0.20 K/uL 10/26/2023 3:17 PM EDT [facility] Absolute Immature Granulocytes 0.09 0.00 - 0.20 K/uL 10/26/2023 3:17 PM EDT [facility] Blood Venous blood specimen / Unknown Venipuncture / Unknown 10/26/2023 10:06 AM EDT 10/26/2023 10:06 AM EDT Cleve Bruce MD LAB BLOOD ORDERABLES Performing Organization Address City/State/[facility] Co de Phone Number [facility] [address] [place] [address] * (ABNORMAL) CBC (10/26/2023 10:06 AM EDT) [facility] WBC 7.29 4.00 - 10.80 K/uL 10/26/2023 2:39 PM EDT [facility] RBC 2.50 4.50 - 5.25 M/uL 10/26/2023 2:39 PM EDT [facility] HGB 8.0(L) 14.0 - 16.8 g/dL 10/26/2023 2:39 PM EDT [facility] HCT 28.3(L) 40.0 - 48.4 % 10/26/2023 2:39 PM EDT [facility] MCV 113.2 82.0 - 99.5 fL 10/26/2023 2:39 PM EDT [facility] MCH 32.0 27.0 - 34.0 pg 10/26/2023 2:39 PM EDT [facility] MCHC 28.3 32.0 - 36.0 g/dL 10/26/2023 2:39 PM EDT [facility] RDW 14.9 11.5 - 15.5 % 10/26/2023 2:39 PM EDT [facility] PLT 111(L) 140 - 400 K/uL 10/26/2023 2:39 PM EDT [facility] MPV 12.0 6.6 - 11.1 fL 10/26/2023 2:39 PM EDT [facility] nRBCs 0 <=0 /100 WBCs 10/26/2023 2:39 PM EDT [facility] Blood Venous blood specimen / Unknown Venipuncture / Unknown 10/26/2023 10:06 AM EDT 10/26/2023 10:06 AM EDT Cleve Bruce MD LAB BLOOD ORDERABLES [facility] [place] [address] [place] [address] documented in this encounter Visit Diagnoses Diagnosis Anemia, unspecified type [D64.9] Macrocytosis Other specified diseases of blood and blood-forming organs Thrombocytopenia (HCC) Thrombocytopenia, unspecified MDS (myelodysplastic syndrome), low grade (HCC) Low grade myelodysplastic syndrome lesions documented in this encounter Care Teams Tugboat Pilot Relationship Specialty Start Date End Date Gino Osman MD [address] [place] [address] PCP - General Family Medicine 05/06/18 documented as of this encounter"
--- OUTSIDE RECORDS SUMMARY | 2023-12-18 22:17 | External Medical Summary ---
Author Name Unknown Address Unknown Organization : Laboratory Report Ordering Provider Test Date Status WILLY SANCHEZ 10/26/2023 10:04:12 Final Observation Date Value Abnormality Reference (Units) Status BONE MARROW COLLECTION 10/26/2023 10:04:12 Sent to [facility] Final Performing Location
--- OUTSIDE RECORDS SUMMARY | 2023-12-18 22:17 | External Medical Summary ---
Author Name Unknown Address Unknown Organization : Laboratory Report Ordering Provider Test Date Status PAVEL ANNE 10/25/2023 08:16:51 Final Observation Date Value Abnormality Reference (Units ) Status Source 10/25/2023 08:16:51 Whole Blood Final Cytomegalovirus DNA [Presence] in Specimen by KARRIE with probe detection 10/25/2023 08:16:51 NOT DETECTED Final Reference range: Not Detecte d
This test was developed and its analytical performance
characteristics have been determined by [employer]
[place], [place]. It has
not been cleared or approved by the U.S. Food and Drug
Administration. This assay has been validated pursuant
to the CLIA regulations and is used for clinical
purposes.

Test Performed at:
[facility]
[address] [place] [address]
Piero Hardwick M.D., Ph.D.,Director of Laboratories Performing Location
--- OUTSIDE RECORDS SUMMARY | 2023-12-18 22:17 | External Medical Summary ---
Author Name Unknown Address Unknown Organization [id number]:[facility] [address] Laboratory Report Ordering Provider Test Date Status PAVEL ANNE 10/25/2023 08:16:51 Final Observation Date Value Abnormality Reference (Units ) Status Magnesium 10/25/2023 08:16:51 2.0 1.5-2.6 (m g/dL) Final Performing Location [facility] [place] [address]
--- OUTSIDE RECORDS SUMMARY | 2023-12-18 22:17 | External Medical Summary ---
Author Name Unknown Address Unknown Organization K09:[facility] [place] [address] Laboratory Report Ordering Provider Test Date Status PAVEL ANNE 10/25/2023 08:16:51 Final Observation Date Value Abnormality Reference (Units ) Status WBC, Total 10/25/2023 08:16:51 4.18 4.00-10.8 0 (K/uL) Final RBC 10/25/2023 08:16:51 2.47 4.50-5.25 (M/uL) Final Hemoglobin 10/25/2023 08:16:51 8.0 Below low normal 14 .0-16.8 (g/dL) Final HCT 10/25/2023 08:16:51 26.7 Below low normal 40. 0-48.4 (%) Final MCV 10/25/2023 08:16:51 108.1 82.0-99.5 (fL) Final MCH 10/25/2023 08:16:51 32.4 27.0-34.0 (pg) Final MCHC 10/25/2023 08:16:51 30.0 32.0-36.0 (g/dL) Final RDW 10/25/2023 08:16:51 15.0 11.5-15.5 (%) Final Platelets 10/25/2023 08:16:51 100 Below low normal 140 -400 (K/uL) Final MPV 10/25/2023 08:16:51 11.2 6.6-11.1 ( fL) Final Performing Location [facility] [place] [place] [address]
--- OUTSIDE RECORDS SUMMARY | 2023-12-18 22:17 | External Medical Summary | Summary of Care ---
Author Name Unknown Organization [facility] Address [address] [address] Phone [phone] Care Team Providers Care Agriculture Sales Account Manager Name Role Phone Gino Osman MD Primary Care Provider [phone] Reason for Visit * Reason Comments Follow Up * Evaluate & Treat - Unlimited Visits (Within 10 days (routine)) - Authorized Specialty Diagnoses / Procedures Referred By Contac t Referred To Contact Hematology/Oncology / Hematology Oncology Diagnoses Anemia, unspecified type Ashely Chapa MD [address] [place] [address] Referral ID Status Reason Start Date Expiration Date Visits Requested Visits Authorized [id number] Authorized Specialty Services Required 10/10/2023 999 999 Encounter Details Date Type Department Care Team (Late st Contact Info) Description 10/26/2023 8:45 AM EDT Office Visit Hematology/Oncology [place] Bermeo [address] [place] [address] Cleve Bruce MD [address] [facility] [place] [address] Anemia in stage 3b chronic kidney disease [...] 30 Cap 12/16/2020 Active Ergocalciferol 1.25 MG (26031 UT) Oral Capsule (Vitamin D2(Drisdol)) On Sunday bimonthly 12 Capsule 01/02/2023 Active Tamsulosin HCl 0.4 MG Oral Capsule (Flomax)Indications: BPH with obstruction/lower urinary tract symptoms TAKE ONE CAPSULE BY MOUTH IN THE MORNING 90 Capsule 3 04/01/2023 Active Fluticasone Propionate 50 MCG/ACT Nasal Suspension (Flonase) Administer 1 [place] into nostril in the morning and 1 [place] before bedtime. 05/01/2023 Active Saline Nasal [place] 0.65 % Nasal Solution (Salinas) Administer 1 [place] into nostril. 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 DIAGNOSTIC WORKUP: History of interested lung disease, had single lung transplant ( left ) in 2018 at [facility]. He is on 4 different immunosuppressive [...] 120 1000 range. He was admitted at [facility], I reviewed hospital records, he received [...] S/P single lung transplantation in 2018 at [facility] -history of DVT and pulmonary embolism [...] invasion. He is having radiation treatment at [facility]. He denies any bleeding from the sites, no nausea no vomiting, some mild leg edema, no fever, no infections. No recent hospitalization. 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 left [facility] Mixed dyslipidemia Restrictive lung disease Past Surgical History: Procedure Laterality Date COLONOSCOPY 08/08/2008 repeat in 10 years COLONOSCOPY, DIAGNOSTIC (RECTUM) N/A 12/07/2022 hemorrhoids/mulitple small and large mouthed diverticula, erosion on IC valve/biopsies show inflammation/COLONOSCOPY FLEXIBLE PROXIMAL DIAGNOSTIC performed by Bret Birch MD at [facility] PROCEDURE NEC as a teen wisdom teeth x 4 EGD, FLEXIBLE, DIAGNOSTIC 08/08/2008 EGD, FLEXIBLE, DIAGNOSTIC N/A 12/07/2022 hiatal hernia/biopsies normal/ESOPHAGOGASTRODUODENOSCOPY (EGD), FLEXIBLE, TRANSORAL, DIAGNOSTIC performed by Bret Birch MD at [facility] KNEE ARTHROSCOPY/MENISCECTOMY 03/19/2005 right knee- Knee Scope,Med/Lat Menisectomy LUMBAR / SACRAL EPIDURAL, SINGLE LEVEL 04/03/2022 INJECTION TRANSFORAMINAL EPIDURAL LUMBAR OR SACRAL performed by Torito Soto DO at OR [facility] REMOVAL OF TONSILS, UNDER AGE 11 as a child Tonsils Removal,<12 Y/O REMOVE CATARACT, INSERT LENS PROSTH Left 11/20/2019 LEFT EXTRACAPSULAR CATARACT REMOVAL WITH INTRAOCULAR LENS performed by Sonu Valladares MD at [facility] REMOVE CATARACT, INSERT LENS PROSTH Right 12/02/2019 RIGHT EXTRACAPSULAR CATARACT REMOVAL WITH INTRAOCULAR LENS performed by Sonu Valladares MD at [facility] SHOULDER ARTHROSCOPY/REMOVE OBJECT 03/19/2004 right-Shoulder [...] PM. 30 Cap 0 Ergocalciferol 1.25 MG (17572 UT) Oral Capsule (Vitamin D2(Drisdol)) On Sunday bimonthly 12 Capsule 0 Tamsulosin HCl 0.4 MG Oral Capsule (Flomax) TAKE ONE CAPSULE BY MOUTH IN THE MORNING 90 Capsule 3 Fluticasone Propionate 50 MCG/ACT Nasal Suspension (Flonase) Administer 1 [place] into nostril in themorning and 1 [place] before bedtime. Saline Nasal [place]field 0.65 % Nasal Solution (Salinas) Administer 1 [place] into nostril. 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 -Absolute [...] 01/2023--> he is on erythropoietin therapy, initially 75176 units every weekly, chain 220 1000, [place] [address]5560 units every weekly since July of 2023. [...] 10/31/2023 11:00 AM EDT Nurse Only Nephrology, [facility] [address] [facility] [place] [address] Sp, Nurse Nephrology [address] [place] [address] 11/09/2023 10:15 AM EDT Office Visit Hematology/Oncology [facility] [place] [address] [facility] [address] [place] [id number] Cleve Bruce MD [address] [facility] [place] [address] 01/21/2024 10:00 AM EST Office Visit Nephrology, [facility] [address] [facility] [place] [address] Laurita Washington PA-C [address] [facility] [place] [address] 04/01/2024 1:00 PM EST Nurse Only Ancillary Department, [place] [address], [place] [phone] [place], Nurse Annual Wellness [address], [place] [phone] 04/01/2024 2:20 PM EST Office Visit Family [facility] [place] [address] [place] [phone] Gino Osman MD [address], [place] [phone] Pending Results Name Type Priority Associated Diagnoses Date /Time CBC WITH WBC DIFFERENTIAL Lab Routine Anemia in stage 3b chronic kidney disease (HCC) Macrocytosis 10/26/2023 10:06 AM EDT BONE MARROW PANEL Lab Routine Anemia in [...] low grade (HCC) 10/26/2023 10:04 AM EDT DIFFERENTIAL, AUTOMATED Lab Routine Anemia in stage 3b chronic kidney disease (HCC) Macrocytosis 10/26/2023 10:06 AM EDT Scheduled Orders Name Type Priority [...] 12/01/2022, 06/20/2021, Additional history exists Hgb 10/24/2024 10/26/2023, 08/0 10/2023, 10/16/2023, Additional history exists [...] this encounter Medical Devices Implanted Type Area Telecommunications Facility Examiner Device Identifier Shelf Expiration Date Model / Serial / Lot Lens Intraoc 18.0 - [id number] - [id number] Implanted:Qty: 1 on 11/20/2019 by Sonu Valladares MD at OR [facility] Left: Eye BAUSCH & LOMB 02/16/2024 [id number] / [id number] / [id number] Sofport Implanted:Qty: 1 on 12/02/2019 by Sonu Valladares MD at OR [facility] Right: Eye 11/17/2023 [id number] / / [id number] documented as of this encounter Procedures Procedure Name Priority Date/Time Associated Diagnosis Comments CBC Routine 10/26/2023 10:06 AM EDT Anemia in stage 3b chronic kidney disease (HCC) Macrocytosis documented in this encounter Results * (ABNORMAL) CBC (10/26/2023 10:06 AM EDT) WBC 7.29 4.00 [...] Cleve Bruce MD LAB BLOOD ORDERABLES LAB[facility]ORY [facility] [address] [place] [address] documented in this encounter Visit Diagnoses Diagnosis Anemia, unspecified type [D64.9] Macrocytosis Other specified diseases of blood and blood-forming organs Thrombocytopenia (HCC) Thrombocytopenia, unspecified MDS (myelodysplastic syndrome), low grade (HCC) Low grade myelodysplastic syndrome lesions documented in this encounter Care Teams Agriculture Sales Account Manager Relationship Specialty Start Date End Date Gino Osman MD [address] [place] [address] PCP - General Family Medicine 05/06/18 documented as of this encounter"
--- OUTSIDE RECORDS SUMMARY | 2023-12-18 22:17 | External Medical Summary ---
Author Name Unknown Address Unknown Organization : Laboratory Report Ordering Provider Test Date Status PAVEL ANNE 10/25/2023 08:16:51 Final Observation Date Value Abnormality Reference (Units ) Status Everolimus [Mass/volume] in Blood 10/25/2023 08:16:51 4.0 (ng/mL) Final Unable to flag abnormal result(s), please refer
to reference range(s) below:
Trough: 3.0 - 8.0 ng/mL for Transplantation
Trough: 5.0 - 10.0 ng/mL for Oncology/Neurology
Symptoms of toxicity are more likely to occur at
trough levels exceeding 12.0 ng/mL.
This test was developed and its analytical performance
characteristics have been determined by [facility] [place], [place]. It has
not been cleared or approved by the U.S. Food and Drug
Administration. This assay has been validated pursuant
to the CLIA regulations and is used for clinical
purposes.

Test Performed at:
[facility]
[address]
[place], [place]
Piero Hardwick M.D., Ph.D.,Director of Laboratories Performing Location
--- OUTSIDE RECORDS SUMMARY | 2023-12-18 22:17 | External Medical Summary ---
Author Name Unknown Address Unknown Organization : Laboratory Report Ordering Provider Test Date Status WILLY SANCHEZ 10/26/2023 10:04:12 Final Observation Date Value Abnormality Reference (Units ) Status Performing Location
--- OUTSIDE RECORDS SUMMARY | 2023-12-18 22:18 | External Medical Summary | Summary of Care ---
Author Name Unknown Organization [facility] Address [address] [place] [address] Phone [phone] Care Team Providers Care Dry Kiln Worker Name Role Phone Gino Osman MD Primary Care Provider [phone] Reason for Referral * Evaluate & Treat - Unlimited Visits (Within 10 days (routine)) - Authorized Specialty Diagnoses / Procedures Referred By Contac t Referred To Contact Hematology/Oncology / Hematology Oncology Diagnoses Anemia, unspecified type Madi Hernandez MD [address] [place] [address] Referral ID Status Reason Start Date Expiration Date Visits Requested Visits Authorized [id number] Authorized Specialty Services Required 10/10/2023 999 999 Question Answer Referral Priority Within 10 days (routine) Where should this appointment be scheduled? 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 and starting XRT >> pls eval for appropriateness of BON and pls manage anemia Reason for Visit * Reason Onset Date Comments Order Request 10/08/2023 Encounter Details Date Type Department Care Team (Late st Contact Info) Description 10/08/2023 Telephone Centralized Clinical Pharmacy Services, Lorrie Rothman [address] [place] [address] [place] [address] Clinic, Anemia [address] [place] [address] Order Request Allergies Active Allergy Reactions Criticality Noted Date Comments Adhesive Tape Itching High 11/21/2022 documented as of this encounter (statuses as of 10/22/2023) Medications Medication Sig Dispensed Refills Start Date [...] azithromycin (ZITHROMAX) 250 MG Tablet One tablet -W-F 6 Tab 1 11/27/2018 Active mycophenolate (CELLCEPT) [...] 30 Cap 12/16/2020 Active Ergocalciferol 1.25 MG (85230 UT) Oral Capsule (Vitamin D2(Drisdol)) On Sunday bimonthly 12 Capsule 01/02/2023 Active Tamsulosin HCl 0.4 MG Oral Capsule (Flomax)Indications: BPH with obstruction/lower urinary tract symptoms TAKE ONE CAPSULE BY MOUTH IN THE MORNING 90 Capsule 3 04/01/2023 Active Fluticasone Propionate 50 MCG/ACT Nasal Suspension (Flonase) Administer 1 [place] into nostril in the morning and 1 [place] before bedtime. 05/01/2023 Active Saline Nasal [place] 0.65 % Nasal Solution (Mcminn) Administer 1 [place] into nostril. 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.] as of this encounter (statuses as of 10/22/2023) Immunizations Name Administration Dates Next Due COVID-19 mRNA, LNP-s, No Pre serve, 2-Dose Series (exsulin) 09/03/2021,11/04/2020,05/27/2020,04/19 COVID-19, MRNA-LNP, 23-24, P F, 30 MCG/0.3 mL, 12 YRS AND ABOVE, IM ([facility]) 02/22/2023 Covid-19, Mrna, Lnp-s, [...] Telephone Encounter - Madi Hernandez MD - 10/22/2023 12:[address] Bruce reviewed case in ask a doc and cleared to continue BON for multifactorial anemia, even while on radiation therapy. >>Note that he's on high dose BON w/ minimal response >> RECOMMEND -keep upcoming appt with heme so that BON doses can be reviewed; w/ multifactorial anemia may be better managed in heme's anemia clinic rather than CKD anemia clinic in this setting given very high doses Pls update pt DR Teo hi * Telephone Encounter - Vesta Alanis LPN - 10/16/2023 12:41 PM EDT Spoke with patient he is willing to hear what hem has to say but continues to want care through Dr Hernandez Has upcoming apt with Dr Bruce Will await Ask a Doc reply * Telephone Encounter - Vesta Alanis LPN - 10/16/2023 9:27 AM EDT Will discuss with patient at nurse visit today * Telephone Encounter - Madi Hernandez MD - 10/11/2023 2:54 PM EDT Ask a doc sent to heme >ok to cont BON? >w/u needed for BON hyporesponsiveness, lymphopenia >ok to cont w/ CKD anemia protocol or not? 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 >> which can make use of medicine like retacrit more complicated >> retacrit can be inappropriate for some cancer types but ok for others >> heme has expertise for this 2) he's not responding to maximum dose of retacrit >> his blood counts are still very low >> so he may need further evaluation for why >> whether there are preformed antibodies or other reasons for resistance I would very much like to continue his anemia care but first obligation is to keep him safe/give best care >> this anemia is better managed by heme * Telephone Encounter - Vesta Alanis LPN - 10/10/2023 4:58 PM EDT Spoke with pt he wishes for management to continue in our office and is upset regarding Pt states he has follow with Dr Bruce in past Pt would like to know how this would to know how this would be treated differently in Hem oc * Addendum Note - Madi Hernandez MD - 10/10/2023 4:53 PM EDTAddended by: MADI HERNANDEZ on: 10/10/2023 04:53 PM Modules accepted: Orders * Telephone Encounter - Madi Hernandez MD - 10/10/2023 4:49 PM EDT Recommend heme-onc management; referral placed; pls continue to manage until they see him/take over Neph nurse pls update pt * Telephone Encounter - Feroz Lugo [facility] - 10/08/2023 1:19 PM EDT Juliann Hernandez, I am reaching out in regards to Mr. Rodas and his ongoing BON therapy. Patient is s/p Mohs surgery for SCC and has started XRT on 10/02/23 under the care of Dr. Bruce (Radiation Oncology - [facility]). Patient is currently on our typical ceiling dose for outpatients, Retacrit 40,000 units SQ qweek and has not reached our therapeutic goal. (Most recent Hgb - 8.1g/dL on 10/02/23) I am seeking input on both whether BON is appropriate as well as if you think the patient would be better served by hem[facility]onc ([facility] management. I appreciate your input and am happy to manage as you see fit. Please let me know if you have any questions. Thank you! Best Regards, Feroz Lugo, Theo, [facility] Clinical Pharmacist Anemia Clinic P: [phone] F: [phone] 10/08/2023 1:41 PM * Telephone Encounter - Jenna River video production engineer - 10/08/2023 10:30 AM EDT Caller's name: Cherelle Salamanca call back number(OFFICE NUMBER FOR ): [phone] Reason for call: Reticulocyte and CBC lab orders still need to be sent over to Nephrology so they can be drawn as well during appointment on 10/08. Would like a call back from [facility] [place]. Jenna River Cultured Marble Products Maker Centralized Clinical Pharmacy Services [address] [place] [address] Dr. De [address] [place] [id number] 10/08/2023,10:32 AM documented in this encounter Plan of Treatment Upcoming Encounters Date Type Department Care Team (Late st Contact Info) Description 10/23/2023 9:30 AM EDT Pharmacy Pharmacy, [place] [address] [place] [address] Clinic, Anemia [address] [place] [address] 10/26/2023 8:45 AM EDT Office Visit Hematology/Oncology State Harpal Bermeo [address] [place] [phone] Cleve Bruce MD [address] [place] [place] [address] [address] 01/21/2024 10:00 AM EST Office Visit Nephrology, Gabrielle Silva [address] [place] [address] [address] Laurita Washington PA-C [address] [place] [address] [address] 04/01/2024 1:00 PM EST Nurse Only Ancillary Department, [place] [address] [place] [address] [place], Nurse Annual Wellness [address] [place] [address] 04/01/2024 2:20 PM EST Office Visit Family Practice, [place] [address] [place] [address] Gino Osman MD [address] [place] [address] Scheduled Referrals Name Type Priority Associated Diagnoses Orde r Schedule HEMATOLOGY/ONCOLOGY REFERRAL OP Referral Within 10 days (routine) Anemia, unspecified type Ordered: 10/10/2023 Health Maintenance Due Date Last Done Comments Alpha-1 Antitrypsin 1963 COVID-19 Vaccine ( season) 2023 02/22/2023, 01/17/2022, 09/03/2021, Additional history exists Influenza Vaccine (FLU shot) (#1) 2023 12/27/2022, 01/11/2022, 12/16/2020, Additional history exists PTH 12/02/2023 12/01/2022 Hepatitis C Screening 02/28/2024 Postpo erna from 1963 (Patient Declined After Education) Depression Screening 03/06/2024 03/06/2023, 05/01/19 18 GFR 03/27/2024 09/25/2023, 07/0 11/2023, 09/17/2023, Additional history exists Nephrology Referral 09/16/2024 09/17/2023 Phosphate 09/16/2024 09/17/2023, 08/18, 09/09/2023, Additional history exists Albumin/Creatinine Ratio 09/24/2024 024, 12/01/2022, 06/20/2021, Additional history exists Hgb 10/15/2024 10/16/2023, 09/17, 10/02/2023, Additional history exists DTaP,Tdap,and Td Vaccines (3 [...] this encounter Medical Devices Implanted Type Area Cook Fish [employer] Chips Device Identifier Shelf Expiration Date Model / Serial / Lot Lens Intraoc 18.0 - [id number] - [id number] Implanted:Qty: 1 on 11/20/2019 by Sonu Valladares MD at OR [facility] Left: Eye [employer] LOMB 02/16/2024 [id number] / [id number] / [id number] Sofport Implanted:Qty: 1 on 12/02/2019 by Sonu Valladares MD at OR [facility] Right: Eye 11/17/2023 [id number] / / [id number] documented as of this encounter Visit Diagnoses Diagnosis Anemia, unspecified type- Primary documented in this encounter Care Teams Dry Kiln Worker Relationship Specialty Start Date End Date Gino Osman MD [address] [place] [address] PCP - General Family Medicine 05/06/18 documented as of this encounter
--- OUTSIDE RECORDS SUMMARY | 2023-12-18 22:18 | External Medical Summary | Summary of Care ---
Author Name Unknown Organization [facility] Address [address] [place] [address] Phone [phone] Care Team Providers Care Drawing Kiln Operator Name Role Phone Gino Osman MD Primary Care Provider [phone] Reason for Referral * Evaluate & Treat - Unlimited Visits (Within 10 days (routine)) - Authorized Specialty Diagnoses / Procedures Referred By Contac t Referred To Contact Hematology/Oncology / Hematology Oncology Diagnoses Anemia, unspecified type Madi Hernandez MD [address] [place] [address] Referral ID Status Reason Start Date Expiration Date Visits Requested Visits Authorized [id number] Authorized Specialty Services Required 10/10/2023 999 999 [...] Telephone Centralized Clinical Pharmacy Services, Lorrie Rothman [address] [place] [address] [place] [address] Clinic, Anemia [address] [place] [address] Order Request Allergies Active Allergy Reactions Criticality Noted Date Comments Adhesive Tape Itching High 11/21/2022 documented as of this encounter (statuses as of 10/19/2023) Medications Medication Sig Dispensed Refills Start Date [...] 30 Cap 12/16/2020 Active Ergocalciferol 1.25 MG (60554 UT) Oral Capsule (Vitamin D2(Drisdol)) On Sunday bimonthly 12 Capsule 01/02/2023 Active Tamsulosin HCl 0.4 MG Oral Capsule (Flomax)Indications: BPH with obstruction/lower urinary tract symptoms TAKE ONE CAPSULE BY MOUTH IN THE MORNING 90 Capsule 3 04/01/2023 Active Fluticasone Propionate 50 MCG/ACT Nasal Suspension (Flonase) Administer 1 [place] into nostril in the morning and 1 [place] before bedtime. 05/01/2023 Active Saline Nasal [place] 0.65 % Nasal Solution ([place]) Administer 1 [place] into nostril. 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 History of pulmonary fibrosis 11/27/2018 Pulmonary embolus, left 06/13/2018 Acute deep vein thrombosis (DVT) of right lower extremity 06/13/2018 Current use of terminal superintendent 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 019 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 Overview: left [facility] 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 Interstitial lung disease 03/19/2015 Chronic rhinitis 03/30/2014 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 Restrictive lung disease documented as of this encounter (statuses as of 10/19/2023) Resolved Problems Problem Noted Date Diagnosed Date [...] as of this encounter (statuses as of 10/19/2023) Immunizations Name Administration Dates Next Due COVID-19 mRNA, LNP-s, No Pre serve, 2-Dose Series ([employer]) 09/03/2021,11/04/2020,05/27/2020,04/19 COVID-19, MRNA-LNP, 23-24, P F, 30 MCG/0.3 mL, 12 YRS AND ABOVE, IM ([facility]) 02/22/2023 Covid-19, Mrna, Lnp-s, Pf, B ivalent, [...] pt * Telephone Encounter - Feroz Lugo RP - 10/08/2023 1:19 PM EDT Juliann Hernandez, I am reaching out in regards to Mr. Rodas and his ongoing BON therapy. Patient is s/p Mohs surgery for SCC and has started XRT on 10/02/23 under the care of Dr. Bruce (Radiation Oncology - [facility]). Patient is currently on our typical ceiling [...] any questions. Thank you! Best Regards, Feroz Lugo PharmD, [facility] Clinical Pharmacist Anemia Clinic P: [phone] F: [phone] 10/08/2023 1:41 PM * Telephone Encounter - Jenna River PHARM Tech - 10/08/2023 10:30 AM EDT Caller's name: Cherelle Jadyn call back number(OFFICE NUMBER FOR ): [phone] Reason for call: Reticulocyte and CBC lab orders still need to be sent over to Nephrology so they can be drawn as well during appointment on 10/08. Would like a call back from [facility]. Jenna River Agricultural Scientist Centralized Clinical Pharmacy Services [address] [place] [address] Dr. De Dios [address] [place] [address] [id number] 10/08/2023,10:32 AM documented in this encounter Plan of Treatment Upcoming Encounters Date Type Department Care Team (Late st Contact Info) Description 10/22/2023 11:00 AM EDT Nurse Only Nephrology, Gabrielle Sliva [address] [facility] [place] [address] Sp, Nurse Nephrology [address] [facility] [place] [address] 10/23/2023 9:30 AM EDT Pharmacy Pharmacy, [place] [address] [place] [address] Clinic, [facility] [address] [place] [address] 10/26/2023 8:45 AM EDT Office Visit Hematology/Oncology State Harpal Bermeo [address] [facility] [place] [phone] Cleve Bruce MD [address] [facility] [place] [address] 01/21/2024 10:00 AM EST Office Visit Nephrology, Gabrielle Silva [address] [place] [address] [address] Laurita Washington PA-C [address] [facility] [place] [address] 04/01/2024 1:00 PM EST Nurse Only Ancillary Department, [address] [place] [address] [place], [facility] Wellness [place] [address] 04/01/2024 2:20 PM EST Office Visit [facility] [address] [place] [address] Gino Osman MD [address] [place] [address] Scheduled Referrals Name Type Priority [...] this encounter Medical Devices Implanted Type Area It Instructor Device Identifier Shelf Expiration Date Model / Serial / Lot Lens Intraoc 18.0 - [id number] - [id number] Implanted:Qty: 1 on 11/20/2019 by Sonu Valladares MD at OR [facility] Left: Eye BAUSCH & LOMB 02/16/2024 [id number] / [id number] / [id number] Sofport Implanted:Qty: 1 on 12/02/2019 by Sonu Valladares MD at OR [facility] Right: Eye 11/17/2023 [id number] / / [id number] documented as of this encounter Visit Diagnoses Diagnosis Anemia, unspecified type- Primary documented in this encounter Care Teams Drawing Kiln Operator Relationship Specialty Start Date End Date Gino Osman MD [address] [place] [address] PCP - General Family Medicine 05/06/18 documented as of this encounter
--- OUTSIDE RECORDS SUMMARY | 2023-12-18 22:18 | External Medical Summary | Summary of Care ---
Author Name Unknown Organization [facility] Address [address] [place] [address] Phone [phone] Care Team Providers Care Reroller Hand Name Role Phone Gino Osman MD Primary Care Provider [phone] Reason for Referral * Evaluate & Treat - Unlimited Visits (Within 10 days (routine)) - Authorized Specialty Diagnoses / Procedures Referred By Contac t Referred To Contact Hematology/Oncology / Hematology Oncology Diagnoses Anemia, unspecified type Madi Hernandez MD [address] [place] [address] Referral ID Status Reason Start Date Expiration Date Visits Requested Visits Authorized [id number] Authorized Specialty Services Required 10/10/2023 999 999 [...] Telephone Centralized Clinical Pharmacy Services, Lorrie Rothman [address] [place] [address] [place] [address] Clinic, Anemia [address] [place] [address] Order Request Allergies Active Allergy [...] 30 Cap 12/16/2020 Active Ergocalciferol 1.25 MG (04370 UT) Oral Capsule (Vitamin D2(Drisdol)) On Sunday bimonthly 12 Capsule 01/02/2023 Active Tamsulosin HCl 0.4 MG Oral Capsule (Flomax)Indications: BPH with obstruction/lower urinary tract symptoms TAKE ONE CAPSULE BY MOUTH IN THE MORNING 90 Capsule 3 04/01/2023 Active Fluticasone Propionate 50 MCG/ACT Nasal Suspension (Flonase) Administer 1 [place] into nostril in the morning and 1 [place] before bedtime. 05/01/2023 Active Saline Nasal [place] 0.65 % Nasal Solution ([place]) Administer 1 [place] into nostril. 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 019 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 Overview: left [facility] 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 [...] mRNA, LNP-s, No Pre serve, 2-Dose Series ([employer]) 09/03/2021,11/04/2020,05/27/2020,04/19 COVID-19, MRNA-LNP, 23-24, P F, 30 MCG/0.3 mL, 12 YRS AND ABOVE, IM ([facility]) 02/22/2023 Covid-19, Mrna, Lnp-s, Pf, [...] Telephone Encounter - Vesta Alanis LPN - 10/22/2023 1:14 PM EDT Spoke with pt he is made aware of Dr Bruce's recommendation Pt's Procrit injection is rescheduled to 10/26/23 @ 1100 * Telephone Encounter - Madi Hernandez MD [...] pt * Telephone Encounter - Feroz Lugo [facility] - 10/08/2023 1:19 PM EDT Juliann Hernandez, I am reaching out in regards to Mr. Rodas and his ongoing BON therapy. Patient is s/p Mohs surgery for SCC and has started XRT on 10/02/23 under the care of Dr. Burce (Radiation Oncology - [facility]). Patient is currently on our [...] Thank you! Best Regards, Feroz Lugo, Theo, [facility] Clinical Pharmacist Anemia Clinic P: [phone] F: [phone] 10/08/2023 1:41 PM * Telephone Encounter - Jenna River supervisor contingents - 10/08/2023 10:30 AM EDT Caller's name: Cherelle Jadyn call back number(OFFICE NUMBER FOR ): [phone] Reason for call: Reticulocyte and CBC lab orders still need to be sent over to Nephrology so they can be drawn as well during appointment on 10/08. Would like a call back from [facility]. Jenna River Sinter Feeder Centralized Clinical Pharmacy Services [address] [place] [address] Dr. De Dios [address] [place] [address] [id number] 10/08/2023,10:32 AM documented in this encounter Plan of Treatment Upcoming Encounters Date Type Department Care Team (Late st Contact Info) Description 10/23/2023 9:30 AM EDT Pharmacy Pharmacy, [place] [address] [facility] [place] [address] Clinic, [facility] [address] [facility] [address] 10/26/2023 8:45 AM EDT Office Visit Hematology/Oncology State Harpal Bermeo [address] [place] [address] [phone] Cleve Bruce MD [address] [place] [address] 10/26/2023 11:00 AM EDT Nurse Only Nephrology, [facility] 200 [place] [address] Sp, Nurse Nephrology 200 [place] [address] 01/21/2024 10:00 AM EST Office Visit Nephrology, [facility] 200 [facility] [address] Laurita Washington PA-C 200 [place] [address] 04/01/2024 1:00 PM EST Nurse Only Ancillary Department, [address] [address] [place], Nurse Annual Wellness [address] [place] [address] 04/01/2024 2:20 PM EST Office Visit Family Practice, [place] [address] [place] [phone] Gino Osman MD [address] [place] [address] Scheduled Referrals Name Type Priority Associated Diagnoses [...] this encounter Medical Devices Implanted Type Area Sewer Bricklayer Device Identifier Shelf Expiration Date Model / Serial / Lot Lens Intraoc 18.0 - [id number] - [id number] Implanted:Qty: 1 on 11/20/2019 by Sonu Valladares MD at OR [facility] Left: Eye [employer]CH [employer] LOMB 02/16/2024 [id number] / [id number] / [id number] Sofport Implanted:Qty: 1 on 12/02/2019 by Sonu Valladares MD at OR [facility] Right: Eye 11/17/2023 [id number] / / [id number] documented as of this encounter Visit Diagnoses Diagnosis Anemia, unspecified type- Primary documented in this encounter Care Teams Reroller Hand Relationship Specialty Start Date End Date Gino Osman MD [address] [place] [address] PCP - General Family Medicine 05/06/18 documented as of this encounter
--- OUTSIDE RECORDS SUMMARY | 2023-12-18 22:18 | External Medical Summary | Summary of Care ---
Author Name Unknown Organization [facility] Address [address] [place] [address] Phone [phone] Care Team Providers Care Tire Regrooving Machine Operator Name Role Phone Gino Osman MD Primary Care Provider [phone] Reason for Visit * Reason Onset Date Comments Anemia Follow-Up 10/16/2023 Encounter Details Date Type Department Care Team (Late st Contact Info) Description 10/15/2023 9:00 AM EDT Pharmacy Pharmacy, [place] [address] [place], [place] [phone] Clinic, Anemia [address] [place], [place] [phone] Anemia of chronic renal failure, stage 4 (severe) ([facility])* Allergies Active Allergy Reactions Criticality Noted Date Comments Adhesive Tape Itching High 11/21/2022 documented as of this encounter (statuses as of 10/16/2023) Medications Medication Sig Dispensed Refills Start Date [...] 30 Cap 12/16/2020 Active Ergocalciferol 1.25 MG (01296 UT) Oral Capsule (Vitamin D2(Drisdol)) On Sunday bimonthly 12 Capsule 01/02/2023 Active Tamsulosin HCl 0.4 MG Oral Capsule (Flomax)Indications: BPH with obstruction/lower urinary tract symptoms TAKE ONE CAPSULE BY MOUTH IN THE MORNING 90 Capsule 3 04/01/2023 Active Fluticasone Propionate 50 MCG/ACT Nasal Suspension (Flonase) Administer 1 [place] into nostril in the morning and 1 [place] before bedtime. 05/01/2023 Active Saline Nasal [place] 0.65 % Nasal Solution ([place]) Administer 1 [place] into nostril. 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.] as of this encounter (statuses as of 10/16/2023) Immunizations Name Administration Dates Next Due COVID-19 mRNA, LNP-s, No Pre serve, 2-Dose Series ([employer]) 09/03/2021,11/04/2020,05/27/2020,04/19 COVID-19, MRNA-LNP, 23-24, P F, 30 MCG/0.3 mL, 12 YRS AND ABOVE, IM ([facility]) 02/22/2023 Covid-19, Mrna, Lnp-s, Pf, B [...] this encounter Progress Notes * Feroz Lugo, [facility] - 10/16/2023 2:28 PM EDT Patient Phone Numbers Called and spoke with patient and , Cherelle, to review labs from 10/16/23. Hgb is below target range. Iron studies adequate. Patient reports recent malignancy, SCC treated with surgical removal and started radiation therapy on 10/02/23 managed by [facility] radiation oncology - Dr. Bruce. Will reach out to Dr. Chapa to see if continuation of BON is appropriate, or if BON management should be deferred to either [facility] or [facility] hem/onc. Plan: Continue Retacrit 40,000 units SQ weekly @ [facility] nephrology clinic (hold for Hgb > 11 [...] time. Follow-up labs to be obtained on 10/22/23 to match administration appointment. Anemia Clinic will continue to follow. Thank you for allowing us to participate in the care of thispatient. Feroz Lugo, PharmD, [facility] Clinical Pharmacist Anemia Clinic P: [phone] F: [phone] 10/16/2023 2:43 PM Lab Results Component Value Date/Time HGB 8.1 (L) 10/16/2023 11:05 AM HGB 8.0 (L) 10/09/2023 10:51 AM HGB 8.1 (L) 10/02/2023 10:52 AM HGB 8.4 (L) 09/07/2023 06:09 PM [...] Description 10/17/2023 9:00 AM EDT Pharmacy Pharmacy, [facility] [address] [place] [address] Clinic, Anemia [address] [place] [address] 10/22/2023 11:00 AM EDT Nurse Only Nephrology, [place] [address] Sp, Nurse Nephrology 200 [place] [address] 10/23/2023 9:30 AM EDT Pharmacy Pharmacy, [facility] [address] [place], [place] [phone] Clinic, [facility] [address] [place], [place] [address] 10/26/2023 8:45 AM EDT Office Visit Hematology/Oncology [facility] [place] 200 [place] [phone] Cleve Bruce MD 200 [place] [address] 01/21/2024 10:00 AM EST Office Visit Nephrology, [facility] 200 [place] [address] ZeLaurita alcala PA-C 200 [place] [address] 04/01/2024 1:00 PM EST Nurse Only Ancillary Department, [address] [address] [place], Nurse Annual Wellness [address] [place] [address] 04/01/2024 2:20 PM EST Office Visit Family Practice, [place] [address] [place] [phone] Gino Osman MD [address], [place] [phone] Health Maintenance Due Date Last Done Comments Alpha-1 Antitrypsin 1963 COVID-19 Vaccine ( season) 2023 02/22/2023, 01/17/2022, 09/03/2021, Additional history exists Influenza Vaccine (FLU shot) (#1) 2023 12/27/2022, 01/11/2022, 12/16/2020, Additional history exists PTH 12/02/2023 12/01/2022 Hepatitis C Screening 02/28/2024 Postpo erna from 1963 (Patient Declined After Education) Depression Screening 03/06/2024 03/06/2023, 05/01/19 18 GFR 03/27/2024 09/25/2023, 0711/2023, 09/17/2023, Additional history exists Nephrology Referral 09/16/2024 [...] this encounter Medical Devices Implanted Type Area Reaming Machine Operator Device Identifier Shelf Expiration Date Model / Serial / Lot Lens Intraoc 18.0 - [id number] - [id number] Implanted:Qty: 1 on 11/20/2019 by Sonu Valladares MD at [facility] Left: Eye [employer]OM[employer] 02/16/2024 [id number] / [id number] / [id number] Sofport Implanted:Qty: 1 on 12/02/2019 by Sonu Valladares MD at OR [facility] Right: Eye 11/17/2023 [id number] / / [id number] documented as of this encounter Visit Diagnoses Diagnosis Anemia of chronic renal failure, stage 4 (severe) (HCC)- Primary documented in this encounter Care Teams Tire Regrooving Machine Operator Relationship Specialty Start Date End Date Gino Osman MD [address], [place] [phone] PCP - General Family Medicine 05/06/18 documented as of this encounter
--- OUTSIDE RECORDS SUMMARY | 2023-12-18 22:18 | External Medical Summary | Summary of Care ---
Author Name Unknown Organization [facility] Address [address] [facility] [place] [address] Phone [phone] Care Team Providers Care Professor Of Engineering Name Role Phone Gino Osman MD Primary Care Provider [phone] Reason for Visit * Reason Comments Medication Administration For Procrit in jection * Precert (Within 30 days (routine)) - Authorized Specialty Diagnoses / Procedures Referred By Contac t Referred To Contact Diagnoses Anemia in chronic kidney disease Procedures [place] INJ RETACRIT NON-ESRD USE Ashely Chapa MD 200 [facility] [place] [address] Ashely Chapa MD [address] [facility] [place] [address] Referral ID Status Reason Start Date Expiration Date V isits Requested Visits Authorized [id number] Authorized Precert 02/07/2023 03/18/2099 999 999 Encounter Details Date Type Department Care Team (Late st Contact Info) Description 10/16/2023 11:00 AM EDT Nurse Only Nephrology, [place]rielle [place] [facility] [place] [address] Sp, Nurse Nephrology 200 [facility] [place] [address] Medication Administration (For Procrit inj... Allergies Active [...] 30 Cap 12/16/2020 Active Ergocalciferol 1.25 MG (17509 UT) Oral Capsule (Vitamin D2(Drisdol)) On Sunday bimonthly 12 Capsule 01/02/2023 Active Tamsulosin HCl 0.4 MG Oral Capsule (Flomax)Indications: BPH with obstruction/lower urinary tract symptoms TAKE ONE CAPSULE BY MOUTH IN THE MORNING 90 Capsule 3 04/01/2023 Active Fluticasone Propionate 50 MCG/ACT Nasal Suspension (Flonase) Administer 1 [place] into nostril in the morning and 1 [place] before bedtime. 05/01/2023 Active Saline Nasal [place] 0.65 % Nasal Solution ([place]) Administer 1 [place] into nostril. 05/01/2023 Active Pantoprazole Sodium 40 [...] Start Date End Date Status Epoetin Rogelio 66014 UNIT/ML inj 40,000 UnitsIndications:Anemia of chronic renal failure, stage 3b (HCC) 77033 Units SC QWEEK 08/21/2023 Active documented as [...] lower extremity 06/13/2018 Current use of terminal system operator 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 019 History of lung transplant [...] mRNA, LNP-s, No Pre serve, 2-Dose Series ([employer]) 09/03/2021,11/04/2020,05/27/2020,04/19 COVID-19, MRNA-LNP, 23-24, P F, 30 MCG/0.3 mL, 12 YRS AND ABOVE, IM ([facility]) 02/22/2023 Covid-19, Mrna, Lnp-s, Pf, B [...] Sign Reading Time Taken Comments Blood Pressure 126/62 10/16/2023 11:46 AM EDT Pulse 73 10/16/2023 11:46 AM EDT Temperature - - Respiratory Rate - - Oxygen Saturation - - Inhaled Oxygen Concentration - - Weight - - Height - - Body Mass Index - - documented in this encounter Nursing Notes * Vesta Alanis LPN - 10/16/2023 11:27 AM EDT Patient identified by verbal name and date of .For Procrit injection HGB 8.1 BP stable Pt tolerated well documented in this encounter Plan of Treatment Upcoming Encounters Date Type Department Care Team (Late st Contact Info) Description 10/22/2023 11:00 AM EDT Nurse Only Nephrology, Gabrielle Silva [address] [place] [address] Sp, Nurse Nephrology [address] [place] [address] 10/26/2023 8:45 AM EDT Office Visit Hematology/Oncology [facility] 200 [facility] [place], [place] [phone] Cleve Bruce MD 200 [facility] [place], [place] [address] 01/21/2024 10:00 AM EST Office Visit Nephrology, [facility] 200 [facility] [place], [place] [address] Laurita Washington PA-C 200 [facility] [place], [place] [address] 04/01/2024 1:00 PM EST Nurse Only Ancillary Department, [place] [address] [place], [place] [phone] [place], Nurse Annual Wellness [facility] [place] [address] 04/01/2024 2:20 PM EST Office Visit Family Practice, [place] [address] [place] [phone] Gino Osman MD [address] [place] [address] Health Maintenance Due Date Last [...] this encounter Medical Devices Implanted Type Area Flume Maker Device Identifier Shelf Expiration Date Model / Serial / Lot Lens Intraoc 18.0 - [id number] - [id number] Implanted:Qty: 1 on 11/20/2019 by Sonu Valladares MD at OR [facility] Left: Eye [employer]USCH [employer] LOMB 02/16/2024 [id number] / [id number] / [id number] Sofport Implanted:Qty: 1 on 12/02/2019 by Sonu Valladares MD at OR [facility] Right: Eye 11/17/2023 [id number] / / [id number] documented as of this encounter Administered Medications Active Administered Medications - up to 3 most recent administrations Medication Order MAR Action Action Date Dose Rate Site Epoetin Rogelio 43560 UNIT/ML inj 40,000 Units 40,000 Units, Subcutaneous, QWEEK, First dose on Sun08/21/23 at 1300, Until Discontinued, Hold if Hgb > 11g/dL Given 10/16/2023 11:50 AM EDT 40,000 Units Arm Right Upper Given 10/09/2023 11:20 AM EDT 40,000 Units Arm Left Upper Given 10/02/2023 11:07 AM EDT 40,000 Units Arm Right Upper documented in this encounter Care Teams Professor Of Engineering Relationship Specialty Start Date End Date Gino Osman MD [address] [place] [address] PCP - General Family Medicine 05/06/18 documented as of this encounter
--- OUTSIDE RECORDS SUMMARY | 2023-12-18 22:18 | External Medical Summary | Summary of Care ---
Author Name Unknown Organization [facility] Address [address] [place] [address] Phone [phone] Care Team Providers Care [employer] Driver Name Role Phone Gino Osman MD Primary Care Provider [phone] Reason for Referral * Evaluate & Treat - Unlimited Visits (Within 10 days (routine)) - Authorized Specialty Diagnoses / Procedures Referred By Contac t Referred To Contact Hematology/Oncology / Hematology Oncology Diagnoses Anemia, unspecified type Madi Hernandez MD [address] [place] [address] Referral ID Status Reason Start Date Expiration Date Visits Requested Visits Authorized [id number] Authorized Specialty Services Required 10/10/2023 999 999 [...] Telephone Centralized Clinical Pharmacy Services, Lorrie Rothman [address] [place] [address] [place] [address] Clinic, Anemia [address] [place] [address] Order Request Allergies Active Allergy [...] 30 Cap 12/16/2020 Active Ergocalciferol 1.25 MG (26342 UT) Oral Capsule (Vitamin D2(Drisdol)) On Sunday bimonthly 12 Capsule 01/02/2023 Active Tamsulosin HCl 0.4 MG Oral Capsule (Flomax)Indications: BPH with obstruction/lower urinary tract symptoms TAKE ONE CAPSULE BY MOUTH IN THE MORNING 90 Capsule 3 04/01/2023 Active Fluticasone Propionate 50 MCG/ACT Nasal Suspension (Flonase) Administer 1 [place] into nostril in the morning and 1 [place] before bedtime. 05/01/2023 Active Saline Nasal [place] 0.65 % Nasal Solution (Young) Administer 1 [place] into nostril. 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 Bruce (Radiation Oncology - [facility]). Patient is currently on our typical [...] Thank you! Best Regards, Feroz Lugo PharmD, [facility] Clinical Pharmacist Anemia Clinic P: [phone] F: [phone] 10/08/2023 1:41 PM * Telephone Encounter - Jenna River PHARM Tech - 10/08/2023 10:30 AM EDT Caller's name: Cherelle Jadyn call back number(OFFICE NUMBER FOR ): [phone] Reason for call: Reticulocyte and CBC lab orders still need to be sent over to Nephrology so they can be drawn as well during appointment on 10/08. Would like a call back from [facility]. Jenna River Explosives Operator Centralized Clinical Pharmacy Services [address] [place] [address] Dr. De Dios [address] [place] [phone] 10/08/2023,10:32 AM documented in this encounter Plan of Treatment Upcoming Encounters Date Type Department Care Team (Late st Contact Info) Description 10/22/2023 11:00 AM EDT Nurse Only Nephrology, Gabrielle Silva [address] [facility] [place] [address] Sp, Nurse Nephrology [address] [facility] [place] [address] 10/26/2023 8:45 AM EDT Office [facility] [employer] [address] [facility] [place] [address] Cleve Bruce MD [address] [facility] [place] [address] 01/21/2024 10:00 AM EST Office Visit Nephrology, Gabrielle Silva [address] [facility] [place] [address] Laurita Washington PA-C [address] [facility] [place] [address] 04/01/2024 1:00 PM EST Nurse Only [facility]illary Department[facility] [place] [address] [facility] [address] [place], Nurse [facility] [address] [facility] [address] 04/01/2024 2:20 PM EST Office Visit [facility], [place] [address] [facility] [phone] Gino Osman MD [address] [place] [address] Scheduled Referrals Name Type Priority Associated Diagnoses [...] this encounter Medical Devices Implanted Type Area Corrections Corporal Device Identifier Shelf Expiration Date Model / Serial / Lot Lens Intraoc 18.0 - [id number] - [id number] Implanted:Qty: 1 on 11/20/2019 by Sonu Valladares MD at OR [facility] Left: Eye BAUSCH & LOMB 02/16/2024 [id number] / [id number] / [id number] Sofport Implanted:Qty: 1 on 12/02/2019 by Sonu Valladares MD at OR [facility] Right: Eye 11/17/2023 [id number] / / [id number] documented as of this encounter Visit Diagnoses Diagnosis Anemia, unspecified type- Primary documented in this encounter Care Teams [employer] Driver Relationship Specialty Start Date End Date Gino Osman MD [address] [place] [address] PCP - General Family Medicine 05/06/18 documented as of this encounter
--- OUTSIDE RECORDS SUMMARY | 2023-12-18 22:19 | External Medical Summary ---
Author Name Unknown Address Unknown Organization K01:[facility] [place] [address] [place] [address] Laboratory Report Ordering Provider Test Date Status ROBERT VANCE 10/09/2023 10:51:25 Final Observation Date Value Abnormality Reference (Units ) Status Retic, % (auto) 10/09/2023 10:51:25 1.39 0.80-1.90 (%) Final Reticulocytes, Absolute 10/09/2023 10:51:25 33.1 31.3-100.1 (K/uL) Final Reticulocyte fraction, immature 10/09/2023 10:51:25 16.2 2.5-20.6 (%) Final Reticulocyte HGB 10/09/2023 10:51:25 29.8 29.7-37.4 (pg) Final Performing Location [facility] [place] [address] [place] [address]
--- OUTSIDE RECORDS SUMMARY | 2023-12-18 22:19 | External Medical Summary | Summary of Care ---
Author Name Unknown Organization [facility] Address [address] [place] [address] Phone [phone] Care Team Providers Care Spares Scheduler Name Role Phone Gino Osman MD Primary Care Provider [phone] Reason for Referral * Evaluate & Treat - Unlimited Visits (Within 10 days (routine)) - Authorized Specialty Diagnoses / Procedures Referred By Contac t Referred To Contact Hematology/Oncology / Hematology Oncology Diagnoses Anemia, unspecified type Madi Hernandez MD [address] [place] [address] Referral ID Status Reason Start Date Expiration Date Visits Requested Visits Authorized [id number] Authorized Specialty Services Required 10/10/2023 999 999 [...] Telephone Centralized Clinical Pharmacy Services, Lorrie Rothman [address] [place] [address] [place] [address] Clinic, Anemia [address] [place] [address] Order Request Allergies Active Allergy Reactions Criticality Noted Date Comments Adhesive Tape Itching High 11/21/2022 documented as of this encounter (statuses as of 10/10/2023) Medications Medication Sig Dispensed Refills Start Date [...] 30 Cap 12/16/2020 Active Ergocalciferol 1.25 MG (18805 UT) Oral Capsule (Vitamin D2(Drisdol)) On Sunday bimonthly 12 Capsule 01/02/2023 Active Tamsulosin HCl 0.4 MG Oral Capsule (Flomax)Indications: BPH with obstruction/lower urinary tract symptoms TAKE ONE CAPSULE BY MOUTH IN THE MORNING 90 Capsule 3 04/01/2023 Active Fluticasone Propionate 50 MCG/ACT Nasal Suspension (Flonase) Administer 1 [place] into nostril in the morning and 1 [place] before bedtime. 05/01/2023 Active Saline Nasal [place] 0.65 % Nasal Solution ([place]) Administer 1 [place] into nostril. 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 History of pulmonary fibrosis 11/27/2018 Pulmonary embolus, left 06/13/2018 Acute deep vein thrombosis (DVT) of right lower extremity 06/13/2018 Current use of meterman 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 019 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 Overview: left [facility] 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 Interstitial lung disease 03/19/2015 Chronic rhinitis 03/30/2014 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 Restrictive lung disease documented as of this encounter (statuses as of 10/10/2023) Resolved Problems Problem Noted Date Diagnosed Date [...] as of this encounter (statuses as of 10/10/2023) Immunizations Name Administration Dates Next Due COVID-19 mRNA, LNP-s, No Pre serve, 2-Dose Series ([employer]) 09/03/2021,11/04/2020,05/27/2020,04/19 COVID-19, MRNA-LNP, 23-24, P F, 30 MCG/0.3 mL, 12 YRS AND ABOVE, IM ([facility]) 02/22/2023 Covid-19, Mrna, Lnp-s, Pf, [...] pt * Telephone Encounter - Feroz Lugo [facility] - 10/08/2023 1:19 PM EDT Juliann Hernandez, I am reaching out in regards to Mr. Rodas and his ongoing BON therapy. Patient is s/p Mohs surgery for SCC and has started XRT on 10/02/23 under the care of Dr. Bruce (Radiation Oncology - [facility]). Patient is currently on our typical ceiling [...] Thank you! Best Regards, Feroz Lugo, Theo, [facility] Clinical Pharmacist Anemia Clinic P: [phone] F: [phone] 10/08/2023 1:41 PM * Telephone Encounter - Jenna River soft shoe dancer - 10/08/2023 10:30 AM EDT Caller's name: Cherelle Jadyn call back number(OFFICE NUMBER FOR ): [phone] Reason for call: Reticulocyte and CBC lab orders still need to be sent over to Nephrology so they can be drawn as well during appointment on 10/08. Would like a call back from [facility]. Jenna River Coffee Roaster Helper Centralized Clinical Pharmacy Services [address] [place] [address] Dr. De Dios [address] [place] [address] [phone] 10/08/2023,10:32 AM documented in this encounter Plan of Treatment Upcoming Encounters Date Type Department Care Team (Late st Contact Info) Description 10/16/2023 11:00 AM EDT Nurse Only Nephrology, [facility] [address] [facility], [place] [address] Sp, Nurse Nephrology [facility] [address] 01/21/2024 10:00 AM EST Office Visit Nephrology, [facility] [address] Laurita Washington PA-C [address] [facility] [address] 04/01/2024 1:00 PM EST Nurse Only Ancillary Department, [address] [address] [place], Nurse Annual Wellness [place] [address] 04/01/2024 2:20 PM EST Office Visit Family Practice, [address] [phone] Gino Osman MD [address] [place], [place] [address] Scheduled Referrals Name Type Priority Associated Diagnoses [...] 03/06/2024 03/06/2023, 05/01/19 18 GFR 03/27/2024 09/25/2023, 070 11/2023, 09/17/2023, Additional history exists Nephrology Referral 09/16/2024 09/17/2023 Phosphate 09/16/2024 09/17/2023, 08/18, 09/09/2023, Additional history exists Albumin/Creatinine Ratio 09/24/2024 024, 12/01/2022, 06/20/2021, Additional history exists Hgb 10/08/2024 10/09/2023, 09/16, 09/25/2023, Additional history exists DTaP,Tdap,and Td Vaccines (3 [...] this encounter Medical Devices Implanted Type Area Telecommunication Tower Technician Device Identifier Shelf Expiration Date Model / Serial / Lot Lens Intraoc 18.0 - [id number] - [id number] Implanted:Qty: 1 on 11/20/2019 by Sonu Valladares MD at OR [facility] Left: Eye BAUSCH & LOMB 02/16/2024 [id number] / [id number] / [id number] Sofport Implanted:Qty: 1 on 12/02/2019 by Sonu Valladares MD at OR [facility] Right: Eye 11/17/2023 [id number] / / [id number] documented as of this encounter Visit Diagnoses Diagnosis Anemia, unspecified type- Primary documented in this encounter Care Teams Spares Scheduler Relationship Specialty Start Date End Date Gino Osman MD [address] [place] [address] PCP - General Family Medicine 05/06/18 documented as of this encounter
--- OUTSIDE RECORDS SUMMARY | 2023-12-18 22:19 | External Medical Summary | Summary of Care ---
Author Name Unknown Organization [facility] Address [address] [place] [address] Phone [phone] Care Team Providers Care Practical Nurse Clinical Coordinator Name Role Phone Gino Osman MD Primary Care Provider [phone] Reason for Visit * Reason Onset Date Comments Anemia Follow-Up 10/08/2023 Encounter Details Date Type Department Care Team (Late st Contact Info) Description 10/08/2023 9:00 AM EDT Pharmacy Pharmacy, [place] [address] [place], [place] [phone] Clinic, Anemia [address] [place], [place] [phone] Anemia of chronic renal failure, stage 4 (severe) ([facility])* Allergies Active Allergy Reactions Criticality Noted Date Comments Adhesive Tape Itching High 11/21/2022 documented as of this encounter (statuses as of 10/08/2023) Medications Medication Sig Dispensed Refills Start Date [...] 30 Cap 12/16/2020 Active Ergocalciferol 1.25 MG (41837 UT) Oral Capsule (Vitamin D2(Drisdol)) On Sunday bimonthly 12 Capsule 01/02/2023 Active Tamsulosin HCl 0.4 MG Oral Capsule (Flomax)Indications: BPH with obstruction/lower urinary tract symptoms TAKE ONE CAPSULE BY MOUTH IN THE MORNING 90 Capsule 3 04/01/2023 Active Fluticasone Propionate 50 MCG/ACT Nasal Suspension (Flonase) Administer 1 [place] into nostril in the morning and 1 [place] before bedtime. 05/01/2023 Active Saline Nasal [place] 0.65 % Nasal Solution ([place]) Administer 1 [place] into nostril. 05/01/2023 Active Pantoprazole Sodium 40 [...] Start Date End Date Status Epoetin Rogelio 90072 UNIT/ML inj 40,000 UnitsIndications:Anemia of chronic renal failure, stage 3b (HCC) 63570 Units SC QWEEK 08/21/2023 Active documented as of this encounter (statuses as of 10/08/2023) Active Problems Problem Noted Date Diagnosed Date [...] as of this encounter (statuses as of 10/08/2023) Resolved Problems Problem Noted Date Diagnosed Date [...] as of this encounter (statuses as of 10/08/2023) Immunizations Name Administration Dates Next Due COVID-19 mRNA, LNP-s, No Pre serve, 2-Dose Series ([employer]) 09/03/2021,11/04/2020,05/27/2020,04/19 COVID-19, MRNA-LNP, 23-24, P F, 30 MCG/0.3 mL, 12 YRS AND ABOVE, IM ([facility]) 02/22/2023 Covid-19, Mrna, Lnp-s, Pf, B [...] Progress Notes * Feroz Lugo, [facility] - 10/08/2023 1:09 PM EDT Patient Phone Numbers Called and spoke with patient and , Cherelle. Hgb is below target range. Iron studies adequate. Patient reports recent malignancy, SCC treated with surgical removal and started radiation therapy on 10/02/23 managed by [facility] radiation oncology - Dr. Bruce. Will reach out to Dr. Chapa to see if continuation of BON is appropriate, or if BON management should be deferred to either [facility] or [facility] hem/onc. Tentative Plan: Continue Retacrit 40,000 units SQ weekly @ [facility] nephrology clinic (hold forHgb > 11 g/dL). Last dose: Retacrit 40,000 units SQ on 10/02/23 Next dose due: Retacrit 40,000 units SQ on 10/09/23 (scheduled) Subsequent dose due: Retacrit 40,000 units SQ on 10/16/23 Patient with history of DVT/PE, not currently on 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. Received approval from Dr. Chapa to start BON therapy as benefits outweigh risks at this time. Follow-up labs to be obtained on 10/09/23 to match administration appointment. Anemia Clinic will continue to follow. Thank you for allowing us to participate in the care of thispatient. Feroz Lugo, PharmD, [facility] Clinical Pharmacist Anemia Clinic P: [phone] F: [phone] 10/08/2023 1:53 PM Lab Results Component Value Date/Time HGB 8.1 (L) 10/02/2023 10:52 AM HGB 7.8 (L) 09/25/2023 08:27 AM HGB 7.8 (L) 09/17/2023 09:28 AM HGB 8.4 (L) 09/07/2023 06:09 PM [...] Care Team (Late st Contact Info) Description 10/09/2023 11:00 AM EDT Nurse Only Nephrology, Gabrielle Silva [address] [place] [address] Sp, Nurse Nephrology [address] [place] [address] 10/10/2023 9:30 AM EDT Pharmacy Pharmacy, [address] [place] [phone] Clinic, Anemia [address] [place] [facility] [address] 01/18/2024 1:00 PM EDT Office Visit Nephrology, [place] 200 [facility] [place] [address] Laurita Washington PA-C [address] [facility] [place], [place] [address] 04/01/2024 1:00 PM EST Nurse Only Ancillary Department, [place] [address] [place], [place] [phone] [place], Nurse Annual Wellness [address] [place], [place] [phone] 04/01/2024 2:20 PM EST Office Visit Family Practice, [place] [address] [place] [phone] Gino Osman MD [address] [place], [place] [phone] Health Maintenance Due Date Last Done Comments [...] 024, 12/01/2022, 06/20/2021, Additional history exists Hgb 10/01/2024 10/02/2023, 11/2023, 09/17/2023, Additional history exists DTaP,Tdap,and Td Vaccines (3 [...] this encounter Medical Devices Implanted Type Area Giver Device Identifier Shelf Expiration Date Model / Serial / Lot Lens Intraoc 18.0 - [id number] - [id number] Implanted:Qty: 1 on 11/20/2019 by Sonu Valladares MD at OR [facility] Left: Eye BAUSCH & LOMB 02/16/2024 [id number] / [id number] / [id number] Sofport Implanted:Qty: 1 on 12/02/2019 by Sonu Valladares MD at OR [facility] Right: Eye 11/17/2023 [id number] / / [id number] documented as of this encounter Visit Diagnoses Diagnosis Anemia of chronic renal failure, stage 4 (severe) (HCC)- Primary documented in this encounter Care Teams Practical Nurse Clinical Coordinator Relationship Specialty Start Date End Date Gino Osman MD [address] [place] [address] PCP - General Family Medicine 05/06/18 documented as of this encounter
--- OUTSIDE RECORDS SUMMARY | 2023-12-18 22:19 | External Medical Summary | Summary of Care ---
Author Name Unknown Organization [facility] Address [address] [facility] [place] [address] Phone [phone] Care Team Providers Care Certified Medication Technician Name Role Phone Gino Osman MD Primary Care Provider [phone] Reason for Visit * Reason Comments Medication Administration For Procrit in jection * Precert (Within 30 days (routine)) - Authorized Specialty Diagnoses / Procedures Referred By Contac t Referred To Contact Diagnoses Anemia in chronic kidney disease Procedures NE INJ RETACRIT NON-ESRD USE Ashely Chapa MD [address] [facility] [place] [address] Ashely Chapa MD [address] [facility] [place] [address] Referral ID Status Reason Start Date Expiration Date V isits Requested Visits Authorized [id number] Authorized Precert 02/07/2023 03/18/2099 999 999 Encounter Details Date Type Department Care Team (Late st Contact Info) Description 10/09/2023 11:00 AM EDT Nurse Only Nephrology, Gabrielle [place] [address] [place] [address] Sp, Nurse Nephrology 200 [facility] [place] [address] Medication Administration (For Procrit inj... Allergies Active Allergy Reactions Criticality Noted Date Comments Adhesive Tape Itching High 11/21/2022 documented as of this encounter (statuses as of 10/09/2023) Medications Medication Sig Dispensed Refills Start Date [...] 30 Cap 12/16/2020 Active Ergocalciferol 1.25 MG (16983 UT) Oral Capsule (Vitamin D2(Drisdol)) On Sunday bimonthly 12 Capsule 01/02/2023 Active Tamsulosin HCl 0.4 MG Oral Capsule (Flomax)Indications: BPH with obstruction/lower urinary tract symptoms TAKE ONE CAPSULE BY MOUTH IN THE MORNING 90 Capsule 3 04/01/2023 Active Fluticasone Propionate 50 MCG/ACT Nasal Suspension (Flonase) Administer 1 [place] into nostril in the morning and 1 [place] before bedtime. 05/01/2023 Active Saline Nasal [place] 0.65 % Nasal Solution ([place]) Administer 1 [place] into nostril. 05/01/2023 Active Pantoprazole Sodium 40 [...] Start Date End Date Status Epoetin Rogelio 18047 UNIT/ML inj 40,000 UnitsIndications:Anemia of chronic renal failure, stage 3b (HCC) 88264 Units SC QWEEK 08/21/2023 Active documented as of this encounter (statuses as of 10/09/2023) Active Problems Problem Noted Date Diagnosed Date [...] as of this encounter (statuses as of 10/09/2023) Resolved Problems Problem Noted Date Diagnosed Date [...] as of this encounter (statuses as of 10/09/2023) Immunizations Name Administration Dates Next Due COVID-19 mRNA, LNP-s, No Pre serve, 2-Dose Series ([employer]) 09/03/2021,11/04/2020,05/27/2020,04/19 COVID-19, MRNA-LNP, 23-24, P F, 30 MCG/0.3 mL, 12 YRS AND ABOVE, IM ([facility]) 02/22/2023 Covid-19, Mrna, Lnp-s, Pf, B [...] Sign Reading Time Taken Comments Blood Pressure 120/60 10/09/2023 11:18 AM EDT Pulse 79 10/09/2023 11:18 AM EDT Temperature - - Respiratory Rate - - Oxygen Saturation - - Inhaled Oxygen Concentration - - Weight - - Height - - Body Mass Index - - documented in this encounter Nursing Notes * Vesta Alanis LPN - 10/09/2023 11:15 AM EDT Patient identified by verbal name and date of .For Procrit injection Hgb 8.0 BP stable Pt tolerated well Pt schedule for injection next week documented in this encounter Plan of Treatment Upcoming Encounters Date Type Department Care Team (Late st Contact Info) Description 10/10/2023 9:30 AM EDT Pharmacy Pharmacy, [place] [address] [place] [address] Clinic, [place] [address] [place] [address] 10/16/2023 11:00 AM EDT Nurse Only Nephrology, [place] [address] [facility] [place] [address] Sp, Nurse Nephrology [address] [facility] [place] [address] 04/01/2024 1:00 PM EST Nurse Only Ancillary Department, [place] [address] [place] [address] [place], Nurse Annual Wellness [address] [place] [facility] [address] 04/01/2024 2:20 PM EST Office Visit Family Practice, [place] [address] [place] [facility] [place] [address] Gino Osman MD [address] [place] [address] Health Maintenance Due Date Last [...] this encounter Medical Devices Implanted Type Area Hunter Device Identifier Shelf Expiration Date Model / Serial / Lot Lens Intraoc 18.0 - [id number] - [id number] Implanted:Qty: 1 on 11/20/2019 by Sonu Valladares MD at OR [facility] Left: Eye BAUSCH & LOMB 02/16/2024 [id number] / [id number] / [id number] Sofport Implanted:Qty: 1 on 12/02/2019 by Sonu Valladares MD at [facility] Right: Eye 11/17/2023 [id number] / / [id number] documented as of this encounter Administered Medications Active Administered Medications - up to 3 most recent administrations Medication Order MAR Action Action Date Dose Rate Site Epoetin Rogelio 14362 UNIT/ML inj 40,000 Units 40,000 Units, Subcutaneous, QWEEK, First dose on Sun08/21/23 at 1300, Until Discontinued, Hold if Hgb > 11g/dL Given 10/09/2023 11:20 AM EDT 40,000 Units Arm Left Upper Given 10/02/2023 11:07 AM EDT 40,000 Units Arm Right Upper Given 09/25/2023 10:46 AM EDT 40,000 Units Arm Left Upper documented in this encounter Care Teams Certified Medication Technician Relationship Specialty Start Date End Date Gino Osman MD [address] [place] [address] PCP - General Family Medicine 05/06/18 documented as of this encounter
--- OUTSIDE RECORDS SUMMARY | 2023-12-18 22:19 | External Medical Summary | Summary of Care ---
Author Name Unknown Organization [facility] Address [address] [place] [address] Phone [phone] Care Team Providers Care Equine Breeder Name Role Phone Gino Osman MD Primary Care Provider [phone] Reason for Visit * Reason Onset Date Comments Order Request 10/08/2023 Encounter Details Date Type Department Care Team (Late st Contact Info) Description 10/08/2023 Telephone Centralized Clinical Pharmacy Services, Lorrie Rothman [address] [place] [address] [place] [address] Clinic, Anemia [address] [place] [address] Order Request Allergies Active Allergy [...] 30 Cap 12/16/2020 Active Ergocalciferol 1.25 MG (42011 UT) Oral Capsule (Vitamin D2(Drisdol)) On Sunday bimonthly 12 Capsule 01/02/2023 Active Tamsulosin HCl 0.4 MG Oral Capsule (Flomax)Indications: BPH with obstruction/lower urinary tract symptoms TAKE ONE CAPSULE BY MOUTH IN THE MORNING 90 Capsule 3 04/01/2023 Active Fluticasone Propionate 50 MCG/ACT Nasal Suspension (Flonase) Administer 1 [place] into nostril in the morning and 1 [place] before bedtime. 05/01/2023 Active Saline Nasal [place] 0.65 % Nasal Solution ([place]) Administer 1 [place] into nostril. 05/01/2023 Active Pantoprazole Sodium 40 [...] Start Date End Date Status Epoetin Rogelio 28771 UNIT/ML inj 40,000 UnitsIndications:Anemia of chronic renal failure, stage 3b (HCC) 33515 Units SC QWEEK 08/21/2023 Active documented as [...] mRNA, LNP-s, No Pre serve, 2-Dose Series (Volve) 09/03/2021,11/04/2020,05/27/2020,04/19 COVID-19, MRNA-LNP, 23-24, P F, 30 [...] encounter Miscellaneous Notes * Telephone Encounter - Feroz Lugo [facility] - 10/08/2023 1:19 PM EDT Juliann Chapa, I am reaching out in regards to Mr. Rodas and his ongoing BON therapy. Patient is s/p Mohs surgery for SCC and has started XRT on 10/02/23 under the care of Dr. Bruce (Radiation Oncology - [facility]). Patient is currently on our typical ceiling [...] questions. Thank you! Best Regards, Feroz Lugo, TristaD, [facility] Clinical Pharmacist Anemia Clinic P: [phone] F: [phone] 10/08/2023 1:41 PM * Telephone Encounter - Jenna River, quality systems specialist - 10/08/2023 10:30 AM EDT Caller's name: Cherelle Salamanca call back number(OFFICE NUMBER FOR ): [phone] Reason for call: Reticulocyte and CBC lab orders still need to be sent over to Nephrology so they can be drawn as well during appointment on 10/08. Would like a call back from [facility]. Jenna River Insurance Underwriter Centralized Clinical Pharmacy Services [address] [place] [address] [address] [place] [phone] 10/08/2023,10:32 AM documented in this encounter Plan of Treatment Upcoming Encounters Date Type Department Care Team (Late st Contact Info) Description 10/09/2023 11:00 AM EDT Nurse Only Nephrology, Gabrielle Silva [address] [place] [address] Sp, Nurse Nephrology [address] [place] [address] 10/10/2023 9:30 AM EDT Pharmacy Pharmacy, [address] [id number] [facility], [address] [address] 01/18/2024 1:00 PM EDT Office Visit Nephrology, Gabrielle Silva [address] [place] [address] Laurita Washington PA-C [address] [place] [address] 04/01/2024 1:00 PM EST Nurse Only Ancillary Department, [place] [address] [place] [address] [place], Nurse Annual Wellness [address] [place] [address] 04/01/2024 2:20 PM EST Office Visit Family Practice, [place] [address] [place] [address] Gino Osman MD [address] [place] [address] Health Maintenance Due Date Last [...] 06/20/2021, Additional history exists Hgb 10/01/2024 10/02/2023, 07/0 11/2023, 09/17/2023, Additional history exists DTaP,Tdap,and Td [...] this encounter Medical Devices Implanted Type Area Veneer Patcher Device Identifier Shelf Expiration Date Model / Serial / Lot Lens Intraoc 18.0 - [id number] - [id number] Implanted:Qty: 1 on 11/20/2019 by Sonu Valladares MD at OR [facility] Left: Eye BAUSCH & LOMB 02/16/2024 [id number] / [id number] / [id number] Sofport Implanted:Qty: 1 on 12/02/2019 by Sonu Valladares MD at OR [facility] Right: Eye 11/17/2023 [id number] / / [id number] documented as of this encounter Care Teams Equine Breeder Relationship Specialty Start Date End Date Gino Osman MD [address] [facility] [place] [phone] PCP - General Family Medicine 05/06/18 documented as of this encounter
--- OUTSIDE RECORDS SUMMARY | 2023-12-18 22:19 | External Medical Summary | Summary of Care ---
Author Name Unknown Organization [facility] Address [address] [place] [address] Phone [phone] Care Team Providers Care Research And Development Specialist Name Role Phone Gino Osman MD Primary Care Provider [phone] Reason for Referral * Evaluate & Treat - Unlimited Visits (Within 10 days (routine)) - Authorized Specialty Diagnoses / Procedures Referred By Contac t Referred To Contact Hematology/Oncology / Hematology Oncology Diagnoses Anemia, unspecified type Madi Hernandez MD [address] [place] [address] Referral ID Status Reason Start Date Expiration Date Visits Requested Visits Authorized [id number] Authorized Specialty Services Required 10/10/2023 999 999 [...] Telephone Centralized Clinical Pharmacy Services, Lorrie Rothman [address] [place] [address] [place] [address] Clinic, Anemia [address] [place] [address] Order Request Allergies Active Allergy Reactions Criticality Noted Date Comments Adhesive Tape Itching High 11/21/2022 documented as of this encounter (statuses as of 10/11/2023) Medications Medication Sig Dispensed Refills Start Date [...] 30 Cap 12/16/2020 Active Ergocalciferol 1.25 MG (22775 UT) Oral Capsule (Vitamin D2(Drisdol)) On Sunday bimonthly 12 Capsule 01/02/2023 Active Tamsulosin HCl 0.4 MG Oral Capsule (Flomax)Indications: BPH with obstruction/lower urinary tract symptoms TAKE ONE CAPSULE BY MOUTH IN THE MORNING 90 Capsule 3 04/01/2023 Active Fluticasone Propionate 50 MCG/ACT Nasal Suspension (Flonase) Administer 1 [place] into nostril in the morning and 1 [place] before bedtime. 05/01/2023 Active Saline Nasal [place] 0.65 % Nasal Solution ([place]) Administer 1 [place] into nostril. 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 History of pulmonary fibrosis 11/27/2018 Pulmonary embolus, left 06/13/2018 Acute deep vein thrombosis (DVT) of right lower extremity 06/13/2018 Current use of terminal supervisor 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 019 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 Overview: left [facility] 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 Interstitial lung disease 03/19/2015 Chronic rhinitis 03/30/2014 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 Restrictive lung disease documented as of this encounter (statuses as of 10/11/2023) Resolved Problems Problem Noted Date Diagnosed Date [...] as of this encounter (statuses as of 10/11/2023) Immunizations Name Administration Dates Next Due COVID-19 mRNA, LNP-s, No Pre serve, 2-Dose Series (PST Tankers) 09/03/2021,11/04/2020,05/27/2020,04/19 COVID-19, MRNA-LNP, 23-24, P F, 30 MCG/0.3 mL, 12 YRS AND ABOVE, IM ([facility]) 02/22/2023 Covid-19, Mrna, Lnp-s, [...] pt * Telephone Encounter - Feroz Lugo [facility] - 10/08/2023 1:19 PM EDT Juliann Hernandez, I am reaching out in regards to Mr. Rodas and his ongoing BON therapy. Patient is s/p Mohs surgery for SCC and has started XRT on 10/02/23 under the care of Dr. Bruce (Radiation Oncology - [facility]). Patient is currently on our [...] Thank you! Best Regards, Feroz Lugo, Theo, [facility] Clinical Pharmacist Anemia Clinic P: [phone] F: [phone] 10/08/2023 1:41 PM * Telephone Encounter - Jenna River swatch clerk - 10/08/2023 10:30 AM EDT Caller's name: Cherelle Jadyn call back number(OFFICE NUMBER FOR ): [phone] Reason for call: Reticulocyte and CBC lab orders still need to be sent over to Nephrology so they can be drawn as well during appointment on 10/08. Would like a call back from [facility]. Jenna Rvier Instructional Assistant Centralized Clinical Pharmacy Services [address] [place] [address] Dr. De Dios [address] [place] [address] [id number] 10/08/2023,10:32 AM documented in this encounter Plan of Treatment Upcoming Encounters Date Type Department Care Team (Late st Contact Info) Description 10/16/2023 11:00 AM EDT Nurse Only Nephrology, Gabrielle Silva [address] [place] [address] [address] Sp, Nurse Nephrology [address] [place] [address] 01/21/2024 10:00 AM EST Office Visit Nephrology, Gabrielle Silva [address] [place] [address] [address] Laurita Washington PA-C [address] [place] [address] [address] 04/01/2024 1:00 PM EST Nurse Only Ancillary Department, [place] [address] [place] [facility] [place] [address] [place], Nurse Annual Wellness [address] [facility] [place] [phone] 04/01/2024 2:20 PM EST Office Visit [facility] Practice, [place] [address] [facility] [phone] Gino Osman MD [address] [facility] [place] [phone] Scheduled Referrals Name Type Priority Associated Diagnoses [...] this encounter Medical Devices Implanted Type Area Powerplant Operator Device Identifier Shelf Expiration Date Model / Serial / Lot Lens Intraoc 18.0 - [id number] - [id number] Implanted:Qty: 1 on 11/20/2019 by Sonu Valladares MD at OR [facility] Left: Eye BAUSCH & LOMB 02/16/2024 [id number] / [id number] / [id number] Sofport Implanted:Qty: 1 on 12/02/2019 by Sonu Valladares MD at OR [facility] Right: Eye 11/17/2023 [id number] / / [id number] documented as of this encounter Visit Diagnoses Diagnosis Anemia, unspecified type- Primary documented in this encounter Care Teams Research And Development Specialist Relationship Specialty Start Date End Date Gino Osman MD [address] [facility] [place] [place] [address] PCP - General Family Medicine 05/06/18 documented as of this encounter
--- OUTSIDE RECORDS SUMMARY | 2023-12-18 22:19 | External Medical Summary ---
Author Name Unknown Address Unknown Organization K09:[facility] [address] Laboratory Report Ordering Provider Test Date Status ROBERT VANCE 10/09/2023 10:51:38 Final Observation Date Value Abnormality Reference (Units ) Status WBC, Total 10/09/2023 10:51:38 5.63 4.00-10.8 0 (K/uL) Final RBC 10/09/2023 10:51:38 2.46 4.50-5.25 (M/uL) Final Hemoglobin 10/09/2023 10:51:38 8.0 Below low normal 14 .0-16.8 (g/dL) Final HCT 10/09/2023 10:51:38 26.8 Below low normal 40. 0-48.4 (%) Final MCV 10/09/2023 10:51:38 108.9 82.0-99.5 (fL) Final MCH 10/09/2023 10:51:38 32.5 27.0-34.0 (pg) Final MCHC 10/09/2023 10:51:38 29.9 32.0-36.0 (g/dL) Final RDW 10/09/2023 10:51:38 15.2 11.5-15.5 (%) Final Platelets 10/09/2023 10:51:38 122 Below low normal 140 -400 (K/uL) Final MPV 10/09/2023 10:51:38 10.9 6.6-11.1 ( fL) Final Performing Location [facility] [address]
--- OUTSIDE RECORDS SUMMARY | 2023-12-18 22:19 | External Medical Summary | Summary of Care ---
Author Name Unknown Organization [facility] Address [address] [facility] [place] [address] Phone [phone] Care Team Providers Care Drug Safety Associate Name Role Phone Gino Osman MD Primary Care Provider [phone] Reason for Visit * Reason Comments Outpatient Testing Encounter Details Date Type Department Care Team (Late st Contact Info) Description 10/16/2023 11:20 AM EDT Laboratory Laboratory [facility] [address] [place] [address] [place] [facility] [address] [facility] [place] [address] Anemia of chronic renal failure, stage 4 (severe) ([facility]) Allergies Active Allergy Reactions Criticality Noted Date [...] 30 Cap 12/16/2020 Active Ergocalciferol 1.25 MG (91472 UT) Oral Capsule (Vitamin D2(Drisdol)) On Sunday bimonthly 12 Capsule 01/02/2023 Active Tamsulosin HCl 0.4 MG Oral Capsule (Flomax)Indications: BPH with obstruction/lower urinary tract symptoms TAKE ONE CAPSULE BY MOUTH IN THE MORNING 90 Capsule 3 04/01/2023 Active Fluticasone Propionate 50 MCG/ACT Nasal Suspension (Flonase) Administer 1 [place] into nostril in the morning and 1 [place] before bedtime. 05/01/2023 Active Saline Nasal [place] 0.65 % Nasal Solution ([place]) Administer 1 [place] into nostril. 05/01/2023 Active Pantoprazole Sodium 40 [...] Start Date End Date Status Epoetin Rogelio 03211 UNIT/ML inj 40,000 UnitsIndications:Anemia of chronic renal failure, stage 3b (HCC) 24646 Units SC QWEEK 08/21/2023 Active documented as [...] right lower extremity 06/13/2018 Current use of tank terminal gauger 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 019 History of lung [...] mRNA, LNP-s, No Pre serve, 2-Dose Series ([place] [employer]) 09/03/2021,11/04/2020,05/27/2020,04/19 COVID-19, MRNA-LNP, 23-24, P F, 30 MCG/0.3 mL, 12 YRS AND ABOVE, IM ([facility]) 02/22/2023 Covid-19, Mrna, Lnp-s, Pf, B ivalent, [...] 10/26/2023 8:45 AM EDT Office Visit Hematology/Oncology [facility] [address] [facility] [place] [phone] Cleve Bruce MD [address] [place] [address] 01/21/2024 10:00 AM EST Office Visit Nephrology, [facility] [address] [facility] [place] [address] Laurita Washington PA-C [address] [place] [address] 04/01/2024 1:00 PM EST Nurse Only Ancillary Department, [address] [phone] [place], Nurse Annual Wellness [facility] [place] [address] 04/01/2024 2:20 PM EST Office Visit Family Practice, [place] [address] [place] [phone] Gino Osman MD [address] [place], [place] [phone] Pending Results Name Type Priority Associated Diagnoses Date /Time RETICULOCYTE PANEL Lab Routine Anemia of chronic renal failure, stage 4 (severe) (HCC) 10/16/2023 11:05 AM EDT Health Maintenance Due Date Last Done Comments Alpha-1 Antitrypsin 1963 COVID-19 Vaccine ( season) 2023 02/22/2023, 01/17/2022, 09/03/2021, Additional history exists Influenza Vaccine (FLU shot) (#1) 2023 12/27/2022, 01/11/2022, 12/16/2020, Additional history exists PTH 12/02/2023 12/01/2022 Hepatitis C Screening 02/28/2024 Postpo erna from 1963 (Patient Declined After Education) Depression Screening 03/06/2024 03/06/2023, 05/01/19 18 GFR 03/27/2024 09/25/2023, 11/2023, 09/17/2023, Additional history exists Nephrology Referral [...] this encounter Medical Devices Implanted Type Area Senior Cytotechnologist Device Identifier Shelf Expiration Date Model / Serial / Lot Lens Intraoc 18.0 - [id number] - [id number] Implanted:Qty: 1 on 11/20/2019 by Sonu Valladares MD at OR [facility] Left: Eye BAUSCH & LOMB 02/16/2024 [id number] / [id number] / [id number] Sofport Implanted:Qty: 1 on 12/02/2019 by Sonu Valladares MD at OR [facility] Right: Eye 11/17/2023 [id number] / / [id number] documented as of this encounter Procedures Procedure Name Priority Date/Time Associated Diagnosis Comments CBC Routine 10/16/2023 11:05 AM EDT Anemia of chronic renal failure, stage 4 (severe) (HCC) documented in this encounter Results * (ABNORMAL) CBC (10/16/2023 11:05 AM EDT) WBC 5.78 4.00 - 10.80 K/uL 10/16/2023 11:11 AM EDT [facility] [place] [address] RBC 2.47 4.50 - 5.25 M/uL 10/16/2023 11:11 AM EDT [facility] [place] [address] HGB 8.1(L) 14.0 - 16.8 g/dL 10/16/2023 11:11 AM EDT [facility] HCT 26.9(L) 40.0 - 48.4 % 10/16/2023 11:11 AM EDT [facility] [place] [address] MCV 108.9 82.0 - 99.5 fL 10/16/2023 11:11 AM EDT [place] [address] MCH 32.8 27.0 - 34.0 pg 10/16/2023 11:11 AM EDT [facility] [place] [address] MCHC 30.1 32.0 - 36.0 g/dL 10/16/2023 11:11 AM EDT [address] RDW 15.4 11.5 - 15.5 % 10/16/2023 11:11 AM EDT [facility] 56 PLT 117(L) 140 - 400 K/uL 10/16/2023 11:11 AM EDT [facility] MPV 10.4 6.6 - 11.1 fL 10/16/2023 11:11 AM EDT [facility] Blood Venous blood specimen / Unknown Venipuncture / Unknown 10/16/2023 11:05 AM EDT 10/16/2023 11:05 AM EDT Feroz Lugo [facility] LAB BLOOD OR DERABLES [facility] [place] [address] [place] [address] documented in this encounter Visit Diagnoses Diagnosis Anemia of chronic renal failure, stage 4 (severe) (HCC) documented in this encounter Care Teams Drug Safety Associate Relationship Specialty Start Date End Date Gino Osman MD [address] [place], [place] [phone] PCP - General Family Medicine 05/06/18 documented as of this encounter
--- OUTSIDE RECORDS SUMMARY | 2023-12-18 22:19 | External Medical Summary | Summary of Care ---
Author Name Unknown Organization [facility] Address [address] [place] [address] Phone [phone] Care Team Providers Care Auto Service Dispatcher Name Role Phone Gino Osman MD Primary Care Provider [phone] Reason for Referral * Evaluate & Treat - Unlimited Visits (Within 10 days (routine)) - Authorized Specialty Diagnoses / Procedures Referred By Contac t Referred To Contact Hematology/Oncology / Hematology Oncology Diagnoses Anemia, unspecified type Madi Hernandez MD [address] [place] [address] Referral ID Status Reason Start Date Expiration Date Visits Requested Visits Authorized [id number] Authorized Specialty Services Required 10/10/2023 999 999 [...] Telephone Centralized Clinical Pharmacy Services, Lorrie Rothman [address] [place] [address] [place] [address] Clinic, An[place] [address] [place] [address] Order Request Allergies Active Allergy [...] 30 Cap 12/16/2020 Active Ergocalciferol 1.25 MG (76304 UT) Oral Capsule (Vitamin D2(Drisdol)) On Sunday bimonthly 12 Capsule 01/02/2023 Active Tamsulosin HCl 0.4 MG Oral Capsule (Flomax)Indications: BPH with obstruction/lower urinary tract symptoms TAKE ONE CAPSULE BY MOUTH IN THE MORNING 90 Capsule 3 04/01/2023 Active Fluticasone Propionate 50 MCG/ACT Nasal Suspension (Flonase) Administer 1 [place] into nostril in the morning and 1 [place] before bedtime. 05/01/2023 Active Saline Nasal [place] 0.65 % Nasal Solution ([place]) Administer 1 [place] into nostril. 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 Rodas and his ongoing BON therapy. Patient is s/p Mohs surgery for SCC and has started XRT on 10/02/23 under the care of Dr. Bruce (Radiation Oncology - [facility]). Patient is currently on our typical [...] Thank you! Best Regards, Feroz Lugo, TristaD, [facility] Clinical Pharmacist Anemia Clinic P: [phone] F: [phone] 10/08/2023 1:41 PM * Telephone Encounter - Jenna River kerfer machine operator - 10/08/2023 10:30 AM EDT Caller's name: Cherelle Jadyn call back number(OFFICE NUMBER FOR ): [phone] Reason for call: Reticulocyte and CBC lab orders still need to be sent over to Nephrology so they can be drawn as well during appointment on 10/08. Would like a call back from [facility]. Jenna River School Speech Language Pathologist Centralized Clinical Pharmacy Services [address] [place] [address] Dr. De Dios [address] [place] [address] [id number] 10/08/2023,10:32 AM documented in this encounter Plan of Treatment Upcoming Encounters Date Type Department Care Team (Late st Contact Info) Description 10/16/2023 11:00 AM EDT Nurse Only Nephrology, [place]rielle Silva [address] [place] [address] [place], Nurse Nephrology [address] [facility] [place] [address] 01/21/2024 10:00 AM EST Office Visit Nephrology, Gabrielle Silva [address] [place] [address] Laurita Washington PA-C [address] [place] [address] 04/01/2024 1:00 PM EST Nurse Only Ancillary Department, [place] [address] [facility] [address] [place], Nurse [facility] Wellness [address] [facility] [place] [address] 04/01/2024 2:20 PM EST Office Visit [facility] [address] [place] [address] Gino Osman MD [address] [place] [address] Scheduled Referrals Name Type Priority [...] this encounter Medical Devices Implanted Type Area Core Machine Operator Device Identifier Shelf Expiration Date Model / Serial / Lot Lens Intraoc 18.0 - [id number] - [id number] Implanted:Qty: 1 on 11/20/2019 by Sonu Valladares MD at OR [facility] Left: Eye BAUSCH & LOMB 02/16/2024 [id number] / [id number] / [id number] Sofport Implanted:Qty: 1 on 12/02/2019 by Sonu Valladares MD at OR [facility] Right: Eye 11/17/2023 [id number] / / [id number] documented as of this encounter Visit Diagnoses Diagnosis Anemia, unspecified type- Primary documented in this encounter Care Teams Auto Service Dispatcher Relationship Specialty Start Date End Date Gino Osman MD [address] [place] [address] PCP - General Family Medicine 05/06/18 documented as of this encounter
--- OUTSIDE RECORDS SUMMARY | 2023-12-18 22:19 | External Medical Summary | Summary of Care ---
Author Name Unknown Organization [facility] Address [address] [place] [address] Phone [phone] Care Team Providers Care Stenotype Machine Operator Name Role Phone Gino Osman MD Primary Care Provider [phone] Reason for Referral * Evaluate & Treat - Unlimited Visits (Within 10 days (routine)) - Authorized Specialty Diagnoses / Procedures Referred By Contac t Referred To Contact Hematology/Oncology / Hematology Oncology Diagnoses Anemia, unspecified type Madi Hernandez MD [address] [place] [address] Referral ID Status Reason Start Date Expiration Date Visits Requested Visits Authorized [id number] Authorized Specialty Services Required 10/10/2023 999 999 [...] Telephone Centralized Clinical Pharmacy Services, Lorrie Rothman [address] [place] [address] [place] [address] Clinic, Anemia [address] [place] [address] Order Request Allergies Active Allergy [...] 30 Cap 12/16/2020 Active Ergocalciferol 1.25 MG (88537 UT) Oral Capsule (Vitamin D2(Drisdol)) On Sunday bimonthly 12 Capsule 01/02/2023 Active Tamsulosin HCl 0.4 MG Oral Capsule (Flomax)Indications: BPH with obstruction/lower urinary tract symptoms TAKE ONE CAPSULE BY MOUTH IN THE MORNING 90 Capsule 3 04/01/2023 Active Fluticasone Propionate 50 MCG/ACT Nasal Suspension (Flonase) Administer 1 [place] into nostril in the morning and 1 [place] before bedtime. 05/01/2023 Active Saline Nasal [place] 0.65 % Nasal Solution ([place]) Administer 1 [place] into nostril. 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) 02/22/2023 Covid-19, Mrna, Lnp-s, Pf, B [...] pt * Telephone Encounter - Feroz Lugo [facility] - 10/08/2023 1:19 PM EDT Juliann Hernandez, I am reaching out in regards to Mr. Rodas and his ongoing BON therapy. Patient is s/p Mohs surgery for SCC and has started XRT on 10/02/23 under the care of Dr. Bruce (Radiation Oncology - [facility]). Patient is currently on our typical [...] Thank you! Best Regards, Feroz Lugo PharmD, [facility] Clinical Pharmacist Anemia Clinic P: [phone] F: [phone] 10/08/2023 1:41 PM * Telephone Encounter - Jenna River cook soup - 10/08/2023 10:30 AM EDT Caller's name: Cherelle Jadyn call back number(OFFICE NUMBER FOR ): [phone] Reason for call: Reticulocyte and CBC lab orders still need to be sent over to Nephrology so they can be drawn as well during appointment on 10/08. Would like a call back from [facility]. Jenna River Director Regulatory Compliance Centralized Clinical Pharmacy Services [address] [place] [address] [address] [place] [phone] 10/08/2023,10:32 AM documented in this encounter Plan of Treatment Upcoming Encounters Date Type Department Care Team (Late st Contact Info) Description 10/16/2023 11:00 AM EDT Nurse Only Nephrology, Gabrielle Silva [address] [place] [address] [address] Sp, Nurse Nephrology [address] [place] [address] 10/26/2023 8:45 AM EDT Office Visit Hematology/Oncology [facility] 200 [facility] [place], [place] [phone] Cleve Bruce MD [address] [facility] [place], [place] [address] 01/21/2024 10:00 AM EST Office Visit Nephrology, [facility] [address] [facility] [place], [place] [address] Laurita Washington PA-C [address] [facility] [place], [place] [address] 04/01/2024 1:00 PM EST Nurse Only Ancillary Department, [address] [address] [place], Nurse Annual Wellness [address] [place] [address] 04/01/2024 2:20 PM EST Office Visit Family [facility], [address] [phone] Gino Osman MD [address] [place] [address] Scheduled Referrals Name Type Priority Associated Diagnoses [...] this encounter Medical Devices Implanted Type Area Dry Cleaning Counter Clerk Device Identifier Shelf Expiration Date Model / Serial / Lot Lens Intraoc 18.0 - [id number] - [id number] Implanted:Qty: 1 on 11/20/2019 by Sonu Valladares MD at OR [facility] Left: Eye [employer] LOMB 02/16/2024 [id number] / [id number] / [id number] Sofport Implanted:Qty: 1 on 12/02/2019 by Sonu Valladares MD at OR [facility] Right: Eye 11/17/2023 [id number] / / [id number] documented as of this encounter Visit Diagnoses Diagnosis Anemia, unspecified type- Primary documented in this encounter Care Teams Stenotype Machine Operator Relationship Specialty Start Date End Date Gino Osman MD [address] [place] [address] PCP - General Family Medicine 05/06/18 documented as of this encounter
--- OUTSIDE RECORDS SUMMARY | 2023-12-18 22:19 | External Medical Summary ---
Author Name Unknown Address Unknown Organization K01:[facility] [place] [address] [place] [address] Laboratory Report Ordering Provider Test Date Status ROBERT VANCE 10/16/2023 11:05:00 Final Observation Date Value Abnormality Reference (Units ) Status Retic, % (auto) 10/16/2023 11:05:00 1.33 0.80-1.90 (%) Final Reticulocytes, Absolute 10/16/2023 11:05:00 32.3 31.3-100.1 (K/uL) Final Reticulocyte fraction, immature 10/16/2023 11:05:00 15.8 2.5-20.6 (%) Final Reticulocyte HGB 10/16/2023 11:05:00 31.0 29.7-37.4 (pg) Final Performing Location [facility] [place] [address] [place] [address]
--- OUTSIDE RECORDS SUMMARY | 2023-12-18 22:19 | External Medical Summary | Summary of Care ---
Author Name Unknown Organization [facility] Address [address] [place] [address] Phone [phone] Care Team Providers Care Solution Analyst Name Role Phone Gino Osman MD Primary Care Provider [phone] Reason for Visit * Reason Onset Date Comments Anemia Follow-Up 10/08/2023 Encounter Details Date Type Department Care Team (Late st Contact Info) Description 09/17/2023 9:00 AM EDT Pharmacy Pharmacy, [place] [address] [place], [place] [phone] Clinic, Anemia [address] [place], [place] [phone] Anemia of chronic renal failure, stage 4 (severe) ([facility])* Allergies Active Allergy Reactions Criticality Noted Date [...] 30 Cap 12/16/2020 Active Ergocalciferol 1.25 MG (20246 UT) Oral Capsule (Vitamin D2(Drisdol)) On Sunday bimonthly 12 Capsule 01/02/2023 Active Tamsulosin HCl 0.4 MG Oral Capsule (Flomax)Indications: BPH with obstruction/lower urinary tract symptoms TAKE ONE CAPSULE BY MOUTH IN THE MORNING 90 Capsule 3 04/01/2023 Active Fluticasone Propionate 50 MCG/ACT Nasal Suspension (Flonase) Administer 1 [place] into nostril in the morning and 1 [place] before bedtime. 05/01/2023 Active Saline Nasal [place] 0.65 % Nasal Solution ([place]) Administer 1 [place] into nostril. 05/01/2023 Active Pantoprazole Sodium 40 [...] Start Date End Date Status Epoetin Rogelio 59663 UNIT/ML inj 40,000 UnitsIndications:Anemia of chronic renal failure, stage 3b (HCC) 51090 Units SC QWEEK 08/21/2023 Active documented as [...] of lung transplant 06/13/2018 Overview: left [facility] 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 [...] mRNA, LNP-s, No Pre serve, 2-Dose Series ([employer]) 09/03/2021,11/04/2020,05/27/2020,04/19 COVID-19, MRNA-LNP, 23-24, P F, 30 MCG/0.3 mL, 12 YRS AND ABOVE, IM ([employer]) 02/22/2023 Covid-19, Mrna, Lnp-s, Pf, [...] Progress Notes * Feroz Lugo, [facility] - 10/08/2023 11:35 AM EDT Patient Phone Numbers Called patient to review labs from 09/17/23. Spoke with patient and , Cherelle. Hgb: 7.8 g/dL Hgb is below target range. Iron studies not completed, likely remain adequate. Patient is currently denies changes in medical condition/diagnosis. Plan: Continue Retacrit 40,000 units SQ weekly @ [facility] nephrology clinic (hold for Hgb > 11 g/dL). 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 Received approval from Dr. Chapa to start BON therapy as benefits outweigh risks at this time. Follow-up labs to be obtained on 09/25/23 to match administration appointment. Anemia Clinic will continue to follow. Thank you for allowing us to participate in the care of thispatient. Feroz Lugo, PharmD, [facility] Clinical Pharmacist Anemia Clinic P: [phone] F: [phone] 10/08/2023 12:28 PM Lab Results Component Value Date/Time HGB [...] Only Nephrology, Gabrielle Silva [address] [place] [address] Sp, Nurse Nephrology [address] [place] [address] 10/10/2023 9:30 AM EDT Pharmacy Pharmacy, [place] [address] [place] [address] Clinic, [facility] [address] [place] [address] 01/18/2024 1:00 PM EDT Office Visit Nephrology, Gabrielle Silva [address] [place], [place] [address] Laurita Washington PA-C 200 [facility] [place], [place] [address] 04/01/2024 1:00 PM EST Nurse Only Ancillary Department, [place] [address] [place] [address] [place], Nurse Annual Wellness [address] [place] [address] 04/01/2024 2:20 PM EST Office Visit Family Practice, [place] [address] [place] [phone] Gino Osman MD [address] [place], [place] [phone] Scheduled Orders Name Type Priority Associated Diagnoses Orde r Schedule CBC Lab Routine Anemia of chronic renal failure, stage 4 (severe) (HCC) Expected: 10/09/2023, Expires: 10/07/2024 RETICULOCYTE PANEL Lab Routine Anemia of chronic renal failure, stage 4 (severe) (HCC) Expected: 10/09/2023, Expires: 10/07/2024 CBC Lab Routine Anemia of chronic renal failure, stage 4 (severe) (HCC) Every Week for 52 Occurrences starting 10/08/2023 until 10/07/2024 RETICULOCYTE PANEL Lab Routine Anemia of chronic renal failure, stage 4 (severe) (HCC) Every Week for 52 Occurrences starting 10/08/2023 until 10/07/2024 Health Maintenance Due Date Last Done Comments Alpha-1 Antitrypsin 1963 COVID-19 Vaccine ( season) 2023 02/22/2023, 01/17/2022, 09/03/2021, Additional history exists Influenza Vaccine (FLU shot) (#1) 2023 12/27/2022, 01/11/2022, 12/16/2020, Additional history exists PTH 12/02/2023 12/01/2022 Hepatitis C Screening 02/28/2024 Postpo erna from 1963 (Patient Declined After Education) Depression Screening 03/06/2024 03/06/2023, 05/01/19 18 GFR 03/27/2024 09/25/2023, 0 11/2023, 09/17/2023, Additional history exists Nephrology Referral 09/16/2024 09/17/2023 Phosphate 09/16/2024 09/17/2023, 08/18, 09/09/2023, Additional history exists Albumin/Creatinine Ratio 09/24/2024 024, 12/01/2022, 06/20/2021, Additional history exists Hgb 10/01/2024 10/02/2023, 070 11/2023, 09/17/2023, Additional history exists DTaP,Tdap,and Td [...] this encounter Medical Devices Implanted Type Area Hourly Associate Device Identifier Shelf Expiration Date Model / Serial / Lot Lens Intraoc 18.0 - [id number] - [id number] Implanted:Qty: 1 on 11/20/2019 by Sonu Valladaers MD at OR [facility] Left: Eye [employer] LOMB 02/16/2024 [id number] / [id number] / [id number] Sofport Implanted:Qty: 1 on 12/02/2019 by Sonu Valladares MD at OR [facility] Right: Eye 11/17/2023 [id number] / / [id number] documented as of this encounter Procedures Procedure Name Priority Date/Time Associated Diagnosis Comments RETICULOCYTE PANEL Routine 09/17/2023 9: 28 AM EDT Anemia of chronic renal failure, stage 4 (severe) (HCC) IRON SCREEN, INCLUDING TIBC Routine 09/17/2023 9:28 AM EDT Anemia of chronic renal failure, stage 4 (severe) (HCC) FERRITIN Routine 09/17/2023 9:28 AM EDT Anemia of chronic renal failure, stage 4 (severe) (HCC) documented in this encounter Results * (ABNORMAL) RETICULOCYTE PANEL (09/17/2023 9:28 AM EDT) Reticulocyte Percent 2.69(H) 0.80 - 1.90 % 09/17/2023 10:42 PM EDT [facility] Absolute Reticulocyte 65.6 31.3 - 100.1 K/uL 09/17/2023 10:42 PM EDT [facility] Immature Reticuloctye Fraction 25.8(H) 2.5 - 20.6 % 09/17/2023 10:42 PM EDT [facility] Reticulocyte Hemoglobin 33.6 29.7 - 37.4 pg 09/17/2023 10:42 PM EDT [facility] Blood Venous blood specimen / Unknown Venipuncture / Unknown 09/17/2023 9:28 AM EDT 09/17/2023 9:28 AM EDT Feroz Lugo [facility] LAB BLOOD OR DERABLES [facility] [address] [place] [address] * FERRITIN (09/17/2023 9:28 AM EDT) Ferritin 264 30 - 400 ng/mL 09/17/2023 8:19 PM EDT [facility] Blood Venous blood specimen / Unknown Venipuncture / Unknown 09/17/2023 9:28 AM EDT 09/17/2023 9:28 AM EDT Feroz Guerradonnie [facility] LAB BLOOD OR DERABLES Performing Organization Address City/[facility]/ZIP Co de Phone Number [facility] [place] [address] [place] [address] * (ABNORMAL) IRON SCREEN, INCLUDING TIBC (09/17/2023 9:28 AM EDT) [facility] Iron 68 45 - 176 ug/dL 09/17/2023 7:17 PM EDT [facility] Iron Binding Capacity 220(L) 250 - 425 ug/dL 09/17/2023 7:17 PM EDT [facility] Transferrin Saturation Percent 31 15 - 55 % 09/17/2023 7:17 PM EDT [facility] Blood Venous blood specimen / Unknown Venipuncture / Unknown 09/17/2023 9:28 AM EDT 09/17/2023 9:28 AM EDT Feroz Lugo [facility] LAB BLOOD OR DERABLES Performing Organization Address City/[facility] Co de Phone Number [facility] [address] [place] [address] documented in this encounter Visit Diagnoses Diagnosis Anemia of chronic renal failure, stage 4 (severe) (HCC)- Primary documented in this encounter Care Teams Solution Analyst Relationship Specialty Start Date End Date Gino Osman MD [address] [place] [address] PCP - General Family Medicine 05/06/18 documented as of this encounter
--- OUTSIDE RECORDS SUMMARY | 2023-12-18 22:19 | External Medical Summary | Summary of Care ---
Author Name Unknown Organization [facility] Address [address] [place] [address] Phone [phone] Care Team Providers Care Bill Of Lading Clerk Name Role Phone Gino Osman MD Primary Care Provider Reason for Visit * Reason Onset Date Comments Anemia Follow-Up 10/15/2023 Encounter Details Date Type Department Care Team (Late st Contact Info) Description 10/10/2023 9:30 AM EDT Pharmacy Pharmacy, [place] [address] [place], [place] [phone] Clinic, Anemia [address] [place], [place] [phone] Anemia of chronic renal failure, stage 4 (severe) ([facility])* Allergies Active Allergy Reactions Criticality Noted Date Comments Adhesive Tape Itching High 11/21/2022 documented as of this encounter (statuses as of 10/15/2023) Medications Medication Sig Dispensed Refills Start Date [...] 30 Cap 12/16/2020 Active Ergocalciferol 1.25 MG (33727 UT) Oral Capsule (Vitamin D2(Drisdol)) On Sunday bimonthly 12 Capsule 01/02/2023 Active Tamsulosin HCl 0.4 MG Oral Capsule (Flomax)Indications: BPH with obstruction/lower urinary tract symptoms TAKE ONE CAPSULE BY MOUTH IN THE MORNING 90 Capsule 3 04/01/2023 Active Fluticasone Propionate 50 MCG/ACT Nasal Suspension (Flonase) Administer 1 [place] into nostril in the morning and 1 [place] before bedtime. 05/01/2023 Active Saline Nasal [place] 0.65 % Nasal Solution ([place]) Administer 1 [place] into nostril. 05/01/2023 Active Pantoprazole Sodium 40 [...] Start Date End Date Status Epoetin Rogelio 55066 UNIT/ML inj 40,000 UnitsIndications:Anemia of chronic renal failure, stage 3b (HCC) 92556 Units SC QWEEK 08/21/2023 Active documented as of this encounter (statuses as of 10/15/2023) Active Problems Problem Noted Date Diagnosed Date [...] as of this encounter (statuses as of 10/15/2023) Resolved Problems Problem Noted Date Diagnosed Date [...] as of this encounter (statuses as of 10/15/2023) Immunizations Name Administration Dates Next Due COVID-19 mRNA, LNP-s, No Pre serve, 2-Dose Series ([employer]) 09/03/2021,11/04/2020,05/27/2020,04/19 COVID-19, MRNA-LNP, 23-24, P F, 30 MCG/0.3 mL, 12 YRS AND ABOVE, IM ([employer]) 02/22/2023 Covid-19, Mrna, Lnp-s, Pf, [...] this encounter Progress Notes * Feroz Lugo [facility] - 10/15/2023 10:41 AM EDT Awaiting hematology input on BON continuation. Anemia clinic will continue to follow, thank you for allowing us to participate in the care of thispatient. Feroz Lugo, PharmD, [facility] Clinical Pharmacist Anemia Clinic P: [phone] F: [phone] 10/15/2023 10:42 AM documented in this encounter Plan of Treatment Upcoming Encounters Date Type Department Care Team (Late st Contact Info) Description 10/16/2023 11:00 AM EDT Nurse Only Nephrology, Gabrielle Silva [address] [place] [address] [place], Nurse Nephrology 200 [facility] [place] [address] 10/26/2023 8:45 AM EDT Office Visit Hematology/Oncology [facility] [place] [address] [place] [phone] Cleve Bruce MD [address] [place] [address] 01/21/2024 10:00 AM EST Office Visit Nephrology, Gabrielle Silva [address] [place] [address] Laurita Washington PA-C [address] [place] [address] 04/01/2024 1:00 PM EST Nurse Only Ancillary Department, [address] [place] [phone] [place], Nurse Annual Wellness [address] [place] [facility] [place] [address] 04/01/2024 2:20 PM EST Office [facility], [place] [address] [facility] [phone] Gino Osman MD [address] [place] [place] [address] Health Maintenance Due Date Last Done Comments [...] this encounter Medical Devices Implanted Type Area Storeroom Supervisor Device Identifier Shelf Expiration Date Model / Serial / Lot Lens Intraoc 18.0 - [id number] - [id number] Implanted:Qty: 1 on 11/20/2019 by Sonu Valladares MD at OR [facility] Left: Eye [employer]OM[employer] 02/16/2024 [id number] / [id number] / [id number] Sofport Implanted:Qty: 1 on 12/02/2019 by Sonu Valladares MD at OR [facility] Right: Eye 11/17/2023 [id number] / / [id number] documented as of this encounter Visit Diagnoses Diagnosis Anemia of chronic renal failure, stage 4 (severe) (HCC)- Primary documented in this encounter Care Teams Bill Of Lading Clerk Relationship Specialty Start Date End Date Gino Osman MD [address] [place] [address] PCP - General Family Medicine 05/06/18 documented as of this encounter
--- OUTSIDE RECORDS SUMMARY | 2023-12-18 22:19 | External Medical Summary | Summary of Care ---
Author Name Unknown Organization [facility] Address [address] [facility] [place] [address] Phone [phone] Care Team Providers Care Flap Maker Name Role Phone Gino Osman MD Primary Care Provider [phone] Reason for Visit * Reason Comments Outpatient Testing Encounter Details Date Type Department Care Team (Late st Contact Info) Description 10/09/2023 11:20 AM EDT Laboratory Laboratory [facility] [address] [place] [address] [facility] [address] [facility] [place] [address] Anemia of chronic renal failure, stage 4 (severe) ([facility]) Allergies Active Allergy Reactions Criticality Noted [...] 30 Cap 12/16/2020 Active Ergocalciferol 1.25 MG (16841 UT) Oral Capsule (Vitamin D2(Drisdol)) On Sunday bimonthly 12 Capsule 01/02/2023 Active Tamsulosin HCl 0.4 MG Oral Capsule (Flomax)Indications: BPH with obstruction/lower urinary tract symptoms TAKE ONE CAPSULE BY MOUTH IN THE MORNING 90 Capsule 3 04/01/2023 Active Fluticasone Propionate 50 MCG/ACT Nasal Suspension (Flonase) Administer 1 [place] into nostril in the morning and 1 [place] before bedtime. 05/01/2023 Active Saline Nasal [place] 0.65 % Nasal Solution ([place]) Administer 1 [place] into nostril. 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 Overview: left [facility] 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 [...] mRNA, LNP-s, No Pre serve, 2-Dose Series ([employer]) 09/03/2021,11/04/2020,05/27/2020,04/19 COVID-19, MRNA-LNP, 23-24, P F, 30 MCG/0.3 mL, 12 YRS AND ABOVE, IM ([employer]) 02/22/2023 Covid-19, Mrna, Lnp-s, Pf, [...] Description 10/10/2023 9:30 AM EDT Pharmacy Pharmacy, [place] [address] [place] [address] Clinic, [facility] [address] [place] [address] 04/01/2024 1:00 PM EST Nurse Only Ancillary Department, [address] [phone] [place], Nurse Annual Wellness [facility] [place], [place] [phone] 04/01/2024 2:20 PM EST Office Visit Family Practice, [place] [address] [place] [phone] Gino Osman MD [address] [place], [place] [phone] Pending Results Name Type Priority Associated Diagnoses Date /Time RETICULOCYTE PANEL Lab Routine Anemia of chronic renal failure, stage 4 (severe) (HCC) 10/09/2023 10:51 AM EDT CBC Lab Routine Anemia of chronic renal failure, stage 4 (severe) (HCC) 10/09/2023 10:51 AM EDT Health Maintenance Due Date Last [...] this encounter Medical Devices Implanted Type Area Welfare Centre Manager Device Identifier Shelf Expiration Date Model / Serial / Lot Lens Intraoc 18.0 - [id number] - [id number] Implanted:Qty: 1 on 11/20/2019 by Sonu Valladares MD at OR [facility] Left: Eye [employer] LOMB 02/16/2024 [id number] / [id number] / [id number] Sofport Implanted:Qty: 1 on 12/02/2019 by Sonu Valladares MD at OR [facility] Right: Eye 11/17/2023 [id number] / / [id number] documented as of this encounter Visit Diagnoses Diagnosis Anemia of chronic renal failure, stage 4 (severe) (HCC) documented in this encounter Care Teams Flap Maker Relationship Specialty Start Date End Date Gino Osman MD [address] [place] [address] PCP - General Family Medicine 05/06/18 documented as of this encounter
--- OUTSIDE RECORDS SUMMARY | 2023-12-18 22:19 | External Medical Summary | Summary of Care ---
Author Name Unknown Organization [facility] Address [address] [place] [address] Phone [phone] Care Team Providers Care Funding Analyst Name Role Phone Gino Osman MD Primary Care Provider [phone] Reason for Referral * Evaluate & Treat - Unlimited Visits (Within 10 days (routine)) - Authorized Specialty Diagnoses / Procedures Referred By Contac t Referred To Contact Hematology/Oncology / Hematology Oncology Diagnoses Anemia, unspecified type Madi Hernandez MD [address] [place] [address] Referral ID Status Reason Start Date Expiration Date Visits Requested Visits Authorized [id number] Authorized Specialty Services Required 10/10/2023 999 999 [...] Telephone Centralized Clinical Pharmacy Services, Lorrie Rothman [address] [place] [address] [place] [address] Clinic, Anemia [address] [place] [address] Order Request Allergies Active Allergy [...] 30 Cap 12/16/2020 Active Ergocalciferol 1.25 MG (74913 UT) Oral Capsule (Vitamin D2(Drisdol)) On Sunday bimonthly 12 Capsule 01/02/2023 Active Tamsulosin HCl 0.4 MG Oral Capsule (Flomax)Indications: BPH with obstruction/lower urinary tract symptoms TAKE ONE CAPSULE BY MOUTH IN THE MORNING 90 Capsule 3 04/01/2023 Active Fluticasone Propionate 50 MCG/ACT Nasal Suspension (Flonase) Administer 1 [place] into nostril in the morning and 1 [place] before bedtime. 05/01/2023 Active Saline Nasal [place] 0.65 % Nasal Solution ([place]) Administer 1 [place] into nostril. 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 019 History of [...] mRNA, LNP-s, No Pre serve, 2-Dose Series ([employer]) 09/03/2021,11/04/2020,05/27/2020,04/19 COVID-19, MRNA-LNP, 23-24, P F, 30 MCG/0.3 mL, 12 YRS AND ABOVE, IM ([facility]) 02/22/2023 Covid-19, Mrna, Lnp-s, Pf, B ivalent, [...] encounter Miscellaneous Notes * Addendum Note - Madi Hernandez MD - 10/10/2023 4:53 PM EDTAddended by: MADI HERNANDEZ on: 10/10/2023 04:53 PM Modules accepted: Orders * Telephone Encounter - Madi Hernandez MD - 10/10/2023 4:49 PM EDT Recommend heme-onc management; referral placed; pls continue to manage until they see him/take over Neph nurse pls update pt * Telephone Encounter - Feroz Lugo [facility] - 10/08/2023 1:19 PM EDT Juliann Hernandez, I am reaching out in regards to Mr. Rodas and his ongoing BON therapy. Patient is s/p Mohs surgery for SCC and has started XRT on 10/02/23 under the care of Dr. Bruce (Radiation Oncology - [facility]). Patient is currently on our [...] any questions. Thank you! Best Regards, Feroz Luog PharmD, [facility] Clinical Pharmacist Anemia Clinic P: [phone] F: [phone] 10/08/2023 1:41 PM * Telephone Encounter - [place] prison classification counselor - 10/08/2023 10:30 AM EDT Caller's name: Cherelle Jadyn call back number(OFFICE NUMBER FOR ): [phone] Reason for call: Reticulocyte and CBC lab orders still need to be sent over to Nephrology so they can be drawn as well during appointment on 10/08. Would like a call back from [facility]. [place] Silk Spreader Centralized Clinical Pharmacy Services [address] [place] [address] Dr. De Dios [address] [place] [phone] 10/08/2023,10:32 AM documented in this encounter Plan of Treatment Upcoming Encounters Date Type Department Care Team (Late st Contact Info) Description 10/16/2023 11:00 AM EDT Nurse Only Nephrology, Gabrielle Silva [address] [place] [address] [address] Sp, Nurse Nephrology 200 [facility] [place] [address] 01/21/2024 10:00 AM EST [facility] [address] [facility] [place], [place] [address] Laurita Washington PA-C 200 [facility] [place], [place] [address] 04/01/2024 1:00 PM EST Nurse Only Ancillary Department, [place] [address] [place] [address] [place], Nurse Annual Wellness [address] [place] [address] 04/01/2024 2:20 PM EST Office Visit Family Practice, [place] [address] [place] [phone] Gino Osman MD [address], [place] [id number] Scheduled Referrals Name Type Priority Associated Diagnoses [...] this encounter Medical Devices Implanted Type Area Wildlife Refuge Specialist Device Identifier Shelf Expiration Date Model / Serial / Lot Lens Intraoc 18.0 - [id number] - [id number] Implanted:Qty: 1 on 11/20/2019 by Sonu Valladares MD at OR [facility] Left: Eye BAUSCH & LOMB 02/16/2024 [id number] / [id number] / [id number] Sofport Implanted:Qty: 1 on 12/02/2019 by Sonu Valladares MD at OR [facility] Right: Eye 11/17/2023 [id number] / / [id number] documented as of this encounter Visit Diagnoses Diagnosis Anemia, unspecified type- Primary documented in this encounter Care Teams Funding Analyst Relationship Specialty Start Date End Date Gino Osmna MD [address] [place] [address] PCP - General Family Medicine 05/06/18 documented as of this encounter
--- OUTSIDE RECORDS SUMMARY | 2023-12-18 22:19 | External Medical Summary ---
Author Name Unknown Address Unknown Organization K09:[facility] [place] [address] Laboratory Report Ordering Provider Test Date Status ROBERT VANCE 10/16/2023 11:05:10 Final Observation Date Value Abnormality Reference (Units ) Status WBC, Total 10/16/2023 11:05:10 5.78 4.00-10.8 0 (K/uL) Final RBC 10/16/2023 11:05:10 2.47 4.50-5.25 (M/uL) Final Hemoglobin 10/16/2023 11:05:10 8.1 Below low normal 14 .0-16.8 (g/dL) Final HCT 10/16/2023 11:05:10 26.9 Below low normal 40. 0-48.4 (%) Final MCV 10/16/2023 11:05:10 108.9 82.0-99.5 (fL) Final MCH 10/16/2023 11:05:10 32.8 27.0-34.0 (pg) Final MCHC 10/16/2023 11:05:10 30.1 32.0-36.0 (g/dL) Final RDW 10/16/2023 11:05:10 15.4 11.5-15.5 (%) Final Platelets 10/16/2023 11:05:10 117 Below low normal 140 -400 (K/uL) Final MPV 10/16/2023 11:05:10 10.4 6.6-11.1 ( fL) Final Performing Location [facility] [place] [address]
--- OUTSIDE RECORDS SUMMARY | 2023-12-18 22:19 | External Medical Summary | Summary of Care ---
Author Name Unknown Organization [facility] Address [address] [place] [address] Phone [phone] Care Team Providers Care Novelty Worker Name Role Phone Gino Osman MD Primary Care Provider [phone] Reason for Referral * Evaluate & Treat - Unlimited Visits (Within 10 days (routine)) - Authorized Specialty Diagnoses / Procedures Referred By Contac t Referred To Contact Hematology/Oncology / Hematology Oncology Diagnoses Anemia, unspecified type Madi Hernandez MD [address] [place] [address] Referral ID Status Reason Start Date Expiration Date Visits Requested Visits Authorized [id number] Authorized Specialty Services Required 10/10/2023 999 999 [...] Telephone Centralized Clinical Pharmacy Services, Lorrie Rothman [address] [place] [address] [place] [address] Clinic, Anemia [address] [place] [address] Order Request Allergies Active Allergy [...] 30 Cap 12/16/2020 Active Ergocalciferol 1.25 MG (94226 UT) Oral Capsule (Vitamin D2(Drisdol)) On Sunday bimonthly 12 Capsule 01/02/2023 Active Tamsulosin HCl 0.4 MG Oral Capsule (Flomax)Indications: BPH with obstruction/lower urinary tract symptoms TAKE ONE CAPSULE BY MOUTH IN THE MORNING 90 Capsule 3 04/01/2023 Active Fluticasone Propionate 50 MCG/ACT Nasal Suspension (Flonase) Administer 1 [place] into nostril in the morning and 1 [place] before bedtime. 05/01/2023 Active Saline Nasal [place] 0.65 % Nasal Solution ([place]da) Administer 1 [place] into nostril. 05/01/2023 Active Pantoprazole Sodium 40 [...] Start Date End Date Status Epoetin Rogelio 62314 UNIT/ML inj 40,000 UnitsIndications:Anemia of chronic renal failure, stage 3b (HCC) 82720 Units SC QWEEK 08/21/2023 Active documented as [...] mRNA, LNP-s, No Pre serve, 2-Dose Series ([employer]) 09/03/2021,11/04/2020,05/27/2020,04/19 COVID-19, MRNA-LNP, 23-24, P F, 30 MCG/0.3 mL, 12 YRS AND ABOVE, IM ([facility]) 02/22/2023 Covid-19, Mrna, Lnp-s, [...] pt * Telephone Encounter - Feroz Lugo [facility] - 10/08/2023 1:19 PM EDT Juliann Hernandez, I am reaching out in regards to Mr. Rodas and his ongoing BON therapy. Patient is s/p Mohs surgery for SCC and has started XRT on 10/02/23 under the care of Dr. Bruce (Radiation Oncology - [facility]). Patient is currently on our [...] Thank you! 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 Would like a call back from [facility]. [place] Iv Rn Centralized Clinical Pharmacy Services [address] [place] [address] Dr. De Dios [address] [place] [address] [id number] 10/08/2023,10:32 AM documented in this encounter Plan of Treatment Upcoming Encounters Date Type Department Care Team (Late st Contact Info) Description 10/16/2023 11:00 AM EDT Nurse Only Nephrology, [facility] [address] [facility] [address] [place] [address] Sp, Nurse Nephrology [address] [place] [place] [address] 10/26/2023 8:45 AM EDT Office Visit Hematology/Oncology [facility] [place] [address] [facility] [place] [phone] Cleve Bruce MD [address] [facility] [place] [address] 01/21/2024 10:00 AM EST Office Visit Nephrology, [facility] [address] [facility] [place] [address] Laurita Washington PA-C [address] [facility] [place] [address] 04/01/2024 1:00 PM EST Nurse Only Ancillary Department, [place] [address] [place] [address] [place], Nurse Annual Wellness [facility] [place] [address] 04/01/2024 2:20 PM EST Office Visit Family [facility], [place] [address] [place] [phone] Gino Osman MD [address] [place] [address] Scheduled Referrals Name Type Priority Associated Diagnoses [...] this encounter Medical Devices Implanted Type Area Bakery Worker Device Identifier Shelf Expiration Date Model / Serial / Lot Lens Intraoc 18.0 - [id number] - [id number] Implanted:Qty: 1 on 11/20/2019 by Sonu Valladares MD at OR [facility] Left: Eye BAUSCH & LOMB 02/16/2024 [id number] / [id number] / [id number] Sofport Implanted:Qty: 1 on 12/02/2019 by Sonu Valladares MD at OR [facility] Right: Eye 11/17/2023 [id number] / / [id number] documented as of this encounter Visit Diagnoses Diagnosis Anemia, unspecified type- Primary documented in this encounter Care Teams Novelty Worker Relationship Specialty Start Date End Date Gino Osman MD [address] [place] [facility] [place] [address] PCP - General Family Medicine 05/06/18 documented as of this encounter
--- OUTSIDE RECORDS SUMMARY | 2023-12-18 22:20 | External Medical Summary | Summary of Care ---
Author Name Unknown Organization [facility] Address [address] [facility] [place] [address] Phone [phone] Care Team Providers Care Tire Beader Maker Name Role Phone Gino Osman MD Primary Care Provider [phone] Reason for Visit * Reason Comments Medication Administration For Procrit in jection * Precert (Within 30 days (routine)) - Authorized Specialty Diagnoses / Procedures Referred By Contac t Referred To Contact Diagnoses Anemia in chronic kidney disease Procedures [place] INJ RETACRIT NON-ESRD USE Ashely Chapa MD [address] [facility] [place] [address] Ashely Chapa MD [address] [facility] [place] [address] Referral ID Status Reason Start Date Expiration Date V isits Requested Visits Authorized [id number] Authorized Precert 02/07/2023 03/18/2099 999 999 Encounter Details Date Type Department Care Team (Late st Contact Info) Description 09/25/2023 10:00 AM EDT Nurse Only Nephrology, [place] [facility] [place] [address] Sp, Nurse Nephrology [address] [facility] [place] [address] Medication Administration (For Procrit inj... Allergies Active Allergy Reactions Criticality Noted Date Comments Adhesive Tape Itching High 11/21/2022 documented as of this encounter (statuses as of 09/25/2023) Medications Medication Sig Dispensed Refills Start Date [...] 30 Cap 12/16/2020 Active Ergocalciferol 1.25 MG (88465 UT) Oral Capsule (Vitamin D2(Drisdol)) On Sunday bimonthly 12 Capsule 01/02/2023 Active Tamsulosin HCl 0.4 MG Oral Capsule (Flomax)Indications: BPH with obstruction/lower urinary tract symptoms TAKE ONE CAPSULE BY MOUTH IN THE MORNING 90 Capsule 3 04/01/2023 Active Fluticasone Propionate 50 MCG/ACT Nasal Suspension (Flonase) Administer 1 [place] into nostril in the morning and 1 [place] before bedtime. 05/01/2023 Active Saline Nasal [place] 0.65 % Nasal Solution ([place]) Administer 1 [place] into nostril. 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 History of pulmonary fibrosis 11/27/2018 Pulmonary embolus, left 06/13/2018 Acute deep vein thrombosis (DVT) of right lower extremity 06/13/2018 Current 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 of terminal operator 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 019 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 Overview: left [facility] 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 Interstitial lung disease 03/19/2015 Chronic rhinitis 03/30/2014 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 Restrictive lung disease documented as of this encounter (statuses as of 09/25/2023) Resolved Problems Problem Noted Date Diagnosed Date Resolved Date Chronic kidney disease, stage 3b 02/27/2022 03/01/2023 Overview: Per CKD protocol Chronic kidney disease, stage 3a 01/26/2020 03/02/2022 Overview: Per CKD protocol SOB (shortness of breath) 10/06/2015 Primary osteoarthritis, left wrist 10/06/2015 10/27/2016 Special screening for malign ant neoplasm of prostate 03/30/2014 10/27/2016 Routine medical exam 09/22/2013 017 Dyslipidemia, goal LDL below 100 06/12/2018 documented as of this encounter (statuses as of 09/25/2023) Immunizations Name Administration Dates Next Due COVID-19 mRNA, LNP-s, No Pre serve, 2-Dose Series ([employer]) 09/03/2021,11/04/2020,05/27/2020,04/19 COVID-19, MRNA-LNP, 23-24, P F, 30 MCG/0.3 mL, 12 YRS AND ABOVE, IM [facility] 02/22/2023 Covid-19, Mrna, Lnp-s, Pf, B ivalent, [...] Sign Reading Time Taken Comments Blood Pressure 110/68 09/25/2023 10:45 AM EDT Pulse - - Temperature - - Respiratory Rate - - Oxygen Saturation - - Inhaled Oxygen Concentration - - Weight - - Height - - Body Mass Index - - documented in this encounter Nursing Notes * Vesta Alanis LPN - 09/25/2023 10:42 AM EDT Patient identified by verbal name and date of . For Procrit injection HGB 7.8 BP stable Pt tolerated [id number] documented in this encounter Plan of Treatment Upcoming Encounters Date Type Department Care Team (Late st Contact Info) Description 09/27/2023 11:00 AM EDT Office Visit [facility] [address] [facility] [address] Gino Osman MD [address] [facility] [address] 10/02/2023 11:00 AM EDT Nurse Only Nephrology, [facility] [address] [facility] [place], [place] [address] Sp, Nurse Nephrology [address] [facility] [address] [place], [place] [address] 01/18/2024 1:00 PM EDT Office Visit Nephrology, [facility] [address] [place], [place] [address] Laurita Washington PA-C [address] [facility] [address] [place], [place] [address] 04/01/2024 1:00 PM EST Nurse Only Ancillary Department, [place] [address] [place] [address] [place], Nurse Annual Wellness [address] [place] [address] Health Maintenance Due Date Last Done Comments Alpha-1 Antitrypsin 1963 Hepatitis C Screening 1963 COVID-19 Vaccine (2022- season) 2023 02/22/2023, 01/17/2022, 09/03/2021, Additional history exists Influenza Vaccine (FLU shot) (#1) 2023 12/27/2022, 01/11/2022, 12/16/2020, Additional history exists Albumin/Creatinine Ratio 12/02/2023 023, 06/20/2021, 06/21/2020 PTH 12/02/2023 12/01/2022 Depression Screening 03/06/2024 03/06/2023, 05/01/19 18 GFR 03/27/2024 09/25/2023, 03/2023, 09/10/2023, Additional history exists HbA1c 09/07/2024 09/08/2023, 060 06/2023, 08/21/2023, Additional history exists Nephrology Referral 09/16/2024 09/17/2023 Phosphate 09/16/2024 09/17/2023, 08/18, 09/09/2023, Additional history exists Hgb 09/24/2024 09/25/2023, 03/2023, 09/12/2023, Additional history exists DTaP,Tdap,and Td Vaccines (3 [...] this encounter Medical Devices Implanted Type Area Sql Server Dba Developer Device Identifier Shelf Expiration Date Model / Serial / Lot Lens Intraoc 18.0 - [id number] - [id number] Implanted:Qty: 1 on 11/20/2019 by Sonu Valladares MD at OR [facility] Left: Eye BAUSCH & LOMB 02/16/2024 [id number] / [id number] / [id number] Sofport Implanted:Qty: 1 on 12/02/2019 by Sonu Valladares MD at OR [facility] Right: Eye 11/17/2023 [id number] / / [id number] documented as of this encounter Administered Medications Active Administered Medications - up to 3 most recent administrations Medication Order MAR Action Action Date Dose Rate Site Epoetin Rogelio 56091 UNIT/ML inj 40,000 Units 40,000 Units, Subcutaneous, QWEEK, First dose on Sun08/21/23 at 1300, Until Discontinued, Hold if Hgb > 11g/dL Given 09/25/2023 10:46 AM EDT 40,000 Units Arm Left Upper Given 09/12/2023 11:16 AM EDT 40,000 Units Arm Left Upper Given 09/03/2023 11:16 AM EDT 40,000 Units Arm Left Upper documented in this encounter Care Teams Tire Beader Maker Relationship Specialty Start Date End Date Gino Osman MD [address] [place] [address] PCP - General Family Medicine 05/06/18 documented as of this encounter
--- OUTSIDE RECORDS SUMMARY | 2023-12-18 22:20 | External Medical Summary | Summary of Care ---
Author Name Unknown Organization [facility] Address [address] [facility] [place] [address] Phone [phone] Care Team Providers Care Plate Maker Zinc Name Role Phone Gino Osman MD Primary Care Provider [phone] Reason for Visit * Reason Comments Outpatient Testing Encounter Details Date Type Department Care Team (Latest Contact Info) Description 09/25/2023 8:30 AM EDT Laboratory Laboratory [facility] [address] [place] [address] [facility] Scenery [address] [facility] [place] [address] Encounter for long-term (current) use of other medications; Gitelman syndrome; 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HCC); Chronic kidney disease, stage 3b (HCC); History of hyperkalemia Allergies Active Allergy Reactions Criticality Noted Date [...] 30 Cap 12/16/2020 Active Ergocalciferol 1.25 MG (33542 UT) Oral Capsule (Vitamin D2(Drisdol)) On Sunday bimonthly 12 Capsule 01/02/2023 Active Tamsulosin HCl 0.4 MG Oral Capsule (Flomax)Indications: BPH with obstruction/lower urinary tract symptoms TAKE ONE CAPSULE BY MOUTH IN THE MORNING 90 Capsule 3 04/01/2023 Active Fluticasone Propionate 50 MCG/ACT Nasal Suspension (Flonase) Administer 1 [place] into nostril in the morning and 1 [place] before bedtime. 05/01/2023 Active Saline Nasal [place] 0.65 % Nasal Solution ([place]) Administer 1 [place] into nostril. 05/01/2023 Active Pantoprazole Sodium 40 [...] Start Date End Date Status Epoetin Rogelio 47885 UNIT/ML inj 40,000 UnitsIndications:Anemia of chronic renal failure, stage 3b (HCC) 52569 Units SC QWEEK 08/21/2023 Active documented as [...] mRNA, LNP-s, No Pre serve, 2-Dose Series ([facility]) 09/03/2021,11/04/2020,05/27/2020,04/19 COVID-19, MRNA-LNP, 23-24, P F, 30 MCG/0.3 mL, 12 YRS AND ABOVE, IM ([employer]) 02/22/2023 Covid-19, Mrna, Lnp-s, Pf, B [...] 09/25/2023 10:00 AM EDT Nurse Only Nephrology, [facility] [address] [facility] [place] [address] [place], Nurse Nephrology [address] [place] [address] 09/27/2023 11:00 AM EDT Office Visit [facility], [place] [address] [place] [facility] [place] [facility] [place] [address] Gino Osman MD [address] [place] [facility] [place] [address] 01/18/2024 1:00 PM EDT Office Visit Nephrology, [facility] [address] [facility] [place] [address] Laurita Washington PA-C [address] [facility] [place] [address] 04/01/2024 1:00 PM EST Nurse Only Ancillary Department, [place] [address] 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) 09/25/2023 8:27 AM EDT MAGNESIUM Lab Routine 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) 09/25/2023 8:27 AM EDT CYTOMEGALOVIRUS DNA, QUANTITATIVE REAL-TIME PCR Lab Routine 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) 09/25/2023 8:27 AM EDT TACROLIMUS LEVEL Lab Routine 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) 09/25/2023 8:27 AM EDT EVEROLIMUS, LC/MS/MS, BLOOD Lab Routine 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) 09/25/2023 8:27 AM EDT URINALYSIS WITH MICROSCOPIC EXAM Lab Routine Chronic kidney disease, stage 3b ([facility]) 09/25/2023 8:27 AM EDT ALBUMIN / CREATININE RATIO, URINE Lab Routine Chronic kidney disease, stage 3b (HCC) 09/25/2023 8:27 AM EDT CBC Lab Routine 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) 09/25/2023 8:27 AM EDT DIFFERENTIAL, AUTOMATED Lab Routine 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) 09/25/2023 8:27 AM EDT Health Maintenance Due Date Last Done Comments Alpha-1 Antitrypsin 1963 Hepatitis C Screening 1963 COVID-19 Vaccine (2022- season) 2023 02/22/2023, 01/17/2022, 09/03/2021, Additional history exists Influenza Vaccine (FLU shot) (#1) 2023 12/27/2022, 01/11/2022, 12/16/2020, Additional history exists Albumin/Creatinine Ratio 12/02/2023 023, 06/20/2021, 06/21/2020 PTH 12/02/2023 12/01/2022 Depression Screening 03/06/2024 03/06/2023, 05/01/19 18 GFR 03/19/2024 09/17/2023, 08/18, 09/10/2023, Additional history exists HbA1c 09/07/2024 09/08/2023, 06/2023, 08/21/2023, Additional history exists Hgb 09/16/2024 09/17/2023, 08/18, 09/07/2023, Additional history exists Nephrology Referral 09/16/2024 09/17/2023 Phosphate 09/16/2024 09/17/2023, 08/18, 09/09/2023, Additional history exists DTaP,Tdap,and Td Vaccines (3 [...] this encounter Medical Devices Implanted Type Area Speaker Wirer Device Identifier Shelf Expiration Date Model / Serial / Lot Lens Intraoc 18.0 - [id number] - [id number] Implanted:Qty: 1 on 11/20/2019 by Sonu Valladares MD at OR [facility] Left: Eye [employer] LOMB 02/16/2024 [id number] / [id number] / [id number] Sofport Implanted:Qty: 1 on 12/02/2019 by Sonu Valladares MD at OR [facility] Right: Eye 11/17/2023 [id number] / / [id number] documented as of this encounter Visit Diagnoses Diagnosis Encounter for long-term (current) use of other medications 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
--- OUTSIDE RECORDS SUMMARY | 2023-12-18 22:20 | External Medical Summary | Summary of Care ---
Author Name Unknown Organization [facility] Address [address] [facility] [place] [address] Phone [phone] Care Team Providers Care Executive Pastry Chef Name Role Phone Gino Osman MD Primary Care Provider [phone] Reason for Visit * Reason Comments Outpatient Testing Encounter Details Date Type Department Care Team (Latest Contact Info) Description 09/25/2023 8:30 AM EDT Laboratory Laboratory [facility] [address] [place] [address] [facility] Lab Scenery [address] [facility] [place] [address] Encounter for long-term (current) use of other [...] 30 Cap 12/16/2020 Active Ergocalciferol 1.25 MG (69055 UT) Oral Capsule (Vitamin D2(Drisdol)) On Sunday bimonthly 12 Capsule 01/02/2023 Active Tamsulosin HCl 0.4 MG Oral Capsule (Flomax)Indications: BPH with obstruction/lower urinary tract symptoms TAKE ONE CAPSULE BY MOUTH IN THE MORNING 90 Capsule 3 04/01/2023 Active Fluticasone Propionate 50 MCG/ACT Nasal Suspension (Flonase) Administer 1 [place] into nostril in the morning and 1 [place] before bedtime. 05/01/2023 Active Saline Nasal [place] 0.65 % Nasal Solution ([place]) Administer 1 [place] into nostril. 05/01/2023 Active Pantoprazole Sodium 40 [...] Start Date End Date Status Epoetin Rogelio 76757 UNIT/ML inj 40,000 UnitsIndications:Anemia of chronic renal failure, stage 3b (HCC) 54599 Units SC QWEEK 08/21/2023 Active documented as [...] mRNA, LNP-s, No Pre serve, 2-Dose Series ([employer]) 09/03/2021,11/04/2020,05/27/2020,04/19 COVID-19, MRNA-LNP, 23-24, P F, 30 MCG/0.3 mL, 12 YRS AND ABOVE, IM ([employer] [facility]) 02/22/2023 Covid-19, Mrna, Lnp-s, Pf, [...] Description 09/27/2023 11:00 AM EDT Office Visit [facility], [place] [address] [place] [facility] [place] [id number] Gino Osman MD [address] [place] [facility] [place] [address] 01/18/2024 1:00 PM EDT Office Visit Nephrology, Gabrielle Silva [address] [place] [address] ZemaLaurita garcia PA-C [address] [place] [address] 04/01/2024 1:00 PM EST Nurse Only Ancillary Department, [place] [address] [facility] [address] [place], Nurse Annual [facility]ness [address] [place] [address] Pending Results Name Type Priority Associated Diagnoses Date /Time BASIC METABOLIC PANEL Lab Routine Encounter for long-term (current) use 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[facility]) 09/25/2023 8:27 AM EDT CBC WITH WBC [...] 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[facility]) 09/25/2023 8:27 AM EDT TACROLIMUS LEVEL Lab Routine Encounter for long-term (current) use 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[facility]) 09/25/2023 8:27 AM EDT EVEROLIMUS, LC/MS/MS, BLOOD Lab Routine Encounter for long-term (current) use 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[facility]) 09/25/2023 8:27 AM EDT ALBUMIN / CREATININE RATIO, URINE Lab Routine Chronic kidney disease, stage 3b ([facility]) 09/25/2023 8:27 AM EDT CBC Lab Routine Encounter for long-term (current) use 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[facility]) 09/25/2023 8:27 AM EDT DIFFERENTIAL, AUTOMATED Lab Routine Encounter for long-term (current) use 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[facility]) 09/25/2023 8:27 AM EDT Health Maintenance Due Date Last Done Comments Alpha-1 Antitrypsin 1963 Hepatitis C Screening 1963 COVID-19 Vaccine ( season) 2023 02/22/2023, 01/17/2022, 09/03/2021, Additional history exists Influenza Vaccine (FLU shot) (#1) 2023 12/27/2022, 01/11/2022, 12/16/2020, Additional history exists Albumin/Creatinine Ratio 12/02/2023 023, 06/20/2021, 06/21/2020 PTH 12/02/2023 12/01/2022 Depression Screening 03/06/2024 03/06/2023, 05/01/19 18 GFR 03/19/2024 09/17/2023, 08/18, 09/10/2023, Additional history exists HbA1c 09/07/2024 09/08/2023, 06/0 06/2023, 08/21/2023, Additional history exists Hgb 09/16/2024 [...] this encounter Medical Devices Implanted Type Area Nursing Services Manager Device Identifier Shelf Expiration Date Model / Serial / Lot Lens Intraoc 18.0 - [id number] - [id number] Implanted:Qty: 1 on 11/20/2019 by Sonu Valladares MD at OR [facility] Left: Eye [employer] LOMB 02/16/2024 [id number] / [id number] / [id number] Sofport Implanted:Qty: 1 on 12/02/2019 by Sonu Valladares MD at OR [facility] Right: Eye 11/17/2023 [id number] / / [id number] documented as of this encounter Procedures Procedure Name Priority Date/Time Associated Diagnosis Comments URINALYSIS WITH MICROSCOPIC EXAM Routine 09/25/2023 8:27 AM EDT Chronic kidney disease, stage 3b (HCC) documented in this encounter Results * (ABNORMAL) URINALYSIS WITH MICROSCOPIC EXAM (09/25/2023 8:27 AM EDT) Color, Urine Yellow Light Yellow, Yellow, Dark Yellow 09/25/2023 8:53 AM EDT [facility] [place] [facility]02 Clarity, Urine Clear Clear 09/25/2023 8:53 AM EDT [facility] [place] 56-02 Glucose, Urine Negative Negative mg/dL 09/25/2023 8:[address]T [address] Bilirubin, Urine Negative Negative 09/25/2023 8:53 AM EDT [address] Ketone, Urine Negative Negative mg/dL 09/25/2023 8:53 AM EDT [place] [address] Specific Industry, Urine 1.020 1.003 - 1.030 09/25/2023 8:53 AM EDT [place] [address] Blood, Urine Negative Negative 09/25/2023 8:53 AM EDT [address] pH, Urine 6.0 5.0 - 7.5 Units 09/25/2023 8:53 AM EDT [address] Protein, Urine >=300(A) Negative mg/dL 09/25/2023 8:53 AM EDT [address] Urobilinogen, Urine 0.2 0.2, 1.0 mg/dL 09/25/2023 8:53 AM EDT [address] Nitrite, Urine Negative Negative 09/25/2023 8:53 AM EDT [address] Esterase, Urine Negative Negative 09/25/2023 8:53 AM EDT [address] RBC, Urine 0-2 0 - 2 /HPF 09/25/2023 8:53 AM EDT [address] WBC, Urine 0-2 0 - 2 /HPF 09/25/2023 8:[address] Bacteria, Urine 0-25 0 - 25 /HPF 09/25/2023 8:53 AM EDT [address] Hyaline, Cast, Urine 1-4(A) None /LPF 09/25/2023 8:53 AM EDT [address] Urine Urine specimen obtained by clean catch procedure / Unknown Non-blood Collection / Unknown 09/25/2023 8:27 AM EDT 09/25/2023 8:27 AM EDT Ashely Chapa MD LAB URINE ORDERAB LES [place] [address] [place] [address] documented in this encounter Visit Diagnoses Diagnosis Encounter for long-term (current) use of other 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
--- OUTSIDE RECORDS SUMMARY | 2023-12-18 22:20 | External Medical Summary ---
Author Name Unknown Address Unknown Organization [id number]:LABORATORY [facility] - [address] [place] [address] Laboratory Report Ordering Provider Test Date Status PAVEL ANNE 09/25/2023 08:27:20 Final Observation Date Value Abnormality Reference (Units) Status Cytomegalovirus DNA [Presence] in Serum or Plasma by KARRIE with probe detection 09/25/2023 08:27:20 CMV DNA not detected CMV DNA not detected Final Performing Location LABORATORY [facility] - [address] [place] [address]
--- OUTSIDE RECORDS SUMMARY | 2023-12-18 22:20 | External Medical Summary ---
Author Name Unknown Address Unknown Organization [id number]:LABORATORY [facility] [address] - [address] [place] [address] Laboratory Report Ordering Provider Test Date Status PAVEL ANNE 09/25/2023 08:27:20 Final Observation Date Value Abnormality Reference (Units ) Status Nucleated erythrocytes/100 leukocytes [Ratio] in Blood by Automated count 09/25/2023 08:27:20 Final Performing Location LAB[facility]ATORY [facility] [address] - [address] [place] [address]
--- OUTSIDE RECORDS SUMMARY | 2023-12-18 22:20 | External Medical Summary ---
Author Name Unknown Address Unknown Organization [id number]:[facility] [place] [address] Laboratory Report Ordering Provider Test Date Status PAVEL ANNE 09/25/2023 08:27:20 Final Observation Date Value Abnormality Reference (Units ) Status Magnesium 09/25/2023 08:27:20 2.0 1.5-2.6 (m g/dL) Final Performing Location [facility] [place] [address]
--- OUTSIDE RECORDS SUMMARY | 2023-12-18 22:20 | External Medical Summary | Summary of Care ---
Author Name Unknown Organization [facility] Address [address] [facility] [place] [address] Phone [phone] Care Team Providers Care Utilization Review Rn Name Role Phone Santiago Osman MD Primary Care Provider Reason for Visit * Reason Comments Return Visit Chronic Kidney Disease (CKD) Medication Administration Encounter Details Date Type Department Care Team (Late st Contact Info) Description 09/17/2023 2:40 PM EDT Office Visit Nephrology, Gabrielle Silva [address] [place] [address] Ashely Chapa MD [address] [facility] [place] [address] Chronic kidney disease, stage 3b (HCC)*; 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; Anemia of chronic renal failure, stage 3b (HCC); Anemia of chronic renal failure, unspecified CKD stage; History of lung transplant (HCC); Current use of mcc 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; HTN, goal below 130/80; History of hyperkalemia Allergies Active Allergy Reactions Criticality Noted Date Comments Adhesive Tape Itching High 11/21/2022 documented as of this encounter (statuses as of 10/02/2023) Medications Medication Sig Dispensed Refills Start Date End Date Status ASPIRIN EC 81 MG PO TBECIndications:D yslipidemia, goal LDL below 100,Mixed dyslipidemia Take one pill daily 100 Tab 3 4 Active sulfamethoxazole- trimethoprim DS (BACTRIM DS) 800-160 MG per tabletIndications :M-W-F Take 0.5 Tablets by mouth once a day on Sunday, Sunday, and Sunday only. 9 Active pravastatin (PRAVACHOL) 20 MG TabletIndications :Dyslipidemia, goal LDL below 100,Mixed dyslipidemia Take 1 Tab by mouth daily. 90 Tab 1 9 Active azithromycin (ZITHROMAX) 250 MG Tablet One tablet -W- 6 Tab 1 9 Active mycophenolate (CELLCEPT) 500 MG Tablet Take 1.5 Tablets by mouth in the morning and 1.5 Tablets before bedtime. 1 Tab 0 Active predniSONE (YOVANY) 5 MG TBEC Take by mouth. In the morning Active Everolimus 0.5 MG Oral Tablet (Zortress)Indicat ions:2 tablet 2 times aday 1 mg (1 Tab) in the AM 1.5 mg in the PM (3 tabs) Indications: 2 tablet 2 times aday 1 Tab 1 Active Montelukast Sodium 10 MG Oral Tablet (Singulair) Take 1 Tablet by mouth. Takes in evening 1 Active guaiFENesin ER 600 MG Oral Tablet Extended Release 12 Hour Take 1 Tablet by mouth. 0 Active Tacrolimus 1 MG Oral Capsule (Prograf)Indicati ons:History of lung transplant (HCC) Take 2 Capsules by mouth in the morning and 2 Capsules before bedtime. Takes 2 mg in the AM and 2 mg in the PM. 30 Cap 1 Active Ergocalciferol 1.25 MG (98538 UT) Oral Capsule (Vitamin D2(Drisdol)) On Sunday bimonthly 12 Capsule 3 Active Tamsulosin HCl 0.4 MG Oral Capsule (Flomax)Indicatio ns:BPH with obstruction/lower urinary tract symptoms TAKE ONE CAPSULE BY MOUTH IN THE MORNING 90 Capsule 3 4 Active Fluticasone Propionate 50 MCG/ACT Nasal Suspension (Flonase) Administer 1 Patton into nostril in the morning and 1 Patton before bedtime. 4 Active Saline Nasal Patton 0.65 % Nasal Solution ([place]) Administer 1 Patton into nostril. 4 Active Pantoprazole Sodium 40 MG Oral Tablet Delayed Release (Protonix) Take 1 Tablet by mouth in the morning. 90 Tablet 3 4 Active Sodium Bicarbonate 650 MG Oral TabletIndications :Chronic kidney disease, stage 3b (HCC) Take 2 Tablets by mouth in the morning and 2 Tablets before bedtime. 360 Tablet 3 4 Active Lisinopril 5 MG Oral Tablet (Prinivil) Take 0.5 Tablets by mouth in the morning. 30 Tablet 5 4 Active metoprolol tartrate (LOPRESSOR) 25 MG Tablet Take 0.5 Tablets by mouth in the morning. 1/2 tablet daily . 09/17/19 24 Discontinued(Med ication List Clean Up) Lisinopril 5 MG Oral Tablet (Prinivil) Take 1 Tablet by mouth in the morning. 30 Tablet 5 4 09/17/19 24 Discontinued Polyethylene Glycol 3350 17 GM Oral Packet (MiraLax) Take 1 Packet by mouth. 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 Interstitial lung disease 03/19/2015 Chronic rhinitis 03/30/2014 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 Restrictive lung disease documented as of this encounter (statuses as of 10/02/2023) Resolved Problems Problem Noted Date Diagnosed Date [...] as of this encounter (statuses as of 10/02/2023) Immunizations Name Administration Dates Next Due COVID-19 mRNA, LNP-s, No Pre serve, 2-Dose Series ([employer]) 09/03/2021,11/04/2020,05/27/2020,04/19 COVID-19, MRNA-LNP, 23-24, P F, 30 MCG/0.3 mL, 12 YRS AND ABOVE, IM ([employer]Comirnat) 02/22/2023 Covid-19, Mrna, Lnp-s, Pf, B ivalent, [...] Sign Reading Time Taken Comments Blood Pressure 134/72 09/17/2023 3:09 PM EDT Pulse 78 09/17/2023 3:09 PM EDT Temperature 36.3 C (97.4 F) 09/17/2023 3:09 PM ED T Respiratory Rate 8 09/17/2023 3:09 PM EDT Oxygen Saturation 98% 09/17/2023 3:09 PM EDT Inhaled Oxygen Concentration - - Weight 61.4 kg (135 lb 6.4 oz) 09/17/2023 3:09 P M EDT Height - - Body Mass Index 21.85 09/14/2023 1:55 PM EDT documented in this encounter Patient Instructions * Patient Instructions* Ashely Chapa MD - 09/17/2023 3:58 PM EDT -resume lisinopril but at 2.5 mg daily -let me know if you need to have 2.5 mg daily tablets; else cut 5 mg ones -no change to other medicines -continue monthly labs > next ones next week w/ urine tests -avoid medicines like aleve, advil, ibuprofen, aspirin more than 81 mg daily and other NSAIDS whichare not good for kidney patients. Take only tylenol (acetaminophen) up to 2000 mg daily as needed for pain or as directed by your primary care provider. -will update Dr Gibbs about your invasive squamous cell carcinoma diagnosis -continue w/ lower K diet for now documented in this encounter Progress Notes * Ashely Chapa MD - 09/17/2023 3:26 PM EDT NEPHROLOGY CLINIC NOTE [facility] [address] 09/17/2023, 3:26 PM Patient Name: Arthur Rodas BACKGROUND: 77 year old male presents for f/u of CKD3 in the setting of lung transplant. And recently admitted [facility] 09/06- for 09/06 inguinal hernia repair c/b K elevation to 5.5 Admitted [facility] 11/21-11/23/22 for acute on chronic anemia w/ presenting hgb 6.6 and w/ REAL on CKD. Had severe diarrhea x a few mos before hospital >> resolved for now but still very diet sensitive and easily tips. Had 12/07/22 EGD/colo >> no focal cause of anemia except ? IC valve ulceration attributed to ?Cellcept (see my [facility] note from GI) PMH includes ILD/PF s/p 2018 [facility] L lung trxplt on FK and everolimus, DVT/PE on eliquis, CKD3, prostatic hypertrophy, HL. Also with spinal stenosis and spinal arthritis establish with pain managementspring summer 2022 [facility]. Frequent MOH's procedures > 3-4 from October 2022 - 04/2023. CKD has been progressive and fairly rapid: In 2021 creatinine ran 1.4-1.7; and first half of 2022 creatinine ran 1.6-2; October 2022 x 2 checks creatinine 2.2. Tacrolimus levels generally in the low 5s to low 6's and have not recently or generally been out of range. Patient with history of 50 mg albuminuria spring 2021. Also with progressive chronic anemia since early 2021 particularly. Hemoglobin in the 10s for the first half of 2021 consistently; then in the 9 for the second half of 2021 consistently. March through July 2022 hemoglobin ran 8-9; in August through October hemoglobin ran in the 7-8. No consistent operations in WBCs, platelets, or on differential. Also notable on review of epic labs chronic non-anion gap metabolic acidosis and hyperuricemia. Currently drinks about 10-12 oz of water overnight and 64 oz of water through the day. Has urinary frequency at night. Prior to developing back issues he was able to run a hand lower. Not with any consistent exercise regimen currently. Does have a treadmill and stationary bike Acc by [place] to many visits At May 08, 2023 visit, breathing better than expected per report at pt's 5 year f/u, includingPFTs best in a long time. Parked in garage and did 2 flights stairs. At last OV he was SOB walking up parking lot steps to clinic in 12/2022; today not sob w/ this. Drinks 80 oz water daily. TODAY 09/17/2023: Pk creat 5.5 > down to 4.6 by d/c; used lasix, TID lokelma to lower; low K diet. Continues with anemia clinic BP was in 150s systolic in hospital > in part had bad roommate and was loud/disruptive, slept poorly. Had Moh's w/ 2 different procedures > R ear; first one was December, second one was August 08, 2023. 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 To see radiology next week for 6 wks radiation therapy. Since hospital d/c LLE edema had been worse w/ IVF on board and had been off/worse already prior toadmissoin >> now getting back to baseline. REVIEW OF SYSTEMS: No F/C, unintended wt loss 10 lb November thru Apr > stable since then, energy level lower thanhe'd like and maybe a bit betterand appetite improved No acute visual changes or [place] No sinus, dental, throat pain No neck lumps/bumps or stiffness No palpitations, angina, orthopnea, slightly improved LE edema No cough, wheeze, or dyspnea >> states PFTs last time have been ok No N/V/D/C/abd pain; had diarrhea in hospital but resolved/improved now; refused miralax in hospital No dysuria, hematuria, nocturia >2X; no new/worrisome voiding sx No rash or generalized itch No focal joint/muscle aches part from LLE sciatica and L rib pain both improved; did have some cough in hosp and w/ RUQ abd pain w/ these C/o too easy inappropriate bleeding or bruising No tremor, seizures, focal or global weakness or paresthesias + presyncopal or orthostatic symptoms occasionally; no falls Current Outpatient Medications Medication Sig Dispense Refill [...] PM. 30 Cap 0 Ergocalciferol 1.25 MG (64761 UT) Oral Capsule (Vitamin D2(Drisdol)) On Sunday bimonthly 12 Capsule 0 Tamsulosin HCl 0.4 MG Oral Capsule (Flomax) TAKE ONE CAPSULE BY MOUTH IN THE MORNING 90 Capsule 3 Fluticasone Propionate 50 MCG/ACT Nasal Suspension (Flonase) Administer 1 Patton into nostril in themorning and 1 Patton before bedtime. Saline Nasal Patton 0.65 % Nasal Solution ([place]) Administer 1 Patton into nostril. Pantoprazole Sodium 40 MG Oral Tablet Delayed Release (Protonix) Take 1 Tablet by mouth in the morning. 90 Tablet 3 Sodium Bicarbonate 650 MG Oral Tablet Take 2 Tablets by mouth in the morning and 2 Tablets before bedtime. 360 Tablet 3 Polyethylene Glycol 3350 17 GM Oral Packet (MiraLax) Take 1 Packet by mouth. Lisinopril 5 MG Oral Tablet (Prinivil) Take 0.5 Tablets by mouth in the morning. 30 Tablet 5 Current Facility-Administered Medications Medication Dose Route Frequency Provider Last Rate Last Admin Epoetin Rogelio 76334 UNIT/ML inj 40,000 Units 40,000 Units Subcutaneous Q Week 40,000 Units at 09/12/23 1116 Review of patient's allergies indicates: Allergen Reactions Adhesive Tape Itching PHYSICAL EXAMINATION: BP Readings from Last 6 Encounters: 09/17/23 134/72 09/14/23 122/64 09/12/23 143/79 09/03/23 115/59 08/21/23 138/78 08/14/23 111/61 Wt Readings from Last 6 Encounters: 09/17/23 61.4 kg (135 lb 6.4 oz) 09/14/23 61.7 kg (136 lb 1.6 oz) 06/15/23 61.7 kg (136 lb) 06/05/23 62.6 kg (138 lb) 06/05/23 62.2 kg (137 lb 1.6 oz) 05/15/23 62.6 kg (138 lb) Pulse Readings from Last 6 Encounters: 09/17/23 78 09/14/23 81 09/12/23 78 09/03/23 84 08/14/23 78 08/07/23 73 NAD, oriented x 3, appears chronically ill though non toxic appearing, ambulatory w/o asst Normocephalic, atraumatic excep tR ear surgical site, eomi nonicteric sclerae MMM Supple neck RRR w/o g/r; SM; 2+ BLE edema CTAB w/ reasonable air mvt on L; diminished mvt and some exp wheezes on R NT abd, +BS, soft No cyanosis or clubbing No rash No tremor, focal or global weakness; fluent speech, excellent historian LABS: Recent Labs Units 09/17/23 0928 09/09/23 0042 09/08/23 1833 09/08/23 1612 09/07/23 1211 08/27/23 0820 07/23/23 0735 06/25/23 0837 SODIUM - [facility] mmol/L 135 -- -- -- -- 136 138 137 POTASSIUM - [facility] mmol/L 4.4 -- -- -- -- 5.4* 5.4* 5.0 POTASSIUM-OUTSIDE LAB mmol/L -- 5.0 5.6* 5.6* < > -- -- -- CHLORIDE - [facility] mmol/L 102 -- -- -- -- 108* 107 105 CO2 - [facility] mmol/L 17* -- -- -- -- 17* 20* 19* BUN - [facility] mg/dL 41* -- -- -- -- 50* 48* 47* CREATININE - [facility] mg/dL 2.1* -- -- -- -- 2.0* 2.2* 2.0* ESTIMATED GLOMERULAR FILTRATION RATE - [facility] mL/min 32* -- -- -- -- 33* 30* 34* < > = values in this interval not displayed. Recent Labs Units 09/17/23 0928 09/12/23 1053 09/07/23 1809 09/03/23 1049 08/21/23 1039 08/14/23 1039 07/03/23 0932 06/25/23 0837 04/23/23 0945 04/16/23 0926 HGB g/dL 7.8* 8.2* 8.4* 8.1* < > 8.5* < > 8.7* < > 8.4* FERRITIN - [facility] ng/mL -- -- -- 252 -- 478* -- 222 -- 273 TRANSFERRIN SATURATION PERCENT - [facility] % -- -- -- 52 -- 7* -- 44 -- 17 < > = values in this interval not displayed. Recent Labs Units 09/17/23 0928 08/27/23 0820 07/23/23 0735 06/25/23 0837 01/22/23 0733 12/25/22 0749 12/01/22 0745 CALCIUM - [facility] mg/dL 8.5 8.7 8.7 8.8 < > 8.9 8.9 PHOSPHORUS - [facility] mg/dL 3.4 -- -- -- -- -- 3.5 25-HYDROXY VITAMIN D - [facility] ng/mL -- -- -- -- -- 75 69 PTH - [facility] pg/mL -- -- -- -- -- -- 88* < > = values in this interval not displayed. Recent Labs Units 09/08/23 1502 08/21/23 1122 08/21/23 0000 HEMOGLOBIN A1C - [facility] % -- 5.8* -- HEMOGLOBIN, G1L-OPAARKD LAB % 6.1* -- 5.8 Recent Labs Units 12/01/22 0745 ALBUMIN / CREATININE RATIO, URINE - [facility] mg/g Creat 33* Latest Reference Range & Units 06/21/20 08:07 06/20/21 07:41 12/01/22 07:45 Albumin / Creatinine Ratio, Urine <30 mg/g Creat <17 59 (H) 33 (H) (H): Data is abnormally high No results for input(s): "COLRUA", "CLARITYUA", "GLUCUA", "BILIUA", "KETOUA", "SG", "BLDUA", "PHURIN", "PROTUA", "UROUA", "NITRIU", "ESTERU", "BACTERIAUR", "WBCURINE", "RBCURINE" in the last 78[address] hours. 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 Follow Up: Return in about 4 months (around 01/18/2024) for clinic visit w/ PA. | For: clinic visit w/ PA | Check-out note: -waitlist -ok to cancel September and Oct appts Stable blood tests of kidney function with history of hyperkalemia blood pressure with acceptable control and no significant albuminuria -resume lisinopril at lower dose -jcontinue aggressive sodium bicarb dosing for best possible acidosis control New with acceptable control: Beta-christopher on hold as is lisinopril: Renew lisinopril low-dose Diagnosed recently w/ aggressive squamous cell carcinoma with August 08, 2023 Mohs procedure showing invasive moderately to poorly differentiated squamous cell carcinoma with perineural invasion. Patient for 6 weeks of radiation therapy. -I explained the importance to him of checking/updating lung transplant team once these findings reanna may opt w/ this info to review/possibly change immunosuppression; I will update them as well. Renal nurse to forward [facility] Dermatology clinic notedetailing Mohs surgery to Dr Andrew Gibbs [facility] lung txplt, coordinator Pamela Moreno telephone [phone] Patient Instructions -resume lisinopril but at 2.5 mg daily -let me know if you need to have 2.5 mg daily tablets; else cut 5 mg ones -no change to other medicines -continue monthly labs > next ones next week w/ urine tests -avoid medicines like aleve, advil, ibuprofen, aspirin more than 81 mg daily and other NSAIDS whichare not good for kidney patients. Take only tylenol (acetaminophen) up to 2000 mg daily as needed for pain or as directed by your primary care provider. -will update Dr Gibbs about your invasive squamous cell carcinoma diagnosis -continue w/ lower K diet for now Ashely Chapa MD Nephrology, [address] [place] [address] CC: Ref: SANTIAGO OSMAN[[id number]] [address] [place] [address] (office) [phone] (fax) PCP: SANTIAGO OSMAN [address] [place] [address] [phone] This chart was completed in part utilizing [employer] Speech Voice Recognition Software. Randomword insertions, pronoun errors, and incomplete sentences are an occasional consequence of this system due to software limitations, and ambient noise. Any questions or concerns about the content, text, or information contained within the body of this dictation should be directly addressed to the provider for clarification. documented in this encounter Nursing Notes * Vesta Alanis LPN - 09/17/2023 3:07 PM EDT Patient identified by verbal name and date of . [facility] Pt was instructed to discontinue Lisinipril due to elevated potassium while post op For Procrit injection Hgb 7.8 See Mar Pt tolerated well documented in this encounter Plan of Treatment Upcoming Encounters Date Type Department Care Team (Late st Contact Info) Description 10/09/2023 11:00 AM EDT Nurse Only Nephrology, Gabrielle Silva [address] [place] [address] [place], Nurse Nephrology [address] [place] [address] [address] 01/18/2024 1:00 PM EDT Office Visit NephrologyGabrielle [address] [place] [address] Laurita Washington PA-C [address] [place] [address] 04/01/2024 1:00 PM EST Nurse Only Ancillary Department, [place] [address] [place] [address] [place], Nurse Annual Wellness [address] [place] [address] 04/01/2024 2:20 PM EST Office Visit Family Practice, [place] [address] [place] [facility] [id number] Santiago Osman MD [address] [place] [address] Health Maintenance Due Date Last [...] this encounter Medical Devices Implanted Type Area Blintze Roller Device Identifier Shelf Expiration Date Model / Serial / Lot Lens Intraoc 18.0 - [id number] - [id number] Implanted:Qty: 1 on 11/20/2019 by Sonu Valladares MD at OR [facility] Left: Eye [employer] 02/16/2024 [id number] / [id number] / [id number] Sofport Implanted:Qty: 1 on 12/02/2019 by Sonu Valladares MD at OR [facility] Right: Eye 11/17/2023 [id number] / / [id number] documented as of this encounter Results * (ABNORMAL) ALBUMIN / CREATININE RATIO, URINE (09/25/2023 8:27 AM EDT) Albumin, Random Urine 84.85 mg/dL 09/25/2023 3:04 PM EDT [facility] Creatinine, Random Urine 95 mg/dL 09/25/2023 3:04 PM EDT [facility] Albumin / Creatinine Ratio, Urine 893(H) <30 mg/g Creat 09/25/2023 3:04 PM EDT [facility] Urine Urine specimen obtained by clean catch procedure / Unknown Non-blood Collection / Unknown 09/25/2023 8:27 AM EDT 09/25/2023 8:27 AM EDT Narrative [facility] - 09/25/2023 3:04 PM EDT Normal: <30 mg/g creatinine High: 30-300 mg/g creatinine Very High: >300 mg/g creatinine Nephrotic: >2200 mg/g creatinine Ashely Chapa MD LAB URINE ORDERAB LES [facility] [address] [place] [address] * (ABNORMAL) URINALYSIS WITH MICROSCOPIC EXAM (09/25/2023 8:27 AM EDT) Color, Urine Yellow Light Yellow, Yellow, Dark Yellow 09/25/2023 8:53 AM EDT [facility] 56 Clarity, Urine Clear Clear 09/25/2023 8:53 AM EDT [facility] 56 Glucose, Urine Negative Negative mg/dL 09/25/2023 8:53 AM EDT [facility] 56 Bilirubin, Urine Negative Negative 09/25/2023 8:53 AM EDT [facility] 56 Ketone, Urine Negative Negative mg/dL 09/25/2023 8:53 AM EDT [facility] 56 Specific Loraine, Urine 1.020 1.003 - 1.030 09/25/2023 8:53 AM EDT [facility] 56- Blood, Urine Negative Negative 09/25/2023 8:53 AM EDT [facility] 56 pH, Urine 6.0 5.0 - 7.5 Units 09/25/2023 8:53 AM EDT [facility] 56 Protein, Urine >=300(A) Negative mg/dL 09/25/2023 8:53 AM EDT [facility] 56- Urobilinogen, Urine 0.2 0.2, 1.0 mg/dL 09/25/2023 8:53 AM EDT [facility] 56- Nitrite, Urine Negative Negative 09/25/2023 8:53 AM EDT [facility] 56- Esterase, Urine Negative Negative 09/25/2023 8:53 AM EDT [facility] 56- RBC, Urine 0-2 0 - 2 /HPF 09/25/2023 8:53 AM EDT [facility] 56- WBC, Urine 0-2 0 - 2 /HPF 09/25/2023 8:53 AM EDT [facility] 56- Bacteria, Urine 0-25 0 - 25 /HPF 09/25/2023 8:53 AM EDT [facility] 56-02 Hyaline, Cast, Urine 1-4(A) None /LPF 09/25/2023 8:53 AM EDT [facility] 56-02 Urine Urine specimen obtained by clean catch procedure / Unknown Non-blood Collection / Unknown 09/25/2023 8:27 AM EDT 09/25/2023 8:27 AM EDT Ashely Chapa MD LAB URINE ORDERAB LES [facility] [address] [place] [address] documented in this encounter Visit Diagnoses Diagnosis Chronic kidney disease, stage 3b (HCC)- Primary 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
--- OUTSIDE RECORDS SUMMARY | 2023-12-18 22:20 | External Medical Summary ---
Author Name Unknown Address Unknown Organization [id number]:[facility] [place] [address] Laboratory Report Ordering Provider Test Date Status PAVEL ANNE 10/02/2023 10:52:09 Final Observation Date Value Abnormality Reference (Units ) Status SYNC LEUKOCYTES IN BLOOD BY AUTOMATED COUNT 10/02/2023 10:52:09 7.00 4.00-10.80 (K/uL) Final Segs 10/02/2023 10:52:09 87.7 Above high normal 40.0-75.0 (%) Final Lymphs % 10/02/2023 10:52:09 4.9 Below low normal 18.0-42.0 (%) Final Monos 10/02/2023 10:52:09 6.6 1.0-11.0 (%) Final Eosinophils 10/02/2023 10:52:09 0.1 0.0-6.0 (%) Final Basos 10/02/2023 10:52:09 0.7 0.0-2.0 (%) Final Absolute Segs 10/02/2023 10:52:09 6.14 1.80-7.70 (K/uL) Final Lymphs, absolute 10/02/2023 10:52:09 0.34 Below low normal 1.00-4.80 (K/ul) Final Monos, Abs 10/02/2023 10:52:09 0.46 0.00-1.10 (K/uL) Final Eos, Abs 10/02/2023 10:52:09 0.01 0.00-0.70 (K/uL) Final Basos, Abs 10/02/2023 10:52:09 0.05 0.00-0.20 (K/uL) Final Performing Location [facility] [place] [address]
--- OUTSIDE RECORDS SUMMARY | 2023-12-18 22:20 | External Medical Summary ---
Author Name Unknown Address Unknown Organization K01:[facility] [place] [facility] [address] [place] [address] Laboratory Report Ordering Provider Test Date Status MARY BARRAZA 09/25/2023 08:27:20 Final Normal: <30 mg/g creatinine< br/>High: 30-300 mg/g creatinine
Very High: >300 mg/g creatinine
Nephrotic: >2200 mg/g creatinine Observation Date Value Abnormality Reference (Units ) Status Albumin, Urine 09/25/2023 08:27:20 84.85 (mg/dL) Final Creatinine, Urine 09/25/2023 08:27:20 95 (mg/dL) Final Albumin/Creatinine [Mass Ratio] in Urine 09/25/2023 08:27:20 893 Above high normal <30 (mg/g Creat) Final Performing Location [facility] [place] [address] [place] [place] [address]
--- OUTSIDE RECORDS SUMMARY | 2023-12-18 22:20 | External Medical Summary | Summary of Care ---
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); History of lung transplant (HCC); Hyperkalemia Allergies Active Allergy Reactions Criticality Noted Date Comments Adhesive Tape Itching High 11/21/2022 documented as of this encounter (statuses as of 09/27/2023) Medications Medication Sig Dispensed Refills Start Date [...] 30 Cap 12/16/2020 Active Ergocalciferol 1.25 MG (38079 UT) Oral Capsule (Vitamin D2(Drisdol)) On Sunday bimonthly 12 Capsule 01/02/2023 Active Tamsulosin HCl 0.4 MG Oral Capsule (Flomax)Indications: BPH with obstruction/lower urinary tract symptoms TAKE ONE CAPSULE BY MOUTH IN THE MORNING 90 Capsule 3 04/01/2023 Active Fluticasone Propionate 50 MCG/ACT Nasal Suspension (Flonase) Administer 1 Frisco into nostril in the morning and 1 Frisco before bedtime. 05/01/2023 Active Saline Nasal Frisco 0.65 % Nasal Solution (E. Lopez) Administer 1 Frisco into nostril. 05/01/2023 Active Pantoprazole Sodium 40 [...] Start Date End Date Status Epoetin Rogelio 86124 UNIT/ML inj 40,000 UnitsIndications:Anemia of chronic renal failure, stage 3b (HCC) 27167 Units SC QWEEK 08/21/2023 Active documented as of this encounter (statuses as of 09/27/2023) Active Problems Problem Noted Date Diagnosed Date [...] as of this encounter (statuses as of 09/27/2023) Resolved Problems Problem Noted Date Diagnosed Date [...] as of this encounter (statuses as of 09/27/2023) Immunizations Name Administration Dates Next Due COVID-19 mRNA, LNP-s, No Pre serve, 2-Dose Series ([employer]) 09/03/2021,11/04/2020,05/27/2020,04/19 COVID-19, MRNA-LNP, 23-24, P F, 30 MCG/0.3 mL, 12 YRS AND ABOVE, IM ([facility]) 02/22/2023 Covid-19, Mrna, Lnp-s, Pf, B ivalent, 30 Mcg, IM, 12 yrs and above ([employer]) 01/17/2022 Hepatitis B, 20+ yrs 01/03/2017,08/03/2016,07/05 Pneumococcal [...] Sign Reading Time Taken Comments Blood Pressure 118/60 09/27/2023 10:57 AM EDT Pulse 87 09/27/2023 10:57 AM EDT Temperature 37.2 C (98.9 F) 09/27/2023 1 0:57 AM EDT Respiratory Rate 18 09/27/2023 10:5 7 AM EDT Oxygen Saturation 96% 09/27/2023 10: 57 AM EDT Inhaled Oxygen Concentration - - Weight 59.3 kg (130 lb 12.8 oz) 024 10:57 AM EDT Height 167.6 cm (5' 6") 09/27/2023 10:5 7 AM EDT Body Mass Index 21.11 09/27/2023 10:57 AM EDT documented in this encounter Progress Notes * Gino Osman MD - 09/27/2023 11:19 AM EDT Subjective: Arthur Rodas is a 78 year old male. Chief Complaint Patient presents with Follow Up Return in 6 months HPI: 78-year-old seen today after recently hospitalized [facility] in [place]. He was to have inguinal hernia surgery -anesthesia at [facility] felt best if he had a tertiary care center. The actual surgery went well but he did develop significant hyperkalemia in what looks like was probably acute renal failure. 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 It sounds from his explanation as if he was treated with IV fluids Lasix as well as oral Kayexalate.. Potassium returned to near normal and he was discharged home. He then did see Ashely Segura locally and Nephrology. His lisinopril was not restarted at the time of discharge .She restarted at 2.5 mg a day . He complains of chronic fatigue but also notes that there are transient times where this is much worse lasting for a day or 2. Has chronic anemia. He is on weekly Procrit shots. His hemoglobin typically runs between 7 and 9. Recent lab show hemoglobin is basically in his normal range. He had extensive surgery of the right ear to remove a squamous cell cancer. He is going to undergo radiation treatments. Again, I think that there was some question as to whether the dermal lesion was a metastatic lesion or primary. 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 pravastatin (PRAVACHOL) 20 MG Tablet Take 1 Tab by mouth daily. 90 Tab 1 azithromycin (ZITHROMAX) 250 MG Tablet One tablet -W- 6 Tab 1 mycophenolate (CELLCEPT) 500 MG [...] PM. 30 Cap 0 Ergocalciferol 1.25 MG (95662 UT) Oral Capsule (Vitamin D2(Drisdol)) On Sunday bimonthly 12 Capsule 0 Tamsulosin HCl 0.4 MG Oral Capsule (Flomax) TAKE ONE CAPSULE BY MOUTH IN THE MORNING 90 Capsule 3 Fluticasone Propionate 50 MCG/ACT Nasal Suspension (Flonase) Administer 1 Frisco into nostril in themorning and 1 Frisco before bedtime. Saline Nasal Frisco 0.65 % Nasal Solution (E. Lopez) Administer 1 Frisco into nostril. Pantoprazole Sodium 40 MG Oral Tablet Delayed Release (Protonix) Take 1 Tablet by mouth in the morning. 90 Tablet 3 Sodium Bicarbonate 650 MG Oral Tablet Take 2 Tablets by mouth in the morning and 2 Tablets before bedtime. 360 Tablet 3 Lisinopril 5 MG Oral Tablet (Prinivil) Take 0.5 Tablets by mouth in the morning. 30 Tablet 5 ASPIRIN EC 81 MG PO TBEC Take one pill daily 100 Tab 3 Current Facility-Administered Medications Medication Dose Route Frequency Provider Last Rate Last Admin Epoetin Rogelio 91563 UNIT/ML inj 40,000 Units 40,000 Units Subcutaneous Q Week 40,000 Units at 09/25/23 1046 Review of patient's allergies indicates: Allergen Reactions Adhesive Tape Itching Objective: BP 118/60 | Pulse 87 | Temp 37.2 C (98.9 F) (Tympanic) | Resp 18 | Ht 1.676 m (5' 6") | Wt 59.3kg (130 lb 12.8 oz) | SpO2 96% | BMI 21.11 kg/m | BSA 1.66 m Physical Exam: CONST: alert, pleasant, no acute distress HEAD: normocephalic, atraumatic NECK: supple, soft, no adenopathy Eyes - PERRLA, EOM'I OROPHARYNX: clear, no swelling or erythema, moist CV: regular rate and rhythm, no murmur CHEST: clear to auscultation bilaterally, no rales or wheezing ABD: He has 3 healing stab wounds over the upper abdomen post laparoscopy. These all look okay not infected EXT: no edema, no joint swelling or deformities, MENTAL STATUS: no evidence of thought disorder, no delusional thought, no evidence of paranoia, thought is non-tangential. SKIN: Right ear-he has some structural changes of the pinna Mohs surgery. Now has a shabana through the middle of the ear. ASSESSMENT/PLAN: Status post inguinal hernia repair-doing well Known CKD 3-transient Um worsening kidney disease following his inguinal hernia repair but also following a CT scan with contrast. He is scheduled on a weekly basis for basic metabolic panel. Continue follow with Nephrology-Ashely Segura Hyperkalemia-corrected with last potassium being 5.2 which is Um basically his baseline. Squamous cell cancer right ear-follow up with [facility]. Proceed with radiation therapy. Gino Osman MD documented in this encounter Nursing Notes * Mabel Mckeon LPN - 09/27/2023 10:57 AM EDT The patient has been properly identified by confirmation of name and date of . Chief Complaint Patient presents with Follow Up Return in 6 months Patient reports recent diagnosis of skin cancer. Had surgery at [facility] t have it removed. Will be having radiation for 30 treatments at [facility]. Recent hernia Surgery- was hospitalized for 3 days for high potassium. documented in this encounter Plan of Treatment Upcoming Encounters Date Type Department Care Team (Late st Contact Info) Description 10/02/2023 11:00 AM EDT Nurse Only [facility] [address] [place] [address] Sp, Nurse Nephrology [address] [place] [address] 01/18/2024 1:00 PM EDT Office Visit [facility] [address] [place] [address] Laurita Washington PA-C [address] [place] [address] 04/01/2024 1:00 PM EST Nurse Only Ancillary Department, [id number] [place], Nurse Annual Wellness [address] [place] [facility] [place] [address] 04/01/2024 2:20 PM EST [facility] [place] [address] [facility] [phone] Gino Osman MD [address] [place] [facility] [place] [address] Health Maintenance Due Date Last Done Comments [...] 024, 12/01/2022, 06/20/2021, Additional history exists Hgb 09/24/2024 09/25/2023, 070 03/2023, 09/12/2023, Additional history exists DTaP,Tdap,and Td [...] this encounter Medical Devices Implanted Type Area Coding Specialist Home Health Device Identifier Shelf Expiration Date Model / Serial / Lot Lens Intraoc 18.0 - [id number] - [id number] Implanted:Qty: 1 on 11/20/2019 by Sonu Valladares MD at OR [facility] Left: Eye [employer] 02/16/2024 [id number] / [id number] / [id number] Sofport Implanted:Qty: 1 on 12/02/2019 by Sonu Valladares MD at OR 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
--- OUTSIDE RECORDS SUMMARY | 2023-12-18 22:20 | External Medical Summary ---
Author Name Unknown Address Unknown Organization K09:[facility] [place] [address] Laboratory Report Ordering Provider Test Date Status PAVEL ANNE 10/02/2023 10:52:09 Final Observation Date Value Abnormality Reference (Units ) Status WBC, Total 10/02/2023 10:52:09 7.00 4.00-10.8 0 (K/uL) Final RBC 10/02/2023 10:52:09 2.46 4.50-5.25 (M/uL) Final Hemoglobin 10/02/2023 10:52:09 8.1 Below low normal 14 .0-16.8 (g/dL) Final HCT 10/02/2023 10:52:09 26.7 Below low normal 40. 0-48.4 (%) Final MCV 10/02/2023 10:52:09 108.5 82.0-99.5 (fL) Final MCH 10/02/2023 10:52:09 32.9 27.0-34.0 (pg) Final MCHC 10/02/2023 10:52:09 30.3 32.0-36.0 (g/dL) Final RDW 10/02/2023 10:52:09 15.7 11.5-15.5 (%) Final Platelets 10/02/2023 10:52:09 109 Below low normal 140 -400 (K/uL) Final MPV 10/02/2023 10:52:09 10.0 6.6-11.1 ( fL) Final Performing Location [facility] [place] [address]
--- OUTSIDE RECORDS SUMMARY | 2023-12-18 22:20 | External Medical Summary | Continuity of Care Document ---
Author Name Unknown Organization [facility] [address] [id number] Care Team Providers Care Stewardess Supervisor Name Role Phone iGno Osman Primary Care Physician [phone] [id number] Date(s): 10/01/23 - 10/01/23 [facility] [address] [phone] Encounter Diagnosis Changing skin lesion(Discharge Diagnosis) - 10/01/23 History of squamous cell carcinoma of skin(Discharge Diagnosis) - 10/02/23 Discharge Disposition: Home or Self Care Attending Physician: MD Henson Cassandra Referring Physician: MD Henson Cassandra Allergies, Adverse Reactions, Alerts No Known Allergies Assessment and Plan Extracted from: Title:Dermatology Office Visit Note Author:Rui celestin MD, Cassandra Date:10/01/23 1.Changing skin lesion - shave biopsy for further evaluation today - further management pending pathology results - wound care instructions reviewed and provided Shave Biopsy Procedure Note A skin biopsy was performed after a time out (patient identified with full name and date, site located and confirmed with team members) and verbal informed consent was obtained.Risks (infection, scar, bleeding) and benefits (proper diagnosis and treatment) were reviewed.Alternative options were discussed if applicable.Time was given to address and answer all questions.Photograph was taken to document location. Location:L zoroastrianism, BCC vs.SCC vs. ISK Skin prep: isopropyl alcohol Anesthesia: 1% lidocaine with epinephrine Method: shave Hemostasis/Closure:hyfrecation Dressing: Vaseline and band-aid Verbal and written wound care instructions given.Patient was informed that further procedure(s) or treatment(s) may be needed pending pathology results.Patient is instructed to call should any problems or concerns arise.The patient agreed to call the office to obtain the test results if they have not been communicated to them within 2 weeks. 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 Bruce and [facility] - healing has progressed nicely aside from small full thickness defect, we discussed options for repair, patient is not bothered by appearance. Will proceed with adjuvant XRT at this time and readdress after completion of treatment. Discussed skin is very delicate around the small hole, it may enlarge some after treatment. Patient and voice understanding and agree with plan. F/u pending pathology results as above, 3 month skin exam, sooner with any concerns Medications acetaminophen 325 mg oral tablet Start: [...] 03/14/19 12:57:00 PM EST, 1 cap, PO, [id number] Start Date: 03/14/19 Status: Ordered Zortress 0.5 mg oral tablet Start: 09/12/18 10:07:00 AM EDT, See Instructions, 1 mg in am and 1.5 mg in pm Start Date: 09/12/18 Status: Ordered Mental Status 10/01/23 Barriers to Learning one year None evide nt Mandatory Health Literacy Documentation Yes Health Literacy Communication Barriers N ever Primary Language Irish Problem List Condition Confirmation Course Effective Dates Status Health St atus Informant Basal cell carcinoma Confirmed Active BPH (benign prostatic hypertrophy) Confirmed Active Dysuria Confirmed Active Rash Confirmed Active Pulmonary fibrosis Confirmed Active Elevated cholesterol Confirmed Active BCC (basal cell carcinoma) Confirmed Active Skin cancer 1 Confirmed Active SCC (squamous cell carcinoma) 2 Confirmed 09/08/21 Active 1History of BCC on right ear 2012 2Left Anabaptism Diagnosis Diagnosis Type Effective Dates Health Status Cl inical Service Informant Changing skin lesion Discharge Diagnosis 10/01/23 Non-Specified History of squamous cell carcinoma of skin Discharge Diagnosis 10/02/23 Non-Specified Procedures Procedure Date Related Diagnosis Body Site Status Shave biopsy and cauterizati on of skin [...] biopsy of skin 06/12/18 Comp leted Surgery 2004 Completed Surgery 6 2004 Completed LUNG TRANSPLANT SINGLE 7 Completed Mohs micrographic surgery Completed Shave biopsy and cauterizati on of skin 8 Completed 1With curettage 21-right zoroastrianism 2-left lateral upper arm 3-right extensor arm 3midline frontal scalp 4left post auricular area; left zoroastrianism 5right knee 6right shoulder 7Left lobe 8times 3 in past Social History Social History Type Response Smoking Status Never smoked cigaret angela Sex Male Dermatology Outpatient Note * MD Natividad, Michelle: PERFORM Event Display: Dermatology Outpt Note Authored Date: [id number] Chief Complaint F/u prior to radiation treatments History of Present Illness Patient is a 46-mjcs-tolgqknctgm[age]xq immunosuppressed due to history of transplantstatus post Mohs surgery for an SCC of the rightear/postauricular sulcus (AJCC T3/BWH T2b due to size greater than 2 cm,depthbeyond subcutaneoustissue and perineural invasion greater than0.1 mm)repairedwith doubletransposition flapsperformed on08/08/2023. Patient scheduled to start XRT tomorrow with Dr. Bruce and [facility], presents today to wound check prior to start of radiation. Patient and notice a new spot at is L zoroastrianism,crusting and oozing at times Physical Exam A&O x 3, well-appearing, well-groomed, pleasant Focused skin exam ofR ear and postauricular scalp reveals a well-healed scar, there is a small< 5 mm full thicknessdefect in the ear, ~ 1.3 cm crusted papule at L zoroastrianism Images 2023-10-01 13:48:44 2023-10-01 13:48:51 2023-10-01 13:53:50 2023-10-01 13:53:57 Assessment/Plan 1.Changing skin lesion - shave biopsy for further evaluation today - further management pending pathology results - wound care instructions reviewed and provided Shave Biopsy Procedure Note A skin biopsy was performed after a time out (patient identified with full name and date, site located and confirmed with team members) and verbal informed consent was obtained.Risks (infection, scar, bleeding) and benefits (proper diagnosis and treatment) were reviewed.Alternativeoptions were discussed if applicable.Time was given to address and answer all questions.Photograph was taken to document location. Location:L zoroastrianism, BCC vs.SCC vs. ISK Skin prep: isopropyl alcohol Anesthesia: 1% lidocaine with epinephrine Method: shave Hemostasis/Closure:hyfrecation Dressing: Vaseline and band-aid Verbal and written wound care instructions given.Patient was informed that further procedure(s) or treatment(s) may be needed pending pathology results.Patient is instructed to call shouldany problems or concerns arise.The patient agreed to call the office to obtain the test resultsif they have not been communicated to them within 2 weeks. 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 Bruce and [facility] - healing has progressed nicely aside from small full thickness defect, we discussed options for repair, patient is not bothered by appearance. Will proceed with adjuvant XRT at this time and readdress after completion of treatment. Discussed skin is very delicate around the small hole, it may enlarge some after treatment. Patient and voice understanding and agree with plan. F/u pending pathology results as above, 3 month skin exam, sooner with any concerns Problem List/Past Medical History Ongoing Basal cell carcinoma BCC (basal cell carcinoma) BPH (benign prostatic hypertrophy) Dysuria Elevated cholesterol Pulmonary fibrosis Rash SCC (squamous cell carcinoma) Skin cancer Procedure/Surgical History Shave biopsy and cauterization of skin| Service Date: 10/01/2023Hernia repair| Service Date: 09/07/2023[facility] micrographic surgery| Service Date: 08/01/2023Shave biopsy and cauterization ofskin| Service Date: 07/12/2023[facility] micrographic surgery| Service Date: 04/11/2023Shave biopsy and cauterization of skin| Service Date: 03/01/2023[facility] micrographic surgery| Service Date: 01/09/2023Shave biopsy and cauterization of skin| Service Date: 11/30/2022[facility] micrographic surgery| Service Date: 08/16/2022Shave biopsy and cauterization of skin| Service Date: 05/30/2022Electrodesiccation with curettage| Service Date: 10/06/2021have biopsy and cauterization of skin| Se rvice Date: 09/08/2021have biopsy and cauterization of skin| Service Date: 08/18/2021have biopsy of skin| Service Date: 06/12/2018Surgery| Service Date: 2004[facility]| Service [facility]: 2004[facility] micrographic surgeryLUNG TRANSPLANT SINGLEShave biopsy and cauterization of skin Medications acetaminophen(acetaminophen 325 mg oral tablet), 325 mg= 1 tab, PO, q6h, PRN aspirin(aspirin 81 mg oral tablet), 81 mg= 1 tab, PO, Daily azithromycin(azithromycin 250 mg oral tablet), 250 mg= 1 tab, PO ergocalciferol(Vitamin D2 50,000 intl units (1.25 mg) oral capsule), 74613 Int_Unit= 1 cap, PO, [id number] everolimus(Zortress 0.5 mg oral tablet), See Instructions guaiFENesin(guaiFENesin 600 mg oral tablet, extended release), 600 mg= 1 tab, PO, q12h lisinopril(lisinopril 5 mg oral tablet) montelukast(montelukast 10 mg oral tablet), 10 mg= 1 tab, PO, qPM mycophenolate mofetil(mycophenolate mofetil 250 mg oral capsule), 750 mg= 3 cap, PO, bid pantoprazole(Protonix 40 mg oral delayed release tablet), 40 mg= 1 tab, PO, Daily pravastatin(pravastatin 20 mg oral tablet), 20 mg= 1 tab, PO, Daily predniSONE(predniSONE 5 mg oral tablet), 5 mg= 1 tab, PO, Daily sulfamethoxazole-trimethoprim(sulfamethoxazole-trimethoprim 800 mg-160 mg oral tablet), See Instructions tacrolimus(tacrolimus (generic) 0.5 mg oral capsule), 1 mg= 2 cap, PO, q12h tamSULOsin(tamsulosin 0.4 mg oral capsule), 0.4 mg= 1 cap, PO, Daily Allergies NKA Social History Smoking Status Never smoked cigarettes Electronic Signature on File Electronically Reviewed/Signed by: Michelle Henson MD Author Signature Dt/Tm:10/01/2023 11:44 PM Department of Dermatology CS Patient Care team information Care Team Personnel Name: MD Dawson, Gino Ayers Position: Referring DIRECT Member Role: Primary Care Provider Address: Address: [address] [place] [id number] Care Team Related Persons Name: PARISA FRAGA Address: home [address] [place], [place] [id number] Name: SILKE GUARDADO Address: home [address], [place] [id number]"
--- OUTSIDE RECORDS SUMMARY | 2023-12-18 22:20 | External Medical Summary ---
Author Name Unknown Address Unknown Organization [id number]:[facility] [address] [place] [address] Laboratory Report Ordering Provider Test Date Status MARY BARRAZA 09/25/2023 08:27:20 Final Observation Date Value Abnormality Reference (Units ) Status Color of Urine by Auto 09/25/2023 08:27:20 Yellow Light Yellow, Yellow, Dark Yellow Final Clarity, Urine 09/25/2023 08:27:20 Clear Clear Final Glucose [Mass/volume] in Urine by Automated test strip 09/25/2023 08:27:20 Negative Negative (mg/dL) Final Bilirubin.total [Presence] in Urine by Automated test strip 09/25/2023 08:27:20 Negative Negative Final Ketones [Mass/volume] in Urine by Automated test strip 09/25/2023 08:27:20 Negative Negative (mg/dL) Final Specific gravity, Urine 09/25/2023 08:27:20 1.020 1.003-1.030 Final Hemoglobin [Presence] in Urine by Automated test strip 09/25/2023 08:27:20 Negative Negative Final pH, Urine 09/25/2023 08:27:20 6.0 5.0-7.5 (Units) Final Protein [Mass/volume] in Urine by Automated test strip 09/25/2023 08:27:20 >=300 Abnormal Negative (mg/dL) Final Urobilinogen [Mass/volume] in Urine by Automated test strip 09/25/2023 08:27:20 0.2 0.2, 1.0 (mg/dL) Final Nitrite [Presence] in Urine by Automated test strip 09/25/2023 08:27:20 Negative Negative Final Leukocyte esterase [Presence] in Urine by Automated test strip 09/25/2023 08:27:20 Negative Negative Final RBC, Urine 09/25/2023 08:27:20 0-2 0-2 (/HPF) Final WBC, Urine 09/25/2023 08:27:20 0-2 0-2 (/HPF) Final Bacteria [#/area] in Urine sediment by Microscopy high power field 09/25/2023 08:27:20 0-25 0-25 (/HPF) Final Hyaline casts, Urine 09/25/2023 08:27:20 1-4 Abnormal None (/LPF) Final Performing Location [facility] [address] [place] [address]
--- OUTSIDE RECORDS SUMMARY | 2023-12-18 22:20 | External Medical Summary ---
Author Name Unknown Address Unknown Organization [id number]:[facility] [address] [place] [address] Laboratory Report Ordering Provider Test Date Status PAVEL ANNE 09/25/2023 08:27:20 Final Observation Date Value Abnormality Reference (Units ) Status WBC, Total 09/25/2023 08:27:20 7.53 4.00-10.8 0 (K/uL) Final RBC 09/25/2023 08:27:20 2.41 4.50-5.25 (M/uL) Final Hemoglobin 09/25/2023 08:27:20 7.8 Below low normal 14 .0-16.8 (g/dL) Final HCT 09/25/2023 08:27:20 25.9 Below low normal 40. 0-48.4 (%) Final MCV 09/25/2023 08:27:20 107.5 82.0-99.5 (fL) Final MCH 09/25/2023 08:27:20 32.4 27.0-34.0 (pg) Final MCHC 09/25/2023 08:27:20 30.1 32.0-36.0 (g/dL) Final RDW 09/25/2023 08:27:20 16.1 11.5-15.5 (%) Final Platelets 09/25/2023 08:27:20 101 Below low normal 140 -400 (K/uL) Final MPV 09/25/2023 08:27:20 10.9 6.6-11.1 ( fL) Final Performing Location [facility] [address] [place] [address]
--- OUTSIDE RECORDS SUMMARY | 2023-12-18 22:20 | External Medical Summary | Summary of Care ---
Author Name Unknown Organization [facility] Address [address] [place] [address] Phone [phone] Care Team Providers Care Paint Prepper Name Role Phone Gino Osman MD Primary Care Provider [phone] Reason for Visit * Reason Onset Date Comments Anemia Follow-Up 09/07/2023 Encounter Details Date Type Department Care Team (Late st Contact Info) Description 09/06/2023 9:30 AM EDT Pharmacy Pharmacy, [place] [address], [place] [id number] Clinic, Anemia [address] [place], [place] [id number] Anemia of chronic renal failure, stage 4 [...] Tablet One tablet M-W-F 6 Tab 1 9 Active mycophenolate (CELLCEPT) [...] 30 Cap 1 Active Ergocalciferol 1.25 MG (36766 UT) Oral Capsule (Vitamin D2(Drisdol)) On Sunday bimonthly 12 Capsule 3 Active Tamsulosin HCl 0.4 MG Oral Capsule (Flomax)Indicatio ns:BPH with obstruction/lower urinary tract symptoms TAKE ONE CAPSULE BY MOUTH IN THE MORNING 90 Capsule 3 4 Active Fluticasone Propionate 50 MCG/ACT Nasal Suspension (Flonase) Administer 1 [place] into nostril in the morning and 1 [place] before bedtime. 4 Active Saline Nasal [place] 0.65 % Nasal Solution (Divide) Administer 1 [place] into nostril. 4 Active Pantoprazole Sodium 40 MG Oral Tablet Delayed Release (Protonix) Take 1 Tablet by mouth in the morning. 90 Tablet 3 4 Active Sodium Bicarbonate 650 MG Oral TabletIndications :Chronic kidney disease, stage 3b (HCC) Take 2 Tablets by mouth in the morning and 2 Tablets before bedtime. 360 Tablet 3 4 Active metoprolol tartrate (LOPRESSOR) 25 MG Tablet Take 0.5 Tablets by mouth in the morning. 1/2 tablet daily . 09/17/19 24 Discontinued(Med ication List Clean Up) Lisinopril 5 MG Oral Tablet (Prinivil) Take 1 Tablet by mouth in the morning. 30 Tablet 5 4 09/17/19 24 Discontinued Hospital, Clinic, or Other Facility Administered Medication Ordered Dose Route Frequency Start Date End Date Status Epoetin Rogelio 95274 UNIT/ML inj 40,000 UnitsIndications:Anemia of chronic renal failure, stage 3b (HCC) 56640 Units SC QWEEK 08/21/2023 Active documented as [...] mRNA, LNP-s, No Pre serve, 2-Dose Series ([employer]) 09/03/2021,11/04/2020,05/27/2020,04/19 COVID-19, MRNA-LNP, 23-24, P F, 30 MCG/0.3 mL, 12 YRS AND ABOVE, IM ([employer]) 02/22/2023 Covid-19, Mrna, Lnp-s, Pf, B ivalent, [...] this encounter Progress Notes * Feroz Lugo, [facility] - 09/07/2023 4:29 PM EDT Patient Phone Numbers Called patient to review labs from 09/03/23. Spoke with patient and , Cherelle. Hgb: 8.1 g/dL Hgb is below target range. Iron studies adequate. Patient is currently denies changes in medical condition/diagnosis. Plan: Continue Retacrit 40,000 units SQ weekly @ [facility] nephrology clinic (hold for Hgb > 11 g/dL). 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 Received approval from Dr. Chapa to start BON therapy as benefits outweigh risks at this time. Follow-up labs to be obtained on 09/11/23 to match administration appointment. Anemia Clinic will continue to follow. Thank you for allowing us to participate in the care of thispatient. Feroz Lugo, PharmD, [facility] Clinical Pharmacist Anemia Clinic P: [phone] F: [phone] 10/08/2023 12:12 PM Lab Results Component Value Date/Time HGB 8.1 (L) 09/03/2023 10:49 AM HGB 8.4 (L) 08/27/2023 08:20 AM HGB 8.4 (L) 08/21/2023 10:39 AM HGB 11.3 (L) 03/22/2020 07:42 AM HGB [...] Percent 7 (L) 15 - 55 % Results for orders placed or performed in visit on 06/20/23 IRON SCREEN, INCLUDING TIBC Result Value Ref Range Iron 84 45 - 176 ug/dL Iron Binding Capacity 189 (L) 250 - 425 ug/dL Transferrin Saturation Percent 44 15 - 55 % No results found for: "TRANSFERRIN SAT %-OUTSIDE LAB" Lab Results Component Value Date/Time FERRITIN - [facility] 252 09/03/2023 10:49 AM FERRITIN - [facility] 478 (H) 08/14/2023 10:39 AM FERRITIN - [facility] 222 06/25/2023 08:37 AM No results found for: "FERRITIN-OUTSIDE LAB" documented in this encounter Plan of Treatment Upcoming Encounters Date Type Department Care Team (Late st Contact Info) Description 10/09/2023 11:00 AM EDT Nurse Only Nephrology, [place] [address] [place] [address] Sp, Nurse Nephrology [address] [place] [address] 10/10/2023 9:30 AM EDT Pharmacy Pharmacy, [place] [address] [place] [address] Clinic, [facility] [address] [place] [address] 01/18/2024 1:00 PM EDT Office Visit Nephrology, [facility] [address] [place] [address] Laurita [facility] PA-C [address] [facility] [place] [address] 04/01/2024 1:00 PM EST Nurse Only Ancillary Department, [place] [address] [place] [address] [place], Nurse Annual Wellness [address] [place] [address] 04/01/2024 2:20 PM EST Office Visit Family Practice, [place] [address] [place] [facility] [phone] Gino Osman MD [address] [place] [address] Health Maintenance Due Date Last [...] this encounter Medical Devices Implanted Type Area Concrete Swimming Pool Installer Device Identifier Shelf Expiration Date Model / Serial / Lot Lens Intraoc 18.0 - [id number] - [id number] Implanted:Qty: 1 on 11/20/2019 by Sonu Valladares MD at OR [facility] Left: Eye [employer] 02/16/2024 [id number] / [id number] / [id number] Sofport Implanted:Qty: 1 on 12/02/2019 by Sonu Valladares MD at OR [facility] Right: Eye 11/17/2023 [id number] / / [id number] documented as of this encounter Visit Diagnoses Diagnosis Anemia of chronic renal failure, stage 4 (severe) (HCC)- Primary documented in this encounter Care Teams Paint Prepper Relationship Specialty Start Date End Date Gino Osman MD [address] [place] [address] PCP - General Family Medicine 05/06/18 documented as of this encounter
--- OUTSIDE RECORDS SUMMARY | 2023-12-18 22:20 | External Medical Summary | Summary of Care ---
Author Name Unknown Organization [facility] Address [address] [facility] [place] [address] Phone [phone] Care Team Providers Care Mainframe Applications Developer Name Role Phone Gino Osman MD Primary Care Provider [phone] Reason for Visit * Reason Comments Medication Administration For Procrit in jection * Precert (Within 30 days (routine)) - Authorized Specialty Diagnoses / Procedures Referred By Contac t Referred To Contact Diagnoses Anemia in chronic kidney disease Procedures MD INJ RETACRIT NON-ESRD USE Ashely Chapa MD [address] [facility] [place] [address] Ashely Chapa MD [address] [facility] [place] [address] Referral ID Status Reason Start Date Expiration Date V isits Requested Visits Authorized [id number] Authorized Precert 02/07/2023 03/18/[phone] Encounter Details Date Type Department Care Team (Late st Contact Info) Description 10/02/2023 11:00 AM EDT Nurse Only Nephrology, [place] [facility] [place] [address] [place], Nurse Nephrology [address] [facility] [place] [address] Medication Administration (For Procrit inj... Allergies Active [...] 30 Cap 12/16/2020 Active Ergocalciferol 1.25 MG (99866 UT) Oral Capsule (Vitamin D2(Drisdol)) On Sunday bimonthly 12 Capsule 01/02/2023 Active Tamsulosin HCl 0.4 MG Oral Capsule (Flomax)Indications: BPH with obstruction/lower urinary tract symptoms TAKE ONE CAPSULE BY MOUTH IN THE MORNING 90 Capsule 3 04/01/2023 Active Fluticasone Propionate 50 MCG/ACT Nasal Suspension (Flonase) Administer 1 [place] into nostril in the morning and 1 [place] before bedtime. 05/01/2023 Active Saline Nasal [place] 0.65 % Nasal Solution ([place]) Administer 1 [place] into nostril. 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) 02/22/2023 Covid-19, [...] Sign Reading Time Taken Comments Blood Pressure 129/66 10/02/2023 11:12 AM EDT Pulse 75 10/02/2023 11:12 AM EDT Temperature - - Respiratory Rate - - Oxygen Saturation - - Inhaled Oxygen Concentration - - Weight - - Height - - Body Mass Index - - documented in this encounter Nursing Notes * Vesta Alanis LPN - 10/02/2023 11:02 AM EDT Patient identified by verbal name and date of .For Procrit injection See MAY [id number] 8.1 BP stable Pt tolerated well Apt schedule with nurse 10/09/23 @1100 documented in this encounter Plan of Treatment Upcoming Encounters Date Type Department Care Team (Late st Contact Info) Description 10/09/2023 11:00 AM EDT Nurse Only [facility] [address] [place] [address] Sp, Nurse Nephrology [address] [place] [address] [address] 01/18/2024 1:00 PM EDT Office Visit Nephrology, [facility] [address] [place] [address] Laurita Washington PA-C [address] [place] [address] 04/01/2024 1:00 PM EST Nurse Only Ancillary Department, [place] [address] [place], [place] [phone] [place], Nurse Annual Wellness [address] [place] [facility] [place] [address] 04/01/2024 2:20 PM EST Office Visit Family Practice, [place] [address] [place] [facility] [phone] Gino Osman MD [address] [place] [address] Health Maintenance Due Date Last [...] this encounter Medical Devices Implanted Type Area Wirer Maintenance Device Identifier Shelf Expiration Date Model / Serial / Lot Lens Intraoc 18.0 - [id number] - [id number] Implanted:Qty: 1 on 11/20/2019 by Sonu Valladares MD at OR [facility] Left: Eye [employer] 02/16/2024 [id number] / [id number] / [id number] Sofport Implanted:Qty: 1 on 12/02/2019 by Sonu Valladares MD at OR [facility] Right: Eye 11/17/2023 [id number] / / [id number] documented as of this encounter Administered Medications Active Administered Medications - up to 3 most recent administrations Medication Order MAR Action Action Date Dose Rate Site Epoetin Rogelio 89221 UNIT/ML inj 40,000 Units 40,000 Units, Subcutaneous, QWEEK, First dose on Sun08/21/23 at 1300, Until Discontinued, Hold if Hgb > 11g/dL Given 10/02/2023 11:07 AM EDT 40,000 Units Arm Right Upper Given 09/25/2023 10:46 AM EDT 40,000 Units Arm Left Upper Given 09/12/2023 11:16 AM EDT 40,000 Units Arm Left Upper documented in this encounter Care Teams Mainframe Applications Developer Relationship Specialty Start Date End Date Gino Osman MD [address] [place] [address] PCP - General Family Medicine 05/06/18 documented as of this encounter
--- OUTSIDE RECORDS SUMMARY | 2023-12-18 22:20 | External Medical Summary | Summary of Care ---
Author Name Unknown Organization [facility] Address [address] [facility] [place] [address] Phone [phone] Care Team Providers Care Software Business Analyst Name Role Phone Gino Osman MD Primary Care Provider [phone] Reason for Visit * Reason Comments Outpatient Testing Encounter Details Date Type Department Care Team (Latest Contact Info) Description 09/25/2023 8:30 AM EDT Laboratory Laboratory [facility] [address] [place] [address] [facility] Lab Scenery [address] [facility] [place] [address] Encounter for long-term (current) use of other [...] 30 Cap 12/16/2020 Active Ergocalciferol 1.25 MG (12849 UT) Oral Capsule (Vitamin D2(Drisdol)) On Sunday bimonthly 12 Capsule 01/02/2023 Active Tamsulosin HCl 0.4 MG Oral Capsule (Flomax)Indications: BPH with obstruction/lower urinary tract symptoms TAKE ONE CAPSULE BY MOUTH IN THE MORNING 90 Capsule 3 04/01/2023 Active Fluticasone Propionate 50 MCG/ACT Nasal Suspension (Flonase) Administer 1 [place] into nostril in the morning and 1 [place] before bedtime. 05/01/2023 Active Saline Nasal [place] 0.65 % Nasal Solution (Coleman) Administer 1 [place] into nostril. 05/01/2023 Active Pantoprazole Sodium 40 [...] Start Date End Date Status Epoetin Rogelio 45976 UNIT/ML inj 40,000 UnitsIndications:Anemia of chronic renal failure, stage 3b (HCC) 11183 Units SC QWEEK 08/21/2023 Active documented as [...] mRNA, LNP-s, No Pre serve, 2-Dose Series (SemEquip) 09/03/2021,11/04/2020,05/27/2020,04/19 COVID-19, MRNA-LNP, 23-24, P F, 30 MCG/0.3 mL, 12 YRS AND ABOVE, IM ([facility]) 02/22/2023 Covid-19, Mrna, Lnp-s, Pf, B [...] Description 09/27/2023 11:00 AM EDT Office Visit [facility], [place] [address] [place] [facility] [place] [id number] Gino Osman MD [address] [place] [facility] [place] [id number] 01/18/2024 1:00 PM EDT Office Visit Nephrology, Jelena Shira [address] [facility] [place] [id number] ZemaLaurita garcia PA-C [address] [facility] [place] [id number] 04/01/2024 1:00 PM EST Nurse Only Ancillary Department, [place] [address] [place] [facility] [place] [id number] [place], Nurse Annual Wellness [address] [place] [facility] [place] [id number] Pending Results Name Type Priority Associated Diagnoses Date /Time CYTOMEGALOVIRUS DNA, QUANTITATIVE REAL-TIME PCR Lab Routine [...] lung transplantation (HCC) 09/25/2023 8:27 AM EDT ALBUMIN / CREATININE RATIO, URINE Lab Routine Chronic kidney disease, stage 3b (HCC) 09/25/2023 8:27 AM EDT Health Maintenance Due Date Last Done Comments Alpha-1 Antitrypsin 1963 Hepatitis C Screening 1963 COVID-19 Vaccine ( season) 2023 02/22/2023, 01/17/2022, 09/03/2021, Additional history exists Influenza Vaccine (FLU shot) (#1) 2023 12/27/2022, 01/11/2022, 12/16/2020, Additional history exists Albumin/Creatinine Ratio 12/02/2023 023, 06/20/2021, 06/21/2020 PTH 12/02/2023 12/01/2022 Depression Screening 03/06/2024 03/06/2023, 05/01/19 18 GFR 03/27/2024 09/25/2023, 07/0 03/2023, 09/10/2023, Additional history exists HbA1c 09/07/2024 09/08/2023, 06/0 06/2023, 08/21/2023, Additional history exists Nephrology Referral 09/16/2024 09/17/2023 Phosphate 09/16/2024 09/17/2023, 2 06/2023, 09/09/2023, Additional history exists Hgb 09/24/2024 09/25/2023, 07/0 03/2023, 09/12/2023, Additional history exists DTaP,Tdap,and Td [...] this encounter Medical Devices Implanted Type Area Wire Puller Device Identifier Shelf Expiration Date Model / Serial / Lot Lens Intraoc 18.0 - [id number] - [id number] Implanted:Qty: 1 on 11/20/2019 by Sonu Valladares MD at OR [facility] Left: Eye BAUSCH & LOMB 02/16/2024 [id number] / [id number] / [id number] Sofport Implanted:Qty: 1 on 12/02/2019 by Sonu Valladares MD at OR [facility] Right: Eye 11/17/2023 [id number] / / [id number] documented as of this encounter Procedures Procedure Name Priority Date/Time Associated Diagnosis Comments DIFFERENTIAL, AUTOMATED Routine 09/25/2023 8:27 AM EDT 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) BASIC METABOLIC PANEL Routine 09/25/2023 8:27 AM EDT 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) URINALYSIS WITH MICROSCOPIC EXAM Routine 09/25/2023 8:27 AM EDT Chronic kidney disease, stage 3b (HCC) CBC Routine 09/25/2023 8:27 AM EDT 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) CBC Routine 09/25/2023 8:27 AM EDT 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) DIFFERENTIAL, TECHNOLOGIST REVIEW Routine 09/25/2023 8:27 AM EDT 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) MAGNESIUM Routine 09/25/2023 8:27 AM EDT 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) documented in this encounter Results * DIFFERENTIAL, TECHNOLOGIST REVIEW (09/25/2023 8:27 AM EDT) nRBCs 09/25/2023 10:31 AM EDT LAB[facility] [place] 57-10 Blood Venous blood specimen / Unknown Venipuncture / Unknown 09/25/2023 8:27 AM EDT 09/25/2023 8:27 AM EDT Andrew Gibbs MD LAB BLOOD ORDERAB LES LABORATORY [facility] 57-10 [address] [place] [address] * (ABNORMAL) DIFFERENTIAL, AUTOMATED (09/25/2023 8:27 AM EDT) WBC 7.53 4.00 - 10.80 K/uL 09/25/2023 10:31 AM EDT [facility] [place] 57-10 Neutrophils % 82.0(H) 40.0 - 75.0 % 09/25/2023 10:31 AM EDT [facility] [place] 57-10 Lymphocytes % 9.4(L) 18.0 - 42.0 % 09/25/2023 10:31 AM EDT [facility] [place] 57-10 Monocytes % 7.8 1.0 - 11.0 % 09/25/2023 10:31 AM EDT [facility] [place] [facility] 57-10 Eosinophils % 0.3 0.0 - 6.0 % 09/25/2023 10:31 AM EDT [facility] [place] 57-10 Basophils % 0.5 0.0 - 2.0 % 09/25/2023 10:31 AM EDT [facility] [place] [facility] 57-10 Absolute Neutrophils 6.17 1.80 - 7.70 K/uL 09/25/2023 10:31 AM EDT [facility] [place] [facility] 57-10 Absolute Lymphocytes 0.71(L) 1.00 - 4.80 K/ul 09/25/2023 10:31 AM EDT [facility] [place] [facility] 57-10 Absolute Monocytes 0.59 0.00 - 1.10 K/uL 09/25/2023 10:31 AM EDT [facility] [place] 57-10 Absolute Eosinophils 0.02 0.00 - 0.70 K/uL 09/25/2023 10:31 AM EDT [facility] [place] 57-10 Absolute Basophils 0.04 0.00 - 0.20 K/uL 09/25/2023 10:31 AM EDT [facility] [place] 5710 Blood Venous blood specimen / Unknown Venipuncture / Unknown 09/25/2023 8:27 AM EDT 09/25/2023 8:27 AM EDT Andrew Gibbs MD LAB BLOOD ORDERAB LES [facility] [place] [address] [address] [place] [address] * (ABNORMAL) CBC (09/25/2023 8:27 AM EDT) WBC 7.53 4.00 - 10.80 K/uL 09/25/2023 10:31 AM EDT [facility] [place] [address] RBC 2.41 4.50 - 5.25 M/uL 09/25/2023 10:31 AM EDT [facility] [place] 5710 HGB 7.8(L) 14.0 - 16.8 g/dL 09/25/2023 10:31 AM EDT [facility] [place] [facility] HCT 25.9(L) 40.0 - 48.4 % 09/25/2023 10:31 AM EDT LABORATORY [address] MCV 107.5 82.0 - 99.5 fL 09/25/2023 10:31 AM EDT [facility] [place] 5710 MCH 32.4 27.0 - 34.0 pg 09/25/2023 10:31 AM EDT [facility] [place] 5710 MCHC 30.1 32.0 - 36.0 g/dL 09/25/2023 10:31 AM EDT [facility] [place] 5710 RDW 16.1 11.5 - 15.5 % 09/25/2023 10:31 AM EDT LAB[facility] [place] 57-10 PLT 101(L) 140 - 400 K/uL 09/25/2023 10:31 AM EDT LAB[facility] 57-10 MPV 10.9 6.6 - 11.1 fL 09/25/2023 10:31 AM EDT [facility]10 Blood Venous blood specimen / Unknown Venipuncture / Unknown 09/25/2023 8:27 AM EDT 09/25/2023 8:27 AM EDT Andrew Gibbs MD LAB BLOOD ORDERAB LES LAB[facility] 57-[address] [place] [address] * (ABNORMAL) URINALYSIS WITH MICROSCOPIC EXAM (09/25/2023 8:27 AM EDT) Color, Urine Yellow Light Yellow, Yellow, Dark Yellow 09/25/2023 8:53 AM EDT [address] Clarity, Urine Clear Clear 09/25/2023 8:53 AM EDT [address] Glucose, Urine Negative Negative mg/dL 09/25/2023 8:53 AM EDT [address] Bilirubin, Urine Negative Negative 09/25/2023 8:53 AM EDT [address] Ketone, Urine Negative Negative mg/dL 09/25/2023 8:53 AM EDT [facility] 56 Specific [place], Urine 1.020 1.003 - 1.030 09/25/2023 8:53 AM EDT [facility] 56-02 Blood, Urine Negative Negative 09/25/2023 8:53 AM EDT [facility] 56 pH, Urine 6.0 5.0 - 7.5 Units 09/25/2023 8:53 AM EDT [facility] 56 Protein, Urine >=300(A) Negative mg/dL 09/25/2023 8:53 AM EDT [facility] 56 Urobilinogen, Urine 0.2 0.2, 1.0 mg/dL 09/25/2023 8:53 AM EDT [facility] 56-02 Nitrite, Urine Negative Negative 09/25/2023 8:53 AM EDT [address] Esterase, Urine Negative Negative 09/25/2023 8:53 AM EDT [place] [address] RBC, Urine 0-2 0 - 2 /HPF 09/25/2023 8:53 [address] EDT [address] WBC, Urine 0-2 0 - 2 /HPF 09/25/2023 8:53 AM EDT [address] Bacteria, Urine 0-25 0 - 25 /HPF 09/25/2023 8:53 AM EDT [address] Hyaline, Cast, Urine 1-4(A) None /LPF 09/25/2023 8:53 AM EDT [address] Urine Urine specimen obtained by clean catch procedure / Unknown Non-blood Collection / Unknown 09/25/2023 8:27 AM EDT 09/25/2023 8:27 AM EDT Ashely Chapa MD LAB URINE ORDERAB LES [place] [address] [address] [place] [address] * MAGNESIUM (09/25/2023 8:27 AM EDT) Magnesium 2.0 1.5 - 2.6 mg/dL 09/25/2023 10:29 AM EDT [place] [address] Blood Venous blood specimen / Unknown Venipuncture / Unknown 09/25/2023 8:27 AM EDT 09/25/2023 8:27 AM EDT Andrew Gibbs MD LAB BLOOD ORDERAB LES Performing Organization Address [facility]/State/ZIP Co de Phone Number [place] [address] [address] [place] [address] * (ABNORMAL) BASIC METABOLIC PANEL (09/25/2023 8:27 AM EDT) BUN 44(H) 6 - 20 mg/dL 09/25/2023 10:29 AM EDT [address] Creatinine 2.1(H) 0.6 - 1.2 mg/dL 09/25/2023 10:29 AM EDT [address] Estimated Glomerular Filtration Rate 32(L) >=60 mL/min 09/25/2023 10:29 AM EDT [address] Comment:eGFR is calculated b ased on the CKD-EPI 2020 equation Sodium 135 135 - 146 mmol/L 09/25/2023 10:29 AM EDT [address] Potassium 5.2(H) 3.5 - 5.1 mmol/L 09/25/2023 10:29 AM EDT [address] Chloride 105 98 - 107 mmol/L 09/25/2023 10:29 AM EDT [address] CO2 14(L) 22 - 32 mmol/L 09/25/2023 10:29 AM EDT [address] Anion Gap 16(H) 7 - 15 mmol/L 09/25/2023 10:29 AM EDT [address] Glucose 90 70 - 120 mg/dL 09/25/2023 10:29 AM EDT [address] Calcium 8.7 8.4 - 10.2 mg/dL 09/25/2023 10:29 AM EDT [address] Blood Venous blood specimen / Unknown Venipuncture / Unknown 09/25/2023 8:27 AM EDT 09/25/2023 8:27 AM EDT Andrew Gibbs MD LAB BLOOD ORDERAB LES [place] [address] [address] [place] [address] documented in this encounter Visit Diagnoses Diagnosis Encounter for long-term (current) use of 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
--- OUTSIDE RECORDS SUMMARY | 2023-12-18 22:20 | External Medical Summary ---
Author Name Unknown Address Unknown Organization : Laboratory Report Ordering Provider Test Date Status PAVEL ANNE 09/25/2023 08:27:20 Final Observation Date Value Abnormality Reference (Units ) Status Everolimus [Mass/volume] in Blood 09/25/2023 08:27:20 4.1 (ng/mL) Final Unable to flag abnormal result(s), please refer
to reference range(s) below:
Trough: 3.0 - 8.0 ng/mL for Transplantation
Trough: 5.0 - 10.0 ng/mL for Oncology/Neurology
Symptoms of toxicity are more likely to occur at
trough levels exceeding 12.0 ng/mL.
This test was developed and its analytical performance
characteristics have been determined by [facility] [place], [place]. It has
not been cleared or approved by the U.S. Food and Drug
Administration. This assay has been validated pursuant
to the CLIA regulations and is used for clinical
purposes.

Test Performed at:
[facility]
[address] [facility]
[place], [place]
Piero Hardwick M.D., Ph.D.,Director of Laboratories Performing Location
--- OUTSIDE RECORDS SUMMARY | 2023-12-18 22:20 | External Medical Summary ---
Author Name Unknown Address Unknown Organization [id number]:LABORATORY [facility] [address] [place] [address] Laboratory Report Ordering Provider Test Date Status PAVEL ANNE 09/25/2023 08:27:20 Final Observation Date Value Abnormality Reference (Units ) Status SYNC LEUKOCYTES IN BLOOD BY AUTOMATED COUNT 09/25/2023 08:27:20 7.53 4.00-10.80 (K/uL) Final Segs 09/25/2023 08:27:20 82.0 Above high normal 40.0-75.0 (%) Final Lymphs % 09/25/2023 08:27:20 9.4 Below low normal 18.0-42.0 (%) Final Monos 09/25/2023 08:27:20 7.8 1.0-11.0 (%) Final Eosinophils 09/25/2023 08:27:20 0.3 0.0-6.0 (%) Final Basos 09/25/2023 08:27:20 0.5 0.0-2.0 (%) Final Absolute Segs 09/25/2023 08:27:20 6.17 1.80-7.70 (K/uL) Final Lymphs, absolute 09/25/2023 08:27:20 0.71 Below low normal 1.00-4.80 (K/ul) Final Monos, Abs 09/25/2023 08:27:20 0.59 0.00-1.10 (K/uL) Final Eos, Abs 09/25/2023 08:27:20 0.02 0.00-0.70 (K/uL) Final Basos, Abs 09/25/2023 08:27:20 0.04 0.00-0.20 (K/uL) Final Performing Location LABORATORY [facility] 57-1 [address] [place] [address]
--- OUTSIDE RECORDS SUMMARY | 2023-12-18 22:20 | External Medical Summary | Summary of Care ---
Author Name Unknown Organization [facility] Address [address] [facility] [place] [address] Phone [phone] Care Team Providers Care Leveler Helper Name Role Phone Gino Osman MD Primary Care Provider [phone] Reason for Visit * Reason Comments Outpatient Testing Encounter Details Date Type Department Care Team (Latest Contact Info) Description 10/02/2023 11:20 AM EDT Laboratory Laboratory [facility] [address] [place] [address] [facility] [address] [facility] [place] [address] Encounter for long-term (current) use of other [...] 30 Cap 12/16/2020 Active Ergocalciferol 1.25 MG (41474 UT) Oral Capsule (Vitamin D2(Drisdol)) On Sunday bimonthly 12 Capsule 01/02/2023 Active Tamsulosin HCl 0.4 MG Oral Capsule (Flomax)Indications: BPH with obstruction/lower urinary tract symptoms TAKE ONE CAPSULE BY MOUTH IN THE MORNING 90 Capsule 3 04/01/2023 Active Fluticasone Propionate 50 MCG/ACT Nasal Suspension (Flonase) Administer 1 [place] into nostril in the morning and 1 [place] before bedtime. 05/01/2023 Active Saline Nasal [place] 0.65 % Nasal Solution ([employer]) Administer 1 [place] into nostril. 05/01/2023 Active Pantoprazole Sodium 40 [...] Start Date End Date Status Epoetin Rogelio 98451 UNIT/ML inj 40,000 UnitsIndications:Anemia of chronic renal failure, stage 3b (HCC) [address]485 Units SC QWEEK 08/21/2023 Active documented as [...] right lower extremity 06/13/2018 Current use of buttermaker helper 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 019 History of lung transplant [...] mRNA, LNP-s, No Pre serve, 2-Dose Series (Cerevo) 09/03/2021,11/04/2020,05/27/2020,04/19 COVID-19, MRNA-LNP, 23-24, P F, 30 MCG/0.3 mL, 12 YRS AND ABOVE, IM ([facility] 02/22/2023 Covid-19, Mrna, Lnp-s, Pf, [...] Care Team (Late st Contact Info) Description 01/18/2024 1:00 PM EDT Office Visit Nephrology, [facility] [address] [facility] [place] [address] ZeLaurita alcala PA-C [address] [facility] [place] [address] 04/01/2024 1:00 PM EST Nurse Only Ancillary Department, [place] [address] [place] [address] [place], Nurse Annual Wellness [address] [place] [address] 04/01/2024 2:20 PM EST Office Visit Family Practice, [place] [address] [place] [phone] Gino Osman MD [address] [place], [place] [phone] Health Maintenance Due Date Last Done Comments [...] this encounter Medical Devices Implanted Type Area Science Instructor Device Identifier Shelf Expiration Date Model / Serial / Lot Lens Intraoc 18.0 - [id number] - [id number] Implanted:Qty: 1 on 11/20/2019 by Sonu Valladares MD at OR [facility] Left: Eye BAUSCH & LOMB 02/16/2024 [id number] / [id number] / [id number] Sofport Implanted:Qty: 1 on 12/02/2019 by Sonu Valladares MD at OR [facility] Right: Eye 11/17/2023 [id number] / / [id number] documented as of this encounter Procedures Procedure Name Priority Date/Time Associated Diagnosis Comments DIFFERENTIAL, AUTOMATED Routine 10/02/2023 10:52 AM EDT 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) CBC Routine 10/02/2023 10:52 AM EDT 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) CBC Routine 10/02/2023 10:52 AM EDT 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) documented in this encounter Results * (ABNORMAL) DIFFERENTIAL, AUTOMATED (10/02/2023 10:52 AM EDT) WBC 7.00 4.00 - 10.80 K/uL 10/02/2023 10:56 AM EDT LAB[facility]ATORY [place] 56-02 Neutrophils % 87.7(H) 40.0 - 75.0 % 10/02/2023 10:56 AM EDT [facility] [place] 56-02 Lymphocytes % 4.9(L) 18.0 - 42.0 % 10/02/2023 10:56 AM EDT LAB[facility] [place] 56-02 Monocytes % 6.6 1.0 - 11.0 % 10/02/2023 10:56 AM EDT [facility] [place] 56-02 Eosinophils % 0.1 0.0 - 6.0 % 10/02/2023 10:56 AM EDT [facility] [place] 56-02 Basophils % 0.7 0.0 - 2.0 % 10/02/2023 10:56 AM EDT [facility] [place] 56-02 Absolute Neutrophils 6.14 1.80 - 7.70 K/uL 10/02/2023 10:56 AM EDT [facility] [place] 56-02 Absolute Lymphocytes 0.34(L) 1.00 - 4.80 K/ul 10/02/2023 10:56 AM EDT LAB[facility]ORY [place] 56-02 Absolute Monocytes 0.46 0.00 - 1.10 K/uL 10/02/2023 10:56 AM EDT [facility] [place] 56-02 Absolute Eosinophils 0.01 0.00 - 0.70 K/uL 10/02/2023 10:56 AM EDT LAB[facility] [place] 56-02 Absolute Basophils 0.05 0.00 - 0.20 K/uL 10/02/2023 10:56 AM EDT [facility] 56 Blood Venous blood specimen / Unknown Venipuncture / Unknown 10/02/2023 10:52 AM EDT 10/02/2023 10:52 AM EDT Andrew Gibbs MD LAB BLOOD ORDERAB LES [address] [place] [address] * (ABNORMAL) CBC (10/02/2023 10:52 AM EDT) WBC 7.00 4.00 - 10.80 K/uL 10/02/2023 10:56 AM EDT [place] [address] RBC 2.46 4.50 - 5.25 M/uL 10/02/2023 10:56 AM EDT [place] [address] HGB 8.1(L) 14.0 - 16.8 g/dL 10/02/2023 10:56 AM EDT [place] [address] HCT 26.7(L) 40.0 - 48.4 % 10/02/2023 10:56 AM EDT [facility] 56 MCV 108.5 82.0 - 99.5 fL 10/02/2023 10:56 AM EDT [facility] 56 MCH 32.9 27.0 - 34.0 pg 10/02/2023 10:56 AM EDT [facility] 56 MCHC 30.3 32.0 - 36.0 g/dL 10/02/2023 10:56 AM EDT [facility] 56 RDW 15.7 11.5 - 15.5 % 10/02/2023 10:56 AM EDT [facility] 56 PLT 109(L) 140 - 400 K/uL 10/02/2023 10:56 AM EDT [facility] 56 MPV 10.0 6.6 - 11.1 fL 10/02/2023 10:56 AM EDT [facility] 56 Blood Venous blood specimen / Unknown Venipuncture / Unknown 10/02/2023 10:52 AM EDT 10/02/2023 10:52 AM EDT Andrew Gibbs MD LAB BLOOD ORDERAB LES [facility] [place] 56-[address] [place] [address] documented in this encounter Visit Diagnoses Diagnosis Encounter for long-term (current) use of other medications 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
--- OUTSIDE RECORDS SUMMARY | 2023-12-18 22:21 | External Medical Summary ---
Author Name Unknown Address Unknown Organization K01:LABORATORY [facility] - [address] [facility] [address] [place] [address] Laboratory Report Ordering Provider Test Date Status JASKARAN ORTEGA 09/17/2023 08:15:50 Final Test performed by [facility] y on [employer]. Therapeutic ranges vary with type of transplant, time post-transplant, clinical protocols, and testing methodology. Results should be interpreted with clinical presentation and any signs rejection/toxicity. Observation Date Value Abnormality Reference (Units ) Status Tacrolimus (FK506) 09/17/2023 08:15:50 4.8 4 .0-12.0 (ng/mL) Final Performing Location LABORATORY [facility] - [address] [place] [address]
--- OUTSIDE RECORDS SUMMARY | 2023-12-18 22:21 | External Medical Summary ---
Author Name Unknown Address Unknown Organization K09:LAB[facility]ATORY [place] [address] Laboratory Report Ordering Provider Test Date Status ROBERT VANCE 09/12/2023 10:53:49 Final Observation Date Value Abnormality Reference (Units ) Status WBC, Total 09/12/2023 10:53:49 9.88 4.00-10.8 0 (K/uL) Final RBC 09/12/2023 10:53:49 2.60 4.50-5.25 (M/uL) Final Hemoglobin 09/12/2023 10:53:49 8.2 Below low normal 14 .0-16.8 (g/dL) Final HCT 09/12/2023 10:53:49 27.5 Below low normal 40. 0-48.4 (%) Final MCV 09/12/2023 10:53:49 105.8 82.0-99.5 (fL) Final MCH 09/12/2023 10:53:49 31.5 27.0-34.0 (pg) Final MCHC 09/12/2023 10:53:49 29.8 32.0-36.0 (g/dL) Final RDW 09/12/2023 10:53:49 15.6 11.5-15.5 (%) Final Platelets 09/12/2023 10:53:49 88 Below low normal 140 -400 (K/uL) Final MPV 09/12/2023 10:53:49 10.8 6.6-11.1 ( fL) Final Performing Location [facility]ATORY [place] [address]
--- OUTSIDE RECORDS SUMMARY | 2023-12-18 22:21 | External Medical Summary ---
Author Name Unknown Address Unknown Organization K01:[facility]ORY [facility] [place] [facility] [place] [address] Laboratory Report Ordering Provider Test Date Status ROBERT VANCE 09/17/2023 08:15:50 Final Observation Date Value Abnormality Reference (Units ) Status Retic, % (auto) 09/17/2023 08:15:50 2.44 Above high normal 0.80-1.90 (%) Final Reticulocytes, Absolute 09/17/2023 08:15:50 58.1 31.3-100.1 (K/uL) Final Reticulocyte fraction, immature 09/17/2023 08:15:50 19.5 2.5-20.6 (%) Final Reticulocyte HGB 09/17/2023 08:15:50 34.9 29.7-37.4 (pg) Final Performing Location [facility] [place] [place] [address] [place] [address]
--- OUTSIDE RECORDS SUMMARY | 2023-12-18 22:21 | External Medical Summary | Summary of Care ---
Author Name Unknown Organization [facility] Address [address] [facility] [place] [address] Phone [phone] Care Team Providers Care Marketing Liaison Name Role Phone Gino Osman MD Primary Care Provider [phone] Reason for Visit * Reason Comments Hospital Follow-Up Hernia repair surger y; was supposed to be outpatient and his potassium was too high, stayed for 3 nights and is getting more blood work done on Sunday Encounter Details Date Type Department Care Team (Late st Contact Info) Description 09/14/2023 2:00 PM EDT Office Visit [facility] [address] [place] [address] Holly Adler MD [address] [place] [address] Hospital discharge follow-up*; H/O right inguinal hernia repair; Hyperkalemia; History of lung transplant ([facility]); Chronic kidney disease, stage 4 (severe) ([facility]) Allergies Active Allergy Reactions Criticality Noted Date Comments Adhesive Tape Itching High 11/21/2022 documented as of this encounter (statuses as of 09/14/2023) Medications Medication Sig Dispensed Refills Start Date End Date Status ASPIRIN EC 81 MG PO TBECIndications:Dys lipidemia, goal LDL below 100,Mixed dyslipidemia Take one pill daily 100 Tab 3 09/22/2013 Active sulfamethoxazole-tr imethoprim DS (BACTRIM DS) 800-160 MG per tabletIndications:M -W-F Take 0.5 Tablets by mouth once a day on Sunday, Sunday, and Sunday only. 05/06/2018 Active pravastatin (PRAVACHOL) 20 MG TabletIndications:D yslipidemia, goal LDL below 100,Mixed dyslipidemia Take 1 Tab by mouth daily. 90 Tab 1 05/16/2018 Active azithromycin (ZITHROMAX) 250 MG Tablet One tablet M-W-F 6 Tab 1 11/27/2018 Active mycophenolate (CELLCEPT) 500 MG Tablet Take 1.5 Tablets by mouth in the morning and 1.5 Tablets before bedtime. 1 Tab 08/26/2019 Active predniSONE (YOVANY) 5 MG TBEC Take by mouth. In the morning Active metoprolol tartrate (LOPRESSOR) 25 MG Tablet Take 0.5 Tablets by mouth in the morning. 1/2 tablet daily . Active Everolimus 0.5 MG Oral Tablet (Zortress)Indicatio ns:2 tablet 2 times aday 1 mg (1 [...] 02/24/2020 Active Tacrolimus 1 MG Oral Capsule (Prograf)Indication s:History of lung transplant (HCC) Take 2 Capsules by mouth in the morning and 2 Capsules before bedtime. Takes 2 mg in the AM and 2 mg in the PM. 30 Cap 12/16/2020 Active Ergocalciferol 1.25 MG (21351 UT) Oral Capsule (Vitamin D2(Drisdol)) On Sunday bimonthly 12 Capsule 01/02/2023 Active Tamsulosin HCl 0.4 MG Oral Capsule (Flomax)Indications :BPH with obstruction/lower urinary tract symptoms TAKE ONE CAPSULE BY MOUTH IN THE MORNING 90 Capsule 3 04/01/2023 Active Fluticasone Propionate 50 MCG/ACT Nasal Suspension (Flonase) Administer 1 [place] into nostril in the morning and 1 [place] before bedtime. 05/01/2023 Active Saline Nasal [place] 0.65 % Nasal Solution ([place]) Administer 1 [place] into nostril. 05/01/2023 Active Pantoprazole Sodium 40 MG Oral Tablet Delayed Release (Protonix) Take 1 Tablet by mouth in the morning. 90 Tablet 3 05/15/2023 Active Lisinopril 5 MG Oral Tablet (Prinivil) Take 1 Tablet by mouth in the morning. 30 Tablet 5 06/15/2023 Active Additional Information Patient taking differently:5 mg Oral Daily(AM),Currently on hold per [facility], Reported on 09/12/2023 Sodium Bicarbonate 650 MG Oral TabletIndications:C hronic kidney disease, stage 3b (HCC) Take 2 Tablets by mouth in the morning and 2 Tablets before bedtime. 360 Tablet 3 08/28/2023 Active Polyethylene Glycol 3350 17 GM Oral Packet (MiraLax) Take 1 Packet by mouth. 09/10/2023 2023 Active Hospital, Clinic, or Other Facility Administered Medication Ordered Dose Route Frequency Start Date End Date Status Epoetin Rogelio 00605 UNIT/ML inj 40,000 UnitsIndications:Anemia of chronic renal failure, stage 3b (HCC) 40813 Units SC QWEEK 08/21/2023 Active documented as of this encounter (statuses as of 09/14/2023) Active Problems Problem Noted Date Diagnosed Date [...] as of this encounter (statuses as of 09/14/2023) Resolved Problems Problem Noted Date Diagnosed Date [...] as of this encounter (statuses as of 09/14/2023) Immunizations Name Administration Dates Next Due COVID-19 mRNA, LNP-s, No Pre serve, 2-Dose Series (Lumenz) 09/03/2021,11/04/2020,05/27/2020,04/19 COVID-19, MRNA-LNP, 23-24, P F, 30 MCG/0.3 mL, 12 YRS AND ABOVE, IM ([facility]entioned-[facility]) 02/22/2023 Covid-19, Mrna, Lnp-s, Pf, B ivalent, [...] Sign Reading Time Taken Comments Blood Pressure 122/64 09/14/2023 1:55 PM EDT Pulse 81 09/14/2023 1:55 PM EDT Temperature 36.7 C (98.1 F) 09/14/2023 1:55 PM ED T Respiratory Rate 16 09/14/2023 1:55 PM EDT Oxygen Saturation 97% 09/14/2023 1:55 PM EDT Inhaled Oxygen Concentration - - Weight 61.7 kg (136 lb 1.6 oz) 09/14/2023 1:55 P M EDT Height 167.6 cm (5' 6") 09/14/2023 1:55 PM EDT Body Mass Index 21.97 09/14/2023 1:55 PM EDT documented in this encounter Progress Notes * Holly Adler MD - 09/14/2023 2:21 PM EDT ASSESSMENT / PLAN: Arthur Rodas is a 77 year old male with PMHx 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 Admission date: 09/06 Discharge date: 09/09 Presented with: R inguinal hernia Diagnosis: inguinal hernia repair, hyperkalemia Treatments / Consultation(s): 1- Nephrology - they recommended to hold lisinopril - potassium reportedly 4.6 on day of discharge Changes to chronic medications: 1 - Lisinopril continues to be held at this time - pt is asymptomatic - Regarding blood pressure control Pt has metoprolol 25mg at home Instructed that he can take 1/2 tab of this if systolic BP is 150s or more, and or diastolic is 100or more. Verbalized understanding and agreement with this plan, answered all questions. Hospital discharge follow-up (Primary) H/O right inguinal hernia repair Hyperkalemia History of lung transplant (HCC) Chronic kidney disease, stage 4 (severe) (HCC) If needed, prefers contact by: Ok to leave message on phone: SUBJECTIVE: Nursing Notes: Carly Evans LPN 09/14/23 1404 Signed The patient has been properly identified by confirmation of name and date of . Chief Complaint Patient presents with Hospital Follow-Up Hernia repair surgery; was supposed to be outpatient and his potassium was too high, stayed for 3 nights and is getting more blood work done on Sunday HPI: Arthur Rodas is a 77 year old male. Here for recheck. Here w . He is doing well today, voices no symptoms. BP is controlled today He remains off lisinopril as recommended by his research librarian at 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 1 Tab 0 predniSONE (YOVANY) 5 MG TBEC Take by mouth. In the morning metoprolol tartrate (LOPRESSOR) 25 MG Tablet Take 0.5 Tablets by mouth in the morning. 1/2 tablet daily . Everolimus 0.5 MG Oral Tablet (Zortress) 1 [...] PM. 30 Cap 0 Ergocalciferol 1.25 MG (14109 UT) Oral Capsule (Vitamin D2(Drisdol)) On Sunday bimonthly 12 Capsule 0 Tamsulosin HCl 0.4 MG Oral Capsule (Flomax) TAKE ONE CAPSULE BY MOUTH IN THE MORNING 90 Capsule 3 Fluticasone Propionate 50 MCG/ACT Nasal Suspension (Flonase) Administer 1 [place] into nostril in themorning and 1 [place] before bedtime. Pantoprazole Sodium 40 MG Oral Tablet Delayed Release (Protonix) Take 1 Tablet by mouth in the morning. 90 Tablet 3 Lisinopril 5 MG Oral Tablet (Prinivil) Take 1 Tablet by mouth in the morning. (Patient taking differently: Take 1 Tablet by mouth in the morning. Currently on hold per [facility] .) 30 Tablet 5 Sodium Bicarbonate 650 MG Oral Tablet Take 2 Tablets by mouth in the morning and 2 Tablets before bedtime. 360 Tablet 3 Polyethylene Glycol 3350 17 GM Oral Packet (MiraLax) Take 1 Packet by mouth. Saline Nasal [place] 0.65 % Nasal Solution ([place]) Administer 1 [place] into nostril. (Patient not taking: Reported on 06/12/2023) Current Facility-Administered Medications Medication Dose Route Frequency Provider Last Rate Last Admin Epoetin Rogelio 35212 UNIT/ML inj 40,000 Units 40,000 Units Subcutaneous Q Week 40,000 Units at 09/12/23 1116 OBJECTIVE: BP 122/64 | Pulse 81 | Temp 36.7 C (98.1 F) | Resp 16 | Ht 1.676 m (5' 6") | Wt 61.7 kg (136 lb1.6 oz) | SpO2 97% | BMI 21.97 kg/m | BSA 1.69 m Vitals reviewed and is normotensive / afebrile / and not tachycardic General: No acute distress. Neuro: Alert Pleasant & interactive. Respiratory: Good inspiratory effort, no labored breathing. CTAB CV: RRR no M R G MSK: lower ext without edema b/l HEENT: Conjunctivae appear clear. No swelling noted face or lips. Skin: No rash visible on exposed skin areas, normal coloration & appears dry. Psych: Normal affect. Fluent speech. Holly Adler MD [address] [address] There are no Patient Instructions on file for this visit. documented in this encounter Nursing Notes * Carly Evans LPN - 09/14/2023 2:03 PM EDT The patient has been properly identified by confirmation of name and date of . Chief Complaint Patient presents with Hospital Follow-Up Hernia repair surgery; was supposed to be outpatient and his potassium was too high, stayed for 3 nights and is getting more blood work done on Sunday documented in this encounter Plan of Treatment Upcoming Encounters Date Type Department Care Team (Late st Contact Info) Description 09/17/2023 9:00 AM EDT Pharmacy Pharmacy, [place] [address] [place] [address] Clinic, [facility] [address] [place] [address] 09/17/2023 2:40 PM EDT Office Visit Nephrology, [facility] [address] [place] [address] Ashely Chapa MD [address] [place] [address] 09/27/2023 11:00 AM EDT Office Visit [facility], [place] [address] [place] [address] Gino Osman MD [address] [place] [address] 10/11/2023 9:20 AM EDT Office Visit Nephrology, [facility] [address] [place] [address] ChapaAshely cardona MD [address] [place] [address] 10/19/2023 3:00 PM EDT Office Visit Nephrology, [facility] [address] [place] [address] ChapaAshely cardona MD [address] [place] [address] 04/01/2024 1:00 PM EST Nurse Only Ancillary Department, [place] [address] [place] [address] [place], Nurse Annual Wellness [address] [place] [address] Health Maintenance Due Date Last Done Comments Alpha-1 Antitrypsin 1963 Hepatitis C Screening 1963 COVID-19 Vaccine (2022- season) 2023 02/22/2023, 01/17/2022, 09/03/2021, Additional history exists Albumin/Creatinine Ratio 12/02/2023 023, 06/20/2021, 06/21/2020 PTH 12/02/2023 12/01/2022 Depression Screening 03/06/2024 03/06/2023, 05/01/19 18 GFR 03/11/2024 09/10/2023, 08/18, 09/09/2023, Additional history exists Nephrology Referral 05/15/2024 05/15/2023 HbA1c 09/07/2024 09/08/2023, 0 06/2023, 08/21/2023, Additional history exists Phosphate 09/09/2024 09/10/2023, 2 05/2023, 09/08/2023, Additional history exists Hgb 09/11/2024 09/12/2023, 08/18, 09/03/2023, Additional history exists DTaP,Tdap,and Td Vaccines (3 - Td or Tdap) 06/23/2032 06/23/2022, 10/02/2011 Hepatitis B Completed 01/03/2017, 07/17, 07/05/2016 Pneumococcal Vaccine: 65+ Years Completed 05/23/2018, 04/01/2015, 05/14/2012 Zoster Vaccines Completed 05/27/2018, 06/2017, 08/15/2012 Influenza Vaccine (FLU shot) Completed 01/2023, 01/11/2022, 12/16/2020, Additional history exists GARDASIL-HPV IMMUNIZATION SERIES Aged Out No longer eligible based on patient's age to complete this topic MENINGOCOCCAL (MENACTRA/MENVEO) Aged Out No longer eligible based on patient's age to complete this topic documented as of this encounter Medical Devices Implanted Type Area Webbing Inspector Device Identifier Shelf Expiration Date Model / Serial / Lot Lens Intraoc 18.0 - [id number] - [id number] Implanted:Qty: 1 on 11/20/2019 by Sonu Valladares MD at OR [facility] Left: Eye BAUSCH & LOMB 02/16/2024 [id number] / [id number] / [id number] Sofport Implanted:Qty: 1 on 12/02/2019 by Sonu Valladares MD at OR [facility] Right: Eye 11/17/2023 [id number] / / [id number] documented as of this encounter Visit Diagnoses Diagnosis Hospital discharge follow-up- Primary Other follow-up examination H/O right inguinal hernia repair Other postprocedural status Hyperkalemia Hyperpotassemia History of lung transplant (HCC) Lung replaced by transplant Chronic kidney disease, stage 4 (severe) (HCC) documented in this encounter Care Teams Marketing Liaison Relationship Specialty Start Date End Date Gino Osman MD [address] [place] [address] PCP - General Family Medicine 05/06/18 documented as of this encounter
--- OUTSIDE RECORDS SUMMARY | 2023-12-18 22:21 | External Medical Summary ---
Author Name Unknown Address Unknown Organization K09:[facility] [place] [address] Laboratory Report Ordering Provider Test Date Status PAVEL ANNE 09/25/2023 08:27:20 Final Observation Date Value Abnormality Reference (Units ) Status BUN 09/25/2023 08:27:20 44 Above high normal 6-20 (mg/dL) Final Creatinine 09/25/2023 08:27:20 2.1 Above high normal 0.6-1.2 (mg/dL) Final Glomerular filtration rate/1.73 sq M.predicted [Volume Rate/Area] in Serum, Plasma or Blood by Creatinine-based formula (CKD-EPI) 09/25/2023 08:27:20 32 Below low normal >=60 (mL/min) Final eGFR is calculated based on the CKD-EPI 2020 equation Sodium 09/25/2023 08:27:20 135 135-146 (m mol/L) Final Potassium 09/25/2023 08:27:20 5.2 Above high normal 3. 5-5.1 (mmol/L) Final Cl 09/25/2023 08:27:20 105 98-107 (mm ol/L) Final CO2 09/25/2023 08:27:20 14 Below low normal 22- 32 (mmol/L) Final Anion gap 09/25/2023 08:27:20 16 Above high normal 7- 15 (mmol/L) Final Glucose 09/25/2023 08:27:20 90 70-120 (mg /dL) Final Calcium 09/25/2023 08:27:20 8.7 8.4-10.2 ( mg/dL) Final Performing Location [facility] [place] [address]
--- OUTSIDE RECORDS SUMMARY | 2023-12-18 22:21 | External Medical Summary ---
Author Name Unknown Address Unknown Organization K01[place] [place] [facility] [address] [place] [address] Laboratory Report Ordering Provider Test Date Status ROBERT VANCE 09/17/2023 09:28:39 Final Observation Date Value Abnormality Reference (Units ) Status Retic, % (auto) 09/17/2023 09:28:39 2.69 Above high normal 0.80-1.90 (%) Final Reticulocytes, Absolute 09/17/2023 09:28:39 65.6 31.3-100.1 (K/uL) Final Reticulocyte fraction, immature 09/17/2023 09:28:39 25.8 Above high normal 2.5-20.6 (%) Final Reticulocyte HGB 09/17/2023 09:28:39 33.6 29.7-37.4 (pg) Final Performing Location [facility] [place] [address] [place] [address]
--- OUTSIDE RECORDS SUMMARY | 2023-12-18 22:21 | External Medical Summary | Summary of Care ---
Author Name Unknown Organization [facility] Address [address] [place] [address] Phone [phone] Care Team Providers Care Jukebox Checker Name Role Phone Gino Osman MD Primary Care Provider [phone] Reason for Visit * Reason Onset Date Comments Anemia Follow-Up 09/18/2023 Encounter Details Date Type Department Care Team (Late st Contact Info) Description 08/29/2023 9:30 AM EDT Pharmacy Pharmacy, [place] [address] [place], [place] [id number] Clinic, [facility] [address] [place] [address], [place] [id number] Anemia of chronic renal failure, stage 4 (severe) ([facility])* Allergies Active Allergy Reactions Criticality Noted Date Comments Adhesive Tape Itching High 11/21/2022 documented as of this encounter (statuses as of 09/18/2023) Medications Medication Sig Dispensed Refills Start Date [...] 30 Cap 12/16/2020 Active Ergocalciferol 1.25 MG (13615 UT) Oral Capsule (Vitamin D2(Drisdol)) On Sunday bimonthly 12 Capsule 01/02/2023 Active Tamsulosin HCl 0.4 MG Oral Capsule (Flomax)Indications: BPH with obstruction/lower urinary tract symptoms TAKE ONE CAPSULE BY MOUTH IN THE MORNING 90 Capsule 3 04/01/2023 Active Fluticasone Propionate 50 MCG/ACT Nasal Suspension (Flonase) Administer 1 [place] into nostril in the morning and 1 [place] before bedtime. 05/01/2023 Active Saline Nasal [place] 0.65 % Nasal Solution ([place]) Administer 1 [place] into nostril. 05/01/2023 Active Pantoprazole Sodium 40 MG Oral Tablet Delayed Release (Protonix) Take 1 Tablet by mouth in the morning. 90 Tablet 3 05/15/2023 Active Sodium Bicarbonate 650 MG Oral TabletIndications:Ch ronic kidney disease, stage 3b (HCC) Take 2 Tablets by mouth in the morning and 2 Tablets before bedtime. 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 History of pulmonary fibrosis 11/27/2018 Pulmonary embolus, left 06/13/2018 Acute deep vein thrombosis (DVT) of right lower extremity 06/13/2018 Current use of exterminator helper termite 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 019 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 Overview: left [facility] 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 Interstitial lung disease 03/19/2015 Chronic rhinitis 03/30/2014 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 Spoke with patient and , Cherelle. Hgb: 8.4 g/dL Hgb is below target range. Iron studies not completed, likely remain adequate. Patient is currently denies changes in medical condition/diagnosis. Plan: Continue Retacrit 40,000 units SQ weekly @ [facility] nephrology clinic (hold for Hgb > 11 g/dL). Last dose: Retacrit 40,000 units SQ on 08/21/23 Next dose due: Retacrit 40,000 units SQ on 08/28/23 (scheduled) Subsequent dose due: Retacrit 40,000 units SQ on 09/04/23 Patient with history of DVT/PE, not currently on 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. Received approval from Dr. Chapa to start BON therapy as benefits outweigh risks at this time. Follow-up labs to be obtained on 09/04/23 to match administration appointment. Anemia Clinic will continue to follow. Thank you for allowing us to participate in the care of thispatient. Feroz Lugo, PharmD, [facility] Clinical Pharmacist Anemia Clinic P: [phone] F: [phone] 08/28/2023 2:56 PM Lab Results Component Value Date/Time HGB 7.8 (L) 09/17/2023 09:28 AM HGB 8.2 (L) 09/12/2023 10:53 AM HGB 8.4 (L) 09/07/2023 06:09 PM HGB 8.1 (L) 09/03/2023 10:49 AM HGB 11.3 (L) 03/22/2020 07:42 AM [...] Description 09/25/2023 10:00 AM EDT Nurse Only [facility]rology[facility] [address] [place] [address] [place], Nurse Nephrology [address] [facility] [address] [address] [place] [address] 09/27/2023 11:00 AM EDT Office Visit [facility] [address] [place] [phone] Gino Osman MD [address] [place] [address] 01/18/2024 1:00 PM EDT Office Visit [facility]phrology[facility] [address] [place] [address] ZemaitisLaurita, JUDY [address] [facility] [place], [place] [address] 04/01/2024 1:00 PM EST Nurse Only Ancillary Department, [place] [address] [facility], [place] [address] [place], Nurse Annual Wellness [address] [place] [address] Health Maintenance Due Date Last Done Comments [...] 05/14/2012 Zoster Vaccines Completed 05/27/2018, 06/2017, 08/15/2012 GARDASIL-HPV IMMUNIZATION SERIES Aged Out No longer eligible based on patient's age to complete this topic MENINGOCOCCAL (MENACTRA/MENVEO) Aged Out No longer eligible based on patient's age to complete this topic documented as of this encounter Medical Devices Implanted Type Area Surgical Tech Device Identifier Shelf Expiration Date Model / Serial / Lot Lens Intraoc 18.0 - [id number] - [id number] Implanted:Qty: 1 on 11/20/2019 by Sonu Valladares MD at OR [facility] Left: Eye BAUSCH & LOMB 02/16/2024 [id number] / [id number] / [id number] Sofport Implanted:Qty: 1 on 12/02/2019 by Sonu Valladares MD at OR [facility] Right: Eye 11/17/2023 [id number] / / [id number] documented as of this encounter Visit Diagnoses Diagnosis Anemia of chronic renal failure, stage 4 (severe) (HCC)- Primary documented in this encounter Care Teams Jukebox Checker Relationship Specialty Start Date End Date Gino Osman MD [address] [place] [address] PCP - General Family Medicine 05/06/18 documented as of this encounter
--- OUTSIDE RECORDS SUMMARY | 2023-12-18 22:21 | External Medical Summary | Summary of Care ---
Author Name Unknown Organization [facility] Address [address] [facility] [place] [address] Phone [phone] Care Team Providers Care Metal Weigher Name Role Phone Gino Osman MD Primary Care Provider [phone] Reason for Visit * Reason Comments Outpatient Testing Encounter Details Date Type Department Care Team (Late st Contact Info) Description 09/17/2023 8:10 AM EDT Laboratory Laboratory [facility] [address] [place] [address] [facility] Scenery [address] [facility] [place] [address] Anemia, unspecified type Allergies Active Allergy Reactions Criticality Noted Date Comments Adhesive Tape Itching High 11/21/2022 documented as of this encounter (statuses as of 09/17/2023) Medications Medication Sig Dispensed Refills Start Date End Date Status ASPIRIN EC 81 MG PO TBECIndications:Dys lipidemia, goal LDL below 100,Mixed dyslipidemia Take one pill daily 100 Tab 3 09/22/2013 Active sulfamethoxazole-tr imethoprim DS (BACTRIM DS) 800-160 MG per tabletIndications: -W- Take 0.5 Tablets by mouth once a [...] 30 Cap 12/16/2020 Active Ergocalciferol 1.25 MG (16431 UT) Oral Capsule (Vitamin D2(Drisdol)) On Sunday bimonthly 12 Capsule 01/02/2023 Active Tamsulosin HCl 0.4 MG Oral Capsule (Flomax)Indications :BPH with obstruction/lower urinary tract symptoms TAKE ONE CAPSULE BY MOUTH IN THE MORNING 90 Capsule 3 04/01/2023 Active Fluticasone Propionate 50 MCG/ACT Nasal Suspension (Flonase) Administer 1 [place] into nostril in the morning and 1 [place] before bedtime. 05/01/2023 Active Saline Nasal [place] 0.65 % Nasal Solution ([place]raham) Administer 1 [place] into nostril. 05/01/2023 Active Pantoprazole Sodium 40 MG Oral Tablet Delayed Release (Protonix) Take 1 Tablet by mouth in the morning. 90 Tablet 3 05/15/2023 Active Lisinopril 5 MG Oral Tablet (Prinivil) Take 1 Tablet by mouth in the morning. 30 Tablet 5 06/15/2023 Active Additional Information Patient taking differently:5 mg Oral Daily(AM),Currently on hold per [facility], Reported on 09/12/2023 Sodium Bicarbonate [...] Start Date End Date Status Epoetin Rogelio 71035 UNIT/ML inj 40,000 UnitsIndications:Anemia of chronic renal failure, stage 3b (HCC) 43957 Units SC QWEEK 08/21/2023 Active documented as of this encounter (statuses as of 09/17/2023) Active Problems Problem Noted Date Diagnosed Date Prediabetes 08/27/2023 Overview: Per Prediabetes protocol Anemia 08/10/2023 Chronic kidney disease, stage 4 (severe) 023 Overview: Per CKD protocol 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] as of this encounter (statuses as of 09/17/2023) Immunizations Name Administration Dates Next Due COVID-19 mRNA, LNP-s, No Pre serve, 2-Dose Series (Trending Taste) 09/03/2021,11/04/2020,05/27/2020,04/19 COVID-19, MRNA-LNP, 23-24, P F, 30 MCG/0.3 mL, 12 YRS AND ABOVE, IM (Ozmott-ComirnatSiOx) 02/22/2023 Covid-19, Mrna, Lnp-s, Pf, B ivalent, [...] Description 09/17/2023 2:40 PM EDT Office Visit Nephrology [facility] [address] [place] [address] Ashely Chapa MD [address] [place] [address] 09/27/2023 11:00 AM EDT Office Visit [address] [phone] Gino Osman MD [facility] [place] [address] 10/11/2023 9:20 AM EDT Office Visit Nephrology [facility] [address] [place] [address] Ashely Chapa MD [address] [place] [address] 10/19/2023 3:00 PM EDT Office Visit Nephrology [facility] [address] [place] [address] [address] Ashely Chapa MD [address] [place] [address] 04/01/2024 1:00 PM EST Nurse Only Ancillary Department, [place] [address] [place] [address] [place], Nurse Annual Wellness [address] [place] [address] Pending Results Name Type Priority Associated Diagnoses Date /Time RETICULOCYTE PANEL Lab Routine Anemia, unspecified type 09/17/2023 8:15 AM EDT Health Maintenance Due Date Last [...] Nephrology Referral 05/15/2024 05/15/2023 HbA1c 09/07/2024 09/08/2023, 06/0 06/2023, 08/21/2023, Additional history exists Phosphate 09/09/2024 09/10/2023, 062 05/2023, 09/08/2023, Additional history exists Hgb 09/11/2024 09/12/2023, 2 03/2023, 09/03/2023, Additional history exists DTaP,Tdap,and Td Vaccines (3 - Td or Tdap) 06/23/2032 06/23/2022, 10/02/2011 Hepatitis B Completed 01/03/2017, 07/17, 07/05/2016 Pneumococcal Vaccine: 65+ Years Completed 05/23/2018, 04/01/2015, 05/14/2012 Zoster Vaccines Completed 05/27/2018, 0 06/2017, 08/15/2012 GARDASIL-HPV IMMUNIZATION SERIES Aged Out No longer eligible based on patient's age to complete this topic MENINGOCOCCAL (MENACTRA/MENVEO) Aged Out No longer eligible based on patient's age to complete this topic documented as of this encounter Medical Devices Implanted Type Area Warehouse Pricing And Inventory Clerk Device Identifier Shelf Expiration Date Model / Serial / Lot Lens Intraoc 18.0 - [id number] - [id number] Implanted:Qty: 1 on 11/20/2019 by Sonu Valladares MD at OR [facility] Left: Eye BAUSCH & LOMB 02/16/2024 [id number] / [id number] / [id number] Sofport Implanted:Qty: 1 on 12/02/2019 by Sonu Valladares MD at OR [facility] Right: Eye 11/17/2023 [id number] / / [id number] documented as of this encounter Visit Diagnoses Diagnosis Anemia, unspecified type documented in this encounter Care Teams Metal Weigher Relationship Specialty Start Date End Date Gino Osman MD [address] [place] [address] PCP - General Family Medicine 05/06/18 documented as of this encounter
--- OUTSIDE RECORDS SUMMARY | 2023-12-18 22:21 | External Medical Summary | Summary of Care ---
Author Name Unknown Organization [facility] Address [address] [facility] [place] [address] Phone [phone] Care Team Providers Care Donor Services Manager Name Role Phone Gino Osman MD Primary Care Provider [phone] Reason for Visit * Reason Comments Outpatient Testing Encounter Details Date Type Department Care Team (Late st Contact Info) Description 09/17/2023 8:10 AM EDT Laboratory Laboratory [facility] [address] [place] [address] [facility] Lab Scenery [address] [facility] [place] [address] Anemia, unspecified type; Hyperkalemia Allergies Active Allergy Reactions Criticality Noted [...] 30 Cap 12/16/2020 Active Ergocalciferol 1.25 MG (01081 UT) Oral Capsule (Vitamin D2(Drisdol)) On Sunday bimonthly 12 Capsule 01/02/2023 Active Tamsulosin HCl 0.4 MG Oral Capsule (Flomax)Indications :BPH with obstruction/lower urinary tract symptoms TAKE ONE CAPSULE BY MOUTH IN THE MORNING 90 Capsule 3 04/01/2023 Active Fluticasone Propionate 50 MCG/ACT Nasal Suspension (Flonase) Administer 1 [place] into nostril in the morning and 1 [place] before bedtime. 05/01/2023 Active Saline Nasal [place] 0.65 % Nasal Solution ([place]) Administer 1 [place] into nostril. 05/01/2023 Active Pantoprazole Sodium 40 MG Oral Tablet Delayed Release (Protonix) Take 1 Tablet by mouth in the morning. 90 Tablet 3 05/15/2023 Active Lisinopril 5 MG Oral Tablet (Prinivil) Take 1 Tablet by mouth in the morning. 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 019 History of lung transplant [...] mRNA, LNP-s, No Pre serve, 2-Dose Series ([employer]) 09/03/2021,11/04/2020,05/27/2020,04/19 COVID-19, MRNA-LNP, 23-24, P F, 30 MCG/0.3 mL, 12 YRS AND ABOVE, IM ([facility]) 02/22/2023 Covid-19, Mrna, Lnp-s, Pf, B [...] 2:40 PM EDT Office Visit Nephrology [facility] [address] [place] [address] Ashely Chapa MD [address] [place] [address] 09/27/2023 11:00 AM EDT Office Visit [facility] [address] [place] [phone] Gino Osman MD [address] [place] [address] 10/11/2023 9:20 AM EDT Office Visit Nephrology [facility] [address] [place] [address] Ashely Chapa MD [address] [place] [address] 10/19/2023 3:00 PM EDT [facility] [address] [place] [address] Ashely Chapa MD [address] [place] [address] 04/01/2024 1:00 PM EST Nurse Only Ancillary Department, [place] [address] [place] [address] [place], Nurse Annual Wellness [address] [place] [address] Pending Results Name Type Priority Associated Diagnoses Date /Time RETICULOCYTE PANEL Lab Routine Anemia, unspecified type 09/17/2023 8:15 AM EDT CBC Lab Routine Hyperkalemia 09/17/2023 9:28 AM EDT RENAL FUNCTION PANEL Lab Routine Hyperkalemia 09/17/2023 9:28 AM EDT MAGNESIUM Lab Routine Hyperkalemia 09/17/2023 9:28 AM EDT TACROLIMUS LEVEL Lab Routine Hyperkalemia 09/17/2023 9:28 AM EDT Health Maintenance Due Date Last [...] Nephrology Referral 05/15/2024 05/15/2023 HbA1c 09/07/2024 09/08/2023, 0606/2023, 08/21/2023, Additional history exists Phosphate 09/09/2024 09/10/2023, 08/18, 09/08/2023, Additional history exists Hgb 09/11/2024 09/12/2023, [...] this encounter Medical Devices Implanted Type Area Glass Breaker Device Identifier Shelf Expiration Date Model / Serial / Lot Lens Intraoc 18.0 - [id number] - [id number] Implanted:Qty: 1 on 11/20/2019 by Sonu Valladares MD at OR [facility] Left: Eye [employer]USCH [employer] LOMB 02/16/2024 [id number] / [id number] / [id number] Sofport Implanted:Qty: 1 on 12/02/2019 by Sonu Valladares MD at OR [facility] Right: Eye 11/17/2023 [id number] / / [id number] documented as of this encounter Visit Diagnoses Diagnosis Anemia, unspecified type Hyperkalemia Hyperpotassemia documented in this encounter Care Teams Donor Services Manager Relationship Specialty Start Date End Date Gino Osman MD [address] [place] [address] PCP - General Family Medicine 05/06/18 documented as of this encounter
--- OUTSIDE RECORDS SUMMARY | 2023-12-18 22:21 | External Medical Summary | Summary of Care ---
Author Name Unknown Organization [facility] Address [address] [facility] [place] [address] Phone [phone] Care Team Providers Care Utility Systems Repairer Operator Name Role Phone Gino Osman MD Primary Care Provider [phone] Reason for Visit * Reason Comments Outpatient Testing Encounter Details Date Type Department Care Team (Late st Contact Info) Description 09/17/2023 8:10 AM EDT Laboratory Laboratory [facility] [address] [place] [address] [facility] Lab Scenery [address] [facility] [place] [address] Anemia, unspecified type Allergies Active Allergy Reactions [...] 30 Cap 12/16/2020 Active Ergocalciferol 1.25 MG (00974 UT) Oral Capsule (Vitamin D2(Drisdol)) On Sunday bimonthly 12 Capsule 01/02/2023 Active Tamsulosin HCl 0.4 MG Oral Capsule (Flomax)Indications :BPH with obstruction/lower urinary tract symptoms TAKE ONE CAPSULE BY MOUTH IN THE MORNING 90 Capsule 3 04/01/2023 Active Fluticasone Propionate 50 MCG/ACT Nasal Suspension (Flonase) Administer 1 [place] into nostril in the morning and 1 [place] before bedtime. 05/01/2023 Active Saline Nasal [place] 0.65 % Nasal Solution ([place]) Administer 1 [place] into nostril. 05/01/2023 Active Pantoprazole Sodium 40 MG Oral Tablet Delayed Release (Protonix) Take 1 Tablet by mouth in the morning. 90 Tablet 3 05/15/2023 Active Lisinopril 5 MG Oral Tablet (Prinivil) Take 1 Tablet by mouth in the morning. 30 Tablet 5 06/15/2023 Active Additional Information Patient taking differently:5 mg Oral Daily(AM),Currently on hold per [facility], Reported on 09/12/2023 Sodium Bicarbonate 650 MG [...] Start Date End Date Status Epoetin Rogelio 11962 UNIT/ML inj 40,000 UnitsIndications:Anemia of chronic renal failure, stage 3b (HCC) 51242 Units SC QWEEK 08/21/2023 Active documented as [...] mRNA, LNP-s, No Pre serve, 2-Dose Series ([employer] 09/03/2021,11/04/2020,05/27/2020,04/19 COVID-19, MRNA-LNP, 23-24, P F, 30 MCG/0.3 mL, 12 YRS AND ABOVE, IM ([employer]) 02/22/2023 Covid-19, Mrna, Lnp-s, Pf, B ivalent, [...] Description 09/17/2023 9:00 AM EDT Pharmacy Pharmacy, [address] [address] 09/17/2023 2:40 PM EDT Office [place] [facility] [place] [address] [place] [address] Ashely Chapa MD [address] [place] [address] 09/27/2023 11:00 AM EDT Office Visit [address] [phone] Gino Osman MD [facility] [place] [address] 10/11/2023 9:20 AM EDT Office Visit [facility] [address] [place] [address] Ashely Chapa MD [address] [place] [address] 10/19/2023 3:00 PM EDT Office Visit [facility] [address] [place] [address] [address] Ashely Chapa MD 200 [facility] [place], [place] [address] 04/01/2024 1:00 PM EST Nurse Only Ancillary Department, [place] [address] [place] [address] [place], Nurse Annual Wellness [address] [place] [address] Pending Results Name Type Priority Associated Diagnoses [...] this encounter Medical Devices Implanted Type Area Publication Distributor Device Identifier Shelf Expiration Date Model / Serial / Lot Lens Intraoc 18.0 - [id number] - [id number] Implanted:Qty: 1 on 11/20/2019 by Sonu Valladares MD at OR [facility] Left: Eye [employer]USCH & LOMB 02/16/2024 [id number] / [id number] / [id number] Sofport Implanted:Qty: 1 on 12/02/2019 by Sonu Valladares MD at OR [facility] Right: Eye 11/17/2023 [id number] / / [id number] documented as of this encounter Visit Diagnoses Diagnosis Anemia, unspecified type documented in this encounter Care Teams Utility Systems Repairer Operator Relationship Specialty Start Date End Date Gino Osman MD [address] [place] [address] PCP - General Family Medicine 05/06/18 documented as of this encounter
--- OUTSIDE RECORDS SUMMARY | 2023-12-18 22:21 | External Medical Summary | Summary of Care ---
Author Name Unknown Organization [facility] Address [address] [facility] [place] [address] Phone [phone] Care Team Providers Care Director Paid Media Name Role Phone Gino Osman MD Primary Care Provider Reason for Visit * Reason Onset Date Comments Appointment 09/13/2023 Encounter Details Date Type Department Care Team (Late st Contact Info) Description 09/13/2023 Telephone Nephrology, [place] [address] [facility] [place] [address] ChapaAshely cardona MD [address] [place] [address] Appointment Allergies Active Allergy Reactions Criticality Noted Date Comments Adhesive Tape Itching High 11/21/2022 documented as of this encounter (statuses as of 09/13/2023) Medications Medication Sig Dispensed Refills Start Date [...] 30 Cap 12/16/2020 Active Ergocalciferol 1.25 MG (83388 UT) Oral Capsule (Vitamin D2(Drisdol)) On Sunday bimonthly 12 Capsule 01/02/2023 Active Tamsulosin HCl 0.4 MG Oral Capsule (Flomax)Indications :BPH with obstruction/lower urinary tract symptoms TAKE ONE CAPSULE BY MOUTH IN THE MORNING 90 Capsule 3 04/01/2023 Active Fluticasone Propionate 50 MCG/ACT Nasal Suspension (Flonase) Administer 1 [place] into nostril in the morning and 1 [place] before bedtime. 05/01/2023 Active Saline Nasal [place] 0.65 % Nasal Solution ([place]) Administer 1 [place] into nostril. 05/01/2023 Active Pantoprazole Sodium 40 [...] Start Date End Date Status Epoetin Rogelio 62066 UNIT/ML inj 40,000 UnitsIndications:Anemia of chronic renal failure, stage 3b (HCC) 66664 Units SC QWEEK 08/21/2023 Active documented as of this encounter (statuses as of 09/13/2023) Active Problems Problem Noted Date Diagnosed Date [...] as of this encounter (statuses as of 09/13/2023) Resolved Problems Problem Noted Date Diagnosed Date [...] as of this encounter (statuses as of 09/13/2023) Immunizations Name Administration Dates Next Due COVID-19 mRNA, LNP-s, No Pre serve, 2-Dose Series (bepretty) 09/03/2021,11/04/2020,05/27/2020,04/19 COVID-19, MRNA-LNP, 23-24, P F, 30 MCG/0.3 mL, 12 YRS AND ABOVE, IM ([facility] 02/22/2023 Covid-19, Mrna, Lnp-s, Pf, B ivalent, 30 Mcg, IM, 12 yrs and above (bepretty) 01/17/2022 Hepatitis B, 20+ yrs 01/03/2017,08/03/2016,07/05 Pneumococcal [...] Telephone Encounter - Vesta Alanis LPN - 09/13/2023 12:47 PM EDT Pt presented to [facility] nurse visit nurse visit on 09/12/23 Had surgery [facility] for hernia repairThey request 5-7 day f/u to discuss BP medication Lisinopril was discontinued due to high potassiumwhile pt inpatient there Is to discuss restart of BP medication Will retreive medical records from this visit and pt will assist with this Pt is scheduled 09/17/23 @ 1440 documented in this encounter Plan of Treatment Upcoming Encounters Date Type Department Care Team (Late st Contact Info) Description 09/14/2023 2:00 PM EDT Office Visit [facility] [address] [place] [address] Holly Adler MD [address] [place] [address] 09/17/2023 9:00 AM EDT Pharmacy Pharmacy, [place] [address] [place], [place] [id number] Clinic, [place] [address] [place] [address] 09/17/2023 2:40 PM EDT Office Visit Nephrology, [place] [address] [place], [place] [address] Ashely Chapa MD [address] [place] [address] 09/18/2023 11:00 AM EDT Nurse Only Nephrology, [facility] [address] [facility] [place] [place] [address] [place], Nurse Nephrology [address] [facility] [place] [address] 09/27/2023 11:00 AM EDT Office Visit [facility], [place] [address] [place] [address] Gino Osman MD [address] [place] [address] 10/11/2023 9:20 AM EDT Office Visit Nephrology, [facility] [address] [facility] [address] [place] [address] ChapaAshely cardona MD [address] [facility] [place] [address] 10/19/2023 3:00 PM EDT Office Visit Nephrology, [facility] [address] [facility] [place] [address] Ashely Chapa MD [address] [facility] [place] [address] 04/01/2024 1:00 PM EST Nurse Only Ancillary Department, [place] [address] [place] [address] [place], [facility] [place] Annual Wellness [address] [place] [address] Health Maintenance Due Date Last Done Comments [...] this encounter Medical Devices Implanted Type Area Gill Box Operator Device Identifier Shelf Expiration Date Model / Serial / Lot Lens Intraoc 18.0 - [id number] - [id number] Implanted:Qty: 1 on 11/20/2019 by Sonu Valladares MD at OR [facility] Left: Eye BAUSCH & LOMB 02/16/2024 [id number] / [id number] / [id number] Sofport Implanted:Qty: 1 on 12/02/2019 by Sonu Valladares MD at [facility] Right: Eye 11/17/2023 [id number] / / [id number] documented as of this encounter Care Teams Director Paid Media Relationship Specialty Start Date End Date Gino Osman MD [address] [place] [address] PCP - General Family Medicine 05/06/18 documented as of this encounter
--- OUTSIDE RECORDS SUMMARY | 2023-12-18 22:21 | External Medical Summary | Summary of Care ---
Author Name Unknown Organization [facility] Address [address] [facility] [place] [address] Phone [phone] Care Team Providers Care Computer Engineering Technologist Name Role Phone Gino Osman MD Primary Care Provider [phone] Encounter Details Date Type Department Care Team (Late st Contact Info) Description 09/10/2023 Result Scan Unspecified Department <No scans attached> Allergies Active Allergy Reactions Criticality Noted Date Comments Adhesive Tape Itching High 11/21/2022 documented as of this encounter (statuses as of 09/12/2023) Medications Medication Sig Dispensed Refills Start Date [...] . Active Everolimus 0.5 MG Oral Tablet (Zortress)Indication [...] 30 Cap 12/16/2020 Active Ergocalciferol 1.25 MG (08286 UT) Oral Capsule (Vitamin D2(Drisdol)) On Sunday bimonthly 12 Capsule 01/02/2023 Active Tamsulosin HCl 0.4 MG Oral Capsule (Flomax)Indications: BPH with obstruction/lower urinary tract symptoms TAKE ONE CAPSULE BY MOUTH IN THE MORNING 90 Capsule 3 04/01/2023 Active Fluticasone Propionate 50 MCG/ACT Nasal Suspension (Flonase) Administer 1 [place] into nostril in the morning and 1 [place] before bedtime. 05/01/2023 Active Saline Nasal [place] 0.65 % Nasal Solution ([place]) Administer 1 [place] into nostril. 05/01/2023 Active Pantoprazole Sodium 40 MG Oral Tablet Delayed Release (Protonix) Take 1 Tablet by mouth in the morning. 90 Tablet 3 05/15/2023 Active Lisinopril 5 MG Oral Tablet (Prinivil) Take 1 Tablet by mouth in the morning. 30 Tablet 5 06/15/2023 Active Sodium Bicarbonate 650 MG Oral TabletIndications:Ch ronic kidney disease, stage 3b (HCC) Take 2 Tablets by mouth in the morning and 2 Tablets before bedtime. 360 Tablet 3 08/28/2023 Active Hospital, Clinic, or Other Facility Administered Medication Ordered Dose Route Frequency Start Date End Date Status Epoetin Rogelio 05910 UNIT/ML inj 40,000 UnitsIndications:Anemia of chronic renal failure, stage 3b (HCC) 60772 Units SC QWEEK 08/21/2023 Active documented as of this encounter (statuses as of 09/12/2023) Active Problems Problem Noted Date Diagnosed Date [...] as of this encounter (statuses as of 09/12/2023) Resolved Problems Problem Noted Date Diagnosed Date [...] as of this encounter (statuses as of 09/12/2023) Immunizations Name Administration Dates Next Due COVID-19 mRNA, LNP-s, No Pre serve, 2-Dose Series ([employer]) 09/03/2021,11/04/2020,05/27/2020,04/19 COVID-19, MRNA-LNP, 23-24, P F, 30 [...] Care Team (Late st Contact Info) Description 09/12/2023 11:00 AM EDT Nurse Only Nephrology, [facility] [address] [facility] [place] [address] [place], Nurse Nephrology [address] [facility] [place], [place] [address] 09/14/2023 2:00 PM EDT Office Visit [facility], [place] [address] [place] [address] Holly Adler MD [address] [place] [address] 09/27/2023 11:00 AM EDT Office Visit [facility], [place] [address] [place] [address] Gino Osman MD [address] [place] [address] 10/11/2023 9:20 AM EDT Office Visit Nephrology, [facility] [address] [facility], [place] [address] Ashely Chapa MD [address] [facility] [place], [place] [address] 10/19/2023 3:00 PM EDT Office Visit Nephrology, [facility] [address] [facility] [address] Ashely Chapa MD [address] [place] [address] 04/01/2024 1:00 PM EST Nurse Only Ancillary Department, [place] [address] [place] [address] [place], [facility] [address] [place] [address] Health Maintenance Due Date Last Done Comments Alpha-1 Antitrypsin 1963 Hepatitis C Screening 1963 COVID-19 Vaccine (2022- season) 2023 02/22/2023, 01/17/2022, 09/03/2021, Additional history exists Albumin/Creatinine Ratio 12/02/2023 023, 06/20/2021, 06/21/2020 PTH 12/02/2023 12/01/2022 Depression Screening 03/06/2024 03/06/2023, 05/01/19 18 GFR 03/11/2024 09/10/2023, 08/18, 09/09/2023, Additional history exists Nephrology Referral 05/15/2024 05/15/2023 Hgb 09/06/2024 09/07/2023, 08/17, 08/27/2023, Additional history exists HbA1c 09/07/2024 09/08/2023, 060 06/2023, 08/21/2023, Additional history exists Phosphate 09/09/2024 09/10/2023, 08/18, 09/08/2023, Additional history exists DTaP,Tdap,and Td Vaccines (3 [...] this encounter Medical Devices Implanted Type Area Tower Hoist Operator Device Identifier Shelf Expiration Date Model / Serial / Lot Lens Intraoc 18.0 - [id number] - [id number] Implanted:Qty: 1 on 11/20/2019 by Sonu Valladares MD at OR [facility] Left: Eye BAUSCH & LOMB 02/16/2024 [id number] / [id number] / [id number] Sofport Implanted:Qty: 1 on 12/02/2019 by Sonu Valladares MD at OR [facility] Right: Eye 11/17/2023 [id number] / / [id number] documented as of this encounter Procedures Procedure Name Priority Date/Time Associated Diagnosis Comments OUTSIDE LAB RESULTS 09/10/2023 documented in this encounter Results * OUTSIDE LAB RESULTS (09/10/2023) 09/10/2023 No Physician Data Unknown LABORATORY documented in this encounter Care Teams Computer Engineering Technologist Relationship Specialty Start Date End Date Gino Osman MD [address] [place] [address] PCP - General Family Medicine 05/06/18 documented as of this encounter
--- OUTSIDE RECORDS SUMMARY | 2023-12-18 22:21 | External Medical Summary ---
Author Name Unknown Address Unknown Organization K09:[facility] [place] [address] Laboratory Report Ordering Provider Test Date Status JASKARAN ORTEGA 09/17/2023 09:28:39 Final Observation Date Value Abnormality Reference (Units ) Status WBC, Total 09/17/2023 09:28:39 5.61 4.00-10.8 0 (K/uL) Final RBC 09/17/2023 09:28:39 2.47 4.50-5.25 (M/uL) Final Hemoglobin 09/17/2023 09:28:39 7.8 Below low normal 14 .0-16.8 (g/dL) Final HCT 09/17/2023 09:28:39 26.4 Below low normal 40. 0-48.4 (%) Final MCV 09/17/2023 09:28:39 106.9 82.0-99.5 (fL) Final MCH 09/17/2023 09:28:39 31.6 27.0-34.0 (pg) Final MCHC 09/17/2023 09:28:39 29.5 32.0-36.0 (g/dL) Final RDW 09/17/2023 09:28:39 16.4 11.5-15.5 (%) Final Platelets 09/17/2023 09:28:39 94 Below low normal 140 -400 (K/uL) Final Consistent with previous res ults.
null MPV 09/17/2023 09:28:39 10.7 6.6-11.1 ( fL) Final Performing Location [facility] [place] [address]
--- OUTSIDE RECORDS SUMMARY | 2023-12-18 22:21 | External Medical Summary ---
Author Name Unknown Address Unknown Organization K09:[facility] [place] [address] Laboratory Report Ordering Provider Test Date Status JASKARAN ORTEGA 09/17/2023 09:28:39 Final Observation Date Value Abnormality Reference (Units ) Status BUN 09/17/2023 09:28:39 41 Above high normal 6-20 (mg/dL) Final Creatinine 09/17/2023 09:28:39 2.1 Above high normal 0.6-1.2 (mg/dL) Final Glomerular filtration rate/1.73 sq M.predicted [Volume Rate/Area] in Serum, Plasma or Blood by Creatinine-based formula (CKD-EPI) 09/17/2023 09:28:39 32 Below low normal >=60 (mL/min) Final eGFR is calculated based on the CKD-EPI 2020 equation Sodium 09/17/2023 09:28:39 135 135-146 (m mol/L) Final Potassium 09/17/2023 09:28:39 4.4 3.5-5.1 (m mol/L) Final Cl 09/17/2023 09:28:39 102 98-107 (mm ol/L) Final CO2 09/17/2023 09:28:39 17 Below low normal 22- 32 (mmol/L) Final Anion gap 09/17/2023 09:28:39 16 Above high normal 7- 15 (mmol/L) Final Glucose 09/17/2023 09:28:39 81 70-120 (mg /dL) Final Calcium 09/17/2023 09:28:39 8.5 8.4-10.2 ( mg/dL) Final Albumin 09/17/2023 09:28:39 3.5 Below low normal 3.8 -5.0 (g/dL) Final Phosphate 09/17/2023 09:28:39 3.4 2.5-4.8 (m g/dL) Final Performing Location [place] [address]
--- OUTSIDE RECORDS SUMMARY | 2023-12-18 22:21 | External Medical Summary | Summary of Care ---
Author Name Unknown Organization [facility] Address [address] [facility] [place] [address] Phone [phone] Care Team Providers Care Senior Health Educator Name Role Phone Gino Osman MD Primary Care Provider [phone] Reason for Visit * Reason Onset Date Comments Appointment 09/11/2023 Encounter Details Date Type Department Care Team (Late st Contact Info) Description 09/11/[address] [facility] [address] [place] [address] Gino Osman MD [address] [place] [address] Appointment Allergies Active Allergy Reactions Criticality Noted Date Comments Adhesive Tape Itching High 11/21/2022 documented as of this encounter (statuses as of 09/11/2023) Medications Medication Sig Dispensed Refills Start Date [...] 30 Cap 12/16/2020 Active Ergocalciferol 1.25 MG (84127 UT) Oral Capsule (Vitamin D2(Drisdol)) On Sunday bimonthly 12 Capsule 01/02/2023 Active Tamsulosin HCl 0.4 MG Oral Capsule (Flomax)Indications: BPH with obstruction/lower urinary tract symptoms TAKE ONE CAPSULE BY MOUTH IN THE MORNING 90 Capsule 3 04/01/2023 Active Fluticasone Propionate 50 MCG/ACT Nasal Suspension (Flonase) Administer 1 [place] into nostril in the morning and 1 [place] before bedtime. 05/01/2023 Active Saline Nasal [place] 0.65 % Nasal Solution ([place]) Administer 1 [place] into nostril. 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 History of pulmonary fibrosis 11/27/2018 Pulmonary embolus, left 06/13/2018 Acute deep vein thrombosis (DVT) of right lower extremity 06/13/2018 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 019 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 Overview: left [facility] 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) 02/22/2023 Covid-19, Mrna, Lnp-s, Pf, B [...] encounter Miscellaneous Notes * Telephone Encounter - Cristine Walker OSA - 09/11/2023 11:02 AM EDT Done. 09/11/2023 * Telephone Encounter - Melyssa Rose OSA - 09/11/2023 10:52 AM EDT No Appointments Available Patient declined appointments?: No What Visit Type is needed? Hospital Discharge If Acute Visit Type is needed, were surrounding clinics offered to patient (Yes/No)? N/A Was patient offered appointments with other available providers (Yes/No)? N/A See Call Details? (Yes or No): Yes documented in this encounter Plan of Treatment Upcoming Encounters Date Type Department Care Team (Late st Contact Info) Description 09/12/2023 11:00 AM EDT Nurse Only Nephrology, [facility] [place] [address] [place] [address] Sp, Nurse Nephrology [address] [place] [address] 09/14/2023 2:00 PM EDT Office Visit [facility] [address] [place] [phone] Holly Adler MD [address] [place] [address] 09/27/2023 11:00 AM EDT Office Visit [facility] [address] [place] [phone] Gino Osman MD [address] [place] [address] 10/19/2023 3:00 PM EDT Office Visit Nephrology, [facility] [address] [place] [address] Ashely Chapa MD [address] [place] [address] 04/01/2024 1:00 PM EST Nurse Only Ancillary Department, [place] [address] [place] [address] [place], Nurse [facility] [address] [place] [address] Health Maintenance Due Date Last [...] 08/27/2023, Additional history exists HbA1c 09/07/2024 09/08/2023, 0606/2023, 08/21/2023, Additional history [...] this encounter Medical Devices Implanted Type Area Crusher Loader Equipment Operator Device Identifier Shelf Expiration Date Model / Serial / Lot Lens Intraoc 18.0 - [id number] - [id number] Implanted:Qty: 1 on 11/20/2019 by Sonu Valladares MD at OR [facility] Left: Eye [employer] LOMB 02/16/2024 [id number] / [id number] / [id number] Sofport Implanted:Qty: 1 on 12/02/2019 by Sonu Valladares MD at OR [facility] Right: Eye 11/17/2023 [id number] / / [id number] documented as of this encounter Care Teams Senior Health Educator Relationship Specialty Start Date End Date Gino Osman MD [address] [place] [address] PCP - General Family Medicine 05/06/18 documented as of this encounter
--- OUTSIDE RECORDS SUMMARY | 2023-12-18 22:21 | External Medical Summary | Continuity of Care Document ---
Author Name Unknown Organization [facility] [address] [facility] [address] [place], [place] [id number] Care Team Providers Care Security Shift Supervisor Name Role Phone Gino Osman Primary Care Physician [phone] Encounter [facility] [id number] Date(s): 09/11/23 - 09/11/23 [facility] [address] [facility] [address] [place], [place] [id number] Encounter Diagnosis History of squamous cell carcinoma of skin(Discharge Diagnosis) - 09/11/23 Immunosuppressed status(Discharge Diagnosis) - 09/11/23 Discharge Disposition: Home or Self Care Attending Physician: MD Natividad, Michelle Allergies, Adverse Reactions, Alerts No Known Allergies Assessment and Plan Extracted from: Title:Dermatology Office Visit Note Author:Rui celestin MD, Michelle Date:09/11/23 1.History of squamous cell carcinoma of skin 2.Immunosuppressed status - status post Mohs surgery for an SCC of the rightear/postauricular sulcus (AJCC T3/BWH T2b due to size greater than 2 cm,depthbeyond subcutaneoustissue and perineural invasion greater than0.1 mm)repaired with doubletransposition flapsperformed on08/08/2023 - discussed with patient and his , healing is progressing very well, small area of posterior ear (leading edge of flaps) that will need additional time to heal - continue daily wound care until fully healed - patient scheduled for follow-up with Dr. Bruce (Rad Onc at [facility]) on 09/19/23 for planning, per my discussion with Dr. Bruce hopeful to start treatment in ~ 4 weeks if fully healed. Discussed I believe he will be healed any ready to proceed. Offered follow-up prior to start of treatment for an additional wound check, patient will contact the office once he knows planned start date. F/u as above for wound check, as scheduled with Dr. Travis for skin exam Medications acetaminophen 325 mg oral tablet Start: [...] 03/14/19 12:57:00 PM EST, 1 cap, PO, [id number] Start Date: 03/14/19 Status: Ordered Zortress 0.5 mg oral tablet Start: 09/12/18 10:07:00 AM EDT, See Instructions, 1 mg in am and 1.5 mg in pm Start Date: 09/12/18 Status: Ordered Mental Status 09/11/23 Barriers to Learning one year None evide nt Mandatory Health Literacy Documentation Yes Health Literacy Communication Barriers N ever Primary Language Kyrgyz Problem List Condition Confirmation Course Effective Dates [...] of BCC on right ear 2012 2Left Jewish Diagnosis Diagnosis Type Effective Dates Health Status Clinical Service Informant History of squamous cell carcinoma of skin Discharge Diagnosis 09/11/23 Non-Specified Immunosuppressed status Discharge Diagnosis 09/11/23 Non-Specified Procedures Procedure Date Related Diagnosis Body Site Status Hernia repair 09/07/23 Completed Mohs micrographic surgery 08/01/23 Completed Shave biopsy and cauterization of skin 07/12/23 Completed Mohs micrographic surgery 04/11/23 Completed Shave biopsy and cauterizati on of skin 1 03/01/23 Completed Mohs micrographic surgery 01/09/23 Completed Shave biopsy and cauterization of skin 11/30/22 Completed Mohs micrographic surgery 08/16/22 Completed Shave biopsy and cauterizati on of skin 2 05/30/22 Completed Electrodesiccation with curettage 10/06/21 Completed Shave biopsy and cauterization of skin 09/08/21 Completed Shave biopsy and cauterizati on of skin 3 08/18/21 Completed Shave biopsy of skin 06/12/18 Comp leted Surgery 4 2004 Completed Surgery 5 2004 Completed LUNG TRANSPLANT SINGLE 6 Completed Mohs micrographic surgery Completed Shave biopsy and cauterizati on of skin 7 Completed 11-right holiness 2-left lateral upper arm 3-right extensor arm 2midline frontal scalp 3left post auricular area; left holiness 4right knee 5right shoulder 6Left lobe 7times 3 in past Social History Social History Type Response Smoking Status Never smoked cigaret angela Sex Male Dermatology Outpatient Note * MD Natividad, Michelle: PERFORM, MODIFY Event Display: Dermatology Outpt Note Authored Date: [id number] Chief Complaint Wound check. Status post Mohs right ear 08-08-23. History of Present Illness Patient is a 32-[id number]-[id number] immunosuppressed due to history of transplantstatus post Mohs surgery for an SCC of the rightear/postauricular sulcus (AJCC T3/BWH T2b due to size greater than 2 cm,depthbeyond subcutaneoustissue and perineural invasion greater than0.1 mm)repairedwith doubletransposition flapsperformed on08/08/2023 Patient's who accompanied him today has been performingwound care, she does report that during his recent hospitalization for hernia repair she was unable toperform wound care but put on a good/securedressing prior tohis surgery.Patient noted a little bit of tendernessat superioraspect of stitch line, this was notbeing covered with a dressing and has improved over the last day. Patientwas evaluated by Dr. Manuel Bruce ([facility] radiation oncology)with plan to start adjuvant XRT in approximately 4 weeks, he is scheduledfor CT simulation on09/19/2023. [facility] after hernia repair.Feeling fairly well. Physical Exam A&O x 3, well-appearing, well-groomed, pleasant Focused skin exam ofright ear and postauricular region reveals a healingsurgical site,small area of necrotic skin atthe leading edge/tip ofbilateral flaps gently removed revealing healthy underlying granulation tissue,minimal erythema.Anteriorly there is a focal area ofgranulation tissue at the superior aspect of the conchal bowl. Images 2023-09-11 14:15:31 2023-09-11 14:15:57 Assessment/Plan 1.History of squamous cell carcinoma of skin 2.Immunosuppressed status - status post Mohs surgery for an SCC of the rightear/postauricular sulcus (AJCC T3/[facility] T2b due to size greater than 2 cm,depthbeyond subcutaneoustissue and perineural invasion greater than0.1 mm)repaired with doubletransposition flapsperformed on08/08/2023 - discussed with patient and his , healing is progressing very well, small area of posterior ear (leading edge of flaps) that will need additional time to heal - continue daily wound care until fully healed - patient scheduled for follow-up with Dr. Bruce (Rad Onc at [facility]) on 09/19/23 for planning, per my discussion with Dr. Bruce hopeful to start treatment in ~ 4 weeks if fully healed. Discussed I believe he will be healed any ready to proceed. Offered follow-up prior to start of treatment for an additional wound check, patient will contact the office once he knows planned start date. F/u as above for wound check, as scheduled with Dr. Travis for skin exam Problem List/Past Medical History Ongoing Basal cell carcinoma BCC (basal cell carcinoma) BPH (benign prostatic hypertrophy) Dysuria Elevated cholesterol Pulmonary fibrosis Rash SCC (squamous cell carcinoma) Skin cancer Procedure/Surgical History Hernia repair| Service Date: 09/07/2023[facility] micrographic surgery| Service Date: 08/01/2023Shave biopsy and cauterization of skin| Service Date: 07/12/2023[facility] micrographic surgery| Service Date: 04/11/2023Shave biopsy and cauterization of skin| Service Date: 03/01/2023[facility] micrographic surgery| Service Date: 01/09/2023Shave biopsy and cauterization of skin| Service Date: 11/30/2022[facility] micrographic surgery| Service Date: 08/16/2022Shave biopsy and cauterization of skin| Service Date: 05/30/2022Electrodesiccation with curettage| Service Date: 10/06/2021have biopsy and cauterization of skin| Service Date: 09/08/2021have biopsy and cauterization of skin| Service Date: 08/18/2021have biopsy of skin| Service Date: 06/12/2018Surgery| Service Date: 2004Surgery| Service Date: 2004[facility] micrographic surgeryLUNG TRANSPLANT SINGLEShave biopsyand cauterization of skin Medications acetaminophen(acetaminophen 325 mg oral tablet), 325 mg= 1 tab, PO, q6h, PRN aspirin(aspirin 81 mg oral tablet), 81 mg= 1 tab, PO, Daily azithromycin(azithromycin 250 mg oral tablet), 250 mg= 1 tab, PO ergocalciferol(Vitamin D2 50,000 intl units (1.25 mg) oral capsule), 20155 Int_Unit= 1 cap, PO, [id number] everolimus(Zortress 0.5 mg oral tablet), See Instructions [...] Never smoked cigarettes Electronic Signature on File CC: Manuel Bruce MD [facility] Radiation Oncology [address] [facility] [id number] * Electronically Reviewed/Signed by: Michelle Henson MD Author Signature Dt/Tm:09/11/2023 04:30 PM Department of Dermatology CS Patient Care team information Care Team Personnel Name: MD Dawson, Gino Ayers Position: Referring DIRECT Member Role: Primary Care Provider Address: Address: [address] [place] [address] Care Team Related Persons Name: PARISA FRAGA Address: home [address] [facility], [place] [id number] Name: SILKE GUARDADO Address: home [address] [facility] [place] [id number]"
--- OUTSIDE RECORDS SUMMARY | 2023-12-18 22:21 | External Medical Summary | Summary of Care ---
Author Name Unknown Organization [facility] Address [address] [facility] [place] [address] Phone [phone] Care Team Providers Care Treasury Analyst Name Role Phone Gino Osman MD Primary Care Provider [phone] Reason for Visit * Reason Comments Outpatient Testing Encounter Details Date Type Department Care Team (Late st Contact Info) Description 09/12/2023 11:20 AM EDT Laboratory Laboratory [facility] [address] [place] [address] [facility] Lab Scenery [address] [address] [facility] [place] [address] Anemia, unspecified type Allergies Active Allergy Reactions [...] 30 Cap 12/16/2020 Active Ergocalciferol 1.25 MG (80662 UT) Oral Capsule (Vitamin D2(Drisdol)) On Sunday bimonthly 12 Capsule 01/02/2023 Active Tamsulosin HCl 0.4 MG Oral Capsule (Flomax)Indications: BPH with obstruction/lower urinary tract symptoms TAKE ONE CAPSULE BY MOUTH IN THE MORNING 90 Capsule 3 04/01/2023 Active Fluticasone Propionate 50 MCG/ACT Nasal Suspension (Flonase) Administer 1 [place] into nostril in the morning and 1 [place] before bedtime. 05/01/2023 Active Saline Nasal [place] 0.65 % Nasal Solution (Kings) Administer 1 [place] into nostril. 05/01/2023 Active Pantoprazole Sodium 40 [...] Start Date End Date Status Epoetin Rogelio 57594 UNIT/ML inj 40,000 UnitsIndications:Anemia of chronic renal failure, stage 3b (HCC) 39094 Units SC QWEEK 08/21/2023 Active documented as [...] lower extremity 06/13/2018 Current use of long term care pharmacist 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 019 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 [...] mRNA, LNP-s, No Pre serve, 2-Dose Series (Markr) 09/03/2021,11/04/2020,05/27/2020,04/19 COVID-19, MRNA-LNP, 23-24, P F, 30 MCG/0.3 mL, 12 YRS AND ABOVE, IM ([employer]) 02/22/2023 Covid-19, Mrna, Lnp-s, Pf, B ivalent, [...] Description 09/14/2023 2:00 PM EDT Office Visit [facility], [place] [address] [place] [facility] [place] [id number] Holly Adler MD [address] [place] [address] 09/27/2023 11:00 AM EDT Office Visit [place] [address] [place] [facility] [place] [address] Gino Osman MD [address] [place] [address] 10/11/2023 9:20 AM EDT Office Visit Nephrology, [facility] [address] [facility] [place] [address] Ashely Chapa MD [address] [facility] [place], [place] [address] 10/19/2023 3:00 PM EDT Office Visit Nephrology, [facility] 200 [facility] [place] [address] Ashely Chapa MD [address] [facility] [place] [address] 04/01/2024 1:00 PM EST Nurse Only Ancillary Department, [place] [address] [facility] [id number] [place], Nurse [facility] [address] [place] [facility] [place] [address] Pending Results Name Type Priority Associated Diagnoses Date /Time CBC Lab STAT Anemia, unspecified type 09/12/2023 10:53 AM EDT Health Maintenance Due Date Last [...] 08/27/2023, Additional history exists HbA1c 09/07/2024 09/08/2023, 06/2023, 08/21/2023, Additional history exists Phosphate 09/09/2024 [...] encounter Medical Devices Implanted Type Area Vp Home Health Device Identifier Shelf Expiration Date Model / Serial / Lot Lens Intraoc 18.0 - [id number] - [id number] Implanted:Qty: 1 on 11/20/2019 by Sonu Valladares MD at OR [facility] Left: Eye BAUSCH & LOMB 02/16/2024 [id number] / [id number] / [id number] Sofport Implanted:Qty: 1 on 12/02/2019 by Sonu Valladares MD at OR [facility] Right: Eye 11/17/2023 [id number] / / [id number] documented as of this encounter Visit Diagnoses Diagnosis Anemia, unspecified type documented in this encounter Care Teams Treasury Analyst Relationship Specialty Start Date End Date Gino Osman MD [address] [place] [address] PCP - General Family Medicine 05/06/18 documented as of this encounter
--- OUTSIDE RECORDS SUMMARY | 2023-12-18 22:21 | External Medical Summary | Summary of Care ---
Author Name Unknown Organization [facility] Address [address] [facility] [place] [address] Phone [phone] Care Team Providers Care Director Of Emergency Nursing Name Role Phone Gino Osman MD Primary Care Provider Reason for Visit * Reason Comments Medication Administration For Procrit in jection * Precert (Within 30 days (routine)) - Authorized Specialty Diagnoses / Procedures Referred By Contac t Referred To Contact Diagnoses Anemia in chronic kidney disease Procedures NV INJ RETACRIT NON-ESRD USE Ashely Chapa MD 200 [facility] [place] [address] Ashely Chapa MD [address] [facility] [place] [address] Referral ID Status Reason Start Date Expiration Date V isits Requested Visits Authorized [id number] Authorized Precert 02/07/2023 03/18/2099 [id number] Encounter Details Date Type Department Care Team (Late st Contact Info) Description 09/12/2023 11:00 AM EDT Nurse Only Nephrology, [place] [address] [place] [address] Sp, Nurse Nephrology 200 [facility] [place] [address] Medication Administration (For Procrit in... Allergies Active Allergy Reactions Criticality Noted Date [...] 30 Cap 12/16/2020 Active Ergocalciferol 1.25 MG (91360 UT) Oral Capsule (Vitamin D2(Drisdol)) On Sunday [...] Nasal [place] 0.65 % Nasal Solution ([place]) Administer 1 [place] into nostril. 05/01/2023 Active Pantoprazole Sodium 40 MG Oral Tablet Delayed Release (Protonix) Take 1 Tablet by mouth in the morning. 90 Tablet 3 05/15/2023 Active Lisinopril 5 MG Oral Tablet (Prinivil) Take 1 Tablet by mouth in the morning. 30 Tablet 5 06/15/2023 Active Additional Information Patient taking differently:5 mg Oral Daily(AM),Currently on hold per [facility], Reported on 09/12/2023 Sodium Bicarbonate 650 MG Oral TabletIndications:C hronic kidney disease, stage 3b (HCC) Take 2 Tablets by mouth in the morning and 2 Tablets before bedtime. 360 Tablet 3 08/28/2023 Active Hospital, Clinic, or Other Facility Administered Medication Ordered Dose Route Frequency Start Date End Date Status Epoetin Rogelio 74472 UNIT/ML inj 40,000 UnitsIndications:Anemia of chronic renal failure, stage 3b (HCC) 91771 Units SC QWEEK 08/21/2023 Active documented as [...] right lower extremity 06/13/2018 Current use of vermin exterminator 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 019 History of lung transplant [...] mRNA, LNP-s, No Pre serve, 2-Dose Series ([employer]) 09/03/2021,11/04/2020,05/27/2020,04/19 COVID-19, MRNA-LNP, 23-24, P F, 30 MCG/0.3 mL, 12 YRS AND ABOVE, IM ([employer]Comirnat) 02/22/2023 Covid-19, Mrna, Lnp-s, Pf, B ivalent, [...] Sign Reading Time Taken Comments Blood Pressure 143/79 09/12/2023 11:32 AM EDT Pulse 78 09/12/2023 11:32 AM EDT Temperature - - Respiratory Rate - - Oxygen Saturation - - Inhaled Oxygen Concentration - - Weight - - Height - - Body Mass Index - - documented in this encounter Nursing Notes * Vesta Alanis LPN - 09/12/2023 11:19 AM EDT Patient identified by verbal name and date of .For Procrit injection see MAR BP stable HGB 8.2Pt tolerated well Apt scheduled for next injection documented in this encounter Plan of Treatment Upcoming Encounters Date Type Department Care Team (Late st Contact Info) Description 09/14/2023 2:00 PM EDT Office Visit [place] [address] [place] [phone] Holly Adler MD [address] [place] [address] 09/18/2023 11:00 AM EDT Nurse Only Nephrology, [facility] [address] [place] [address] Sp, Nurse Nephrology [address] [place] [address] 09/27/2023 11:00 AM EDT Office Visit Family [facility], [place] [address] [place] [address] Gino Osman MD [address] [place], [place] [phone] 10/11/2023 9:20 AM EDT Office Visit Nephrology, [facility] [address] [place] [address] Ashely Chapa MD [address] [place] [address] 10/19/2023 3:00 PM EDT Office Visit Nephrology, [facility] [address] [place] [address] Ashely Chapa MD [address] [place] [address] 04/01/2024 1:00 PM EST Nurse Only Ancillary Department, [place] [address], [place] [id number] [place], Nurse Annual [facility]ness [address] [place] [address] Health Maintenance Due Date Last [...] this encounter Medical Devices Implanted Type Area Enrober Tender Device Identifier Shelf Expiration Date Model / Serial / Lot Lens Intraoc 18.0 - [id number] - [id number] Implanted:Qty: 1 on 11/20/2019 by Sonu Valladares MD at OR [facility] Left: Eye BAUSCH & LOMB 02/16/2024 [id number] / [id number] / [id number] Sofport Implanted:Qty: 1 on 12/02/2019 by Sonu Valladares MD at OR [facility] Right: Eye 11/17/2023 [id number] / / [id number] documented as of this encounter Administered Medications Active Administered Medications - up to 3 most recent administrations Medication Order MAR Action Action Date Dose Rate Site Epoetin Rogelio 64333 UNIT/ML inj 40,000 Units 40,000 Units, Subcutaneous, QWEEK, First dose on Sun08/21/23 at 1300, Until Discontinued, Hold if Hgb > 11g/dL Given 09/12/2023 11:16 AM EDT 40,000 Units Arm Left Upper Given 09/03/2023 11:16 AM EDT 40,000 Units Arm Left Upper Given 08/28/2023 11:14 AM EDT 40,000 Units Arm Right Upper documented in this encounter Care Teams Director Of Emergency Nursing Relationship Specialty Start Date End Date Gino Osman MD [address] [place] [address] PCP - General Family Medicine 05/06/18 documented as of this encounter
--- OUTSIDE RECORDS SUMMARY | 2023-12-18 22:21 | External Medical Summary ---
Author Name Unknown Address Unknown Organization K09:[facility] [place] [address] Laboratory Report Ordering Provider Test Date Status JASKARAN ORTEGA 09/17/2023 09:28:39 Final Observation Date Value Abnormality Reference (Units ) Status Magnesium 09/17/2023 09:28:39 2.0 1.5-2.6 (m g/dL) Final Performing Location [facility] [place] [address]
--- OUTSIDE RECORDS SUMMARY | 2023-12-18 22:21 | External Medical Summary ---
Author Name Unknown Address Unknown Organization K01:[facility] - [address] [place] [address] Laboratory Report Ordering Provider Test Date Status ROBERT VANCE 09/17/2023 09:28:39 Final Observation Date Value Abnormality Reference (Units ) Status Ferritin 09/17/2023 09:28:39 264 30-400 (ng /mL) Final Performing Location [facility] - [address] [place] [address]
--- OUTSIDE RECORDS SUMMARY | 2023-12-18 22:21 | External Medical Summary ---
Author Name Unknown Address Unknown Organization K01[facility] [place] [address] [place] [address] Laboratory Report Ordering Provider Test Date Status ROBERT VANCE 09/17/2023 09:28:39 Final Observation Date Value Abnormality Reference (Units ) Status Iron 09/17/2023 09:28:39 68 45-176 (ug/dL) Final Iron-binding capacity 09/17/2023 09:28:39 220 Below low normal 250-425 (ug/dL) Final Transferrin Sat % 09/17/2023 09:28:39 31 15-55 (%) Final Performing Location [facility] [place] [address] [place] [address]
--- OUTSIDE RECORDS SUMMARY | 2023-12-18 22:21 | External Medical Summary ---
Author Name Unknown Address Unknown Organization K01:[facility] [place] [address] [facility] [place] [place] [address] Laboratory Report Ordering Provider Test Date Status PAVEL ANNE 09/25/2023 08:27:20 Final Test performed by [facility] on [facility] Prasad. Therapeutic ranges vary with type of transplant, time post-transplant, clinical protocols, and testing methodology. Results should be interpreted with clinical presentation and any signs rejection/toxicity. Observation Date Value Abnormality Reference (Units ) Status Tacrolimus (FK506) 09/25/2023 08:27:20 6.6 4 .0-12.0 (ng/mL) Final Performing Location [facility] - [address] [place] [address]
--- OUTSIDE RECORDS SUMMARY | 2023-12-18 22:22 | External Medical Summary | Summary of Care ---
Author Name Unknown Organization [facility] Address [address] [place] [address] Phone [phone] Care Team Providers Care Bioinformaticist Name Role Phone Gino Osman MD Primary Care Provider [phone] Reason for Visit * Reason Onset Date Comments Other 09/11/2023 Encounter Details Date Type Department Care Team (Late st Contact Info) Description 09/11/2023 Telephone Nephrology, [facility] [address] Services, Scheduling [address] [place] [address] Other Allergies Active Allergy Reactions Criticality Noted Date [...] 30 Cap 12/16/2020 Active Ergocalciferol 1.25 MG (89364 UT) Oral Capsule (Vitamin D2(Drisdol)) On Sunday bimonthly 12 Capsule 01/02/2023 Active Tamsulosin HCl 0.4 MG Oral Capsule (Flomax)Indications: BPH with obstruction/lower urinary tract symptoms TAKE ONE CAPSULE BY MOUTH IN THE MORNING 90 Capsule 3 04/01/2023 Active Fluticasone Propionate 50 MCG/ACT Nasal Suspension (Flonase) Administer 1 [place] into nostril in the morning and 1 [place] before bedtime. 05/01/2023 Active Saline Nasal [place] 0.65 % Nasal Solution (Arcata) Administer 1 [place] into nostril. 05/01/2023 Active Pantoprazole Sodium 40 [...] Start Date End Date Status Epoetin Rogelio 41494 UNIT/ML inj 40,000 UnitsIndications:Anemia of chronic renal failure, stage 3b (HCC) 63221 Units SC QWEEK 08/21/2023 Active documented as [...] mRNA, LNP-s, No Pre serve, 2-Dose Series (VeriWave) 09/03/2021,11/04/2020,05/27/2020,04/19 COVID-19, MRNA-LNP, 23-24, P F, 30 [...] encounter Miscellaneous Notes * Telephone Encounter - Jammie Clancy OSA - 09/11/2023 10:43 AM EDT Good afternoon, Pt's on the line, trying to schedule an HD - recommended for 5-7 days, I was not able to find anything t that time frame. Please call if there if something you are able to schedule at [phone]. Thank you documented in this encounter Plan of Treatment Upcoming Encounters Date Type Department Care Team (Late st Contact Info) Description 09/12/2023 11:00 AM EDT Nurse Only Nephrology, [place] [address] [place] [address] Sp, Nurse Nephrology [address] [place] [address] 09/14/2023 2:00 PM EDT Office Visit [place] [address] [place] [address] Holly Adler MD [address] [place] [address] 09/27/2023 11:00 AM EDT Office Visit [facility] [address] [place] [address] Gino Osman MD [address] [place] [address] 10/19/2023 3:00 PM EDT Office Visit [facility] [place] [address] [place] [address] Ashely Hoffman MD 200 [facility] [place] [address] 04/01/2024 1:00 PM EST Nurse Only Ancillary Department, [place] [address] [place] [address] [place], Nurse Annual Wellness [address] [place] [address] Health Maintenance Due Date Last Done Comments Alpha-1 Antitrypsin 1963 Hepatitis C Screening 1963 COVID-19 Vaccine ( season) 2023 02/22/2023, 01/17/2022, 09/03/2021, Additional history exists Albumin/Creatinine Ratio 12/02/2023 023, 06/20/2021, 06/21/2020 PTH 12/02/2023 12/01/2022 Depression Screening 03/06/2024 03/06/2023, 05/01/19 18 GFR 03/11/2024 09/10/2023, 08/18, 09/09/2023, Additional history exists Nephrology Referral 05/15/2024 05/15/2023 Hgb 09/06/2024 09/07/2023, 08/17, 08/27/2023, Additional history exists HbA1c 09/07/2024 09/08/2023, 06/0 [...] this encounter Medical Devices Implanted Type Area Fire Information Officer Device Identifier Shelf Expiration Date Model / Serial / Lot Lens Intraoc 18.0 - [id number] - [id number] Implanted:Qty: 1 on 11/20/2019 by Sonu Valladares MD at OR [facility] Left: Eye BAUSCH & LOMB 02/16/2024 [id number] / [id number] / [id number] Sofport Implanted:Qty: 1 on 12/02/2019 by Sonu Valladares MD at OR [facility] Right: Eye 11/17/2023 [id number] / / [id number] documented as of this encounter Care Teams Bioinformaticist Relationship Specialty Start Date End Date Gino Osman MD [address] [place], [place] [id number] PCP - General Family Medicine 05/06/18 documented as of this encounter
--- OUTSIDE RECORDS SUMMARY | 2023-12-18 22:22 | External Medical Summary | Summary of Care ---
Author Name Unknown Organization [facility] Address [address] [place] [address] Phone [phone] Care Team Providers Care Vegetable Thinner Name Role Phone Gino Osman MD Primary Care Provider [phone] Reason for Visit * Reason Onset Date Comments Other 09/11/2023 Encounter Details Date Type Department Care Team (Late st Contact Info) Description 09/11/2023 Telephone Nephrology, [facility] [address] [facility], Scheduling [address] [place] [address] Other Allergies Active Allergy Reactions Criticality Noted [...] 30 Cap 12/16/2020 Active Ergocalciferol 1.25 MG (21959 UT) Oral Capsule (Vitamin D2(Drisdol)) On Sunday bimonthly 12 Capsule 01/02/2023 Active Tamsulosin HCl 0.4 MG Oral Capsule (Flomax)Indications: BPH with obstruction/lower urinary tract symptoms TAKE ONE CAPSULE BY MOUTH IN THE MORNING 90 Capsule 3 04/01/2023 Active Fluticasone Propionate 50 MCG/ACT Nasal Suspension (Flonase) Administer 1 [place] into nostril in the morning and 1 [place] before bedtime. 05/01/2023 Active Saline Nasal [place] 0.65 % Nasal Solution (Cherry) Administer 1 [place] into nostril. 05/01/2023 Active Pantoprazole Sodium 40 [...] Start Date End Date Status Epoetin Rogelio 16180 UNIT/ML inj 40,000 UnitsIndications:Anemia of chronic renal failure, stage 3b (HCC) 30404 Units SC QWEEK 08/21/2023 Active documented as [...] mRNA, LNP-s, No Pre serve, 2-Dose Series (K[employer]) 09/03/2021,11/04/2020,05/27/2020,04/19 COVID-19, MRNA-LNP, 23-24, P F, 30 [...] something you are able to schedule at [phone]. Thank you documented in this encounter Plan of Treatment Upcoming Encounters Date Type Department Care Team (Late st Contact Info) Description 09/12/2023 11:00 AM EDT Nurse Only Nephrology, [facility] [address] [place] [address] Sp, Nurse Nephrology [address] [place] [address] 09/27/2023 11:00 AM EDT Office Visit [place] [address] [place] [address] Gino Osman MD [address] [place] [address] 10/19/2023 3:00 PM EDT Office Visit Nephrology, [facility] [address] [place] [address] Ashely Chapa MD 200 [place] [address] 04/01/2024 1:00 PM EST Nurse Only Ancillary Department, [place] [address] [place] [address] [place], [facility] Annual Wellness [address] [place] [address] Health Maintenance Due Date Last Done Comments [...] this encounter Medical Devices Implanted Type Area Director Of User Experience Device Identifier Shelf Expiration Date Model / Serial / Lot Lens Intraoc 18.0 - [id number] - [id number] Implanted:Qty: 1 on 11/20/2019 by Sonu Valladares MD at OR [facility] Left: Eye BAUSCH & LOMB 02/16/2024 [id number] / [id number] / [id number] Sofport Implanted:Qty: 1 on 12/02/2019 by Sonu Valladares MD at OR [facility] Right: Eye 11/17/2023 [id number] / / [id number] documented as of this encounter Care Teams Vegetable Thinner Relationship Specialty Start Date End Date Gino Osman MD [address] [place] [address] PCP - General Family Medicine 05/06/18 documented as of this encounter
--- OUTSIDE RECORDS SUMMARY | 2023-12-18 22:22 | External Medical Summary | Summary of Care ---
Author Name Unknown Organization [facility] Address [address] [facility] [place] [address] Phone [phone] Care Team Providers Care Mannequin Maker Name Role Phone Gino Osman MD Primary Care Provider [phone] Encounter Details Date Type Department Care Team (Late st Contact Info) Description 08/01/2023 Result Scan Unspecified Department <No scans attached> [...] 30 Cap 12/16/2020 Active Ergocalciferol 1.25 MG (27551 UT) Oral Capsule (Vitamin D2(Drisdol)) On Sunday bimonthly 12 Capsule 01/02/2023 Active Tamsulosin HCl 0.4 MG Oral Capsule (Flomax)Indications: BPH with obstruction/lower urinary tract symptoms TAKE ONE CAPSULE BY MOUTH IN THE MORNING 90 Capsule 3 04/01/2023 Active Fluticasone Propionate 50 MCG/ACT Nasal Suspension (Flonase) Administer 1 [place] into nostril in the morning and 1 [place] before bedtime. 05/01/2023 Active Saline Nasal [place] 0.65 % Nasal Solution ([place]) Administer 1 [place] into nostril. 05/01/2023 Active Pantoprazole Sodium 40 MG Oral Tablet Delayed Release (Protonix) Take 1 Tablet by mouth in the morning. 90 Tablet 3 05/15/2023 Active Lisinopril 5 MG Oral Tablet (Prinivil) Take 1 Tablet by mouth in the morning. 30 Tablet 5 06/15/2023 Active documented as of this encounter (statuses [...] right lower extremity 06/13/2018 Current use of longitudinal float operator 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 019 History of lung transplant [...] mRNA, LNP-s, No Pre serve, 2-Dose Series (K[employer]Again) 09/03/2021,11/04/2020,05/27/2020,04/19 COVID-19, MRNA-LNP, 23-24, P F, 30 MCG/0.3 mL, 12 YRS AND ABOVE, IM ([employer]urs[employer]-Comirnat) 02/22/2023 Covid-19, Mrna, Lnp-s, Pf, B ivalent, [...] Description 09/27/2023 11:00 AM EDT Office Visit [facility] [address] [facility] [address] Gino Osman MD [address] [place] [address] 10/19/2023 3:00 PM EDT Office Visit Nephrology, [place] [address] [place] [address] Ashely Chapa MD 200 [facility] [place] [address] 04/01/2024 1:00 PM EST Nurse Only Ancillary Department, [place] [address] [place] [address] [place], Nurse Annual Wellness [address] [place] [address] Health Maintenance Due Date Last Done Comments [...] this encounter Medical Devices Implanted Type Area Backend Developer Device Identifier Shelf Expiration Date Model / Serial / Lot Lens Intraoc 18.0 - [id number] - [id number] Implanted:Qty: 1 on 11/20/2019 by Sonu Valladares MD at OR [facility] Left: Eye BAUSCH & LOMB 02/16/2024 [id number] / [id number] / [id number] Sofport Implanted:Qty: 1 on 12/02/2019 by Sonu Valladares MD at OR [facility] Right: Eye 11/17/2023 [id number] / / [id number] documented as of this encounter Procedures Procedure Name Priority Date/Time Associated Diagnosis Comments PROCEDURE SCANNED RESULT 08/01/2023 documented in this encounter Results * PROCEDURE SCANNED RESULT (08/01/2023) 08/01/2023 No Physician Data Unknown SURGERY documented in this encounter Care Teams Mannequin Maker Relationship Specialty Start Date End Date Gino Osman MD [address] [place] [address] PCP - General Family Medicine 05/06/18 documented as of this encounter
[2023-12-19 00:28] LABS: BUN Creatinine Ratio 19.3 (10-20); Calcium 8.4 mg/dl (8.6-10.3); Creatinine Clr Calc Pharmacy 21.6 ml/min; Est GFR (African American) 33.3 ml/min; Est GFR (Non-African American) 28.7 ml/min; Potassium 5.5 mmol/L (3.5-5.1)
[2023-12-19] MEDS: DEXTROSE 50% 50 ML SYRINGE IV ONE (02:32)
[2023-12-19] MEDS: SODIUM BICARB 8.4% INJ 50 MEQ/50 ML SYR IV STA (02:33)
[2023-12-19] MEDS: INSULIN HUMAN REGULAR PER UNIT 5 UNITS in SYRINGE 4.95 ML IV ONE (02:33)
[2023-12-19 07:41] LABS: Hematocrit (blood only) 22.7 % (42.0-52.0); Hemoglobin 7.2 g/dl (14.0-18.0); Mean Corpuscular Hemoglobin 31.6 pg (25.0-34.0); Mean Corpuscular Hgb Conc 31.7 g/dL (32.0-36.0); Mean Corpuscular Volume 99.6 fL (80.0-100.0); Mean Platelet Volume 10.7 fL (9.4-12.4); Platelet Count 91 K/uL (130-400); RDW Coefficient of Variation 13.9 % (11.5-14.5); RDW Standard Deviation 50.6 fL (36.4-46.3); Red Blood Count 2.28 M/uL (4.70-6.10); White Blood Count 9.12 K/ul (4.8-10.8)
[2023-12-19 07:45] LABS: BUN Creatinine Ratio 18.7 (10-20); Calcium 8.5 mg/dl (8.6-10.3); Creatinine Clr Calc Pharmacy 22.3 ml/min; Est GFR (African American) 33.9 ml/min; Est GFR (Non-African American) 29.2 ml/min; Potassium 4.7 mmol/L (3.5-5.1)
[2023-12-19] MEDS: ONDANSETRON INJ 2 MG/ML 2 ML VIAL IV PRN (07:57)
[2023-12-19] MEDS: MIRTAZAPINE TAB 15 MG TAB PO SCH (08:04)
[2023-12-19] MEDS: ASPIRIN 81 MG ECTAB PO SCH (08:04)
[2023-12-19] MEDS: MONTELUKAST SODIUM 10 MG TABLET PO SCH (08:04)
[2023-12-19] MEDS: predniSONE 5 MG TAB PO SCH (08:22)
[2023-12-19] MEDS: SULFAMETHOXAZOLE/TRIMETHOPRIM DS 800/160MG TAB PO SCH (08:22)
[2023-12-19] MEDS: PRAVASTATIN SOD 20 MG TAB PO SCH (08:22)
[2023-12-19] MEDS: PANTOprazole 40 MG TAB PO SCH (08:22)
[2023-12-19] MEDS: TAMSULOSIN HCL 0.4 MG CAP PO SCH (08:24)
[2023-12-19] MEDS ORDERED: HEPARIN SOD 5,000 UNIT/0.5 ML VIAL SQ SCH (09:00)
[2023-12-19] MEDS ORDERED: lisinopril 5 MG TAB PO SCH (09:00)
--- OUTSIDE RECORDS SUMMARY | 2023-12-19 10:26 | External Medical Summary | Summary of Care ---
Author Name Unknown Organization [facility] Address [address] [facility] [place] [address] Phone [phone] Care Team Providers Care Refining Engineer Name Role Phone Gino Osman MD Primary Care Provider [phone] Reason for Visit * Reason Onset Date Comments CMVIg ADMINISTRATION 12/18/2023 Encounter Details Date Type Department Care Team (Late st Contact Info) Description 12/18/2023 Telephone Nephrology, [facility] [address] [place] [address] Sp, Nurse Nephrology [address] [place] [address] CMVIg ADMINISTRATION Allergies Active Allergy Reactions Criticality Noted Date Comments Adhesive Tape Itching High 11/21/2022 documented as of this encounter (statuses as of 12/18/2023) Medications Medication Sig Dispensed Refills Start Date [...] 30 Cap 12/16/2020 Active Ergocalciferol 1.25 MG (03488 UT) Oral Capsule (Vitamin D2(Drisdol)) On Sunday bimonthly 12 Capsule 01/02/2023 Active Tamsulosin HCl 0.4 MG Oral Capsule (Flomax)Indications: BPH with obstruction/lower urinary tract symptoms TAKE ONE CAPSULE BY MOUTH IN THE MORNING 90 Capsule 3 04/01/2023 Active Fluticasone Propionate 50 MCG/ACT Nasal Suspension (Flonase) Administer 1 [place] into nostril in the morning and 1 L[place] before bedtime. 05/01/2023 Active Saline Nasal [place] 0.65 % Nasal Solution ([place]) Administer 1 L[place] into nostril. 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 History of pulmonary fibrosis 11/27/2018 Pulmonary embolus, left 06/13/2018 Acute deep vein thrombosis (DVT) of right lower extremity 06/13/2018 Current use of machine long goods helper 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 019 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 Overview: left [facility] 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 Interstitial lung disease 03/19/2015 Chronic rhinitis 03/30/2014 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 Restrictive lung disease documented as of this encounter (statuses as of 12/18/2023) Resolved Problems Problem Noted Date Diagnosed Date [...] as of this encounter (statuses as of 12/18/2023) Immunizations Name Administration Dates Next Due COVID-19 mRNA, LNP-s, No Pre serve, 2-Dose Series (Best Bid) 09/03/2021,11/04/2020,05/27/2020,04/19 COVID-19, MRNA-LNP, 23-24, P F, 30 MCG/0.3 mL, 12 YRS AND ABOVE, IM (EnviroMission) 02/22/2023 COVID-19, MRNA-LNP, 24-25, P R, 30MCG/0.3ML, IM, 12YRS AND ABOVE (adhoclabs) 11/30/2023 Covid-19, Mrna, Lnp-s, Pf, B ivalent, 30 Mcg, IM, 12 yrs and above (Best Bid) 01/17/2022 Hepatitis B, 20+ yrs 01/03/2017,08/03/2016,07/05 Pneumococcal Conjugate Vacc, 13 Valent (Prevnar) 04/01/2015 Pneumococcal Polysaccharide PPV23 (Pneumovax) 05/14/2012 Seasonal Influenza Vac., MDV , IM, 0.5 mL (Fluzone) 11/29/2013 Seasonal Influenza, PF, 6 M & above, IM , (FluLaval or Fluzone) 12/16/2019,11/27/2018,05/05/2018,10/08/201712/22/2018 Seasonal Influenza, Quadriva lent Hd (Fluzone Hd) 12/27/2022,01/11/2022,12/16/2020 Seasonal Influenza, Quadriva lent, No Preserve, IM 12/01/2016,01/10/2016,01/02/2015 TDAP (age 10 and older)(Boostrix) 06/23/2022 TDAP, [...] Telephone Encounter - Vesta Alanis LPN - 12/18/2023 11:35 AM EDT Noted * Telephone Encounter - Margarita Bahena OSA - 12/18/2023 11:18 AM EDT Person calling: Cherelle Relationship to patient: Spouse Reason for call(brief): cancel appt Detailed message to office:Cherelle calling to inform you that Arthur will no be making his appt todaydue to being taken to the hospital via ambulance. documented in this encounter Plan of Treatment Upcoming Encounters Date Type Department Care Team (Late st Contact Info) Description 12/20/2023 9:30 AM EDT Pharmacy Pharm[facility], [place] [address] [facility] [address] [facility], [place] [address] [facility] [address] [facility] [address] 01/21/2024 10:00 AM EST Office Visit Nephrology, [facility] [address] [place] [address] Laurita Washington PA-C [address] [place] [address] 04/01/2024 1:00 PM EST Nurse Only Ancillary Department, [place] [address] [place] [facility] [place] [address] [place], Nurse Annual Wellness [address] [place] [facility] [place] [address] 04/01/2024 2:20 PM EST Office Visit Family Practice, [place] [address] [place] [facility] [place] [phone] Gino Osman MD [address] [place], [place] [id number] 05/14/2024 2:00 PM EST Laboratory Laboratory [facility] [place] [address] [facility] [place] [address] [facility] [address] [facility] [place], [place] [address] 05/21/2024 2:15 PM EST Office Visit Hematology/Oncology [facility] [place] [address] [facility] [place], [place] [phone] Cleve Bruce MD [address] [place] [address] Health Maintenance Due Date Last Done Comments [...] this encounter Medical Devices Implanted Type Area Developmental Services Worker Device Identifier Shelf Expiration Date Model / Serial / Lot Lens Intraoc 18.0 - [id number] - [id number] Implanted:Qty: 1 on 11/20/2019 by Sonu Valladares MD at OR [facility] Left: Eye BAUSCH [employer] LOMB 02/16/2024 [id number] / [id number] / [id number] Sofport Implanted:Qty: 1 on 12/02/2019 by Sonu Valladares MD at OR [facility] Right: Eye 11/17/2023 [id number] / / [id number] documented as of this encounter Care Teams Refining Engineer Relationship Specialty Start Date End Date Gino Osman MD [address] [place] [address] PCP - General Family Medicine 05/06/18 documented as of this encounter
--- OUTSIDE RECORDS SUMMARY | 2023-12-19 10:26 | External Medical Summary | Summary of Care ---
Author Name Unknown Organization [facility] Address [address] [facility] [place] [address] Phone [phone] Care Team Providers Care Supervisor Telephone Clerks Name Role Phone Gino Osman MD Primary Care Provider Reason for Visit * Reason Onset Date Comments CMVIg ADMINISTRATION 12/18/2023 Encounter Details Date Type Department Care Team (Late st Contact Info) Description 12/18/2023 Telephone Nephrology, [facility] [address] [place] [address] Sp, Nurse Nephrology [address] [place] [address] CMVIg ADMINISTRATION Allergies Active Allergy Reactions Criticality [...] 30 Cap 12/16/2020 Active Ergocalciferol 1.25 MG (59369 UT) Oral Capsule (Vitamin D2(Drisdol)) On Sunday bimonthly 12 Capsule 01/02/2023 Active Tamsulosin HCl 0.4 MG Oral Capsule (Flomax)Indications: BPH with obstruction/lower urinary tract symptoms TAKE ONE CAPSULE BY MOUTH IN THE MORNING 90 Capsule 3 04/01/2023 Active Fluticasone Propionate 50 MCG/ACT Nasal Suspension (Flonase) Administer 1 [place] into nostril in the morning and 1 [place] before bedtime. 05/01/2023 Active Saline Nasal [place] 0.65 % Nasal Solution ([place]) Administer 1 [place] into nostril. 05/01/2023 Active Pantoprazole Sodium 40 [...] Start Date End Date Status Epoetin Rogelio 03274 UNIT/ML inj 60,000 UnitsIndications:Anemia of chronic renal failure, stage 3b (HCC) 37098 Units SC QWEEK 12/18/2023 Active documented as [...] right lower extremity 06/13/2018 Current use of petroleum terminal plant operator 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 019 History of lung transplant [...] mRNA, LNP-s, No Pre serve, 2-Dose Series (TappnGo) 09/03/2021,11/04/2020,05/27/2020,04/19 COVID-19, MRNA-LNP, 23-24, P F, 30 MCG/0.3 mL, 12 YRS AND ABOVE, IM ([place]le) 02/22/2023 COVID-19, MRNA-LNP, 24-25, P R, 30MCG/0.3ML, IM, 12YRS AND ABOVE (ShoutOmatic) 11/30/2023 Covid-19, Mrna, Lnp-s, Pf, B ivalent, 30 Mcg, IM, 12 yrs and above (TappnGo) 01/17/2022 Hepatitis B, 20+ yrs 01/03/2017,08/03/2016,07/05 Pneumococcal [...] Description 12/20/2023 9:30 AM EDT [facility]acy Pharmacy, [place] [address] [facility] [address] [facility], [place] [address] [address] [facility] [address] 01/21/2024 10:00 AM EST Office Visit Nephrology, Gabrielle Silva [address] [place] [address] Laurita Washington PA-C [address] [facility] [place] [address] 04/01/2024 1:00 PM EST Nurse Only Ancillary Department, [place] [address] [facility] [place] [address] [place], Nurse Annual Wellness [address] [place] [facility] [place] [address] 04/01/2024 2:20 PM EST Office Visit Family Practice, [place] [address] [facility] [phone] Gino Osman MD [address] [place], [place] [phone] 05/14/2024 2:00 PM EST Laboratory Laboratory [facility] [place] [address] [facility] [place] [phone] [facility] [address] [facility] [place], [place] [address] 05/21/2024 2:15 PM EST Office Visit Hematology/Oncology [facility] [place] [address] [facility] [place], [place] [phone] Cleve Bruce MD [address] [facility] [place] [address] Health Maintenance Due Date Last Done Comments [...] this encounter Medical Devices Implanted Type Area Professional Wrestler Device Identifier Shelf Expiration Date Model / Serial / Lot Lens Intraoc 18.0 - [id number] - [id number] Implanted:Qty: 1 on 11/20/2019 by Sonu Valladares MD at OR [facility] Left: Eye BAUSCH [employer] LOMB 02/16/2024 [id number] / [id number] / [id number] Sofport Implanted:Qty: 1 on 12/02/2019 by Sonu Valladares MD at OR [facility] Right: Eye 11/17/2023 [id number] / / [id number] documented as of this encounter Care Teams Supervisor Telephone Clerks Relationship Specialty Start Date End Date Gino Osman MD [address] [place] [address] PCP - General Family Medicine 05/06/18 documented as of this encounter
--- NOTE | 2023-12-19 10:57 | Nephrology Consultation ---
Date of Consultation December 19, 2023 Assessment & Plan (1) Hyponatremia: Associated with orthostatic Hypotension/Syncope so will assume this was related with volume deficit and true na deficit. Got better somewhat with NS. has had lot of wt loss with very poor po intake and 30 lbs wt loss. he is still drinking a lot but very poor solid food intake. FFR 1500 ml. Give another 1 liters of NS. Stop Lisinopril. avoid all diuretics. Check urine osm, urine na today. next BMP can be in AM. (2) Syncope: Likely related with vol deficit. has had lot of wt loss with very poor po intake and 30 lbs wt loss. Stop Lisinopril given this + high K. do not restart at discharge (3) CKD (chronic kidney disease) stage 4, GFR 15-29 ml/min: Current creat is abnormal but similar to his baseline. with his rapid wt loss creat based formula overestimates his GFR. check cystatin C based GFR also. he has severe trouble swallowing/taking bicarb tab. given this will lower it to 650 bid. Aim for bicarb > 18 only and not normal. (4) Hyperkalemia: Stop Lisinopril. bactrim and Tacrolimus also adds to it Plus his advanced CKD. (5) Lung transplant recipient: Continue Tacrolimus and bactrim and MMF. No need to check drug level as he will likely be discharged way before lab results come back. Plan Case complexity high time spent 60 mins. . History of Present Illness Reason for Consultation: Hyponatremia, Hyperkalemia and CKD Attending Physician: Steph Womack MD History of Present Illness 78/M with known CKD 4 ( baseline creat about low 2's for last 1 year) followed by Dr Chapa. Also has severe anemia of CKD and gets High dose Procrit. He has severe interstitial lung disease, history of left lung transplant in 2018 at [facility], history of bronchiolitis obliterans syndrome following lung transplant, h/o PE but Eliquis discontinued in Nov 2022 following upper GI bleed, thrombocytopenia, CKD 4, nonobstructive CAD, BPH and other medical problems listed below who presented from home after witnessed syncopal episode. 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 Ever since then, patient has been feeling weak, Poor PO intake and nauseated. Has difficulty with swallowing since radiation in that area of his face/neck. Drinks a lot of water overnight and has had decreased PO intake lately in setting of the nausea. has lost 30 lbs in 6 months. While Walking downstairs he felt lightheaded and passed out. No head trauma. No CP or SOB before or after the event. Also supposed to be taking sodium bicarb for and admits to missing a few doses last week. Recently seen at [facility] in [place] for hernia repair and while admitted there was noted to have hyperkalemia. Completed a short course of Lokelma with improvement. No F/C, headache, CP, palpitations, SOB, vomiting, abd pain, dysuira or constipation. History of chronic diarrhea which is at baseline. he did have some orthostatic drop in BP in ED but is better today. labs on admission noted to have Low na of 126, Highish K of 5.5 but Creat at baseline of 2.1. got some NS and with that na up a little to 129 now. BP is now good. No e/o fluid overload and currently on room air. ROS--As detailed in HPI. otherwise 12 systems negative Physical Exam Physical Exam: General Appearance:Awake and alert. NO distress, sitting up in bed, thin, chronically ill appearing, pleasant Neck: Supple. No JVD Respiratory: normal respiratory effort, b/l rhonchi bilaterally. Cardiovascular: regular rate, rhythm no BLE edema no JVD Abdomen/GI: soft, nontender Neurologic: Awake and alert. normal speech Skin: no rashes, normal color, warm/dry Allergies Allergy/AdvReac Type Severity Reaction Status Date / Time adhesive Allergy Intermediate REDENESS Verified 11/20/23 14:44 AND ITCHY Home Medications Medication Instructions Recorded Confirmed Type pravastatin 20 mg tablet 20 mg PO QAM #0 tabs 02/04/16 12/18/23 History tamsulosin 0.4 mg capsule 1 cap PO QAM ##0 02/04/16 12/18/23 History mycophenolate mofetil 500 mg tablet 750 mg PO BID 06/02/18 12/18/23 History sulfamethoxazole 800 0.5 tab PO 3XWK 06/02/18 12/18/23 History mg-trimethoprim 160 mg tablet tacrolimus 1 mg capsule, 2 mg PO BID 06/02/18 12/18/23 History immediate-release azithromycin 250 mg tablet 250 mg PO 3XWK 01/15/19 12/18/23 History aspirin 81 mg tablet,delayed 81 mg PO DAILY 11/21/22 12/18/23 History release montelukast 10 mg tablet 10 mg PO DAILY 11/21/22 12/18/23 History prednisone 5 mg tablet 5 mg PO DAILY 11/21/22 12/18/23 History acetaminophen 325 mg capsule 650 mg PO QID PRN pain or fever 09/05/23 12/18/23 History (Tylenol) epoetin pavel-epbx 40,000 unit/mL 40,000 unit subcut .Weekly 09/05/23 12/18/23 History injection solution (Retacrit) ergocalciferol (vitamin D2) 1,250 50,000 unit PO .QOweek 09/05/23 12/18/23 History mcg (50,000 unit) capsule (Vitamin D2) everolimus (immunosuppressive) 0.5 1 mg PO .In the AM 09/05/23 12/18/23 History mg tablet (Zortress) everolimus (immunosuppressive) 0.5 1.5 mg PO .In afternoon 09/05/23 12/18/23 History mg tablet (Zortress) fluticasone propionate 50 2 spray intranasal HS 09/05/23 12/18/23 History mcg/actuation nasal spray,suspension (Flonase Allergy Relief) guaifenesin 600 mg tablet, 600 mg PO Q12H PRN Congestion 09/05/23 12/18/23 History extended release 12 hr lisinopril 5 mg tablet 5 mg PO DAILY 09/05/23 12/18/23 History pantoprazole 40 mg tablet,delayed 40 mg PO DAILY 09/05/23 12/18/23 History release sodium bicarbonate 650 mg tablet 1,300 mg PO BID 09/05/23 12/18/23 History mirtazapine 15 mg tablet (Remeron) 15 mg PO DAILY 11/05/23 12/18/23 History silver sulfadiazine 1 % topical 1 applic topical BID Radiation 11/12/23 12/18/23 Rx cream (Silvadene) dermatitis #85 grams Patient History Medical History Anemia of chronic disease Interstitial lung disease Allergic rhinitis Spinal stenosis Right inguinal hernia Lumbar herniated disc BPH (benign prostatic hyperplasia) History of blood transfusion 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 History of tonsillectomy History of cardiac cath DIAGNOSTIC CATH FOR WORKUP FOR LUNG TRANSPLANT. History of colonoscopy Last one 11/2022 Family History Mother , 91yo Cancer Endometrial and breast cancer Dementia Hypertension Father , in his 80s Dementia Brother Myocardial infarction Sister Skin cancer Daughter No problems noted. 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 How many Children do You have: 2 Other Information That Helps Us Care for You: No Feels Safe at Home: Yes Safety Concerns: Feels Safe At This Time Diet: regular caffeine: Yes (10oz/day) during the past year weight has: decreased > 10 lbs Assistive Devices: Walker Results & Data Vital Signs (Past 12 Hours) Vital Signs Temp Pulse Pulse Resp BP Pulse Ox O2 Del Method 12/19/23 10:46 37.3 C 79 18 148/71 H 99 Room Air 12/19/23 09:42 105 H 12/19/23 09:42 Room Air 12/19/23 07:14 36.7 C 76 16 126/63 98 Room Air 12/19/23 04:18 37.2 C 78 17 129/74 97 Room Air 12/18/23 23:44 37.1 C 77 17 128/69 99 Room Air (2) Syncope Encounter type: initial encounter
[2023-12-19] MEDS: EPOETIN ALFA 40,000 UNITS/ML VIAL SQ ONE (12:24)
[2023-12-19] MEDS: EPOETIN ALFA 20,000 UNITS/ML VIAL SQ ONE (12:24)
[2023-12-19] MEDS: SODIUM CHLORIDE 0.9% 1,000 ML IV SCH (12:27)
[2023-12-19 13:29] LABS: Hematocrit (blood only) 22.5 % (42.0-52.0); Hemoglobin 6.9 g/dl (14.0-18.0)
[2023-12-19] MEDS ORDERED: SODIUM CHLORIDE 0.9% 250 ML IV PRN (13:44)
[2023-12-19] MEDS ORDERED: EVEROLIMUS PO SCH (14:30)
--- NOTE | 2023-12-19 14:37 | Hospitalist Progress Note ---
Date of Service December 19, 2023 Assessment & Plan (1) Syncope: (2) Hyponatremia: (3) Squamous cell carcinoma of head and neck: (4) CKD (chronic kidney disease) stage 4, GFR 15-29 ml/min: (5) Anemia of chronic disease: (6) Interstitial lung disease: (7) Pulmonary fibrosis: (8) Lung transplant recipient: (9) BPH (benign prostatic hyperplasia): Plan This is a 78-year-old male with PMH of interstitial lung disease, history of left lung transplant in 2018 at [facility], history of bronchiolitis obliterans syndrome following lung transplant, h/o PE but Eliquis discontinued in Nov 2022 following upper GI bleed, thrombocytopenia, CKD 4, nonobstructive CAD, BPH, SCC R face (s/p recent Mohs surgery on R ear, XRT) and other medical problems listed below who presents from home after witnessed syncopal episode earlier this afternoon. Anemia of chronic disease Hgb 8.1on admission downtrended to 7.2 to 6.9 on recheck s/p transfusion pRBC on 12/18 Dose of weekly Procrit recently increased but missed tx at nephro appt due to hospitalization Received procrit on 12/18, given by nephrology Daily CBC Syncope Likely vasovagal in setting of poor PO intake, positional change and above History of non-obstructive CAD in the past Orthostatics correct electrolyte abnormalities monitor on tele 2D echo Fall precautions PT/OT evaluation Hyponatremia Sodium of 126 (baseline Na 134) Follows with nephro for worsening CKD, chronic NAGMA Missed doses of sodium bicarb due to some post-radiation dysphagia and difficulty with pill size Serum osm, urine osm, urine lytes Appears euvolemic Routine nephro consult, appreciate recs -avoid diuretics, give fluids Continue to monitor Dysphagia in setting of SCC of ear s/p treatment Recently underwent Mohs surgery for SCC followed by XRT with [facility], which completed at beginning of Nov Endorsing worsened dysphagia since then Speech consult, aspiration precautions CKD IV Recent baseline Cr @ 2.2, started following with nephro last year Nephrology on board as above Hyperkalemia Intermittent need for Lokelma Initial K mildly elevated at 5.2 today nephro consulted as above ILD/ pulmonary fibrosis S/p single lung transplant in 2018, [facility] Respiratory status at baseline No infectious concerns, CXR at baseline Continue his immunosuppressive medications (everolimus, Cellcept, prednisone) and chronic suppressive antibiotics 3d/wk (azithromycin, Bactrim) Continue Mucinex, Singulair History of PE and DVT Occurred in post-op setting in 2017 Eliquis discontinued in 2022 following upper GI bleeding, ongoing anemia of chronic disease BPH Continue Flomax Thrombocytopenia Plts ~ 100, at baseline Monitor with daily CBC Hyperlipidemia Continue statin DVT Ppx: SCDs for now Code status: FULL PCP: Dawson Dispo: Admitted to PCU , PT/OT recs for further eval Admission and Anticipated Discharge Date Admission Date: December 18, 2023 Subjective Patient was seen with his at bedside. States that he has not been having any shortness of breath, chest tightness, chest pain Was seen by nephrology and did get Procrit. States that he was having diarrhea overnight. Review of Systems Review of Systems: All systems reviewed & are unremarkable except as noted in Subjective Physical Exam Physical Exam: General: Alert, oriented. No acute distress SKIN: wound behind right ear Psych: Appropriate mood and affect HEENT: NC/AT, right ear with noted perforation and wound CV: RRR Resp: Breath sounds clear bilaterally, no increased effort of breathing. Abdomen: Soft, mildly tender Extremities: No edema in lower extremities bilaterally. Results & Data Results & Data Vital Signs (Past 12 Hours) Vital Signs Temp Pulse Pulse Resp BP Pulse Ox O2 Del Method 12/19/23 10:46 37.3 C 79 18 148/71 H 99 Room Air 12/19/23 09:42 105 H 12/19/23 09:42 Room Air 12/19/23 07:14 36.7 C 76 16 126/63 98 Room Air 12/19/23 04:18 37.2 C 78 17 129/74 97 Room Air Diagnostic Findings Chest X-Ray 12/18/23 11:52 XR chest 1V portable CLINICAL HISTORY: Chest pain, nonspecific TECHNIQUE: Single frontal radiograph of the chest was obtained. Comparison: Comparison is made to chest radiograph 06/02/2018 FINDINGS: No lines and tubes are seen. The cardiomediastinal silhouette is normal. Elevation of the right hemidiaphragm is seen. Likely interstitial changes in the right lung. No evidence of pleural effusion or pneumothorax. IMPRESSION: Right interstitial lung disease is again seen. ACT 112: Negative or not required by law. Electronically signed by: Deniz Gomez M.D. 12/18/2023 12:44 PM (1) Syncope Encounter type: initial encounter
[2023-12-19] MEDS: EVEROLIMUS PO SCH ×2 (14:54→20:08)
[2023-12-19] MEDS: AZITHROMYCIN 250 MG TAB PO SCH (17:25)
[2023-12-19] MEDS: SODIUM BICARBONATE 650 MG TAB PO SCH (20:11)
[2023-12-19 21:20] LABS: Hematocrit (blood only) 25.3 % (42.0-52.0)
[2023-12-20 08:08] LABS: Hematocrit (blood only) 25.4 % (42.0-52.0); Hemoglobin 8.3 g/dl (14.0-18.0); Mean Corpuscular Hgb Conc 32.7 g/dL (32.0-36.0); Mean Corpuscular Volume 94.8 fL (80.0-100.0); Mean Platelet Volume 10.5 fL (9.4-12.4); Platelet Count 82 K/uL (130-400); RDW Coefficient of Variation 19.2 % (11.5-14.5); RDW Standard Deviation 65.9 fL (36.4-46.3); Red Blood Count 2.68 M/uL (4.70-6.10); White Blood Count 6.23 K/ul (4.8-10.8)
[2023-12-20 08:18] LABS: BUN Creatinine Ratio 18.1 (10-20); Calcium 8.3 mg/dl (8.6-10.3); Creatinine Clr Calc Pharmacy 23.4 ml/min; Magnesium 1.7 mg/dl (1.7-2.4); Phosphorus 3.2 mg/dl (2.5-4.9); Potassium 5.2 mmol/L (3.5-5.1)
--- NOTE | 2023-12-20 09:48 | Nephrology Progress Note ---
Date of Service December 20, 2023 Assessment & Plan Admission and Anticipated Discharge Date Admission Date: December 18, 2023 Subjective Assessment & Plan (1) Hyponatremia: Associated with orthostatic Hypotension/Syncope so will assume this was related with volume deficit and true na deficit. Got better somewhat with NS but did not get higher than 129 . has had lot of wt loss with very poor po intake and 30 lbs wt loss. he is still drinking a lot but very poor solid food intake. Will add FFR 1500 ml. will stop NS. na same as yesterday 129. Stop Lisinopril. Check urine osm 300+, urine na 51 next BMP can be in AM. (2) Syncope: Likely related with vol deficit. has had lot of wt loss with very poor po intake and 30 lbs wt loss. Stop Lisinopril given this + high K. do not restart at discharge Will check orthostatic BP now. RN will text me with result. (3) CKD (chronic kidney disease) stage 4, GFR 15-29 ml/min: Current creat is abnormal but similar to his baseline. with his rapid wt loss creat based formula overestimates his GFR. check cystatin C based GFR also. he has severe trouble swallowing/taking bicarb tab. given this will lower it to 650 bid. Aim for bicarb > 18 only and not normal. I did give procrit 09817 units yesterday. (4) Hyperkalemia: Stop Lisinopril. bactrim and Tacrolimus also adds to it Plus his advanced CKD. k is 5.2 today. will add lokelma 3 doses only while inpt. (5) Lung transplant recipient: Continue Tacrolimus and bactrim and MMF. No need to check drug level as he will likely be discharged way before lab results come back. S--had PRBC yesterday after hgb < 7. No major SOB. drinks a good bit and said he ate better yesterday Physical Exam Physical Exam: General Appearance:Awake and alert. NO distress, sitting up in bed, thin, chronically ill appearing, pleasant Neck: Supple. No JVD Respiratory: normal respiratory effort, b/l rhonchi bilaterally. Cardiovascular: regular rate, rhythm no BLE edema no JVD Abdomen/GI: soft, nontender Neurologic: Awake and alert. normal speech Skin: no rashes, normal color, warm/dry Results & Data Vital Signs (Past 12 Hours) Vital Signs Temp Pulse Pulse Resp BP BP Pulse Ox 12/20/23 07:40 37.1 C 68 17 143/67 H 97 12/20/23 04:00 36.7 C 77 18 161/68 H 97 12/19/23 23:13 36.8 C 73 17 128/69 97 12/19/23 22:50 71 O2 Del Method 12/20/23 07:40 Room Air 12/20/23 04:00 Room Air 12/19/23 23:13 Room Air 12/19/23 22:50
[2023-12-20] MEDS: SODIUM ZIRCONIUM CYCLOSILICATE 10 GM PACKET PO SCH (12:00)
--- NOTE | 2023-12-20 14:02 | Hospitalist Progress Note ---
Date of Service December 20, 2023 Assessment & Plan (1) Syncope: (2) Hyponatremia: (3) Squamous cell carcinoma of head and neck: (4) CKD (chronic kidney disease) stage 4, GFR 15-29 ml/min: (5) Anemia of chronic disease: (6) Interstitial lung disease: (7) Pulmonary fibrosis: (8) Lung transplant recipient: (9) BPH (benign prostatic hyperplasia): Plan This is a 78-year-old male with PMH of interstitial lung disease, history of left lung transplant in 2018 at [facility], history of bronchiolitis obliterans syndrome following lung transplant, h/o PE but Eliquis discontinued in Nov 2022 following upper GI bleed, thrombocytopenia, CKD 4, nonobstructive CAD, BPH, SCC R face (s/p recent Mohs surgery on R ear, XRT) and other medical problems listed below who presents from home after witnessed syncopal episode earlier this afternoon. Anemia of chronic disease Hgb 8.1on admission downtrended to 7.2 to 6.9 on recheck s/p transfusion pRBC on 12/18 Dose of weekly Procrit recently increased but missed tx at nephro appt due to hospitalization Received procrit on 12/18, given by nephrology Daily CBC Continue to monitor Syncope Likely vasovagal in setting of poor PO intake, positional change and above History of non-obstructive CAD in the past Orthostatics correct electrolyte abnormalities monitor on tele 2D echo Fall precautions PT/OT evaluation Hyponatremia Sodium of 126 (baseline Na 134) Follows with nephro for worsening CKD, chronic NAGMA Missed doses of sodium bicarb due to some post-radiation dysphagia and difficulty with pill size Serum osm, urine osm, urine lytes Appears euvolemic Routine nephro consult, appreciate recs Continue to monitor Dysphagia in setting of SCC of ear s/p treatment Recently underwent Mohs surgery for SCC followed by XRT with [facility], which completed at beginning of Nov Endorsing worsened dysphagia since then Speech consult, aspiration precautions CKD IV Recent baseline Cr @ 2.2, started following with nephro last year Nephrology on board as above Hyperkalemia Intermittent need for Lokelma Initial K mildly elevated at 5.2 today nephro consulted as above ILD/ pulmonary fibrosis S/p single lung transplant in 2017, [facility] Respiratory status at baseline No infectious concerns, CXR at baseline Continue his immunosuppressive medications (everolimus, Cellcept, prednisone) and chronic suppressive antibiotics 3d/wk (azithromycin, Bactrim) Continue Mucinex, Singulair History of PE and DVT Occurred in post-op setting in 2017 Eliquis discontinued in 2022 following upper GI bleeding, ongoing anemia of chronic disease BPH Continue Flomax Thrombocytopenia Plts ~ 100, at baseline Monitor with daily CBC Hyperlipidemia Continue statin DVT Ppx: SCDs for now Code status: FULL PCP: Dawson Dispo: Admitted to PCU , PT/OT recs for further eval Admission and Anticipated Discharge Date Admission Date: December 18, 2023 Subjective Patient was seen seated sitting up in bed. Denied acute concerns. Does note he has not had a bowel movement recently Review of Systems Review of Systems: All systems reviewed & are unremarkable except as noted in Subjective Physical Exam Physical Exam: General: Alert, oriented. No acute distress SKIN: wound behind right ear Psych: Appropriate mood and affect HEENT: NC/AT, right ear with noted perforation and wound CV: RRR Resp: Breath sounds clear bilaterally, no increased effort of breathing. Abdomen: Soft, mildly tender Extremities: No edema in lower extremities bilaterally. Results & Data Results & Data Vital Signs (Past 12 Hours) Vital Signs Temp Pulse Pulse Resp BP BP Pulse Ox 12/20/23 10:36 36.7 C 83 17 122/72 98 12/20/23 10:32 36.6 C 72 17 166/73 H 94 12/20/23 07:40 37.1 C 68 17 143/67 H 97 12/20/23 07:30 69 12/20/23 04:00 36.7 C 77 18 161/68 H 97 O2 Del Method 12/20/23 10:36 Room Air 12/20/23 10:32 Room Air 12/20/23 07:40 Room Air 12/20/23 07:30 12/20/23 04:00 Room Air (1) Syncope Encounter type: initial encounter
[2023-12-20 15:15] VITALS: RESP 18
[2023-12-20] MEDS: DOCUSATE SODIUM 100 MG CAP PO SCH (20:09)
[2023-12-21 06:24] LABS: Hematocrit (blood only) 24.5 % (42.0-52.0); Mean Corpuscular Hgb Conc 32.7 g/dL (32.0-36.0); Mean Platelet Volume 10.8 fL (9.4-12.4); Platelet Count 76 K/uL (130-400); RDW Coefficient of Variation 18.2 % (11.5-14.5); RDW Standard Deviation 63.3 fL (36.4-46.3); Red Blood Count 2.58 M/uL (4.70-6.10); White Blood Count 9.99 K/ul (4.8-10.8)
[2023-12-21 06:46] LABS: BUN Creatinine Ratio 20.4 (10-20); Calcium 8.1 mg/dl (8.6-10.3); Creatinine Clr Calc Pharmacy 21.8 ml/min; Magnesium 1.6 mg/dl (1.7-2.4)
[2023-12-21] MEDS: SULFA/TRIMETH 400/80MG TAB PO SCH (08:33)
--- NOTE | 2023-12-21 09:45 | Nephrology Progress Note ---
Date of Service December 21, 2023 Assessment & Plan Admission and Anticipated Discharge Date Admission Date: December 18, 2023 Subjective Assessment & Plan (1) Hyponatremia: Associated with orthostatic Hypotension/Syncope so will assume this was related with volume deficit and true na deficit. Got better somewhat with NS but did not get higher than 129 . has had lot of wt loss with very poor po intake and 30 lbs wt loss. he is still drinking a lot but poor solid food intake. Will add FFR 1500 ml. na same as yesterday 129. Stop Lisinopril. Check urine osm 300+, urine na 51 . (2) Syncope: Likely related with vol deficit. has had lot of wt loss with very poor po intake and 30 lbs wt loss. Stop Lisinopril given this + high K. do not restart at discharge even yesterday he had sig orthostatic drop in BP so guide BP rx based on Standing BP. (3) CKD (chronic kidney disease) stage 4, GFR 15-29 ml/min: Current creat is abnormal but similar to his baseline. with his rapid wt loss creat based formula overestimates his GFR. check cystatin C based GFR also. he has severe trouble swallowing/taking bicarb tab. given this will lower it to 650 bid. Aim for bicarb > 18 and not normal. I did give procrit 43721 units. hgb is still low and will continue weekly procrit injection (4) Hyperkalemia: Stop Lisinopril. bactrim and Tacrolimus also adds to it Plus his advanced CKD. k is 5 today. Finish lokelma 3 doses only while inpt. he already has at home so can use once daily. (5) Lung transplant recipient: Continue Tacrolimus and bactrim and MMF. No need to check drug level as he will likely be discharged way before lab results come back. For Discharge: 1 FFR 1500 ml per day. More protein and solid food. 2 No Lisinopril. 3 Once daily Lokelma--he already has the med at home. 4 Labs on Sunday--gets weekly lab for procrit--this time also do renal panel, Mg, iron screen and CBC--nephro RN will order. S--No new issues. No major SOB. drinks a good bit and said he ate better yesterday Physical Exam Physical Exam: General Appearance:Awake and alert. NO distress, sitting up in bed, thin, chronically ill appearing, pleasant Neck: Supple. No JVD Respiratory: normal respiratory effort, b/l rhonchi bilaterally. Cardiovascular: regular rate, rhythm no BLE edema no JVD Abdomen/GI: soft, nontender Neurologic: Awake and alert. normal speech Skin: no rashes, normal color, warm/dry Results & Data Vital Signs (Past 12 Hours) Vital Signs Temp Pulse Pulse Resp BP Pulse Ox O2 Del Method 12/21/23 08:06 36.7 C 80 18 137/70 96 Room Air 12/21/23 02:49 37.4 C 84 18 142/72 H 94 Room Air 12/20/23 23:06 37.6 C H 95 H 18 172/76 H 93 Room Air 12/20/23 21:47 77
[2023-12-21] MEDS: MAGNESIUM SULFATE / D5W 1 GM/100 ML BAG IV SCH (10:28)
[2023-12-21 12:20] VITALS: PULSE 79; TEMP 97.5; O2SAT 97
--- NOTE | 2023-12-21 13:25 | Hospitalist Progress Note ---
Date of Service December 21, 2023 Assessment & Plan (1) Syncope: (2) Hyponatremia: (3) Squamous cell carcinoma of head and neck: (4) CKD (chronic kidney disease) stage 4, GFR 15-29 ml/min: (5) Anemia of chronic disease: (6) Interstitial lung disease: (7) Pulmonary fibrosis: (8) Lung transplant recipient: (9) BPH (benign prostatic hyperplasia): Plan This is a 78-year-old male with PMH of interstitial lung disease, history of left lung transplant in 2018 at [facility], history of bronchiolitis obliterans syndrome following lung transplant, h/o PE but Eliquis discontinued in Nov 2022 following upper GI bleed, thrombocytopenia, CKD 4, nonobstructive CAD, BPH, SCC R face (s/p recent Mohs surgery on R ear, XRT) and other medical problems listed below who presents from home after witnessed syncopal episode earlier this afternoon. Anemia of chronic disease Hgb 8.1on admission downtrended to 7.2 to 6.9 on recheck s/p transfusion pRBC on 12/18 Dose of weekly Procrit recently increased but missed tx at nephro appt due to hospitalization Received procrit on 12/18, given by nephrology Daily CBC Continue to monitor Syncope Likely vasovagal in setting of poor PO intake, positional change and above History of non-obstructive CAD in the past Orthostatics correct electrolyte abnormalities monitor on tele 2D echo Fall precautions PT/OT evaluation Hyponatremia Sodium of 126 (baseline Na 134) Follows with nephro for worsening CKD, chronic NAGMA Missed doses of sodium bicarb due to some post-radiation dysphagia and difficulty with pill size Serum osm, urine osm, urine lytes Appears euvolemic Routine nephro consult, appreciate recs Continue to monitor Dysphagia in setting of SCC of ear s/p treatment Recently underwent Mohs surgery for SCC followed by XRT with [facility], which completed at beginning of Nov Endorsing worsened dysphagia since then Speech consult, aspiration precautions CKD IV Recent baseline Cr @ 2.2, started following with nephro last year Nephrology on board as above Hyperkalemia Intermittent need for Lokelma Initial K mildly elevated at 5.2 today nephro consulted as above ILD/ pulmonary fibrosis S/p single lung transplant in 2018, [facility] Respiratory status at baseline No infectious concerns, CXR at baseline Continue his immunosuppressive medications (everolimus, Cellcept, prednisone) and chronic suppressive antibiotics 3d/wk (azithromycin, Bactrim) Continue Mucinex, Singulair History of PE and DVT Occurred in post-op setting in 2017 Eliquis discontinued in 2022 following upper GI bleeding, ongoing anemia of chronic disease BPH Continue Flomax Thrombocytopenia Plts ~ 100, at baseline Monitor with daily CBC Hyperlipidemia Continue statin DVT Ppx: SCDs for now Code status: FULL PCP: Dawson Dispo: Admitted to PCU , PT/OT recs for further eval Admission and Anticipated Discharge Date Admission Date: December 18, 2023 Physical Exam Physical Exam: General: Alert, oriented. No acute distress SKIN: wound behind right ear Psych: Appropriate mood and affect HEENT: NC/AT, right ear with noted perforation and wound CV: RRR Resp: Breath sounds clear bilaterally, no increased effort of breathing. Abdomen: Soft, mildly tender Extremities: No edema in lower extremities bilaterally. Results & Data Results & Data Vital Signs (Past 12 Hours) Vital Signs Temp Pulse Resp BP Pulse Ox O2 Del Method 12/21/23 12:20 36.4 C L 79 18 144/72 H 97 Room Air 12/21/23 09:46 Room Air 12/21/23 08:06 36.7 C 80 18 137/70 96 Room Air 12/21/23 02:49 37.4 C 84 18 142/72 H 94 Room Air (1) Syncope Encounter type: initial encounter
[2023-12-21] MEDS: MAGNESIUM OXIDE 400 MG TAB PO SCH (13:45)
--- NOTE | 2023-12-21 14:26 | Discharge Summary ---
Discharge Summary Date of Service December 21, 2023 Principal Dx & Hospital Course #1 = Principal Diagnosis (1) Syncope: (2) Hyponatremia: (3) Squamous cell carcinoma of head and neck: (4) CKD (chronic kidney disease) stage 4, GFR 15-29 ml/min: (5) Anemia of chronic disease: (6) Interstitial lung disease: (7) Pulmonary fibrosis: (8) Lung transplant recipient: (9) BPH (benign prostatic hyperplasia): Plan This is a 78-year-old male with PMH of interstitial lung disease, history of left lung transplant in 2018 at [facility], history of bronchiolitis obliterans syndrome following lung transplant, h/o PE but Eliquis discontinued in Nov 2022 following upper GI bleed, thrombocytopenia, CKD 4, nonobstructive CAD, BPH, SCC R face (s/p recent Mohs surgery on R ear, XRT) and other medical problems listed below who presents from home after witnessed syncopal episode earlier this afternoon. Anemia of chronic disease Hgb 8.1 on admission downtrended to 7.2 to 6.9 on recheck s/p transfusion pRBC on 12/18 hgb as remained stable around 8 since then Dose of weekly Procrit recently increased but missed tx at nephro appt due to hospitalization Received procrit inpatient on 12/18, given by nephrology Continue to monitor hgb after discharge, pcp and nephrology follow up Syncope Likely vasovagal in setting of poor PO intake, hyponatremia, positional change and above History of non-obstructive CAD in the past Orthostatics were abnormal, initially received IV fluids corrected electrolyte abnormalities Echo with EF of 60 to 65%, no pulmonary hypertension about mild left ventricular hypertrophy, moderate aortic valve sclerosis without stenosis Fall precautions PT/OT evaluation, recommending discharge to home Hyponatremia Sodium of 126 on admission (baseline Na 134) Follows with nephro for worsening CKD, chronic NAGMA Missed doses of sodium bicarb due to some post-radiation dysphagia and difficulty with pill size Nephrology was consulted, The following was recommended for discharge: -continue Lokelma tabs he has at home -Discontinue lisinopril -Fluid restriction 1500ml -increase protein in solid food intake -reduce dose of sodium bicarb to 650 mg twice a day per nephrology provider, will need follow-up labs after discharge. Already ordered and scheduled. CKD IV Recent baseline Cr @ 2.2, started following with nephro yobani year Nephrology follow-up as noted above. Hyperkalemia Intermittent need for Lokelma Initial K mildly elevated at 5.2 today Nephrology recommending patient continue with Lokelma at home. Potassium of 5 on discharge Dysphagia in setting of SCC of ear s/p treatment Recently underwent Mohs surgery for SCC followed by XRT with [facility], which completed at beginning of Nov Endorsing worsened dysphagia since then Speech consult, aspiration precautions - Recommending easy to chew, thin liquid diet PCP follow-up outpatient. ILD/ pulmonary fibrosis S/p single lung transplant in 2018, [facility] Respiratory status at baseline No infectious concerns, CXR at baseline Continue his immunosuppressive medications (everolimus, Cellcept, prednisone) and chronic suppressive antibiotics 3d/wk (azithromycin, Bactrim) Continue Mucinex, Singulair PCP and specialist follow-up after discharge History of PE and DVT Occurred in post-op setting in 2017 Eliquis discontinued in 2022 following upper GI bleeding, ongoing anemia of chronic disease BPH Continue Flomax Thrombocytopenia Plts ~ 100, at baseline PCP follow-up after discharge Hyperlipidemia Continue statin Notes For Next Care Provider Please ensure follow up with Nephrology after discharge and for needed labs Fluid restriction 1500ml Medication Changes From Visit Per nephrology: Discontinue Lisinopril Decrease sodium bicarbonate dose Admission HPI Per Admitting Provider This is a 78-year-old male with PMH of interstitial lung disease, history of left lung transplant in 2018 at [facility], history of bronchiolitis obliterans syndrome following lung transplant, h/o PE but Eliquis discontinued in Nov 2022 following upper GI bleed, thrombocytopenia, CKD 4, nonobstructive CAD, BPH, SCC R face (s/p recent Mohs surgery on R ear, XRT) and other medical problems listed below who presents from home after witnessed syncopal episode earlier this afternoon. 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 Ever since then, patient endorses feeling more run down and nauseated. Denies vomiting but has trouble clearing phlegm. Had difficulty with swallowing which has remained an intermittent issue he attributes to radiation in that area of his face/neck. Drinks a lot of water overnight and has had decreased PO intake lately in setting of the nausea. Walked downstairs today and when he reached the bottom felt lightheaded and passed out. was able to ease him to the ground and states he came to quickly. No head trauma. No CP or SOB preceding or after the event. Has worsening anemia of chronic disease and follows with nephro for this. Recently had procrit dose increased from 40 to 60 weekly but missed appt for that today due to coming to ED instead. Also supposed to be taking sodium bicarb for history of NAGMA and admits to missing a few doses last week. Recently seen at [facility] in [place] for hernia repair and while admitted there was noted to have hyperkalemia. Completed a short course of Lokelma with improvement. Denies any recent medication changes. No F/C, headache, CP, palpitations, SOB, vomiting, abd pain, dysuira or constipation. History of chronic diarrhea which is at baseline. Admission Exam Per Admitting Provider General Appearance: WD/WN, vitals as above, NAD, sitting up in bed, thin, chronically ill appearing, pleasant Head: normocephalic, atraumatic Eyes: normal inspection, PERRL, conjunctivae normal, anicteric sclerae ENT: + R external ear s/p surgical excision with deformity noted, oropharynx normal Neck: normal visual inspection, trachea midline, no thyromegaly Respiratory: normal respiratory effort, coarse breath sounds bilaterally. No accessory muscle use Cardiovascular: regular rate, rhythm, normal peripheral pulses, no BLE edema. Vessels: no JVD Chest: normal inspection of chest Abdomen/GI: normal bowel sounds, soft, nontender, no hepatosplenomegaly Extremities/Musculoskeletal: no cyanosis or clubbing, extremities motor strength 5/5 Neurologic: PERRL, EOMI, accommodation nl, no face palsy, no dysarthria, CN's II-XI intact bilaterally and moves all extremities Psychiatric: A+Ox3, euthymic affect Skin: no rashes, normal color, warm/dry Discharge Exam General: Alert, oriented. No acute distress SKIN: wound behind right ear Psych: Appropriate mood and affect HEENT: NC/AT, right ear with noted perforation and wound CV: RRR Resp: Breath sounds clear bilaterally, no increased effort of breathing. Abdomen: Soft, mildly tender Extremities: No edema in lower extremities bilaterally. Updated Medication List Medication Instructions Recorded Confirmed Type pravastatin 20 mg tablet 20 mg PO QAM #0 tabs 02/04/16 12/18/23 History tamsulosin 0.4 mg capsule 1 cap PO QAM ##0 02/04/16 12/18/23 History mycophenolate mofetil 500 mg tablet 750 mg PO BID 06/02/18 12/18/23 History sulfamethoxazole 800 0.5 tab PO 3XWK 06/02/18 12/18/23 History mg-trimethoprim 160 mg tablet tacrolimus 1 mg capsule, 2 mg PO BID 06/02/18 12/18/23 History immediate-release azithromycin 250 mg tablet 250 mg PO 3XWK 01/15/19 12/18/23 History aspirin 81 mg tablet,delayed 81 mg PO DAILY 11/21/22 12/18/23 History release montelukast 10 mg tablet 10 mg PO DAILY 11/21/22 12/18/23 History prednisone 5 mg tablet 5 mg PO DAILY 11/21/22 12/18/23 History acetaminophen 325 mg capsule 650 mg PO QID PRN pain or fever 09/05/23 12/18/23 History (Tylenol) epoetin pavel-epbx 40,000 unit/mL 40,000 unit subcut .Weekly 09/05/23 12/18/23 History injection solution (Retacrit) ergocalciferol (vitamin D2) 1,250 50,000 unit PO .QOweek 09/05/23 12/18/23 History mcg (50,000 unit) capsule (Vitamin D2) everolimus (immunosuppressive) 0.5 1 mg PO .In the AM 09/05/23 12/18/23 History mg tablet (Zortress) everolimus (immunosuppressive) 0.5 1.5 mg PO .In afternoon 09/05/23 12/18/23 History mg tablet (Zortress) fluticasone propionate 50 2 spray intranasal HS 09/05/23 12/18/23 History mcg/actuation nasal spray,suspension (Flonase Allergy Relief) guaifenesin 600 mg tablet, 600 mg PO Q12H PRN Congestion 09/05/23 12/18/23 History extended release 12 hr pantoprazole 40 mg tablet,delayed 40 mg PO DAILY 09/05/23 12/18/23 History release mirtazapine 15 mg tablet (Remeron) 15 mg PO DAILY 11/05/23 12/18/23 History silver sulfadiazine 1 % topical 1 applic topical BID Radiation 11/12/23 12/18/23 Rx cream (Silvadene) dermatitis #85 grams sodium bicarbonate 650 mg tablet 650 mg PO BID #60 tabs 12/21/23 Rx Hospital Stay Data Consultations 12/18/23 13:38 ED Decision to Admit Stat 12/18/23 14:49 Consult Nephrology Routine Diagnostic Imagining Performed Chest X-Ray 12/18/23 11:52 XR chest 1V portable CLINICAL HISTORY: Chest pain, nonspecific TECHNIQUE: Single frontal radiograph of the chest was obtained. Comparison: Comparison is made to chest radiograph 06/02/2018 FINDINGS: No lines and tubes are seen. The cardiomediastinal silhouette is normal. Elevation of the right hemidiaphragm is seen. Likely interstitial changes in the right lung. No evidence of pleural effusion or pneumothorax. IMPRESSION: Right interstitial lung disease is again seen. ACT 112: Negative or not required by law. Electronically signed by: Deniz Gomez M.D. 12/18/2023 12:44 PM Pending Results Patient Have Any Pending Studies at Discharge: No Discharge Instructions Given to Patient (Per Discharging Provider) Arthur, You were admitted and treated after a fall at home. Your sodium levels were also noted to be low. You are seen by the clinical trial head. He recommends discharge home with the following recommendations: -Continue with your Lokelma at home to help your high potassium levels. Dr. Ibarra notes you have the medication at home. -Fluid restriction of 1500 mL a day. -Discontinue lisinopril use at home. -decrease your sodium bicarbonate dose to 600 mg twice a day since you are having trouble swallowing the pills -Try to incorporate a lot of of protein and solid food into your diet. - Labs on December 24 as scheduled Please keep close follow-up with nephrology after discharge. Please also keep close follow up with your primary care provider after discharge. Please do not hesitate to come back to the emergency room if your symptoms worsen or return. It was a pleasure taking care of you while you were here. Total Time Total Time Spent Total Time Spent (In Minutes): 65
[2023-12-21 14:30] VITALS: BP 166/73
--- NOTE | 2023-12-22 14:13 | Coding Query ---
CODING QUERY To promote full compliance with coding requirements relating to patient care, provider participation is requested in all cases of health information coder uncertainty. Please assist us with the question(s) below: Coding Question(s): The medical record reflects the following clinical evidence: Clinical Indicators: Review of stroke coordinator consult reveals pt has severe malnutrition, evidenced by 30 lb/20.1% wt loss over the past 6 months and moderated loss of muscle mass in the temples and clavicle bone region Treatment: boost GC bid with meals, monitor wts, labs Risk Factor(s): age, hyponatremia, CKD stage IV Physician's Response(s): __x_severe malnutrition ___Other explanation of clinical findings ___Unable to determine (no explanation for clinical findings) Thank you Perlita ZIMMERMAN
== END 2023-12-21 15:04 | disposition home or self-care (01) | DRG 640 ==
LOC: ED 11:35 → 2S 13:50 → SUATTDRO 13:50 → 2S 15:39